=== PATIENT | male | born 1945 | race Caucasian/White ===

== ENCOUNTER 2025-05-05 10:24 | Emergency (ER) | payer MEDICARE, SELFPAY ==
[2025-05-05 10:27] VITALS: BP 133/83; PULSE 72; RESP 14; TEMP 36.8; O2SAT 98; BMI 25.7
--- NOTE | 2025-05-05 10:53 | VDLE_ITS ---
Reason For Study Reason For Study: RLE PAin RIGHT GSV is normal. CFV is compressible, spontaneous, phasic, competent and demonstrates normal augmentation. FV is compressible, spontaneous, phasic, competent and demonstrates normal augmentation. POP V is compressible, spontaneous, phasic, competent and demonstrates normal augmentation. T/P Trunk is compressible. PTV is compressible. RT PerV is compressible. Procedure This is a venous duplex using B-mode, color flow and spectral Doppler. Exam performed portable in ED. The exam was diagnostic. A preliminary report was called and/or faxed to Dr. Rodriguez. VL/Venous Duplex US, Unilateral Interpretation Summary Deep veins of the right lower extremity are patent and compressible segmentally . There is no evidence of right lower extremity deep vein thrombosis. Valvular competence appears intact within the p roximal deep venous system on the right . The right great saphenous vein appears patent and compressible segmentally. Ordering Physician: George Rodriguez Referring Physician: N/A Performed By: Yonis Moss RVT
--- NOTE | 2025-05-05 11:48 | RAD_ITS ---
PROCEDURE: ANKLE MIN 3 VIEWS 05/05/2025 REASON FOR EXAM: PAIN TECHNIQUE: Procedure Code: RADANK Modality: DX Procedure: ANKLE MIN 3 VIEWS Laterality: Right COMPARISON: Tibiofibula x-ray of the same day FINDINGS: Bones: No fracture. 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 Soft tissues: Atherosclerosis Other: No foreign body RAD/Ankle min 3 Views IMPRESSION: 1. No fracture. Degenerative changes. Reading Location: [id number]
--- NOTE | 2025-05-05 11:48 | RAD_ITS ---
PROCEDURE: TIBIA FIBULA 2 VIEWS 05/05/2025 REASON FOR EXAM: TRAUMA TECHNIQUE: 2 views of the right tibia and fibula COMPARISON: Ankle series of the same day FINDINGS: Image was reviewed in combination with the ankle series that included the distal tibia and fibula. Bones: No fracture Soft tissues: Atherosclerosis. Other: No foreign body RAD/Tibia & Fibula 2 Views IMPRESSION: No acute abnormality. Advanced atherosclerosis. Reading Location: [id number]
[2025-05-05 12:27] VITALS: BP 147/55; PULSE 55; RESP 17; TEMP 36.9; O2SAT 97
--- NOTE | 2025-05-05 12:29 | ED.VIS.FALL ---
HPI HPI - Fall History of Present Illness Chief Complaint: Fall Narrative Narrative: 79-year-old male presents with his friend because of injury to his right lower extremity on the anterior tibial area that he sustained a few days ago. He states that last week he was walking up concrete stairs in his garage and took a chunk of skin out of his right anterior tibial area. He states he went to clean it, and removed some red thin skin. He was unsure if his avulsion laceration went all the way down to the bone. He has noticed foot swelling over the last week surrounded by redness to his wound. He states he also had a fall a few days ago where he hit his head. While he states he takes a blood thinner he cannot recall when he takes it for, or which 1. He is concerned about his foot and ankle swelling. As well as his avulsion laceration which has redness around it. He denies any fevers or chills, no nausea or vomiting, no other injuries. He states that he went to urgent care today and they refused to take an x-ray of it because of his head injury. [facility] Medical History (Updated 05/05/25 @ 13:22 by George Rodriguez MD) Depression HTN (hypertension) Hyperlipidemia Home Medications ?Medication ?Instructions ?Recorded ?Last Taken ?Type amoxicillin 875 mg-potassium 1 tab PO BID #14 tabs 05/05/25 Unknown Rx clavulanate 125 mg tablet atorvastatin 40 mg tablet 40 mg PO QHS 05/05/25 Unknown History metoprolol succinate 25 mg 25 mg PO DAILY 05/05/25 Unknown History tablet,extended release 24 hr sertraline 50 mg tablet 50 mg PO DAILY 05/05/25 Unknown History Allergy/AdvReac Type Severity Reaction Status Date / Time No Known Allergies Allergy Verified 05/05/25 10:27 Social History Smoking Status: Never smoker ROS ROS ED ROS Narrative Review of systems positive for wound to right anterior tibial area sustained approximately a week ago. Positive swelling of right ankle since then. Pain in ankle worse with walking and weightbearing. No fevers or chills, no drainage or pus from wound. No headache. No neck pain. No chest pain or shortness of breath. EXAM Physical Exam Narrative Exam Narrative: GCS 15. ABCs intact. Head normocephalic atraumatic. PERRL, EOMI. Neck soft and supple without meningismus. Full range of motion without pain. Cardiovascular examination reveals a regular rate and rhythm. Lungs clear to auscultation bilaterally. Abdomen soft and nontender with normoactive bowel sounds. Inspection of the right anterior tibial area does show a 1 cm avulsion laceration without active bleeding with mild surrounding erythema, no fluctuance. Full range of motion of right ankle with noted swelling diffusely. No calf tenderness, no palpable cord. Palpable dorsalis pedis pulse. Neurological examination nonfocal, nonlateralizing. Const Vital Signs: 05/05/25 10:27 05/05/25 12:27 05/05/25 12:38 Temperature 98.2 F 98.4 F Temperature Source Temporal Oral Pulse Rate 72 55 L Respiratory Rate 14 17 Respiratory Effort Normal Non-Labored Respiratory Depth Normal Respiratory Pattern Normal Blood Pressure 133/83 H 147/55 H Blood Pressure Mean 99 85 Pulse Ox 98 97 Oxygen Delivery Method Room Air Room Air Room Air 05/05/25 13:00 Temperature 97.8 F Temperature Source Oral Pulse Rate 57 L Respiratory Rate 15 Respiratory Effort Respiratory Depth Respiratory Pattern Blood Pressure 131/77 H Blood Pressure Mean 95 Pulse Ox 94 Oxygen Delivery Method Room Air MDM MDM MDM Narrative Medical decision making narrative: Differential diagnosis includes but not limited to ankle sprain versus fracture versus wound infection. I have lower suspicion for DVT, but the patient cannot recall which blood thinner he may take or why. In order to rule out DVT, I obtained an ultrasound of the right lower extremity which shows no evidence of DVT according to the mixing technician. I ordered x-rays of the right tibia and fibula to look for any fracture of the bone or the anterior tibial area mainly. On my individual interpretation, there is no evidence of an acute fracture. Patient was mildly insistent that he needed dedicated ankle films, even though he was told that the tibia and fibula include the ankle bones. On my individual interpretation of the ankle x-rays there is no evidence of fracture but degenerative changes. He may have pain and swelling secondary to arthritis. I reviewed the radiology report which confirms my independent interpretation. At this point in time, I do not feel he requires laboratory work and I feel he can be discharged to follow-up with his primary care provider. I offered to wrap his right ankle with an Don wrap, but he declined. He was concerned about infection around the room and given the hyperemia/erythema he was started on Augmentin for the next 7 days. He can have a wound check by his primary care provider. Return instructions to the emergency department were reviewed. Disposition is discharged home in stable condition. History & Record Review Discussion w/independent historian: Patient and Friend Additional record(s) reviewed:: No prior records (No prior ED visits) Radiography Diagnostic Testing: Clinical Impression(s) from Imaging Studies Ankle X-Ray 05/05/25 11:48 IMPRESSION: 1. No fracture. Degenerative changes. Reading Location: [facility] Tibia/Fibula X-Ray 05/05/25 11:48 IMPRESSION: No acute abnormality. Advanced atherosclerosis. Reading Location: [facility] Discharge Plan Triage Chief Complaint: Fall ED Provider: George Rodriguez Dx/Rx/DC Orders Clinical Impression: Avulsion of skin of right lower leg, Right ankle swelling Instructions: ED Peripheral Edema, Unilateral, ED Fall Prevention Prescriptions: New amoxicillin-pot clavulanate 875-125 mg tablet 1 tab PO BID Qty: 14 0RF No Action atorvastatin 40 mg tablet 40 mg PO QHS metoprolol succinate 25 mg tablet extended release 24 hr 25 mg PO DAILY sertraline 50 mg tablet 50 mg PO DAILY Activity Restrictions/Additional Instructions: Follow-up with your primary care provider in the next 7 to 10 days. Return to the emergency department with fever, drainage of pus from wound, new or worsening symptoms. Your ultrasound was negative today for DVT. Print Language: Chinese Disposition Disposition: Home, Self Care
[2025-05-05 13:00] VITALS: BP 131/77; PULSE 57; RESP 15; TEMP 36.6; O2SAT 94
[2025-05-05 13:39] VITALS: BP 166/78; PULSE 54; RESP 18; TEMP 36.1; O2SAT 100
== END 2025-05-05 13:40 | disposition home or self-care (01) ==
PROVIDERS: Emergency Provider Emergency Medicine; Visit Provider Emergency Medicine
DX: S81.801A Unspecified open wound, right lower leg, initial encounter (principal); M79.89 Other specified soft tissue disorders; I10 Essential (primary) hypertension; E78.5 Hyperlipidemia, unspecified; F32.A Depression, unspecified; Z79.899 Other long term (current) drug therapy; X58.XXXA Exposure to other specified factors, initial encounter
CPT/HCPCS: 73590; 73610; 93971; 99282; A4216

== ENCOUNTER → 2025-05-07 | Outpatient (CLI) | payer MEDICARE, SELFPAY ==
--- NOTE | 2025-05-07 16:12 | CT_ITS ---
PROCEDURE: BRAIN/HEAD WITHOUT CONTRAST 05/07/2025 REASON FOR EXAM: TRAUMA/SUBSEQUENT ENCOUNTER TECHNIQUE: Procedure Code: CTBR Modality: CT Procedure: BRAIN/HEAD WITHOUT CONTRAST Coronal and Sagittal reconstruction series were provided. One or more dose reduction techniques were used (e.g., Automated exposure control, adjustment of the mA and/or kV according to patient size, use of iterative reconstruction technique. COMPARISON: None available. FINDINGS: There is no extra-axial or intra-axial intracranial hemorrhage. No mass effect or midline shift is seen. Generalized intracranial volume loss and findings compatible with chronic microvascular white matter ischemia. There is normal lei-white matter differentiation. The posterior fossa is grossly unremarkable. The skull is unremarkable. Visualized paranasal sinuses are clear. The mastoid air cells show normal translucency. CT/Brain/Head without Contrast IMPRESSION: 1. No intracranial hemorrhage. No mass effect or midline shift. 2. 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 Reading Location: [facility]
== END | disposition home or self-care (01) ==
LOC: CT 15:39
PROVIDERS: PCP Family Medicine; Referring Provider Family Medicine; Visit Provider Family Medicine
DX: S09.90XD Unspecified injury of head, subsequent encounter (principal); X58.XXXD Exposure to other specified factors, subsequent encounter
CPT/HCPCS: 70450

== ENCOUNTER 2025-08-25 22:09 | Emergency (ER) | payer MEDICARE, SELFPAY ==
[2025-08-25 22:11] VITALS: BP 168/91; PULSE 69; RESP 22; TEMP 36.1; O2SAT 100
--- NOTE | 2025-08-25 22:45 | CT_ITS ---
PROCEDURE: CT SPINE CERVICAL WITHOUT CONTRAST 08/25/2025 REASON FOR EXAM: FALL, HIT HEAD TECHNIQUE: Procedure Code: CTS Modality: CT Procedure: SPINE CERVICAL WITHOUT CONTRAS Coronal and Sagittal reconstruction series were provided. One or more dose reduction techniques were used (e.g., Automated exposure control, adjustment of the mA and/or kV according to patient size, use of iterative reconstruction technique. RADIATION DOSE SUMMARY: CTDlvol: 21.85 mGy DLP: 481.6 mGycm COMPARISON: None. FINDINGS: No acute fracture or subluxation. Positional and/or degenerative straightening of the cervical lordosis. Mild multilevel spondylotic changes with varying degrees of disc space narrowing, small Schmorl's nodes and/or subchondral cysts, anterior osteophytosis, uncovertebral spurring and hypertrophic facet arthropathy. No prevertebral soft tissue swelling. Atherosclerotic vascular calcifications. CT/Spine Cervical without Contras IMPRESSION: No acute fracture or subluxation. Degenerative changes as described. Reading Location: [id number]
--- NOTE | 2025-08-25 22:45 | CT_ITS ---
PROCEDURE: BRAIN/HEAD WITHOUT CONTRAST 08/26/2025 REASON FOR EXAM: FELL HIT HEAD TECHNIQUE: Procedure Code: CTBR Modality: CT Procedure: BRAIN/HEAD WITHOUT CONTRAST Coronal and Sagittal reconstruction series were provided. One or more dose reduction techniques were used (e.g., Automated exposure control, adjustment of the mA and/or kV according to patient size, use of iterative reconstruction technique. RADIATION DOSE SUMMARY: CTDI Vol 44.99 mGy DLP :846.73 mGycm COMPARISON: 07-May-2025 FINDINGS: Bilateral cerebral subcortical and periventricular white matter hypodensities, suggestive of chronic small vessel ischemia. Lane-white matter differentiation is maintained. Normal CT appearance of the posterior fossa structures. No intracerebral or extra axial hemorrhage. Dilated ventricular system, cortical sulci and extra-axial CSF spaces. No definite calvarial fractures. No midline shifts or deformity. The osseous structures in the skull base are unremarkable. Paranasal sinuses are unremarkable. Vascular atheromatous calcifications. CT/Brain/Head without Contrast IMPRESSION: No acute territorial cerebrovascular abnormalities. If clinical symptoms persis t, further evaluation with MRI may be considered as clinically warranted. No intra or extra-axial acute hemorrhage. Bilateral cerebral microvascular ischemic changes with brain involutional gn es. No interval changes. Reading [facility]
--- NOTE | 2025-08-25 22:50 | ED.VIS.FALL ---
HPI HPI - Fall History of Present Illness Chief Complaint: Fall Narrative Narrative: Patient is a 80-year-old male presenting to emergency department after a fall. 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 Patient states this is his baseline, no changes. Patient states he hit his head, no LOC. He is on aspirin. He denies neck or back pain. Denies hip, extremity pain. He is unsure when his last tetanus vaccine was. Endorses a laceration to his left eyebrow. [facility] Medical History Depression HTN (hypertension) Hyperlipidemia Home Medications ?Medication ?Instructions ?Recorded ?Last Taken ?Type atorvastatin 40 mg tablet 40 mg PO QHS 05/05/25 Unknown History metoprolol succinate 25 mg 25 mg PO DAILY 05/05/25 Unknown History tablet,extended release 24 hr sertraline 50 mg tablet 50 mg PO DAILY 05/05/25 Unknown History aspirin 81 mg tablet 81 mg PO DAILY 08/25/25 Unknown History Allergy/AdvReac Type Severity Reaction Status Date / Time No Known Allergies Allergy Verified 08/25/25 22:12 Social History Smoking Status: Never smoker ROS ROS ED ROS Narrative see HPI EXAM Physical Exam Narrative Exam Narrative: Vital signs: Reviewed General: Alert and orientedx3. No acute distress. Well appearing, nontoxic. HEENT: Head is normocephalic. There is a 3 cm irregular laceration to below the left eyebrow. There is left sided periorbital ecchymosis mainly on the lateral side. Extraocular movements are intact. No proptosis. No conjunctival injection or hemorrhage. Sinuses nontender, pupils equal round and reactive. There is an abrasion to the left lower chin, no laceration or tenderness. Nares are patent. No septal hematoma. Oropharynx and throat exams normal. No oropharyngeal trauma. Normal external ears and TMs bilaterally. Neck: Supple without lymphadenopathy nontender. No midline cervical spinal tenderness to palpation. No step-offs or deformities. Cardiovascular: Regular rate and rhythm, no murmurs. No rubs or gallops. Normal S1 and S2 Respiratory: Clear to auscultation bilaterally. No wheezes, rales, rhonchi Chest: Chest wall is atraumatic and nontender to palpation. No crepitus, erythema or ecchymosis. Abdominal: Soft and nontender. Normal bowel sounds. No guarding or rebound. Nonsurgical abdomen Extremities: Hips are stable and nontender to palpation. Extremities are atraumatic and nontender to palpation with normal active range of motion. No midline thoracic or lumbar spinal tenderness to palpation. No step-offs or deformities. No bruising. Normal sensation. Neurological: Cranial nerves II through XII are grossly intact. Normal strength and sensation. Normal cerebellar function. Normal ambulation and gait upon walking to bathroom. The rest of the physical exam is unremarkable Const Vital Signs: 08/25/25 22:11 08/25/25 23:06 08/25/25 23:58 Temperature 97 F L 97.3 F L Temperature Source Temporal Pulse Rate 69 68 Respiratory Rate 22 H 18 Respiratory Effort Normal Non-Labored Respiratory Depth Normal Respiratory Pattern Normal Blood Pressure 168/91 H 152/74 H Blood Pressure Mean 116 100 Pulse Ox 100 100 Oxygen Delivery Method Room Air Room Air MDM MDM MDM Narrative Medical decision making narrative: Patient is a 80-year-old male presenting to the emergency department after a fall. Patient was seen and examined. Vitals are stable. Patient resting in bed comfortably no acute distress. Patient is only on aspirin and did not lose consciousness. He has no traumatic findings other than the facial findings seen on physical exam and noted in my note. Given his age and evidence of head trauma we will obtain a CT brain and cervical spine. He has no tenderness to palpation of the midface or around the laceration or abrasion, I do not think he needs CT imaging of his facial bones. He has normal vision in his left eye, no changes from baseline. No evidence of orbital trauma on exam. Normal extraocular movements. No physical exam findings that warrant x-ray imaging of any of the extremities or hips. Patient ambulated here and states he feels at his baseline. 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 CT of the brain and cervical spine are negative for any acute abnormalities. Tetanus was updated. Wound was copiously irrigated by myself. 2% lidocaine with epinephrine was injected around the wound for anesthetic. 4 5.0 Etilon sutures were placed in simple interrupted fashion with no immediate complications. Patient tolerated well. He was given wound care instructions which included keeping the wound clean and dry and having the sutures removed in 5 to 7 days either here or by his primary care doctor. Patient discharged from the Emergency Department. I do not feel that the patient's evaluation reveals any acute reason for admission at this time. I instructed them to either follow-up with their primary care physician or promptly return to the Emergency Department for reevaluation should symptoms worsen or new symptoms develop. I explained what symptoms would indicate the need to return to the emergency department. Shared decision making was used. The patient voiced understanding of the treatment plan and is agreeable with it. Clinical impression: Fall Facial laceration Abrasion of face Periorbital ecchymosis of left eye History & Record Review Discussion w/independent historian: Patient and Family Radiography Diagnostic Testing: Clinical Impression(s) from Imaging Studies Brain CT 08/25/25 22:45 IMPRESSION: No acute territorial cerebrovascular abnormalities. If clinical symptoms persist, further evaluation with MRI may be considered as clinically warranted. No intra or extra-axial acute hemorrhage. Bilateral cerebral microvascular ischemic changes with brain involutional changes. No interval changes. Reading Location: [place] [id number] 08/25/25 22:45 IMPRESSION: No acute fracture or subluxation. Degenerative changes as described. Reading Location: [id number] Discharge Plan Triage Chief Complaint: Fall ED Provider: Kathie Soliman Dx/Rx/DC Orders Clinical Impression: Fall, Facial laceration, Periorbital ecchymosis of left eye, Abrasion of face Instructions: ED Abrasion, ED Facial Contusion, ED Laceration, All Closures, ED Fall Prevention Prescriptions: No Action aspirin 81 mg tablet 81 mg PO DAILY atorvastatin 40 mg tablet 40 mg PO QHS metoprolol succinate 25 mg tablet extended release 24 hr 25 mg PO DAILY sertraline 50 mg tablet 50 mg PO DAILY Primary Care Provider: Juan Carlos Petersen Referrals: Juan Carlos Petersen MD [Primary Care Provider, Family Practice] - 5-7 Days Activity Restrictions/Additional Instructions: You need to have the sutures removed in 5-7 days. Watch for signs of infection which include redness, warmth, swelling or drainage. Take Tylenol over the next few days for pain and swelling. You can apply ice to your cut and eye to help with swelling. Your evaluation in the Emergency Department did not reveal any acute reason for admission. However, I want to emphasize that you may be early in the course of a disease process or illness even if it is not present. For this reason you should follow-up within 24 hours for reevaluation with either your primary care physician or if necessary back here in the Emergency Department. You should return to the Emergency Department immediately if your symptoms worsen or new symptoms develop. Print Language: Croatian Disposition Disposition: Home, Self Care Discharge Date/Time: 08/26/25 00:13
[2025-08-25 23:04] VITALS: BMI 27.6
[2025-08-25] MEDS: Lidocaine 2% /Epi 1:100 (20ml) 20 ML VIAL 10 ML INFILT (23:04)
--- OUTSIDE RECORDS SUMMARY | 2025-08-25 23:07 | XMS RPT_ITS | CCD ---
Author Organization [facility] Care Team Providers Care Business Banking Relationship Manager Name Role Phone TU SANTAMARIA Admitting Unavailable TU SANTAMARIA Attending Unavailable TU SANTAMARIA Primary Care Unavailable Quincy Moreira MD Primary Care Provider Quincy Moreira MD Primary Care Provider Elijah Garzon DO Unavailable [phone] Vinod Sky DO Unavailable [phone] Columba Lees DO Unavailable Quincy Moreira MD Unavailable Raul Moreira MD Unavailable [phone] Raji Tsai MD Unavailable [phone] Smith Vargas DO Unavailable [phone] [facility] [place], [place] Unavailable Shlomo May DO Unavailable Antonia Ray RN Unavailable Unavailable Quincy Moreira MD Primary Care Provider Elijah Garzon DO Unavailable [phone] Vinod Sky DO Unavailable [phone] Columba Lees DO Unavailable Quincy Moreira MD Unavailable [phone] Raul Moreira MD Unavailable [phone] Raji Tsai MD Unavailable [phone] Smith Vargas DO Unavailable [phone] [place], [place] Unavailable Lalo DO, Shlomo K Unavailable Flor BANEGAS, Antonia Unavailable Unavailable Flor BANEGAS, Antonia Unavailable Unavailable Elijah Garzon DO Unavailable Vinod Sky DO Unavailable Columba Lees DO Unavailable Harish YOUSIF, Quincy Menon Unavailable Raul Moreira MD Unavailable uElalio YOUSIF, Raji Lancaster Unavailable Smith Vargas DO Unavailable [phone] Lalo DO, Shlomo K Unavailable Flor BANEGAS, Antonia Unavailable Unavailable Quincy Moreira MD Primary Care Provider EMILEE, CAROLINE Referring Unavailable HARISH, QUINCY B Primary Care Unavailable HARISH, QUINCY B Referring Unavailable HARISH, QUINCY B Primary Care Unavailable HARISH, QUINCY B Referring Unavailable LILIANE KRISHNAN Attending Unavailable HARISH, QUINCY B Primary Care Unavailable HARISH, QUINCY B Referring Unavailable EMILEE, CAROLINE Attending Unavailable HARISH, QUINCY B Primary Care Unavailable EMILEE, CAROLINE Referring Unavailable HARISH, QUINCY B Primary Care Unavailable Sonu Petersen MD Primary Care Provider Podlogar LINEN WORKER.Yamilex AVILA Unavailable Knoble LINEN WORKER.SURGICAL CORSETIER, Elle Unavailable Knoble LINEN WORKER.SURGICAL CORSETIER, Elle Unavailable George Rodriguez MD Emergency Provider [phone] George Rodriguez MD Attending Physician George Rodriguez MD Emergency Department Physician Meet YOUSIF, Dr. Gigi Vasquez Attending Physician George Rodriguez MD Referring Provider [phone] Juan Carlos Petersen MD Primary Care Physicia n Trinity YOUSIF, Dr. Rangel Attending Physician Trinity YOUSIF, Dr. Rangel Referring Provider George Rodriguez Attending Unavailable Bursley, Juan Carlos Primary Care Unavailable Bursley, Juan Carlos Attending Unavailable Bursley, Juan Carlos Referring Unavailable BURSLEY, CHRISTOPHER Primary Care Unavailable BURSLEY, CHRISTOPHER Referring Unavailable GOLIAS, ADAN Attending Unavailable BURSLEY, CHRISTOPHER Primary Care Unavailable BURSLEY, CHRISTOPHER Referring Unavailable BURSLEY, CHRISTOPHER Primary Care Unavailable BURSLEY, CHRISTOPHER Primary Care Unavailable BURSLEY, CHRISTOPHER Attending Unavailable BURSLEY, CHRISTOPHER Primary Care Unavailable BURSLEY, CHRISTOPHER Referring Unavailable BURSLEY, CHRISTOPHER Primary Care Unavailable MILENA BAE Attending Unavailable BURSLEY, CHRISTOPHER Primary Care Unavailable BURSLEY, CHRISTOPHER Attending Unavailable BURSLEY, CHRISTOPHER Primary Care Unavailable SLEIK, SUZANALEMariana MELOUD Referring Unavailable SLEIK, SHUBHAM TOLENTINOD Attending Unavailable BURSLEY, CHRISTOPHER Primary Care Unavailable BURSLEY, CHRISTOPHER Attending Unavailable BURSLEY, CHRISTOPHER Primary Care Unavailable SELF Referring Unavailable SLEIK, KHALEMariana MELSEAND Attending Unavailable BURSLEY, CHRISTOPHER Primary Care Unavailable BURSLEY, CHRISTTULIO Attending Unavailable JONELLE NOEL Attending Unavailable BURSLEY, CHRISTOPHER Primary Care Unavailable BURSLEY, CHRISTOPHER Primary Care Unavailable YAMILEX MELENDEZ Attending Unavailable BURSLEY, CHRISTOPHER Primary Care Unavailable BURSLEY, CHRISTOPHER Referring Unavailable GOLIAS, ADAN Attending Unavailable ELIANA SHEARER Attending Unavailable BURSLEY, CHRISTOPHER Primary Care Unavailable BURSLEY, CHRISTOPHER Primary Care Unavailable BURSLEY, CHRISTOPHER Attending Unavailable BURSLEY, CHRISTOPHER Primary Care Unavailable BURSLEY, CHRISTOPHER Referring Unavailable GOLIAS, ADAN Attending Unavailable BURSLEY, CHRISTOPHER Primary Care Unavailable BURSLEY, CHRISTOPHER Referring Unavailable BURSLEY, CHRISTOPHER Primary Care Unavailable BURSLEY, CHRISTOPHER Referring Unavailable GOLIAS, ADAN Attending Unavailable BURSLEY, CHRISTOPHER Primary Care Unavailable BURSLEY, CHRISTOPHER Referring Unavailable GOLIAS, ADAN Attending Unavailable BURSLEY, CHRISTOPHER Primary Care Unavailable BURSLEY, CHRISTOPHER Referring Unavailable GOLIAS, ADAN Attending Unavailable Allergies Allergy Classification Reported Allergen(s) Allergy Type Date of Onset Reaction(s) Facility (20 sources) Seasonal allergy; Translations: [SEASONAL ALLERGIES] Propensity to adverse reactions Other: See Comments [facility] Work Phone: Medications Current Medications Medication Drug Class(es) Dates Sig (Normalized) Sig (Original) aspirin 81 mg delayed release oral tablet (20 sources) Platelet Aggregation Inhibitor, Nonsteroidal Anti-inflammatory Drug Start: 09-19-2024 take 1 tablet by mouth once daily aspirin, enteric coated (ECOTRIN LOW STRENGTH) 81 mg EC tablet Take 1 tablet by mouth once daily. 09/19/2024 Active End: 08-01-2022 take 1 tablet by mouth once daily aspirin, enteric coated (ASPIRIN, ENTERIC COATED) 81 mg EC tablet Take 81 mg by mouth once daily. 0 08/01/2022 Discontinued Comment on above: Take 81 mg by mouth once daily. atorvastatin 40 mg oral tablet (20 sources) HMG-CoA Reductase Inhibitor Start: 05-05-2025 take 1 tablet by mouth at bedtime Start: 11-06-2021 End: 10-13-2024 take 1 tablet by mouth once daily at bedtime atorvastatin (LIPITOR) 40 mg tablet Indications: Coronary artery disease due to lipid rich plaque Take 1 tablet by mouth daily at bedtime. 90 tablet 3 10/13/2024 Active Comment on above: TAKE 1 TABLET BY DEVANTE TH AT BEDTIME Take 1 tablet by devante th daily at bedtime. diphenhydrAMINE hydrochloride 25 mg oral capsule (10 sources) Histamine-1 Receptor Antagonist Start: 10-13-19 take 1 capsule by mouth every six hours as needed diphenhydrAMINE (SLEEP AID, DIPHENHYDRAMINE,) 25 mg capsule Take 1 capsule by mouth every 6 hours as needed. 10/13/2024 Active docosahexaenoic acid/epa (FISH OIL ORAL) (20 sources) take 2000 mg by mouth once daily docosahexaenoic acid/epa (FISH OIL ORAL) Take 2,000 mg by mouth once daily. Active End: 08-01-2022 docosahexaenoic acid/epa (FI SH OIL ORAL) Take by mouth. 0 08/01/2022 Discontinued docosahexaenoic acid/epa (FISH OIL ORAL) Take by mouth. 0 Active Comment on above: Take by mouth. doxycycline monohydrate 100 mg oral tablet (3 sources) Tetracycline-class Drug Start: 07-28-20 End: 08-04-20 take 1 tablet by mouth every twelve hours doxycycline monohydrate 100 mg tablet Take 1 tablet by mouth every 12 hours for 7 days. 14 tablet 0 07/28/2022 08/04/2022 Active Comment on above: Take 1 tablet by devante th every 12 hours for 7 days. fluticasone propionate 0.05 mg/actuat metered dose nasal spray (1 source) Corticosteroid Start: 04-24-20 End: 05-15-20 take 1 spray(s) nasal route twice daily fluticasone (FLONASE) 50 mcg/actuation nasal spray Indications: Acute pharyngitis, unspecified etiology , Post-nasal drainage Use 1 Edwards in each nostril twice daily for 21 days. 1 Each 0 04/24/2023 05/15/2023 Active Comment on above: Use 1 Edwards in each nostril twice daily for 21 days. ginkgo biloba extract 60 mg oral capsule (2 sources) End: 10-13-19 take 60 mg by mouth once daily ginkgo biloba (GINKGO ORAL) Take 60 mg by mouth once daily. 10/13/2024 Discontinued (Course of therapy completed) take 60 mg by mouth once daily g inkgo biloba (GINKGO ORAL) Take 60 mg by mouth once daily. Active methylPREDNISolone (2 sources) Corticosteroid Start: 07-28-2022 End: 08-03-2022 methylPREDNISolone (MEDROL, GINNY,) 4 mg Dose-Pack Follow dosing instructions, take with food. 21 tablet 0 07/28/2022 08/03/2022 Active Comment on above: Follow dosing instru ctions, take with food. 24 hr metoprolol succinate 25 mg extended release oral tablet (20 sources) beta-Adrenergic Baron Start: 05-05-2025 take 1 tablet by mouth once daily Start: 05-17-2021 End: 12-08-2024 take 1 tablet by mouth once daily metoprolol succinate ER (TOPROL XL) 25 mg 24 hr tablet Indications: Coronary artery disease due to lipid rich plaque Take 1 tablet by mouth once daily. 90 tablet 3 12/08/2024 Active Comment on above: Take 1 tablet by devante th once daily. nirmatrelvir tablet 300 mg (150 mg x 2) and ritonavir tablet 100 mg in a dose pack (PAXLOVID) (1 source) Start: 10-03-2022 End: 10-08-2022 nirmatrelvir tablet 300 mg (150 mg x 2) and ritonavir tablet 100 mg in a dose pack (PAXLOVID) Indications: COVID-19 Administer TWO pink nirmatrelvir 150 mg tablets and ONE white ritonavir 100 mg tablet for a total of three tablets twice daily. 30 tablet 0 10/03/2022 10/08/2022 Active Comment on above: Administer TWO pink nirmatrelvir 150 mg tablets and ONE white ritonavir 100 mg tablet for a total of three tablets twice daily. perflutren lipid microspheres 1.3 mL in NaCl (PF) 0.9% 10 mL injection (DEFINSERVICEINFINITY) (16 sources) Start: 09-28-2023 End: 10-05-2023 perflutren lipid microspheres 1.3 mL in NaCl (PF) 0.9% 10 mL injection (DEFINITY) Start: 05-17-2021 End: 08-16-2022 perflutren lipid microsphere s 1.3 mL in NaCl (PF) 0.9% 10 mL injection (DEFINITY) sertraline 50 mg oral tablet (15 sources) Serotonin Reuptake Inhibitor Start: 12-18-2024 End: 06-16-2025 take 1 tablet by mouth once daily Start: 09-19-2024 End: 12-08-2024 take 1 tablet by mouth once daily sertraline (ZOLOFT) 50 mg tablet Indications: Grief Take 1 tablet by mouth once daily. 30 tablet 2 12/08/2024 Active 125 ml sodium chloride 9 mg/ ml prefilled syringe (16 sources) Start: 09-28-2023 End: 10-05-2023 sodium chloride 0.9 % (flush ) 10 mL (BD POSIFLUSH) Start: 05-17-2021 End: 08-16-2022 sodium chloride 0.9 % (flush ) 10 mL (BD POSIFLUSH) sulfamethoxazole 800 mg / trimethoprim 160 mg oral tablet (1 source) Dihydrofolate Reductase Inhibitor Antibacterial, Sulfonamide Antimicrobial Start: 05-07-2025 End: 05-14-2025 take 1 tablet by mouth twice daily sulfamethoxazole-trimethoprim (BACTRIM DS) 800-160 mg per tablet Take 1 tablet by mouth two times a day for 7 days. 14 tablet 05/07/2025 05/14/2025 Active Zinc Mth/Copper/Saw Palm/Gnsg (PROSTATE HEALTH FORMULA ORAL) (20 sources) Start: 08-05-2022 take 1 tablet by mouth once daily Zinc Mth/Copper/Saw Palm/Gnsg (PROSTATE HEALTH FORMULA ORAL) Take 1 tablet by mouth once daily. 08/05/2022 Active Start: 08-05-2022 take 1 tablet by devante th once daily Zinc Mth/Copper/Saw Palm/Gnsg (PROSTATE HEALTH FORMULA ORAL) Take 1 tablet by mouth once daily. 0 08/05/2022 Active Start: 08-05-2022 Zinc Mth/Coppe r/Saw Palm/Gnsg (PROSTATE HEALTH FORMULA ORAL) Comment on above: Take 1 tablet by devante th once daily. Completed/Discontinued Medications Medication Drug Class(es) Dates Sig (Normalized) Sig (Original) amoxicillin 875 mg / clavulanate 125 mg oral tablet (4 sources) Penicillin-class Antibacterial Start: 05-05-2025 End: 05-07-2025 take 1 tablet by mouth every twelve hours amoxicillin-clavul anate potassium (AUGMENTIN) 875-125 mg per tablet Take 1 tablet by mouth every 12 hours. 05/05/2025 05/07/2025 Discontinued (Course of therapy completed) Start: 05-05-2025 Start: 07-17-2022 End: 07-24-2022 take 1 tablet by mouth twice daily amoxicillin-clavulanic acid (AUGMENTIN) 875-125 mg per tablet Indications: Acute non-recurrent pansinusitis Take 1 tablet by mouth twice daily for 7 days. 14 tablet 0 07/17/2022 07/24/2022 Active Comment on above: Take 1 tablet by devante th twice daily for 7 days. benzonatate 100 mg oral capsule (3 sources) Non-narcotic Antitussive Start: 2 End: 2 take 1 capsule by mouth every eight hours as needed for cough and cough benzonatate (TESSALON PERLE) 100 mg capsule Indications: Acute cough Take 1 capsule by mouth three times daily as needed for cough. 20 capsule 0 07/17/2022 08/01/2022 Discontinued Comment on above: Take 1 capsule by [facility] three times daily as needed for cough. bisacodyl 5 mg delayed release oral tablet (2 sources) Stimulant Laxative Start: 1 End: 2 Bisacodyl (DULCOLAX) 5 mg tab Indications: Screening for colon cancer Use as directed for Miralax / Gatorade Bowel Prep Kit 4 tablet 0 04/20/2021 01/19/2022 Discontinued Comment on above: Use as directed for Miralax / Gatorade Bowel Prep Kit clotrimazole 10 mg/ml topical cream (9 sources) Azole Antifungal Start: 3 End: 4 clotrimazole (LOTRIMIN) 1 % cream Apply 1 application to affected area two times a day. 45 g 08/08/2023 05/23/2024 Discontinued (Course of therapy completed) Comment on above: Apply 1 application to affected area two times a day. Gatorade Sports Drink (2 sources) Start: 1 End: 2 Gatorade Sports Drink Indications: Screening for colon cancer Use as directed for Miralax / Gatorade Bowel Prep Kit 64 oz 0 04/20/2021 01/19/2022 Discontinued Start: 04-20-2021 Gatorade Sport s Drink Indications: Screening for colon cancer Use as directed for Miralax / Gatorade Bowel Prep Kit 64 oz 0 04/20/2021 Active Comment on above: Use as directed for Miralax / Gatorade Bowel Prep Kit homeopathic drugs (PROSTATE ORAL) (13 sources) End: 08-01-2022 homeopathic drugs (PROSTATE ORAL) Take by mouth. 0 08/01/2022 Discontinued homeopathic drug s (PROSTATE ORAL) Take by mouth. 0 Active Comment on above: Take by mouth. ibuprofen 200 mg oral tablet (2 sources) Nonsteroidal Anti-inflammatory Drug End: 022 take 1 tablet by mouth every six hours as needed ibuprofen (MOTRIN) 200 mg tablet Take 200 mg by mouth every 6 hours as needed. 0 01/19/2022 Discontinued Comment on above: Take 200 mg by mouth every 6 hours as needed. iv contrast (will be provided with radiology test) (2 sources) Start: End: inject 1 dose intravenously once iv contrast (will be provided with radiology test) MRI Brain Inject, intravenously, once for 1 dose.No IV access, insert saline lock prior to beginning of sedation, infusion, injection of imaging exam.Discontinue saline lock post exam. If Pt. has a central line or IVAD, may access for administration according to line specific nursing protocol.Once exam is complete flush line and de-access according to line specific nursing protocol in the MR contrast administration guidelines link 1 Each 0 01/17/2022 01/18/2022 Start: 01-17-2022 End: 01-18-2022 inject 1 dose intravenously once iv contrast (will be provided with radiology test) MRI Brain Inject, intravenously, once for 1 dose.No IV access, insert saline lock prior to beginning of sedation, infusion, injection of imaging exam.Discontinue saline lock post exam. If Pt. has a central line or IVAD, may access for administration according to line specific nursing protocol.Once exam is complete flush line and de-access according to line specific nursing protocol in the MR contrast administration guidelines link 1 Each 0 01/17/2022 01/18/2022 Active Comment on above: MRI Brain Inject, in travenously, once for 1 dose.No IV access, insert saline lock prior to beginning of sedation, infusion, injection of imaging exam.Discontinue saline lock post exam. If Pt. has a central line or IVAD, may access for administration according to line specific nursing protocol.Once exam is complete flush line and de-access according to line specific nursing protocol in the MR contrast administration guidelines link meclizine hydrochloride 12.5 mg oral tablet (13 sources) Antiemetic Start: 07-30-20 End: 08-01-20 meclizine (ANTIVERT) 12.5 mg tab melatonin 1 mg oral tablet (20 sources) End: 09-19-19 take 0.5-1 mg by mouth every twenty-four hours as needed melatonin 1 mg tablet Take 0.5-1 mg by mouth at bedtime as needed for insomnia. 09/19/2024 Discontinued (Course of therapy completed) End: 08-01-2022 Melatonin 5 mg cap Take by m outh. 0 08/01/2022 Discontinued Comment on above: Take by mouth. Take 0.5-1 mg by devante th at bedtime as needed for insomnia. polyethylene glycol 3350 16638 mg powder for oral solution (2 sources) Osmotic Laxative Start: 04-20-2021 End: 01-19-2022 polyethylene glycol 3350 (MIRALAX, GLYCOLAX) 17 gram/dose powder Indications: Screening for colon cancer Use as directed for Miralax / Gatorade Bowel Prep Kit 238 g 0 04/20/2021 01/19/2022 Discontinued Comment on above: Use as directed for Miralax / Gatorade Bowel Prep Kit triamcinolone acetonide 1 mg/ml topical cream (8 sources) Corticosteroid Start: 09-14-2023 End: 05-23-2024 triamcinolone acetonide (KENALOG) 0.1 % cream Apply to affected area twice a day for 1-2 weeks off an on only as needed 60 g 2 09/14/2023 05/23/2024 Discontinued (Course of therapy completed) Comment on above: Apply to affected ar ea twice a day for 1-2 weeks off an on only as needed Problems Active Problems Problem Classification Problem Date Documented Da te Episodic/Chronic Acute bronchitis (1 source) Acute bronchitis; Translations: [Acute bronchitis, unspecified] Episodic Acute cerebrovascular disease (20 sources) Cerebellar infarction; Translations: [Cerebral infarction, unspecified] Onset: 08-08-2023 08-08-2023 Chronic Adjustment disorders (16 sources) Grief finding; Translations: [Adjustment disorder with depressed mood] Onset: 05-23-2024 05-23-2024 Chronic Chronic obstructive pulmonary disease and bronchiectasis (1 source) Bronchitis; Translations: [Bronchitis, not specified as acute or chronic] Episodic Coronary atherosclerosis and other heart disease (20 sources) Angina pectoris; Translations: [Other forms of angina pectoris] Onset: 08-08-2023 Chronic Deficiency and other anemia (20 sources) Heterozygous thalassemia; 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] Onset: 09-27-2020 10-05-2020 Chronic Deficiency and other anemia (1 source) Iron deficiency anemia; Translations: [Iron deficiency anemia, unspecified] Episodic Deficiency and other anemia (1 source) Microcytic anemia; Translations: [Iron deficiency anemia, unspecified] 05-26-2024 Episodic Diabetes mellitus without complication (3 sources) Hyperglycemia; Translations: [Hyperglycemia, unspecified] Onset: 03-13-2024 11-20-2023 Episodic Disorders of lipid metabolism (15 sources) Hyperlipidemia; Translations: [Hyperlipidemia, unspecified] Onset: 09-28-2023 09-28-2023 Chronic E Codes: Fall (3 sources) Fall in home; Translations: [Unspecified fall, initial encounter] Onset: 05-18-2025 05-26-2024 Episodic Essential hypertension (17 sources) Essential hypertension; Translations: [Essential (primary) hypertension] Onset: 09-28-2023 09-28-2023 Chronic Immunizations and screening for infectious disease (2 sources) Suspected disease caused by 2019-nCoV; Translations: [Suspected COVID-19 virus infection] Onset: 05-18-2025 04-24-2023 Episodic Neoplasms of unspecified nature or uncertain behavior (2 sources) Neoplasm of skin; Translations: [Neoplasm of unspecified behavior of bone, soft tissue, and skin] Episodic Open wounds of extremities (5 sources) Avulsion of skin; Translations: [Unspecified open wound, right lower leg, initial encounter] Onset: 05-11-2025 05-05-2025 Episodic Other acquired deformities (20 sources) Contracture of joint of finger; Translations: [Contracture, left hand] Onset: 08-08-2023 08-08-2023 Chronic Other acquired deformities (1 source) Contracture, left hand; 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] Onset: 08-08-2023 Chronic Other and unspecified benign neoplasm (1 source) Senile angioma; Translations: [Hemangioma of skin and subcutaneous tissue] Episodic Other connective tissue disease (8 sources) Recurrent falls ; Translations: [Repeated falls] Episodic Other connective tissue disease (7 sources) Falls; Translations: [Repeated falls] Onset: 04-24-2025 04-24-2025 Episodic Other connective tissue disease (2 sources) Repeated falls; Translations: [Frequent falls] Onset: 04-24-2025 Episodic Other ear and sense organ disorders (2 sources) Impacted cerumen in left ear; Translations: [Impacted cerumen, left ear] 04-24-2023 Episodic Other eye disorders (1 source) Nystagmus; Translations: [Unspecified nystagmus] 06-16-2024 Chronic Other eye disorders (1 source) Nystagmus present; Translations: [Unspecified nystagmus] 03-17-2025 Chronic Other eye disorders (1 source) Unspecified nystagmus; Translations: [Nystagmus] Onset: 03-17-2025 Chronic Other injuries and conditions due to external causes (3 sources) Injury of head; Translations: [Unspecified injury of head, initial encounter] 05-05-2025 Episodic Other injuries and conditions due to external causes (2 sources) Unspecified injury of head, subsequent encounter; Translations: [Unspecified injury of head, subsequent encounter] Onset: 05-18-2025 Episodic Other injuries and conditions due to external causes (1 source) Unspecified injury of head, initial encounter; Translations: [Injury of head, initial encounter] Onset: 05-05-2025 Episodic Other lower respiratory disease (1 source) Cough; Translations: [Acute cough] 07-30-2024 Episodic Other nervous system disorders (16 sources) Cerebral ventriculomegaly; Translations: [Other specified disorders of brain] 02-19-2024 Chronic Other nervous system disorders (1 source) Other specified disorders of brain; Translations: [Cerebral ventriculomegaly] Onset: 09-19-2024 Chronic Other nervous system disorders (20 sources) Ataxia; Translations: [Ataxia, unspecified] Episodic Other nervous system disorders (11 sources) Impairment of balance; Translations: [Other abnormalities of gait and mobility] Episodic Other nervous system disorders (3 sources) Abnormal gait; Translations: [Unspecified abnormalities of gait and mobility] Episodic Other non-traumatic joint disorders (2 sources) Swollen ankle region; Translations: [Effusion, right ankle] 05-05-2025 Episodic Other skin disorders (1 source) Seborrheic keratosis; Translations: [Other seborrheic keratosis] Episodic Other skin disorders (1 source) Lentiginosis; Translations: [Other melanin hyperpigmentation] Episodic Other skin disorders (1 source) Actinic keratosis; Translations: [Actinic keratosis] Episodic Other skin disorders (1 source) Finding of head region; Translations: [Localized swelling, mass and lump, head] 01-12-2025 Episodic Other upper respiratory disease (1 source) Allergic rhinitis; Translations: [Allergic rhinitis, unspecified] 01-12-2025 Chronic Other upper respiratory disease (1 source) Allergic rhinitis, unspecified; Translations: [Allergic rhinitis, unspecified seasonality, unspecified trigger] Onset: 01-12-2025 Chronic Residual codes; unclassified (4 sources) Amnesia; Translations: [Other amnesia] Episodic Skin and subcutaneous tissue infections (2 sources) Cellulitis of skin; Translations: [Cellulitis, unspecified] Onset: 05-18-2025 05-07-2025 Episodic Spondylosis; intervertebral disc disorders; other back problems (1 source) Spinal stenosis in cervical region; Translations: [Spinal stenosis, cervical region] Episodic Unclassified (1 source) OPENED IN ERROR 06-18-2024 Viral infection (1 source) Disease caused by 2019-nCoV; Translations: [COVID-19] Episodic Past or Other Problems Problem Classification Problem Date Documented Date Episodic/Chronic Abdominal hernia (20 sources) Bilateral inguinal hernia; Translations: [Bilateral inguinal hernia, without obstruction or gangrene, not specified as recurrent] Onset: 09-21-2020 10-05-2020 Episodic Conditions associated with dizziness or vertigo (20 sources) Vertigo; Translations: [Dizziness and giddiness] Onset: 09-21-2020 Resolved: 11-08-2023 09-21-2020 Episodic Lymphadenitis (2 sources) Lymphadenopathy; Translations: [Enlarged lymph nodes, unspecified] Onset: 01-10-2025 01-10-2025 Episodic Malaise and fatigue (2 sources) Fatigue; Translations: [Other fatigue] Onset: 01-10-2025 01-10-2025 Episodic Nonspecific chest pain (20 sources) Chest pain; Translations: [Chest pain, unspecified] Onset: 04-11-2021 04-11-2021 Episodic Other nervous system disorders (20 sources) Spinal cord disease; Translations: [Disease of spinal cord, unspecified] Onset: 08-08-2023 Resolved: 11-08-2023 Chronic Other nervous system disorders (1 source) Ataxia, unspecified; Translations: [Ataxia] Onset: 05-23-2024 Episodic Other screening for suspected conditions (not mental disorders or infectious disease) (12 sources) Encounter for screening for cardiovascular disorders; Translations: [Patient encounter status] Onset: 06-01-2020 Episodic Other skin disorders (1 source) Localized swelling, mass and lump, head; Translations: [Localized swelling, mass and lump, head] Onset: 01-12-2025 Episodic Other upper respiratory infections (4 sources) Acute pharyngitis; Translations: [Acute pharyngitis, unspecified] Onset: 01-10-2025 04-24-2023 Episodic Results Test Name Value Interpretation Reference Range [facility]/PT/Speech Visit (PTWS) ESTELLA MCKEON ([id number]) 1945 M Date Time Provider Department 07/07/25 10:45 AM ADAN VALDES PTRC Date Time Provider Department Center 07/07/2025 10:45 AM [id number], BRENT PTRC [facility] Reason for Visit: Physical Therapy [503] PT Discharge [752] Primary Visit Diagnosis:Falling [R29.6] Allergies As of Date: 07/07/2025 Noted Allergy Reaction SEASONAL ALLERGIES 09/27/2020 14 - Other: See Comments Comments: uses OTC prn Date Reviewed: 06/22/2025 Reviewed by: Jolly Parsons LPN - Fully Assessed Prescriptions as of 07/07/2025 - sertraline (ZOLOFT) 50 mg tablet Take 1 tablet by mouth once daily. - metoprolol succinate ER (TOPROL XL) 25 mg 24 hr tablet Take 1 tablet by mouth once daily. - atorvastatin (LIPITOR) 40 mg tablet Take 1 tablet by mouth daily at bedtime. - aspirin, enteric coated (ECOTRIN LOW STRENGTH) 81 mg EC tablet Take 1 tablet by mouth once daily. - Zinc Mth/Copper/Saw Palm/Gnsg (PROSTATE HEALTH FORMULA ORAL) Take 1 tablet by mouth once daily. [facility]PT/Speech Visit (PTWS) ESTELLA MCKEON ([id number]) 1945 M Date Time Provider Department 06/30/25 2:45 PM ADAN VADLES PTWS Date Time Provider Department Center 06/30/2025 2:45 PM [id number] VALDES Reason for Visit: Physical Therapy [503] Primary Visit Diagnosis:Falling [R29.6] Allergies As of Date: 06/30/2025 Noted Allergy Reaction SEASONAL ALLERGIES 09/27/2020 14 - Other: See Comments Comments: uses OTC prn Date Reviewed: 06/22/2025 Reviewed by: Jolly Parsons LPN - Fully Assessed Prescriptions as of 06/30/2025 - sertraline (ZOLOFT) 50 mg tablet Take 1 tablet by mouth once daily. - metoprolol succinate ER (TOPROL XL) 25 mg 24 hr tablet Take 1 tablet by mouth once daily. - atorvastatin (LIPITOR) 40 mg tablet Take 1 tablet by mouth daily at bedtime. - aspirin, enteric coated (ECOTRIN LOW STRENGTH) 81 mg EC tablet Take 1 tablet by mouth once daily. - Zinc Mth/Copper/Saw Palm/Gnsg (PROSTATE HEALTH FORMULA ORAL) Take 1 tablet by mouth once daily. Normal [facility] CNTHERAPYon 06-25-2025 CNTHERAPY OT/PT/Speech Visit (PTWS) ESTELLA MCKEON ([id number]) 1945 M Date Time Provider Department 06/25/25 10:45 AM ADAN VALDES PTWS Date Time Provider Department Center 06/25/2025 10:45 AM [id number], ADAN PTWS [facility] Reason for Visit: Physical Therapy [503] Primary Visit Diagnosis:Falling [R29.6] Allergies As of Date: 06/25/2025 Noted Allergy Reaction SEASONAL ALLERGIES 09/27/2020 14 - Other: See Comments Comments: uses OTC prn Date Reviewed: 06/22/2025 Reviewed by: Jolly Parsons LPN - Fully Assessed Prescriptions as of 06/25/2025 - sertraline (ZOLOFT) 50 mg tablet Take 1 tablet by mouth once daily. - metoprolol succinate ER (TOPROL XL) 25 mg 24 hr tablet Take 1 tablet by mouth once daily. - atorvastatin (LIPITOR) 40 mg tablet Take 1 tablet by mouth daily at bedtime. - aspirin, enteric coated (ECOTRIN LOW STRENGTH) 81 mg EC tablet Take 1 tablet by mouth once daily. - Zinc Mth/Copper/Saw Palm/Gnsg (PROSTATE HEALTH FORMULA ORAL) Take 1 tablet by mouth once daily. Normal [facility] CNOVon 06-22-2025 CNOV Office Visit (SUZETTE ) ESTELLA MCKEON ([id number]) 1945 M Date Time Provider Department 06/22/25 10:40 AM SHUBHAM RILEY During your visit today, we recorded the following information about you: Pulse Respiration Blood pressure Weight 78/minute 12/minute 110/68 92.1 kg Height 1.803 m Shubham Riley MD 06/22/2025 10:44 AM Signed Shubham Riley MD General Cardiology [address] [place], [place] [address] [id number] Chief Complaint Patient presents with: Follow Up: 6 month follow up HISTORY OF PRESENT ILLNESS: Mr. 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 The patient reports no current cardiac issues and denies experiencing chest pain or dyspnea. He notes a decrease in physical activity, specifically running, due to balance issues. He denies any dizziness with positional changes. 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 He is unsure if his current medication regimen contributes to his symptoms. 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 Current medications include aspirin 81 mg once daily, atorvastatin 40 mg once daily, and metoprolol 25 mg once daily. He also takes brain pills but is uncertain of their efficacy. A TTE and nuclear stress test in 09/2023 showed normal LV function (LVEF 67%), right atrial dilation, estimated RV systolic pressure of 34 mmHg, and no evidence of ischemia. Cardiac Risk Factors age (male over 45, female over 55), hyperlipidemia, hypertension, family history of CAD PAST MEDICAL HISTORY Diagnosis Date Ataxia Dr. 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) Grief 05/23/2024 Hernia HLD (hyperlipidemia) HTN (hypertension) Postsurgical percutaneous transluminal coronary angioplasty status 2000 Seasonal allergies Thalassemia minor Vertigo PAST SURGICAL HISTORY Procedure Laterality Date COLONOSCOPY 1993 HEART CATHETERIZATION early 1999' HERNIA REPAIR HX TONSILLECTOMY HX VASECTOMY UNI/BI SPX W/POSTOP SEMEN EXAMS FAMILY HISTORY Problem Relation Age of Onset other (TIA) Mother Dementia Mother Cancer Father Heart disease Sister Heart Attack Sister No Known Problems Brother Anxiety disorder Son Depression Son Hypertension Son SOCIAL HISTORY[1] ALLERGIES Allergen Reactions Seasonal Allergies Other: See Comments uses OTC prn Medications: Current Outpatient Medications Medication Sig Dispense Refill sertraline (ZOLOFT) 50 mg tablet Take 1 tablet by mouth once daily. 90 tablet 1 metoprolol succinate ER (TOPROL XL) 25 mg 24 hr tablet Take 1 tablet by mouth once daily. 90 tablet 3 atorvastatin (LIPITOR) 40 mg tablet Take 1 tablet by mouth daily at bedtime. 90 tablet 3 aspirin, enteric coated (ECOTRIN LOW STRENGTH) 81 mg EC tablet Take 1 tablet by mouth once daily. Zinc Mth/Copper/Saw Palm/Gnsg (PROSTATE HEALTH FORMULA ORAL) Take 1 tablet by mouth once daily. No current facility-administered medications for this visit. Review of Systems Constitutional: Negative for chills, diaphoresis, fever, malaise/fatigue and weight loss. HENT: Negative for congestion, ear discharge, ear pain, hearing loss, nosebleeds, sinus pain, sore throat and tinnitus. Eyes: Negative for blurred vision, double vision, photophobia, pain, discharge and redness. Respiratory: Negative for cough, hemoptysis, sputum production, shortness of breath, wheezing and stridor. Cardiovascular: Negative for chest pain, palpitations, orthopnea, claudication, leg swelling and PND. Gastrointestinal: Negative for abdominal pain, blood in stool, constipation, diarrhea, heartburn, melena, nausea and vomiting. Genitourinary: Negative for dysuria, flank pain, frequency, hematuria and urgency. Musculoskeletal: Negative for back pain, falls, joint pain, myalgias and neck pain. Skin: Negative for itching and rash. Neurological: Negative for dizziness, tingling, tremors, sensory change, speech change, focal weakness, seizures, loss of consciousness, weakness and headaches. Endo/Heme/Allergies: Negative for environmental allergies and polydipsia. Does not bruise/bleed easily. Psychiatric/Behavioral: Negative for depression, hallucinations, memory loss, substance abuse and suicidal ideas. The patient is not nervous/anxious and does not have insomnia. Physical Examination: Vitals:BP 110/68 Pulse 78 Resp 12 Ht 5' 11 (1.80m) Wt 203 lb (92.1kg) SpO2 97% BMI 28.33 kg/(m2). BP w/Orthostatic Vitals Date and Time Orthostatic BP Orthostatic Pulse BP Pulse BP Position BP Site BP Cuff Size 06/22/25 1021 -- -- 110/68 78 Sitting Right (more content not included)... Normal [facility] CNTHERAPYon 06-22-2025 CNTHERAPY OT/PT/Speech Visit (PTWS) ESTELLA MCKEON ([id number]) 1945 M Date Time Provider Department 06/22/25 9:30 AM YUE MAX PTRC Date Time Provider Department Center 06/22/2025 9:30 AM [id number], MARIAH PTRC Jonelle Adams Reason for Visit: Physical Therapy [503] Primary Visit Diagnosis:Falling [R29.6] Allergies As of Date: 06/22/2025 Noted Allergy Reaction SEASONAL ALLERGIES 09/27/2020 14 - Other: See Comments Comments: uses OTC prn Date Reviewed: 06/22/2025 Reviewed by: Jolly Parsons LPN - Fully Assessed Prescriptions as of 06/22/2025 - sertraline (ZOLOFT) 50 mg tablet Take 1 tablet by mouth once daily. - metoprolol succinate ER (TOPROL XL) 25 mg 24 hr tablet Take 1 tablet by mouth once daily. - atorvastatin (LIPITOR) 40 mg tablet Take 1 tablet by mouth daily at bedtime. - aspirin, enteric coated (ECOTRIN LOW STRENGTH) 81 mg EC tablet Take 1 tablet by mouth once daily. - Zinc Mth/Copper/Saw Palm/Gnsg (PROSTATE HEALTH FORMULA ORAL) Take 1 tablet by mouth once daily. Normal [facility] [id number] 06-09-2025 [id number] HNO ID: [id number] Author: ADAN VALDES PT Service: ? Author Type: Physical Therapist Type: [id number] Filed: 06/09/2025 14:49 Note Text: [facility] Physical Therapy Plan of Care Certification Patient Name: Estella Mckeon : 1945 [facility] #: [id number] Date: 06/09/2025 To: Sonu Petersen,* From Therapist: Adan Valdes PT RE: Patient Certification/ Recertification Your review, approval and electronic signature are required in order to comply with Payor: [facility] / Plan: [facility] MEDICARE ADVANTAGE PPO / Product Type: PPO / regulations. The identified Physical Therapy PLAN OF CARE for the patient is as follows: R29.6 Falling (primary encounter diagnosis) PLAN OF CARE UPDATE: Assessment: Estella Mckeon demonstrates moderate improvement in rising from a chair, standing, and walking. The patient has progressed toward goals. Patient continues to present with impairments in ADL's, balance, gait, independence in exercise, overall function, and strength that interfere with walking, walking in the community (exercise) . Current prognosis is Good due to: current objective clinical presentation, positive past response to therapy, within-session changes limited support system, chronic nature of impairments . The patient will benefit from continued skilled therapy services to meet the updated goals for this plan of care as noted below. Updated: 06/09/25 Goals for Episode of Care: established 04/24/25 Patient will report no falls. - Not MET, patient reports 2 falls Improve score on Timed Up and Go Test to 7-12 seconds to reflect decreased fall risk. - Not MET, will continue Improve score on 30 Second Chair Stand to 11 repetitions to reflect decreased fall risk. - MET, will monitor Improve performance on 4 Stage Balance Test to 10 second tandem and 14 second SLS to reflect decreased fall risk. - Partially MET, will continue Tate in home exercise program including cardiovascular exercise. - Partially MET, will continue Patient will demonstrate independent and proper use of assisstive device to allow for improved walking quality and safety therefore reducing the risk of falls. - Partially MET, will continue Patient Goals: improve safety with walking and decrease fall risk. - Partially MET, will continue He would like to resume running for exercise but he has not run for several years. - Pt understands that running is not a realistic goal currently. Time Frame for Goals and Treatment : 07/07/25 Patient Goals: improve safety with walking and decrease fall risk. He would like to resume running for exercise but he has not run for several years. Pt. reports that his legs often feel that they are moving more quickly than he intends to move them. Planned Interventions, Frequency, and Duration: 2x/week, 4 weeks Total Number of Visits Planned: 8 Patient to be seen for Therapeutic exercise (29571), Neuromuscular re-education (31476), Therapeutic activities (27910), Self-halfway management (12046), Gait Training (56900), Patient/Family/Caregive r Education, Body Mechanics Training, General Conditioning PLAN FOR NEXT VISIT: Continue gait and balance training, continue functional strengthening of trunk and LEs and address overall safety with functional mobility. For further details regarding this patient refer to the Physical Therapy electronically documented visit dated 06/09/2025. Provider Attestation I have reviewed the treatment plan for Estella Mckeon, [facility]# [id number] for the period of 06/09/25 -- 07/07/25, established on 06/09/2025. Signature certifies the need for therapy services. [facility]/PT/Speech Visit (PTWS) GRIFFINESTELLA HENDERSON ([id number]) 1945 M Date Time Provider Department 06/09/25 10:45 AM ADAN VALDES PTWS Date Time Provider Department Center 06/09/2025 10:45 AM [id number], BRENT PTRC [facility] Reason for Visit: Physical Therapy [503] PT Progress Note [1596] Primary Visit Diagnosis:Falling [R29.6] Allergies As of Date: 06/09/2025 Noted Allergy Reaction SEASONAL ALLERGIES 09/27/2020 14 - Other: See Comments Comments: uses OTC prn Date Reviewed: 05/18/2025 Reviewed by: Binta Kelly MA - Fully Assessed Prescriptions as of 06/09/2025 - sertraline (ZOLOFT) 50 mg tablet Take 1 tablet by mouth once daily. - metoprolol succinate ER (TOPROL XL) 25 mg 24 hr tablet Take 1 tablet by mouth once daily. - atorvastatin (LIPITOR) 40 mg tablet Take 1 tablet by mouth daily at bedtime. - aspirin, enteric coated (ECOTRIN LOW STRENGTH) 81 mg EC tablet Take 1 tablet by mouth once daily. - Zinc Mth/Copper/Saw Palm/Gnsg (PROSTATE HEALTH FORMULA ORAL) Take 1 tablet by mouth once daily. Normal [facility] CNTHERAPYon 06-01-2025 CNTHERAPY OT/PT/Speech Visit (PTWS) ESTELLA MCKEON ([id number]) 1945 M Date Time Provider Department 06/01/25 2:45 PM YUE MAX Date Time Provider Department Center 06/01/2025 2:45 PM [id number] MUÑOZ Reason for Visit: Physical Therapy [503] Primary Visit Diagnosis:Falling [R29.6] Other Visit Diagnoses:Frequent falls [R29.6] 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] Allergies As of Date: 06/01/2025 Noted Allergy Reaction SEASONAL ALLERGIES 09/27/2020 14 - Other: See Comments Comments: uses OTC prn Date Reviewed: 05/18/2025 Reviewed by: Binta Kelly MA - Fully Assessed Prescriptions as of 06/01/2025 - sertraline (ZOLOFT) 50 mg tablet Take 1 tablet by mouth once daily. - metoprolol succinate ER (TOPROL XL) 25 mg 24 hr tablet Take 1 tablet by mouth once daily. - atorvastatin (LIPITOR) 40 mg tablet Take 1 tablet by mouth daily at bedtime. - aspirin, enteric coated (ECOTRIN LOW STRENGTH) 81 mg EC tablet Take 1 tablet by mouth once daily. - Zinc Mth/Copper/Saw Palm/Gnsg (PROSTATE HEALTH FORMULA ORAL) Take 1 tablet by mouth once daily. Normal [facility] CNTHERAPYon 05-29-2025 CNTHERAPY OT/PT/Speech Visit (PTWS) ESTELLA MCKEON ([id number]) 1945 M Date Time Provider Department 05/29/25 3:30 PM YUE MAX Date Time Provider Department Center 05/29/2025 3:30 PM [id number] MUÑOZH PTWS Jonelle Adams Reason for Visit: Physical Therapy [503] Primary Visit Diagnosis:Falling [R29.6] Allergies As of Date: 05/29/2025 Noted Allergy Reaction SEASONAL ALLERGIES 09/27/2020 14 - Other: See Comments Comments: uses OTC prn Date Reviewed: 05/18/2025 Reviewed by: Binta Kelly MA - Fully Assessed Prescriptions as of 06/01/2025 - sertraline (ZOLOFT) 50 mg tablet Take 1 tablet by mouth once daily. - metoprolol succinate ER (TOPROL XL) 25 mg 24 hr tablet Take 1 tablet by mouth once daily. - atorvastatin (LIPITOR) 40 mg tablet Take 1 tablet by mouth daily at bedtime. - aspirin, enteric coated (ECOTRIN LOW STRENGTH) 81 mg EC tablet Take 1 tablet by mouth once daily. - Zinc Mth/Copper/Saw Palm/Gnsg (PROSTATE HEALTH FORMULA ORAL) Take 1 tablet by mouth once daily. Normal [facility] CNTHERAPYon 05-19-2025 CNTHERAPY OT/PT/Speech Visit (PTWS) ESTELLA MCKEON ([id number]) 1945 M Date Time Provider Department 05/19/25 10:45 AM ADAN VALDES PTRC Date Time Provider Department Center 05/19/2025 10:45 AM [id number], BRENT PTWS Jonelle Adams Reason for Visit: Physical Therapy [503] Primary Visit Diagnosis:Falling [R29.6] Allergies As of Date: 05/19/2025 Noted Allergy Reaction SEASONAL ALLERGIES 09/27/2020 14 - Other: See Comments Comments: uses OTC prn Date Reviewed: 05/18/2025 Reviewed by: Binta Kelly MA - Fully Assessed Prescriptions as of 05/19/2025 - sertraline (ZOLOFT) 50 mg tablet Take 1 tablet by mouth once daily. - metoprolol succinate ER (TOPROL XL) 25 mg 24 hr tablet Take 1 tablet by mouth once daily. - atorvastatin (LIPITOR) 40 mg tablet Take 1 tablet by mouth daily at bedtime. - aspirin, enteric coated (ECOTRIN LOW STRENGTH) 81 mg EC tablet Take 1 tablet by mouth once daily. - Zinc Mth/Copper/Saw Palm/Gnsg (PROSTATE HEALTH FORMULA ORAL) Take 1 tablet by mouth once daily. Normal [facility] CNOVon 05-18-2025 CNOV Office Visit (FAMPWS ) ESTELLA MCKEON ([id number]) 1945 M Date Time Provider Department 05/18/25 9:40 AM SONU PETERSEN During your visit today, we recorded the following information about you: Pulse Blood pressure Weight Height 70/minute 122/66 91.4 kg 1.803 m Sonu Petersen MD 05/18/2025 10:30 AM Signed Chief Complaint Patient presents with: Wound Check: 1 wk f/u right leg wound Recording using [employer] software for draft documentation of the visit was discussed with the patient/authorized business center representative; all questions welcomed and answered. Patient/authorized business center representative agreed to proceed HPI Estella Mckeon is a 79 year old male who presents here today for Above Complaints. Leg Wound: - Recent fall resulted in a right leg wound and subsequent infection. - Initially treated with Augmentin, then switched to Bactrim at our OV 1 week ago. - Redness has resolved; wound healing well with a scab. - Following instructions to let water run over the wound without additional treatment. 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 - Recent fall occurred while using a cane; no falls since last week. - Using a cane for ambulation; Connor denies use of a walker. - Physical therapy recommended but Connor attended only twice in 2 months due to canceled appointments. - Insurance authorization for additional physical therapy visits received; appointments rescheduled. - CT scan of the head post-fall showed no hemorrhage or brain bleed, only chronic changes related to aging. - Previous MRI of the brain performed last year. - Seen by Dr. Lan, neurologist, for ataxia; multiple tests over the years reportedly negative. - Discussed seeing a neuro-canvas cutter hand but Connor opted for an canvas cutter hand instead, which was not beneficial. Past medical history, appointments, medications, allergies reviewed. 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) Grief 05/23/2024 Hernia HLD (hyperlipidemia) HTN (hypertension) Postsurgical percutaneous transluminal coronary angioplasty status 2000 Seasonal allergies Thalassemia minor Vertigo Previous Surgical History PAST SURGICAL HISTORY Procedure Laterality Date COLONOSCOPY 1993 HEART CATHETERIZATION early HERNIA REPAIR HX TONSILLECTOMY HX VASECTOMY UNI/BI SPX W/POSTOP SEMEN EXAMS Family History FAMILY HISTORY Problem Relation Age of Onset other (TIA) Mother Dementia Mother Cancer Father Heart disease Sister Heart Attack Sister No Known Problems Brother Anxiety disorder Son Depression Son Hypertension Son Patient Allergies ALLERGIES Allergen Reactions Seasonal Allergies Other: See Comments uses OTC prn Current Medications Current Outpatient Medications on File Prior to Visit Medication Sig sertraline (ZOLOFT) 50 mg tablet Take 1 tablet by mouth once daily. metoprolol succinate ER (TOPROL XL) 25 mg 24 hr tablet Take 1 tablet by mouth once daily. atorvastatin (LIPITOR) 40 mg tablet Take 1 tablet by mouth daily at bedtime. aspirin, enteric coated (ECOTRIN LOW STRENGTH) 81 mg EC tablet Take 1 tablet by mouth once daily. Zinc Mth/Copper/Saw Palm/Gnsg (PROSTATE HEALTH FORMULA ORAL) Take 1 tablet by mouth once daily. No current facility-administered medications on file prior to visit. Social History SOCIAL HISTORY[1] Review of Symptoms REVIEW OF SYSTEMS GENERAL: No weight loss, malaise or fevers SKIN: Negative for lesions, rash, and itching EXAM: BP 122/66 Pulse 70 Ht 180.3 cm (5' 11) Wt 91.4 kg (201 lb 9.6 oz) BMI 28.12 kg/m? General Appearance: Well appearing, alert, in no acute distress, well-hydrated, well nourished.. Skin: cellulitis of right distal ramirez has resolved. Small scab remaining from his laceration. Healing well. No erythema, swelling, or abscess. Health Maintenance List Depression Screening Never done Anxiety Screening Never done Hepatitis C Screening Never done Advance Directive Discussion Never done Medicare Advantage Annual Wellness Visit due on 08/27/2024 LDL Cholesterol due on 11/18/2024 Influenza Vaccine(1) due on 04/27/2025 DTaP,Tdap,Td Vaccine(1 - Tdap) due on 05/18/2026 RSV Vaccine(1 - 1-dose 75+ series) due on 05/18/2026 Shingrix Vaccine(1 of 2) due on 05/18/2026 Annual PCP Team Chronic Disease Visit due on 05/18/2026 Diabetes Screening due on 05/23/2027 Pneumococcal Vaccine: 50+ Completed 1. Cellulitis of skin (L03.90) 2. Laceration of right lower extremity, subsequent encounter (M55.687H) - Cellulitis and laceration healing well; erythema resolved, wound scabbed over. Cellulitis resolved. - Continue current wound (more content not included)... Normal [facility] CNTHERAPYon 05-15-2025 CNTHERAPY OT/PT/Speech Visit (PTWS) ESTELLA MCKEON ([id number]) 1945 M Date Time Provider Department 05/15/25 11:15 AM MILENA BAE PTRC Date Time Provider Department Center 05/15/2025 11:15 AM [id number] BAE PTRC Adams Reason for Visit: Physical Therapy [503] Primary Visit Diagnosis:Falling [R29.6] Allergies As of Date: 05/15/2025 Noted Allergy Reaction SEASONAL ALLERGIES 09/27/2020 14 - Other: See Comments Comments: uses OTC prn Date Reviewed: 05/07/2025 Reviewed by: Cesilia Fuller MA - Fully Assessed Prescriptions as of 05/15/2025 - sertraline (ZOLOFT) 50 mg tablet Take 1 tablet by mouth once daily. - metoprolol succinate ER (TOPROL XL) 25 mg 24 hr tablet Take 1 tablet by mouth once daily. - diphenhydrAMINE (SLEEP AID, DIPHENHYDRAMINE,) 25 mg capsule Take 1 capsule by mouth every 6 hours as needed. - atorvastatin (LIPITOR) 40 mg tablet Take 1 tablet by mouth daily at bedtime. - docosahexaenoic acid/epa (FISH OIL ORAL) Take 2,000 mg by mouth once daily. - aspirin, enteric coated (ECOTRIN LOW STRENGTH) 81 mg EC tablet Take 1 tablet by mouth once daily. - Zinc Mth/Copper/Saw Palm/Gnsg (PROSTATE HEALTH FORMULA ORAL) Take 1 tablet by mouth once daily. Normal [facility] Brain/Head without Contrasto n 05-07-2025 Brain/Head without Contrast [facility] Imaging Services [address] [place] [address] [id number] Brain/Head without Contrast MR#: [id number] Acct: [id number] Name: ESTELLA MCKEON Rep #: [id number] : 1945 M 79 From: Darrick Jarrett MD PCP: Dr. Juan Carlos Petersen MD Status: REG CLI Study: Brain/Head without Contrast Date of Exam: 04/27 09/20 Exam# [id number] Ordering Dr: Juan Carlos Petersen PROCEDURE: BRAIN/HEAD WITHOUT CONTRAST 05/07/2025 REASON FOR EXAM: TRAUMA/SUBSEQUENT ENCOUNTER TECHNIQUE: Procedure Code: CTBR Modality: CT Procedure: BRAIN/HEAD WITHOUT CONTRAST Coronal and Sagittal reconstruction series were provided. One or more dose reduction techniques were used (e.g., Automated exposure control, adjustment of the mA and/or kV according to patient size, use of iterative reconstruction technique. COMPARISON: None available. FINDINGS: There is no extra-axial or intra-axial intracranial hemorrhage. No mass effect or midline shift is seen. Generalized intracranial volume loss and findings compatible with chronic microvascular white matter ischemia. There is normal lei-white matter differentiation. The posterior fossa is grossly unremarkable. The skull is unremarkable. Visualized paranasal sinuses are clear. The mastoid air cells show normal translucency. CT/Brain/Head without Contrast IMPRESSION: 1. No intracranial hemorrhage. No mass effect or midline shift. 2. 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 Reading Location: [facility] CC: Dr. Juan Carlos Petersen MD Pot Fisher: Signed [facility] CNOVon 05-07-2025 CNOV Office Visit (FAMPWS ) ESTELLA MCKEON ([id number]) 1945 M Date Time Provider Department 05/07/25 2:00 PM [facility] During your visit today, we recorded the following information about you: Temperature Pulse Respiration Blood pressure 97.8 degrees 68/minute 16/minute 126/74 Weight 93 kg Sonu Petersen MD 05/07/2025 1:38 PM Signed Chief Complaint Patient presents with: ED Follow-up Recording using [employer] software for draft documentation of the visit was discussed with the patient/authorized business center representative; all questions welcomed and answered. Patient/authorized business center representative agreed to proceed HPI Estella Mckeon is a 79 year old male who presents here today for ER Follow Up. Fall and Head Injury: - Connor Mckeon had a recent fall a few days ago, resulting in a head injury. Fell and hit back of his head on the ground without LOC, headache, vision changes, nausea or vomiting. Also had a right ramirez injury hitting himself on concrete steps at home. Developed redness and had a chunk of skin missing, so was evaluated at [facility] ED on 05/05. - Noticed foot and ankle swelling with surrounding erythema over the past week. - ER visit included a negative DVT ultrasound and X-rays of tib/fib and ankle showing no fractures, only degenerative changes. No imaging of his head despite his fall. - Started on Augmentin BID for 7 days for erythema around the wound and advised to follow up with our office in 7-10 days. - Describes difficulty controlling foot speed on inclines, leading to falls. Seeing physical therapy for history of falls. - Reports transient headache post-injury, but not severe or prolonged. Denies vision changes, slurred speech, facial droop, numbness/tingling. Right Lower Extremity Wound: - Denies new injuries, fevers, chills, purulent discharge, or bleeding from the wound. - Taking augmentin as prescribed without side effects. Past medical history, appointments, medications, allergies reviewed. 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) Grief 05/23/2024 Hernia HLD (hyperlipidemia) HTN (hypertension) Postsurgical percutaneous transluminal coronary angioplasty status 2000 Seasonal allergies Thalassemia minor Vertigo Previous Surgical History PAST SURGICAL HISTORY Procedure Laterality Date COLONOSCOPY 1993 HEART CATHETERIZATION early 1999' HERNIA REPAIR HX TONSILLECTOMY HX VASECTOMY UNI/BI SPX W/POSTOP SEMEN EXAMS Family History FAMILY HISTORY Problem Relation Age of Onset other (TIA) Mother Dementia Mother Cancer Father Heart disease Sister Heart Attack Sister No Known Problems Brother Anxiety disorder Son Depression Son Hypertension Son Patient Allergies ALLERGIES Allergen Reactions Seasonal Allergies Other: See Comments uses OTC prn Current Medications Current Outpatient Medications on File Prior to Visit Medication Sig amoxicillin-clavulanate potassium (AUGMENTIN) 875-125 mg per tablet Take 1 tablet by mouth every 12 hours. sertraline (ZOLOFT) 50 mg tablet Take 1 tablet by mouth once daily. metoprolol succinate ER (TOPROL XL) 25 mg 24 hr tablet Take 1 tablet by mouth once daily. atorvastatin (LIPITOR) 40 mg tablet Take 1 tablet by mouth daily at bedtime. aspirin, enteric coated (ECOTRIN LOW STRENGTH) 81 mg EC tablet Take 1 tablet by mouth once daily. Zinc Mth/Copper/Saw Palm/Gnsg (PROSTATE HEALTH FORMULA ORAL) Take 1 tablet by mouth once daily. diphenhydrAMINE (SLEEP AID, DIPHENHYDRAMINE,) 25 mg capsule Take 1 capsule by mouth every 6 hours as needed. (Patient not taking: Reported on 05/07/2025) docosahexaenoic acid/epa (FISH OIL ORAL) Take 2,000 mg by mouth once daily. (Patient not taking: Reported on 05/07/2025) No current facility-administered medications on file prior to visit. Social History SOCIAL HISTORY[1] Review of Symptoms REVIEW OF SYSTEMS See HPI EXAM: BP 126/74 Pulse 68 Temp 36.6 ?C (97.8 ?F) (Tympanic) Resp 16 Wt 93 kg (205 lb) BMI 28.59 kg/m? General Appearance: Well appearing, alert, in no acute distress, well-hydrated, well nourished. Head: normocephalic, atraumatic. Skin: 1 cm shallow laceration to right distal 1/3rd ramirez with 1-2 cm of surrounding erythema without warmth to touch, fluctuance, induration, purulent drainage. Lungs: Lungs clear to auscultation. No wheezing, rhonchi, rales.. Heart: RRR without murmur, gallop, or rubs. No ectopy. Abdomen: Normal abdominal exam, Abdomen soft, non-tender. Bowel sounds normal. No masses, organomegaly. Extremities: No deformities, edema, skin discoloration, clubbing or cyanosis. Good capillary refill. . Neurologic: Negative findings: spee (more content not included)... Normal [facility] 05[facility]07[facility]2025 [facility] ESTELLA MCKEON ([id number]) 1945 M Date Time Provider Department 05/07/25 [facility] During your visit today, we recorded the following information about you: Cesilia Fuller MA 05/07/2025 12:[address] Petersen, pt needs triaged about his leg pain. Also is this an ER follow up? Did pt go to the ER as recommended by Urgent Care provider 05/05/25 and if so what ER. MAIN Porter Stephanie, BASSAM 05/07/2025 12:32 PM Signed See Triage Appointment note Allergies As of Date: 05/07/2025 Noted Allergy Reaction SEASONAL ALLERGIES 09/27/2020 14 - Other: See Comments Comments: uses OTC prn Date Reviewed: 03/17/2025 Reviewed by: Gisel Barahona MA - Fully Assessed Reason for Visit: Nurse Triage Call [185] Prescriptions as of 05/07/2025 - sertraline (ZOLOFT) 50 mg tablet Take 1 tablet by mouth once daily. - metoprolol succinate ER (TOPROL XL) 25 mg 24 hr tablet Take 1 tablet by mouth once daily. - diphenhydrAMINE (SLEEP AID, DIPHENHYDRAMINE,) 25 mg capsule Take 1 capsule by mouth every 6 hours as needed. - atorvastatin (LIPITOR) 40 mg tablet Take 1 tablet by mouth daily at bedtime. - docosahexaenoic acid/epa (FISH OIL ORAL) Take 2,000 mg by mouth once daily. - aspirin, enteric coated (ECOTRIN LOW STRENGTH) 81 mg EC tablet Take 1 tablet by mouth once daily. - Zinc Mth/Copper/Saw Palm/Gnsg (PROSTATE HEALTH FORMULA ORAL) Take 1 tablet by mouth once daily. 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] 08/08/2023 Coronary artery disease due to lipid rich plaqu*08/08/2023 Contracture of joint of finger of left hand [M2*08/08/2023 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] HTN (hypertension) [I10] HLD (hyperlipidemia) [E78.5] Grief [F43.21] 05/23/2024 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] Falling [R29.6] 04/24/2025 Encounter Status:Closed by FABIOLA ELLIOTT on 05/07/25 Normal [facility] Ankle min 3 Viewson 05-05-20 Ankle min 3 Views [facility] Imaging Services [address] [place] [address] Ankle min 3 Views MR#: [id number] Acct: [id number] Name: ESTELLA MCKEON Rep #: [id number] : 1945 M 79 From: Alejandro Singh MD PCP: Status: REG ER Study: Ankle min 3 Views Date of Exam: 05/05/25 Exam# [id number] Ordering Dr: George Rodriguez MD PROCEDURE: ANKLE MIN 3 VIEWS 05/05/2025 REASON FOR EXAM: PAIN TECHNIQUE: Procedure Code: RADANK Modality: DX Procedure: ANKLE MIN 3 VIEWS Laterality: Right COMPARISON: Tibiofibula x-ray of the same day FINDINGS: Bones: No fracture. 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 Soft tissues: Atherosclerosis Other: No foreign body RAD/Ankle min 3 Views IMPRESSION: 1. No fracture. Degenerative changes. Reading Location: [id number] CC: Dr. George Rodriguez MD Pot Fisher: Signed Normal [facility] CNOVon 05-05-2025 CN Office Visit (WOUCA) ESTELLA MCKEON ([id number]) 1945 M Date Time Provider Department 05/05/25 10:00 AM ELIANA SHEARER During your visit today, we recorded the following information about you: Eliana Shearer APRN.SURGICAL CORSETIER 05/05/2025 9:42 AM Signed Patient came in complaints of hitting his head a day and a half ago. Patient says he is on blood thinners. Patient is unable to walk due to pain in right leg. Patient says the leg is swelling. Patient does have a very small laceration on the front of it. Does not appear that this laceration would cause the complication do not walk. Due to patient falling and hitting his head on the ground and this is considered trauma due to age and blood thinner patient is being referred to the ER for an evaluation patient agreeable does want to take himself. Patient is being helped out to his car because he is currently in a wheelchair. Allergies As of Date: 05/05/2025 Noted Allergy Reaction SEASONAL ALLERGIES 09/27/2020 14 - Other: See Comments Comments: uses OTC prn Date Reviewed: 03/17/2025 Reviewed by: Gisel Barahona MA - Fully Assessed Primary Visit Diagnosis:Injury of head, initial encounter [S09.90XA] Prescriptions as of 05/05/2025 - sertraline (ZOLOFT) 50 mg tablet Take 1 tablet by mouth once daily. - metoprolol succinate ER (TOPROL XL) 25 mg 24 hr tablet Take 1 tablet by mouth once daily. - diphenhydrAMINE (SLEEP AID, DIPHENHYDRAMINE,) 25 mg capsule Take 1 capsule by mouth every 6 hours as needed. - atorvastatin (LIPITOR) 40 mg tablet Take 1 tablet by mouth daily at bedtime. - docosahexaenoic acid/epa (FISH OIL ORAL) Take 2,000 mg by mouth once daily. - aspirin, enteric coated (ECOTRIN LOW STRENGTH) 81 mg EC tablet Take 1 tablet by mouth once daily. - Zinc Mth/Copper/Saw Palm/Gnsg (PROSTATE HEALTH FORMULA ORAL) Take 1 tablet by mouth once daily. 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] 08/08/2023 Coronary artery disease due to lipid rich plaqu*08/08/2023 Contracture of joint of finger of left hand [M2*08/08/2023 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] HTN (hypertension) [I10] HLD (hyperlipidemia) [E78.5] Grief [F43.21] 05/23/2024 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] Falling [R29.6] 04/24/2025 Encounter Status:Closed by ELIANA SHEARER on 05/05/25 Normal [facility] Emergency Department Summary on 05-05-2025 Emergency Department Summary [facility] Medical Records Department [address] [place] [address] Emergency Department Summary 05/05/25 MR#: [id number] Acct: [id number] Name: ESTELLA MCKEON Rep #: [id number] : 1945 79 From: George Rodriguez MD PCP: Status:REG ER Location: ED HPI HPI - Fall History of Present Illness Chief Complaint: Fall Narrative Narrative: 79-year-old male presents with his friend because of injury to his right lower extremity on the anterior tibial area that he sustained a few days ago. He states that last week he was walking up concrete stairs in his garage and took a chunk of skin out of his right anterior tibial area. He states he went to clean it, and removed some red thin skin. He was unsure if his avulsion laceration went all the way down to the bone. He has noticed foot swelling over the last week surrounded by redness to his wound. He states he also had a fall a few days ago where he hit his head. While he states he takes a blood thinner he cannot recall when he takes it for, or which 1. He is concerned about his foot and ankle swelling. As well as his avulsion laceration which has redness around it. He denies any fevers or chills, no nausea or vomiting, no other injuries. He states that he went to urgent care today and they refused to take an x-ray of it because of his head injury. [facility] Medical History (Updated 05/05/25 @ 13:22 by George Rodriguez MD) Depression HTN (hypertension) Hyperlipidemia Home Medications ???Medication ???Instructions ???Recorded ???Last Taken ???Type amoxicillin 875 mg-potassium 1 tab PO BID #14 tabs 05/05/25 Unk nown Rx clavulanate 125 mg tablet atorvastatin 40 mg tablet 40 mg PO QHS 05/05/25 Unknown Hist ory metoprolol succinate 25 mg 25 mg PO DAILY 05/05/25 Unknown Hi story tablet,extended release 24 hr sertraline 50 mg tablet 50 mg PO DAILY 05/05/25 Unknown Hi story Allergy/AdvReac Type Severity Reaction Status Date / Time No Known Allergies Allergy Verified 05/05/25 10:27 Social History Smoking Status: Never smoker ROS ROS ED ROS Narrative Review of systems positive for wound to right anterior tibial area sustained approximately a week ago. Positive swelling of right ankle since then. Pain in ankle worse with walking and weightbearing. No fevers or chills, no drainage or pus from wound. No headache. No neck pain. No chest pain or shortness of breath. EXAM Physical Exam Narrative Exam Narrative: GCS 15. ABCs intact. Head normocephalic atraumatic. PERRL, EOMI. Neck soft and supple without meningismus. Full range of motion without pain. Cardiovascular examination reveals a regular rate and rhythm. Lungs clear to auscultation bilaterally. Abdomen soft and nontender with normoactive bowel sounds. Inspection of the right anterior tibial area does show a 1 cm avulsion laceration without active bleeding with mild surrounding erythema, no fluctuance. Full range of motion of right ankle with noted swelling diffusely. No calf tenderness, no palpable cord. Palpable dorsalis pedis pulse. Neurological examination nonfocal, nonlateralizing. Const Vital Signs: 05/05/25 10:27 05/05/25 12:27 05/05/25 12:38 Temperature 98.2 F 98.4 F Temperature Source Temporal Oral Pulse Rate 72 55 L Respiratory Rate 14 17 Respiratory Effort Normal Non-Labored Respiratory Depth Normal Respiratory Pattern Normal Blood Pressure 133/83 H 147/55 H Blood Pressure Mean 99 85 Pulse Ox 98 97 Oxygen Delivery Method Room Air Room Air Room Air 05/05/25 13:00 Temperature 97.8 F Temperature Source Oral Pulse Rate 57 L Respiratory Rate 15 Respiratory Effort Respiratory Depth Respiratory Pattern Blood Pressure 131/77 H Blood Pressure Mean 95 Pulse Ox 94 Oxygen Delivery Method Room Air MDM MDM MDM Narrative Medical decision making narrative: Differential diagnosis includes but not limited to ankle sprain versus fracture versus wound infection. I have lower suspicion for DVT, but the patient cannot recall which blood thinner he may take or why. In order to rule out DVT, I obtained an ultrasound of the right lower extremity which shows no evidence of DVT according to the biomass technician. I ordered x-rays of the right tibia and fibula to look for any fracture of the bone or the anterior tibial area mainly. On my individual interpretation, there is no evidence of an acute fracture. Patient was mildly insistent that he needed dedicated ankle films, even though he was told that the tibia and fibula include the ankle bones. On my individual interpretation of the ankle x-rays there is no evidence of fracture but degenerative changes. He may have pain and swelling secondary to arthritis. I reviewed the radiology report which confirms my inde (more content not included)... Normal [facility] Tibia Fibula 2 Viewson 05-05 Tibia Fibula 2 Views [facility] Imaging Services [address] [place] [address] Tibia Fibula 2 Views MR#: [id number] Acct: [id number] Name: ESTELLA MCKEON Rep #: [id number] : 1945 M 79 From: Alejandro Singh MD PCP: Status: REG ER Study: Tibia Fibula 2 Views Date of Exam: 05/05/25 Exam# [id number] Ordering Dr: George Rodriguez MD PROCEDURE: TIBIA FIBULA 2 VIEWS 05/05/2025 REASON FOR EXAM: TRAUMA TECHNIQUE: 2 views of the right tibia and fibula COMPARISON: Ankle series of the same day FINDINGS: Image was reviewed in combination with the ankle series that included the distal tibia and fibula. Bones: No fracture Soft tissues: Atherosclerosis. Other: No foreign body RAD/Tibia Fibula 2 Views IMPRESSION: No acute abnormality. Advanced atherosclerosis. Reading Location: [id number] CC: Dr. George Rodriguez MD Pot Fisher: Signed Normal [facility] Venous Duplex US, Unilateral on 05-05-2025 Venous Duplex US, Unilateral [facility] Cardiovascular Services [address] [place] [address] Venous Duplex US, Unilateral 05/05/25 1058 MR#: [id number] Acct: [id number] Name: ESTELLA MCKEON Rep #: [id number] : 1945 79 From: Gigi Dsouza MD Attending Dr: Status: DEP ER Ordering Dr: George Rodriguez MD Date: 05/05/25 Location: ED Sex: M C Admitted: Reason For Study Reason For Study: RLE PAin RIGHT GSV is normal. CFV is compressible, spontaneous, phasic, competent and demonstrates normal augmentation. FV is compressible, spontaneous, phasic, competent and demonstrates normal augmentation. POP V is compressible, spontaneous, phasic, competent and demonstrates normal augmentation. T/P Trunk is compressible. PTV is compressible. RT PerV is compressible. Procedure This is a venous duplex using B-mode, color flow and spectral Doppler. Exam performed portable in ED. The exam was diagnostic. A preliminary report was called and/or faxed to Dr. Rodriguez. VL/Venous Duplex US, Unilateral Interpretation Summary Deep veins of the right lower extremity are patent and compressible segmentally. There is no evidence of right lower extremity deep vein thrombosis. Valvular competence appears intact within the proximal deep venous system on the right . The right great saphenous vein appears patent and compressible segmentally. Ordering Physician: George Rodriguez Referring Physician: N/A Performed By: Yonis Moss, RVT 05/05/252102 Date Gigi Dsouza MD CC: Dr. George Rodriguez MD Date Dictated: 05/05/25 1058 Date Transcribed: 05/05/252102 Pot Fisher: Signed [facility] [id number] 04-24-2025 [id number] O ID: [id number] Author: ADAN VALDES PT Service: ? Author Type: Physical Therapist Type: [id number] Filed: 04/24/2025 14:57 Note Text: [facility] Physical Therapy Plan of Care Certification Patient Name: Estella Mckeon : 1945 [facility] #: [id number] Date: 04/24/2025 To: Sonu Petersen,* From Therapist: Adan Valdes PT RE: Patient Certification/ Recertification Your review, approval and electronic signature are required in order to comply with Payor: [facility] / Plan: [facility] MEDICARE ADVANTAGE PPO / Product Type: PPO / regulations. The identified Physical Therapy PLAN OF CARE for the patient is as follows: R29.6 Falling (primary encounter diagnosis) R29.6 Frequent falls R27.0 Ataxia PLAN OF CARE: Assessment: Estella Mckeon presents with diagnosis of balance and gait deficits that interferes with walking, walking in the community (exercise) . The patient presents with impairments in ADL's, balance, coordination, gait, independence in exercise, overall function, and strength. PROMIS? (Patient-Reported Outcomes Measurement Information System) scores were reviewed and identified as a rehabilitation concern. Prognosis for therapy is Good due to: good overall health status, current objective clinical presentation, within-session changes, Prognosis may be limited due to limited support system, chronic nature of impairments. The patient will benefit from skilled therapy services to meet the goals established for this plan of care as noted below. Assessment Fall Risk : Complex at risk Goals for Episode of Care: established 04/24/25 Patient will report no falls. Improve score on Timed Up and Go Test to 7-12 seconds to reflect decreased fall risk. Improve score on 30 Second Chair Stand to 11 repetitions to reflect decreased fall risk. Improve performance on 4 Stage Balance Test to 10 second tandem and 14 second SLS to reflect decreased fall risk. Tate in home exercise program including cardiovascular exercise. Patient will demonstrate independent and proper use of assisstive device to allow for improved walking quality and safety therefore reducing the risk of falls. Patient Goals: improve safety with walking and decrease fall risk. He would like to resume running for exercise but he has not run for several years. Time Frame for Goals and Treatment : 06/19/25 Planned Interventions, Frequency, and Duration: Current Frequency: 2x/week Duration: 8 weeks Total Number of Visits Planned: 16 Planned Treatment Interventions: Therapeutic exercise (23309), Neuromuscular re-education (82569), Therapeutic activities (63967), Self-halfway management (98653), Gait Training (65981), Patient/Family/Caregive r Education, Body Mechanics Training, Functional training, General Conditioning PLAN FOR NEXT VISIT: Review, correct and progress HEP to tolerance. Begin comprehensive gait and balance training program to enhance safety with functional mobility. Adjust cane height prn and do gait training with cane if he brings cane next visit. Begin core and LE strengthening to tolerance. Patient demonstrates good understanding of plan of care and treatment. The above goals and plan of care were discussed and agreed upon by patient/family. For further details regarding this patient refer to the Physical Therapy electronically documented visit dated 04/24/2025. Provider Attestation I have reviewed the treatment plan for Estella Mckeon [facility]# [id number] for the period of 04/24/25 -- 06/19/25, established on 04/24/2025. Signature certifies the need for therapy services. Normal [facility] CNTHERAPYon 04-24-2025 CNTHERAPY OT/PT/Speech Visit (PTWS) ESTELLA MCKEON ([id number]) 1945 M Date Time Provider Department 04/24/25 9:30 AM ADAN VALDES PTWS Date Time Provider Department Center 04/24/2025 9:30 AM [id number], BRENT PTWS Jonelle Adams Reason for Visit: PT Eval [747] Physical Therapy [503] Primary Visit Diagnosis:Falling [R29.6] Other Visit Diagnoses:Frequent falls [R29.6] 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] Allergies As of Date: 04/24/2025 Noted Allergy Reaction SEASONAL ALLERGIES 09/27/2020 14 - Other: See Comments Comments: uses OTC prn Date Reviewed: 03/17/2025 Reviewed by: Gisel Barahona MA - Fully Assessed Prescriptions as of 04/24/2025 - sertraline (ZOLOFT) 50 mg tablet Take 1 tablet by mouth once daily. - metoprolol succinate ER (TOPROL XL) 25 mg 24 hr tablet Take 1 tablet by mouth once daily. - diphenhydrAMINE (SLEEP AID, DIPHENHYDRAMINE,) 25 mg capsule Take 1 capsule by mouth every 6 hours as needed. - atorvastatin (LIPITOR) 40 mg tablet Take 1 tablet by mouth daily at bedtime. - docosahexaenoic acid/epa (FISH OIL ORAL) Take 2,000 mg by mouth once daily. - aspirin, enteric coated (ECOTRIN LOW STRENGTH) 81 mg EC tablet Take 1 tablet by mouth once daily. - Zinc Mth/Copper/Saw Palm/Gnsg (PROSTATE HEALTH FORMULA ORAL) Take 1 tablet by mouth once daily. Stemhole Borer: Addendum Therapy (PT/OT/Speech/Resp) ID: [id number] 04/24/2025 10:17 AM Author: ADAN VALDES Signed by ADAN VALDES PT on 04/24/2025 at 10:17 AM * * * This document replaces document [id number] * * * Document text: Program_ID:[id number] Access Code: [email or web address] URL: [email or web address] Date: 04-24-2025 Prepared By: Adan Valdes Program Notes Exercises - Seated Heel Toe Raises - 2-3 x daily - 7 x weekly - 2 sets - 20 reps - Seated October - 2-3 x daily - 7 x weekly - 2 sets - 10 reps - Seated Long Arc Quad - 2-3 x daily - 7 x weekly - 2 sets - 10 reps Normal [facility] THERAPY NTon 04-24-2025 THERAPY NT HNO ID: [id number] Author: ADAN VALDES PT Service: ? Author Type: Physical Therapist Type: Therapy (PT/OT/Speech/Resp) Filed: 04/24/2025 10:17 Note Text: Program_ID:[id number] Access Code: [email or web address] URL: [email or web address] Date: 04-24-2025 Prepared By: Adan Valdes Program Notes Exercises - Seated Heel Toe Raises - 2-3 x daily - 7 x weekly - 2 sets - 20 reps - Seated March - 2-3 x daily - 7 x weekly - 2 sets - 10 reps - Seated Long Arc Quad - 2-3 x daily - 7 x weekly - 2 sets - 10 reps Normal [facility] CNOVon 03-17-2025 CNOV Office Visit (FAMPWS ) ESTELLA MCKEON ([id number]) 1945 M Date Time Provider Department 03/17/25 12:20 PM SONU PETERSENPWS During your visit today, we recorded the following information about you: Pulse Blood pressure Weight 66/minute 122/70 91.6 kg Sonu Petersen MD 03/17/2025 12:54 PM Signed Chief Complaint Patient presents with: 3 month follow up Recording using [employer] software for draft documentation of the visit was discussed with the patient/authorized business center representative; all questions welcomed and answered. Patient/authorized business center representative agreed to proceed HPI Estella Mckeon is a 79 year old male who presents here today for Above Complaints. Depression: - Currently taking Zoloft; Connor missed two doses on Sunday mornings due to a busy schedule. - Reports feeling sick and like everything is wrong after missing the first dose; no side effects after missing the second dose. - Overall mood described as closer to being the same compared to three months ago. - Reports improvement in feelings of being down, depressed, or hopeless, and in interest or pleasure in activities. - Continues to experience lack of energy. - Engages in social activities, including attending [employer] on Sundays. - No serious thoughts of self-harm; occasionally thinks about being closer to loved one but refrains due to zoroastrian beliefs. Coordination Issues: - Reports coordination and balance issues for five years, with no recent decline. - Experiences nystagmus when looking to the side. - Has not seen a neuro-canvas cutter hand as recommended by Dr. Lan with neurology. - Multiple falls reported, approximately two per month. - Falls often occur during activities that previously would not have caused a loss of balance. - Recent falls include falling off a bike in the garage and another fall while riding the same bike. - No falls resulting in head injury or loss of consciousness. - No current joint pain from falls. - Uses a regular cane when feeling unstable; dislikes using a four-footed cane. - Has not followed up with Dr. Lan, neurologist, since May. Past medical history, appointments, medications, allergies reviewed. 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) Grief 05/23/2024 Hernia HLD (hyperlipidemia) HTN (hypertension) Postsurgical percutaneous transluminal coronary angioplasty status 2000 Seasonal allergies Thalassemia minor Vertigo Previous Surgical History PAST SURGICAL HISTORY Procedure Laterality Date COLONOSCOPY 1993 HEART CATHETERIZATION early HERNIA REPAIR HX TONSILLECTOMY HX VASECTOMY UNI/BI SPX W/POSTOP SEMEN EXAMS Family History FAMILY HISTORY Problem Relation Age of Onset other (TIA) Mother Dementia Mother Cancer Father Heart disease Sister Heart Attack Sister No Known Problems Brother Anxiety disorder Son Depression Son Hypertension Son Patient Allergies ALLERGIES Allergen Reactions Seasonal Allergies Other: See Comments uses OTC prn Current Medications Current Outpatient Medications on File Prior to Visit Medication Sig sertraline (ZOLOFT) 50 mg tablet Take 1 tablet by mouth once daily. metoprolol succinate ER (TOPROL XL) 25 mg 24 hr tablet Take 1 tablet by mouth once daily. diphenhydrAMINE (SLEEP AID, DIPHENHYDRAMINE,) 25 mg capsule Take 1 capsule by mouth every 6 hours as needed. atorvastatin (LIPITOR) 40 mg tablet Take 1 tablet by mouth daily at bedtime. docosahexaenoic acid/epa (FISH OIL ORAL) Take 2,000 mg by mouth once daily. aspirin, enteric coated (ECOTRIN LOW STRENGTH) 81 mg EC tablet Take 1 tablet by mouth once daily. Zinc Mth/Copper/Saw Palm/Gnsg (PROSTATE HEALTH FORMULA ORAL) Take 1 tablet by mouth once daily. No current facility-administered medications on file prior to visit. Social History Social History Tobacco Use Smoking status: Never Smokeless tobacco: Never Tobacco comments: Smoked a pipe in [employer] Vaping Use Vaping status: Never Used Substance Use Topics Alcohol use: Not Currently Drug use: Never Review of Symptoms REVIEW OF SYSTEMS GENERAL: No weight loss, malaise or fevers RESPIRATORY: Negative for cough, hemoptysis, wheezing, COPD, dyspnea or shortness of breath CARDIOVASCULAR: Negative for chest pain, leg swelling, hypertension, CHF or palpitations GI: No nausea, vomiting, or diarrhea SKIN: Negative for lesions, rash, and itching EXAM: BP 122/70 Pulse 66 Wt 91.6 kg (202 lb) BMI 28.17 kg/m? General Appearance: Well appearing, alert, in no acute distress, well-hydrated, well nourished.. Skin: Skin color, texture, turgor normal, no suspicious rashes or (more content not included)... Normal [facility] CNOVon 01-12-2025 [facility] Office Visit (FAMZackeryWS ) ESTELLA MCKEON ([id number]) 1945 M Date Time Provider Department 01/12/25 2:00 PM YAMILEX MELENDEZ During your visit today, we recorded the following information about you: Temperature Pulse Respiration Blood pressure 98 degrees 64/minute 16/minute 114/64 Weight 90.7 kg Yamilex Melendez APRN.SURGICAL CORSETIER 01/12/2025 2:07 PM Signed 01/12/2025 Patient presents with: Follow Up: Swollen glands Recording using ambient [employer] software for draft documentation of the visit was discussed with the patient/authorized business center representative; all questions welcomed and answered. Patient/authorized business center representative agreed to proceed SUBJECTIVE: This is a 79 year old that is here today for Above Complaints.. Swollen Glands: - Onset of sore throat, mild cough, and swollen glands prompted urgent care visit on 06/12. - Swollen glands have improved but are still present. - Denies fevers, chills, unintentional weight loss, dyspnea, nausea, emesis, or diarrhea. - Reports mild dysphagia, but not severe. - Initially experienced ear discomfort, now resolved. - Using generic Claritin for rhinorrhea; previously used Flonase but discontinued due to concerns about throat irritation. - Denies sinus pain or pressure. PAST MEDICAL HISTORY Diagnosis Date Ataxia Dr. 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 metoprolol succinate ER (TOPROL XL) 25 mg 24 hr tablet Take 1 tablet by mouth once daily. diphenhydrAMINE (SLEEP AID, DIPHENHYDRAMINE,) 25 mg capsule Take 1 capsule by mouth every 6 hours as needed. atorvastatin (LIPITOR) 40 mg tablet Take 1 tablet by mouth daily at bedtime. docosahexaenoic acid/epa (FISH OIL ORAL) Take 2,000 mg by mouth once daily. aspirin, enteric coated (ECOTRIN LOW STRENGTH) 81 mg EC tablet Take 1 tablet by mouth once daily. Zinc Mth/Copper/Saw Palm/Gnsg (PROSTATE HEALTH FORMULA ORAL) Take 1 tablet by mouth once daily. No current facility-administered medications for this visit. Medications and allergies reviewed by this provider. SOCIAL HISTORY Social History Tobacco Use Smoking status: Never Smokeless tobacco: Never Tobacco comments: Smoked a pipe in college Vaping Use Vaping status: Never Used Substance Use Topics Alcohol use: Not Currently Drug use: Never REVIEW OF SYSTEMS All other reviewed and negative other than HPI. OBJECTIVE: BP 114/64 Pulse 64 Temp 36.7 ?C (98 ?F) Resp 16 Wt 90.7 kg (200 lb) SpO2 94% BMI 27.89 kg/m? . Vital signs reviewed by this provider. APPEARANCE Well appearing, alert, in no acute distress, well-hydrated, well nourished. EYES conjunctiva and sclera normal. EARS External ears normal, canals clear THROAT normal, no erythema NECK Supple, Positive findings: tonsillar adenopathy HEART RRR with normal S1 and S2, no murmurs, no gallops, no JVD appreciated LUNG clear to auscultation. No wheezes, rhonchi or rales SKIN Skin color, texture, turgor normal, no suspicious rashes or lesions to exposed skin Depression Screening Never done Anxiety Screening Never done Hepatitis C Screening Never done DTaP,Tdap,Td Vaccine(1 - Tdap) Never done Shingrix Vaccine(1 of 2) Never done RSV Vaccine(1 - 1-dose 75+ series) Never done Advance Directive Discussion Never done Covid-19 Vaccine( season) due on 11/16/2024 LDL Cholesterol due on 11/18/2024 Influenza Vaccine(Season Ended) due on 04/27/2025 Annual PCP Team Chronic Disease Visit due on 12/18/2025 BP Controlled (<130/80) due on 01/10/2026 Diabetes Screening due on 05/23/2027 Pneumococcal Vaccine: 50+ Completed 1. Localized swelling, mass and lump, head (R22.0) - Cervical lymphadenopathy noted on examination, likely secondary to a viral infection or allergic reaction. - No fever, chills, or unintentional weight loss reported. - Throat examination unremarkable; no evidence of pharyngeal erythema. - Advised continuation of current management with Claritin. - If lymphadenopathy persists beyond one month, will order an ultrasound to further evaluate. 2. Allergic rhinitis, unspecified seasonality, unspecified trigger (J30.9) - Symptoms include runny nose and mild otalgia, currently managed with Claritin. - Discussed proper use of Flonase nasal spray, including technique to minimize mucosal irritation and potential epistaxis. - Recommended rinsing mouth after use of Flonase to prevent oropharyngeal irritation. - (more content not included)... Normal [facility] CNOVon 01-10-2025 CNOV Office Visit (WSTR ) ESTELLA MCKEON ([id number]) 1945 M Date Time Provider Department 01/10/25 1:15 PM [facility] During your visit today, we recorded the following information about you: Temperature Pulse Respiration Blood pressure 98.2 degrees 63/minute 16/minute 126/69 Weight 90.4 kg Jonelle Noel, CHRISTY.SURGICAL CORSETIER 01/10/2025 2:05 PM Signed [facility] Subjective Estella Mckeon is a 79 year old male. Patient presents with: Sore Throat: With right ear pain, swollen glands AND fatigue x1 day Sore Throat Sore Throat and Ear Pain: - Onset yesterday. - Took NyQuil last night, which alleviated ear pain and sore throat. - Took an allergy medication this morning. - Denies fever, nausea, emesis, or diarrhea. - Reports mild chills. - Denies current pain. Cervical Lymphadenopathy: - Noticed swollen cervical lymph nodes yesterday. - Believes this indicates an underlying issue. Fatigue: - Reports chronic fatigue, stating I'm tired all the time. - Duration described as a long time. - States he slept for 3 hours today which is not normal for him. Review of Systems HENT: Positive for sore throat. Constitutional: (+) chills, (+) fatigue Ears/Nose/Mouth/Throat: (+) sore throat, (-) ear pain Gastrointestinal: (-) nausea, (-) vomiting, (-) diarrhea Hematologic/Lymphatic: (+) swollen glands Objective BP 126/69 Pulse 63 Temp 36.8 ?C (98.2 ?F) (Left Tympanic) Resp 16 Wt 90.4 kg (199 lb 4.7 oz) SpO2 97% BMI 27.80 kg/m? 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 - Cerebral ventriculomegaly - Coronary artery disease - Coronary-myocardial bridge (HCC) LAD - Enlarged RV (right ventricle) - Grief 05/23/2024 - Hernia - HLD (hyperlipidemia) - HTN (hypertension) - Postsurgical percutaneous transluminal coronary angioplasty status 2000 - Seasonal allergies - Thalassemia minor - Vertigo PAST SURGICAL HISTORY Procedure Laterality Date - COLONOSCOPY 1993 - HEART CATHETERIZATION early - HERNIA REPAIR HX - TONSILLECTOMY HX - VASECTOMY UNI/BI SPX W/POSTOP SEMEN EXAMS ALLERGIES Seasonal Allergies MEDICATIONS - sertraline (ZOLOFT) 50 mg tablet Take 1 tablet by mouth once daily. - metoprolol succinate ER (TOPROL XL) 25 mg 24 hr tablet Take 1 tablet by mouth once daily. - diphenhydrAMINE (SLEEP AID, DIPHENHYDRAMINE,) 25 mg capsule Take 1 capsule by mouth every 6 hours as needed. - atorvastatin (LIPITOR) 40 mg tablet Take 1 tablet by mouth daily at bedtime. - aspirin, enteric coated (ECOTRIN LOW STRENGTH) 81 mg EC tablet Take 1 tablet by mouth once daily. - Zinc Mth/Copper/Saw Palm/Gnsg (PROSTATE HEALTH FORMULA ORAL) Take 1 tablet by mouth once daily. - docosahexaenoic acid/epa (FISH OIL ORAL) Take 2,000 mg by mouth once daily. FAMILY HISTORY Problem Relation Age of Onset - other (TIA) Mother - Dementia Mother - Cancer Father - Heart disease Sister - Heart Attack Sister - No Known Problems Brother - Anxiety disorder Son - Depression Son - Hypertension Son Social History Tobacco Use - Smoking status: Never - Smokeless tobacco: Never - Tobacco comments: Smoked a pipe in college Vaping Use - Vaping status: Never Used Substance Use Topics - Alcohol use: Not Currently - Drug use: Never Physical Exam Vitals and nursing note reviewed. Constitutional: General: He is not in acute distress. Appearance: Normal appearance. He is not ill-appearing. HENT: Right Ear: Tympanic membrane and external ear normal. Left Ear: Tympanic membrane and external ear normal. Nose: No congestion. Mouth/Throat: Mouth: Mucous membranes are moist. Pharynx: Posterior oropharyngeal erythema present. Cardiovascular: Rate and Rhythm: Normal rate and regular rhythm. Heart sounds: Normal heart sounds. Pulmonary: Effort: Pulmonary effort is normal. No respiratory distress. Breath sounds: Normal breath sounds. No wheezing or rales. Lymphadenopathy: Head: Right side of head: Tonsillar adenopathy present. Left side of head: Tonsillar adenopathy present. Cervical: Cervical adenopathy present. Neurological: Mental Status: He is alert. General: No acute distress. HEENT: Pharynx erythematous; cervical lymphadenopathy. CV: Heart sounds regular. Resp: Lungs clear to auscultation. {1. Glands swollen (R59.9) 2. Acute pharyngitis, unspecified etiology (J02.9) - Lymphadenopathy noted on exam; pharynx erythematous. - Rapid strep test performed in office, results negative. - Differential diagnosis includes viral infection. - Advised supportive care with Tylenol for analgesia and increased fluid intake. - Recommended follow-up with Dr. Petersen on Sunday for further evaluation if symptoms persist or worsen. 3. Fatigue, unspecified type (R53.83) - Chronic fatigue reported. - Further (more content not included)... Normal [facility] STREP A MOLECULAR (POC)on Procedural Control Valid [facility] Strep A (POCT) Negative Negative [facility] CNOVon 12-18-2024 CNOV Office Visit (FAMPWS ) ESTELLA MCKEON ([id number]) 1945 M Date Time Provider Department 12/18/24 12:20 PM SONU PETERSEN FAMPWS During your visit today, we recorded the following information about you: Pulse Respiration Blood pressure Weight 76/minute 16/minute 108/64 90.3 kg Sonu Petersen MD 12/18/2024 12:58 PM Signed Chief Complaint Patient presents with: Follow Up: 3 month follow up for grief HPI Estella Misa Mckeon is a 79 year old male who presents here today for Above Complaints. Patient started on zoloft at last OV in August for continued symptoms of grief/depression after [address] last year. Since starting the Zoloft, his symptoms of depression are improving. Not sure if it is the medication or just getting used to his not being there. Going to meetings through [facility]. Denies side effects or SI/HI. Would like to continue current regimen. PHQ-9 More data exists 03/03/2022 08/06/2023 08/25/2023 02/18/2024 12/17/2024 PHQ-9 Scores Little interest or pleasure in doing things: Several days Several days Several days More than half the days Several days Feeling down, depressed, or hopeless: Several days Several days Several days Several days Several days Trouble falling or staying asleep, or sleeping too much Several days Not at all - Several days Not at all Feeling tired or having little energy More than half the days Nearly every day - Several days Several days Poor appetite or overeating More than half the days Several days - More than half the days Several days Feeling bad about yourself - or that you are a failure or have let yourself or your family down Several days Several days - Several days Not at all Trouble concentrating on things, such as reading the newspaper or watching television Several days Several days - Several days Not at all Moving or speaking so slowly that other people could have noticed. Or the opposite - being so fidgety or restless that you have been moving around a lot more than usual Not at all Not at all - Several days Not at all Thoughts that you would be better off , or of hurting yourself in some way Several days Not at all - Not at all Not at all PHQ-9 Score 10 8 - 10 4 Past medical history, appointments, medications, allergies reviewed. 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) Grief 05/23/2024 Hernia HLD (hyperlipidemia) HTN (hypertension) Postsurgical percutaneous transluminal coronary angioplasty status 2000 Thalassemia minor Vertigo Previous Surgical History PAST SURGICAL HISTORY Procedure Laterality Date COLONOSCOPY 1993 HEART CATHETERIZATION early 1999' HERNIA REPAIR HX TONSILLECTOMY HX VASECTOMY UNI/BI SPX W/POSTOP SEMEN EXAMS Family History FAMILY HISTORY Problem Relation Age of Onset other (TIA) Mother Dementia Mother Cancer Father Heart disease Sister Heart Attack Sister No Known Problems Brother Anxiety disorder Son Depression Son Hypertension Son Patient Allergies ALLERGIES Allergen Reactions Seasonal Allergies Other: See Comments uses OTC prn Current Medications Current Outpatient Medications on File Prior to Visit Medication Sig metoprolol succinate ER (TOPROL XL) 25 mg 24 hr tablet Take 1 tablet by mouth once daily. sertraline (ZOLOFT) 50 mg tablet Take 1 tablet by mouth once daily. diphenhydrAMINE (SLEEP AID, DIPHENHYDRAMINE,) 25 mg capsule Take 1 capsule by mouth every 6 hours as needed. atorvastatin (LIPITOR) 40 mg tablet Take 1 tablet by mouth daily at bedtime. docosahexaenoic acid/epa (FISH OIL ORAL) Take 2,000 mg by mouth once daily. aspirin, enteric coated (ECOTRIN LOW STRENGTH) 81 mg EC tablet Take 1 tablet by mouth once daily. Zinc Mth/Copper/Saw Palm/Gnsg (PROSTATE HEALTH FORMULA ORAL) Take 1 tablet by mouth once daily. No current facility-administered medications on file prior to visit. Social History Social History Tobacco Use Smoking status: Never Smokeless tobacco: Never Tobacco comments: Smoked a pipe in [employer] Vaping Use Vaping status: Never Used Substance Use Topics Alcohol use: Not Currently Drug use: Never Review of Symptoms REVIEW OF SYSTEMS GENERAL: No weight loss, malaise or fevers RESPIRATORY: Negative for cough, hemoptysis, wheezing, COPD, dyspnea or shortness of breath CARDIOVASCULAR: Negative for chest pain, leg swelling, hypertension, CHF or palpitations GI: No nausea, vomiting, or diarrhea EXAM: BP 108/64 (BP Site: Left Arm, BP Position: Sitting) Pulse 76 Resp 16 Wt 90.3 kg (199 lb) SpO2 95% BMI 27.75 kg/m? General Appearance: Well appearing, alert, in no acute distress, well-hydrated, well nourished.. (more content not included)... Normal [facility] CNOVon 10-13-2024 CNOV Office Visit (CARDWS ) ESTELLA MCKEON ([id number]) 1945 M Date Time Provider Department 10/13/24 8:20 AM SHUBHAM RILEY During your visit today, we recorded the following information about you: Pulse Respiration Blood pressure Weight 76/minute 12/minute 120/56 87.1 kg Height 1.803 m Shubham Riley MD 10/13/2024 8:37 AM Signed Shubham Riley MD Interventional Cardiology [address] [place] [address] [id number] Chief Complaint Patient presents with: Follow Up: seen in [place]- 6 months ago HISTORY OF PRESENT ILLNESS: Mr. Mckeon is a 79 year old male seen in my office today for follow-up prior history of mild nonobstructive coronary artery disease with history of myocardial bridge in the LAD history of hyperlipidemia and hypertension doing well from the cardiac point to be asymptomatic denies chest pain or shortness of breath Echocardiography shows normal left ventricular function with normal ejection fraction mildly dilated right ventricle with mild pulm hypertension recent nuclear stress test in beginning of 2023 shows no evidence of ischemia with normal left ventricular function with normal right ventricular function Cardiac Risk Factors age (male over 45, female over 55), hyperlipidemia, hypertension, family history of CAD PAST MEDICAL HISTORY Diagnosis Date 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) Grief 05/23/2024 Hernia HLD (hyperlipidemia) HTN (hypertension) Postsurgical percutaneous transluminal coronary angioplasty status 2000 Thalassemia minor Vertigo PAST SURGICAL HISTORY Procedure Laterality Date COLONOSCOPY 1993 HEART CATHETERIZATION early 1999' HERNIA REPAIR HX TONSILLECTOMY HX VASECTOMY UNI/BI SPX W/POSTOP SEMEN EXAMS FAMILY HISTORY Problem Relation Age of Onset other (TIA) Mother Dementia Mother Cancer Father Heart disease Sister Heart Attack Sister No Known Problems Brother Anxiety disorder Son Depression Son Hypertension Son Social History Tobacco Use Smoking status: Never Smokeless tobacco: Never Tobacco comments: Smoked a pipe in [employer] Vaping Use Vaping status: Never Used Substance Use Topics Alcohol use: Not Currently Drug use: Never ALLERGIES Allergen Reactions Seasonal Allergies Other: See Comments uses OTC prn Medications: Current Outpatient Medications Medication Sig Dispense Refill docosahexaenoic acid/epa (FISH OIL ORAL) Take 2,000 mg by mouth once daily. sertraline (ZOLOFT) 50 mg tablet Take 1 tablet by mouth once daily. 30 tablet 2 aspirin, enteric coated (ECOTRIN LOW STRENGTH) 81 mg EC tablet Take 1 tablet by mouth once daily. Zinc Mth/Copper/Saw Palm/Gnsg (PROSTATE HEALTH FORMULA ORAL) Take 1 tablet by mouth once daily. diphenhydrAMINE (SLEEP AID, DIPHENHYDRAMINE,) 25 mg capsule Take 1 capsule by mouth every 6 hours as needed. metoprolol succinate ER (TOPROL XL) 25 mg 24 hr tablet Take 1 tablet by mouth once daily. 90 tablet 3 atorvastatin (LIPITOR) 40 mg tablet Take 1 tablet by mouth daily at bedtime. 90 tablet 3 No current facility-administered medications for this visit. Review of Systems Constitutional: Negative for chills, diaphoresis, fever, malaise/fatigue and weight loss. HENT: Negative for congestion, ear discharge, ear pain, hearing loss, nosebleeds, sinus pain, sore throat and tinnitus. Eyes: Negative for blurred vision, double vision, photophobia, pain, discharge and redness. Respiratory: Negative for cough, hemoptysis, sputum production, shortness of breath, wheezing and stridor. Cardiovascular: Negative for chest pain, palpitations, orthopnea, claudication, leg swelling and PND. Gastrointestinal: Negative for abdominal pain, blood in stool, constipation, diarrhea, heartburn, melena, nausea and vomiting. Genitourinary: Negative for dysuria, flank pain, frequency, hematuria and urgency. Musculoskeletal: Negative for back pain, falls, joint pain, myalgias and neck pain. Skin: Negative for itching and rash. Neurological: Negative for dizziness, tingling, tremors, sensory change, speech change, focal weakness, seizures, loss of consciousness, weakness and headaches. Endo/Heme/Allergies: Negative for environmental allergies and polydipsia. Does not bruise/bleed easily. Psychiatric/Behavioral: Negative for depression, hallucinations, memory loss, substance abuse and suicidal ideas. The patient is not nervous/anxious and does not have insomnia. Physical Examination: Vitals:BP 120/56 Pulse 76 Resp 12 Ht 5' 11 (1.80m) Wt 192 lb (87.1kg) SpO2 95% BMI 26.79 kg/(m2). BP w/Orthostatic Vitals Date and Time Orthostatic BP Orthostatic Pulse BP Pulse BP Position BP Site BP Cuff Size 10/13/24 0808 -- (more content not included)... Normal [facility] [id number] 02-17-2025 ECG01 Ventricular Rate : 7 0 BPM Atrial Rate : 70 BPM P-R Interval : 240 ms QRS Duration : 94 ms Q-T Interval : 388 ms QTC Calculation(Bazett) : 419 ms Calculated P Stout : 53 degrees Calculated R Stout : 11 degrees Calculated T Stout : 34 degrees SINUS RHYTHM WITH 1ST DEGREE AV BLOCK OTHERWISE NORMAL ECG Confirmed by MD CABRERA QARAB ([id number]) on 10/14/2024 1:11:08 PM NAME : ESTELLA MCKEON PID : [id number] : 1945 Gender : Male Race : ORD : Procedure Date : Oct 13 2024 08:16:21 Edit Date : Oct 14 2024 13:11:09 Diagnosis: SINUS RHYTHM WITH 1ST DEGREE AV BLOCK OTHERWISE NORMAL ECG Confirmed by MD CABRERA QARAB ([id number]) on 10/14/2024 1:11:08 PM Test Reason : Location : 136 : [facility] Overread By : MD CABRERA QARAB Edited By : MD CABRERA QARAB Referred By : SELF, Acquired by : Eliecer platt [facility] CNOVon 09-19-2024 CNOV Office Visit (FAMPWS ) ESTELLA MCKEON ([id number]) 1945 M Date Time Provider Department 09/19/24 10:40 AM SONU PETERSENPWS During your visit today, we recorded the following information about you: Pulse Respiration Blood pressure Weight 78/minute 16/minute 128/74 87.4 kg Sonu Petersen MD 09/25/2024 8:01 PM Signed Chief Complaint Patient presents with: Follow Up: 3 month HPI Estella Misa Mckeon is a 79 year old male who presents here today for Above Complaints. Patient has been in good health without recent hospitalizations, ER visits, or falls. Patient given information for grief counseling at last OV after recent loss of his . Refused medications at that time. Symptoms have not improved. States that since her passing he has been feeling down/depressed, decreased appetite but is eating 3 meals per day (weight down 11 lbs in 3 months), difficulty sleeping (taking melatonin 1 mg which helps), decreased energy/interest/concent ration, feeling of guilt. Denies SI/HI or plan to harm himself. Would like to try rx. Patient evaluated by Dr. 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 MRI showed: IMPRESSION: Stable ventriculomegaly out of proportion to cortical sulci when compared to 02/13/2022, which can be seen with normal pressure/communicating hydrocephalus in the appropriate clinical context, versus central volume loss. There is also some aliasing through the cerebral aqueduct on the CSF flow study which can be seen with hyperdynamic flow. Moderate microvascular ischemic white matter changes, also stable. Small remote infarcts bilateral centrum semiovale. Patient states that he did go to optho at [facility] in the fall with reportedly normal exam. Records not available today. Has not followed up with neuropsych testing yet. Patient denies worsening ataxia or new symptoms of CVA including: vision changes, headache, slurred speech, facial droop, weakness, tingling, unilateral numbness. Has canes he is using for ambulation and feels steady with use. Needs to schedule 3 month follow up with neurology after testing. Patient did schedule establish care visit with Dr. Riley for his known history of CAD. Patient is compliant with ASA, statin and beta baron. Denies chest pain, SOB, palpitaitons, LE edema. Past medical history, appointments, medications, allergies reviewed. 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) Grief 05/23/2024 Hernia HLD (hyperlipidemia) HTN (hypertension) Postsurgical percutaneous transluminal coronary angioplasty status 2000 Thalassemia minor Vertigo Previous Surgical History PAST SURGICAL HISTORY Procedure Laterality Date COLONOSCOPY 1993 HEART CATHETERIZATION early 1999' HERNIA REPAIR HX TONSILLECTOMY HX VASECTOMY UNI/BI SPX W/POSTOP SEMEN EXAMS Family History FAMILY HISTORY Problem Relation Age of Onset other (TIA) Mother Dementia Mother Cancer Father Heart disease Sister Heart Attack Sister No Known Problems Brother Anxiety disorder Son Depression Son Hypertension Son Patient Allergies ALLERGIES Allergen Reactions Seasonal Allergies Other: See Comments uses OTC prn Current Medications Current Outpatient Medications on File Prior to Visit Medication Sig melatonin 1 mg tablet Take 0.5-1 mg by mouth at bedtime as needed for insomnia. atorvastatin (LIPITOR) 40 mg tablet Take 1 tablet by mouth daily at bedtime. metoprolol succinate ER (TOPROL XL) 25 mg 24 hr tablet Take 1 tablet by mouth once daily. Zinc Mth/Copper/Saw Palm/Gnsg (PROSTATE HEALTH FORMULA ORAL) Take 1 tablet by mouth once daily. No current facility-administered medications on file prior to visit. Social History Social History Tobacco Use Smoking status: Never Smokeless tobacco: Never Tobacco comments: Smoked a pipe in [employer] Vaping Use Vaping status: Never Used Substance Use Topics Alcohol use: Not Currently Drug use: Never Review of Symptoms REVIEW OF SYSTEMS GENERAL: No weight loss, malaise or fevers RESPIRATORY: Negative for cough, hemoptysis, wheezing, COPD, dyspnea or shortness of breath CARDIOVASCULAR: Negative for chest pain, leg swelling, hypertension, CHF or palpitations GI: No nausea, vomiting, or diarrhea SKIN: Negative for lesions, rash, and itching EXAM: BP 136/86 Pulse 78 Resp 16 Wt 87.4 kg (192 lb 9.6 oz) SpO2 97% BMI 26.86 kg/m? General Appearance: Well appearing, alert, in no acute distress, well-hydrated, well nourished.. Skin: Skin col (more content not included)... Normal [facility] Kwesi 08-04-2024 [facility] Telephone ([facility]) ESTELLA MCKEON ([id number]) 1945 M Date Time Provider Department 08/04/24 BERTRAND NEFF [facility] During your visit today, we recorded the following information about you: Michael Jj LPN 08/04/2024 11:55 AM Signed Left a detailed message with results from provider below. Bertrand Neff MD P [facility] Care Pool Negative COVID, Influenza, and RSV test. Michael Jj LPN Allergies As of Date: 08/04/2024 Noted Allergy Reaction SEASONAL ALLERGIES 09/27/2020 14 - Other: See Comments Comments: uses OTC prn Date Reviewed: 07/30/2024 Reviewed by: Lizzie Garner LPN - Fully Assessed Reason for Visit: Results [95] Prescriptions as of 08/04/2024 - melatonin 1 mg tablet Take 0.5-1 mg by mouth at bedtime as needed for insomnia. - atorvastatin (LIPITOR) 40 mg tablet Take 1 tablet by mouth daily at bedtime. - metoprolol succinate ER (TOPROL XL) 25 mg 24 hr tablet Take 1 tablet by mouth once daily. - Zinc Mth/Copper/Saw Palm/Gnsg (PROSTATE HEALTH FORMULA ORAL) Take 1 tablet by mouth once daily. Problem List As Of Date 08/04/2024 Noted Resolved Vertigo [R42] 09/21/2020 11/08/2023 Non-recurrent bilateral inguinal hernia without*09/21/2020 Umbilical hernia without obstruction or gangren*09/21/2020 Thalassemia minor [D56.3] 09/27/2020 Chest pain of unknown etiology [R07.9] 04/11/2021 Myelopathy (HCC) [G95.9] 08/08/2023 11/08/2023 Cerebellar infarct (HCC) [I63.9] 08/08/2023 Coronary artery disease due to lipid rich plaqu*08/08/2023 Contracture of joint of finger of left hand [M2*08/08/2023 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] Encounter Status:Closed by MICHAEL JJ on 08/04/24 [facility] CNOVon 07-30-2024 CNOV Office Visit (UCWSTR ) ESTELLA MCKEON ([id number]) 1945 M Date Time Provider Department 07/30/24 12:00 PM BERTRAND NEFF [facility] During your visit today, we recorded the following information about you: Temperature Pulse Respiration Blood pressure 98.5 degrees 86/minute 16/minute 144/84 Weight 88.6 kg Bertrand Neff MD 07/30/2024 1:03 PM Signed Patient presents with: Cough: Cough, congestion and ST x 1.5 weeks HPI: Coughing since the weather changed to cold - 1 1/2 weeks. 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 He is here to be evaluated for possible COVID causing his symptoms. Positive symptoms: dry cough, hoarse voice, post nasal drainageShortness of breath, left Chest pain, back ache, Headaches (temples), Negative symptoms: Sinus pressure, Nasal Congestion, Rhinorrhea, Fever, Chills, Nausea, Vomiting, Diarrhea, OTC: alkaseltzer, aspirin. Wearing a mask helps his cough and throat. He reports his left chest pain and shortness of breath are unchanged from chronic symptoms. He has heard women have atypical anginal symptoms presenting as back pain and his back pain is a new symptom. His back hurts after sleeping and improves with activity. He has slept poorly since his . 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 atorvastatin (LIPITOR) 40 mg tablet Take 1 tablet by mouth daily at bedtime. metoprolol succinate ER (TOPROL XL) 25 mg 24 hr tablet Take 1 tablet by mouth once daily. Zinc Mth/Copper/Saw Palm/Gnsg (PROSTATE HEALTH FORMULA ORAL) Take 1 tablet by mouth once daily. No current facility-administered medications for this visit. ALLERGIES: ALLERGIES Allergen Reactions Seasonal Allergies Other: See Comments uses OTC prn VITALS: BP 144/84 Pulse 86 Temp 36.9 ?C (98.5 ?F) (Tympanic) Resp 16 Wt 88.6 kg (195 lb 5.2 oz) SpO2 96% BMI 27.24 kg/m? PHYSICAL EXAM: GEN: Pleasant, in no acute distress. HEENT: PERRL, EOMI, conjunctiva clear Ears: Left canal occluded by cerumen. TMs without erythema, bulge, or effusion Sinuses: non-tender frontal sinus, non-tender maxillary sinuses Throat: moist mucous membranes, no erythema, no exudate Neck: supple, no thyromegaly, no lymphadenopathy HEART: regular rate and rhythm, no murmurs LUNGS: clear to auscultation, no wheezes or crackles, no increased WOB ASSESSMENT/PLAN: 1. Acute cough - ICD9: 786.2, ICD10: R05.1 (primary diagnosis) - COVID AND INFLUENZA A/B AND RSV PCR, ROUTINE. He is not sure how to use his MyChart for results - instructed to call for results in the morning. - Differential includes viral URI and low temperature/humidity recently. - Discussed supportive care treatment with rest, cold medicine, and analgesia. Musculoskeletal bilateral mid to low back pain. He is aware and verbalizes in his own words that heart related back pain would need ruled out in the ER and he will go for evaluation if he has a worsening or change from baseline chest pain or shortness of breath. Follow up with PCP and cardiology for ongoing care. 2. Impacted cerumen of left ear - ICD9: 380.4, ICD10: H61.22 Successful removal of large left canal cerumen with lighted curette. He had a raw area in the inferior mid canal without active bleeding after the procedure. Bertrand Neff MD Allergies As of Date: 07/30/2024 Noted Allergy Reaction SEASONAL ALLERGIES 09/27/2020 14 - Other: See Comments Comments: uses OTC prn Date Reviewed: 07/30/2024 Reviewed by: Lizzie Garner LPN - Fully Assessed Reason for Visit: Cough [28] Cmt: Cough, congestion and ST x 1.5 weeks Primary Visit Diagnosis:Acute cough [R05.1] Other Visit Diagnosis:Impacted cerumen of left ear [H61.22] Order(s):COVID AND INFLUENZA A/B AND RSV PCR, ROUTINE [SQCVFLRS] Order #: [id number]. #:[id number] Prescriptions as of 07/30/2024 - melatonin 1 mg tablet Take 0.5-1 mg by mouth at bedtime as needed for insomnia. - atorvastatin (LIPITOR) 40 mg tablet Take 1 tablet by mouth daily at bedtime. - metoprolol succinate ER (TOPROL XL) 25 mg 24 hr tablet Take 1 tablet by mouth once daily. - Zinc Mth/Copper/Saw Palm/Gnsg (PROSTATE HEALTH FORMULA ORAL) Take 1 tablet by mouth once daily. Problem List As Of Date 07/30/2024 Noted Resolved Vertigo [R42] 09/21/2020 11/08/2023 Non-recurrent bilateral inguinal hernia without*09/21/2020 Umbilical hernia without obstruction o (more content not included)... Normal [facility] COVID AND INFLUENZA A/B AND RSV PCR, ROUTINEon 07-30-2024 SARS-CoV-2 (COVID-19) RNA ANGEL+probe Ql (Unsp spec) SARS-COV-2 (AGENT OF COVID-19) RNA: Not detected INFLUENZA A RNA: Not detected INFLUENZA B RNA: Not detected RESPIRATORY SYNCYTIAL VIRUS (RSV) RNA: Not detected Normal [facility] Comment on above: Performed By: #### C VFLRS ####[facility] LABCLIA [id number] [address] [place] MR Brain WO contraston 06-25 IMPRESSION: Stable ventriculomegaly out of proportion to cortical sulci when compared to 02/13/2022, which can be seen with normal pressure/communicating hydrocephalus in the appropriate clinical context, versus central volume loss. There is also some aliasing through the cerebral aqueduct on the CSF flow study which can be seen with hyperdynamic flow. Moderate microvascular ischemic white matter changes, also stable. Small remote infarcts bilateral centrum semiovale. Pot Fisher: BETITO Transcribe Date/Time: Jun 25 2024 12:04P Dictated by : REYNA DOBBS MD This examination was interpreted and the report reviewed and electronically signed by: REYNA DOBBS MD on Jun 25 2024 12:14PM [facility] DIVISION OF RADIOLOGY * * *Final Report* * * DATE OF EXAM: Jun 25 2024 11:45AM [facility] 0294 - MRI BRAIN WO IVCON / PROCEDURE REASON: multiple diagnoses * * * * Physician Interpretation * * * * EXAMINATION: MRI BRAIN WO IVCON CLINICAL HISTORY: Ataxia Cerebral ventriculomegaly Memory loss Recurrent falls TECHNIQUE: Routine noncontrast MRI protocol including diffusion images. MQ: [id number]_2 COMPARISON: 02/16/2022 RESULT: Acute Change: There is no evidence of restricted diffusion to suggest an acute infarct. Hemorrhage: Punctate susceptibility artifact right cerebellum likely an isolated focus of remote microhemorrhage. Mass Lesion/ Mass Effect: No evidence of an intracranial mass or extra-axial fluid collection. No significant mass effect. Chronic Change: Scattered patchy and confluent areas of increased T2 and FLAIR signal are present in the supratentorial white matter which is nonspecific but likely represents chronic microvascular ischemia. Remote lacunar infarcts bilateral centrum semiovale. Parenchyma: There is mild generalized parenchymal volume loss. The brain parenchyma is otherwise within normal limits of signal intensity and morphology. Ventricles: Stable moderate ventriculomegaly out of proportion to cortical sulci.. Biphasic CSF flow is noted in the basilar cisterns, through the cerebral aqueduct, fourth ventricle, and foramen Magendie, as well as ventral and dorsal to the upper cervical spine. There is some aliasing in the cerebral aqueduct which can be seen with hyperdynamic flow. Skull Base: Hypothalamic and pituitary region are grossly normal. Craniocervical junction is normal. No significant marrow replacement process. Vasculature: Major intracranial arterial structures, and dural venous sinuses show typical flow void, suggesting patency by spin echo criteria. Other: The visualized paranasal sinuses and mastoid air cells are clear. Bilateral lens replacement. The orbits and extracranial soft tissues are unremarkable. DIVISION OF RADIOLOGY Provider, [facility] - 06/25/2024 * * *Final Report* * * DATE OF EXAM: Jun 25 2024 11:45AM [facility] 0294 - MRI BRAIN WO IVCON / PROCEDURE REASON: multiple diagnoses * * * * Physician Interpretation * * * * EXAMINATION: MRI BRAIN WO IVCON CLINICAL HISTORY: Ataxia Cerebral ventriculomegaly Memory loss Recurrent falls TECHNIQUE: Routine noncontrast MRI protocol including diffusion images. MQ: MRBWO_2 COMPARISON: 02/16/2022 RESULT: Acute Change: There is no evidence of restricted diffusion to suggest an acute infarct. Hemorrhage: Punctate susceptibility artifact right cerebellum likely an isolated focus of remote microhemorrhage. Mass Lesion/ Mass Effect: No evidence of an intracranial mass or extra-axial fluid collection. No significant mass effect. Chronic Change: Scattered patchy and confluent areas of increased T2 and FLAIR signal are present in the supratentorial white matter which is nonspecific but likely represents chronic microvascular ischemia. Remote lacunar infarcts bilateral centrum semiovale. Parenchyma: There is mild generalized parenchymal volume loss. The brain parenchyma is otherwise within normal limits of signal intensity and morphology. Ventricles: Stable moderate ventriculomegaly out of proportion to cortical sulci.. Biphasic CSF flow is noted in the basilar cisterns, through the cerebral aqueduct, fourth ventricle, and foramen Magendie, as well as ventral and dorsal to the upper cervical spine. There is some aliasing in the cerebral aqueduct which can be seen with hyperdynamic flow. Skull Base: Hypothalamic and pituitary region are grossly normal. Craniocervical junction is normal. No significant marrow replacement process. Vasculature: Major intracranial arterial structures, and dural venous sinuses show typical flow void, suggesting patency by spin echo criteria. Other: The visualized paranasal sinuses and mastoid air cells are clear. Bilateral lens replacement. The orbits and extracranial soft tissues are unremarkable. IMPRESSION IMPRESSION: Stable ventriculomegaly out of proportion to cortical sulci when compared to 02/13/2022, which can be seen with normal pressure/communicating hydrocephalus in the appropriate clinical context, versus central volume loss. There is also some aliasing through the cerebral aqueduct on the CSF flow study which can be seen with hyperdynamic flow. Moderate microvascular ischemic white matter changes, also stable. Small remote infarcts bilateral centrum semiovale. Pot Fisher: PSCB Transcribe Date/Time: Jun 25 2024 12:04P Dictated by : REYNA DOBBS MD This examination was interpreted and the report reviewed and electronically signed by: REYNA DOBBS MD on Jun 25 2024 12:14PM EST [facility] Radiology Study observation (narrative) [facility] MR Brain WO contrastOrdered By: [facility] Provider on 06-25-2024 [facility] 25-hydroxyvitamin D3 [Mass/V ol]on 05-24-2024 Interpretation and review of laboratory results Normal [facility] The reference range interval was based on an analysis of samples from healthy adults and may not pertain to children from 0-18 years old. [facility] VITAMIN D 25 HYDROXYon 05-24 25-hydroxyvitamin D3 [Mass/Vol] 36.3 ng/mL 31.0 - 80.0 ng/mL [facility] Comment on above: Classification of 25 [place] Vitamin D status: Deficiency/Insufficiency: < or = 30 ng/ml. Sufficiency/Optimal Levels: 31-80 ng/mL Toxicity: > 100 ng/mL. Test performed by chemiluminescent immunoassay. CBC W Auto Differential pane l (Bld)on 05-23-2024 Basophils (Bld) [#/Vol] 0.06 10*3/uL [facility] Basophils/100 WBC (Bld) 0.8 % [facility] Differential cell count method Nom (Bld) Auto [facility] Eosinophils (Bld) [#/Vol] 0.11 10*3/uL [facility] Eosinophils/100 WBC (Bld) 1.5 % [facility] Erythrocyte distribution width (RBC) [Ratio] 17.0 % High 11.5 - 15.0 % [facility] Hematocrit (Bld) [Volume fraction] 38.2 % Low 39.0 - 51.0 % [facility] Hemoglobin (Bld) [Mass/Vol] 11.6 g/dL Low 13.0 - 17.0 g/dL [facility] Immature granulocytes (Bld) [#/Vol] [facility] Immature granulocytes/100 WBC (Bld) 0.3 % [facility] Interpretation and review of laboratory results Abnormal [facility] Lymphocytes (Bld) [#/Vol] 1.35 10*3/uL [facility] Lymphocytes/100 WBC (Bld) 19.0 % [facility] MCH (RBC) [Entitic mass] 20.8 pg Low 26.0 - 34.0 pg [facility] MCHC (RBC) [Mass/Vol] 30.4 g/dL Low 30.5 - 36.0 g/dL [facility] MCV (RBC) [Entitic vol] 68.3 fL Low 80.0 - 100.0 fL [facility] Monocytes (Bld) [#/Vol] 0.79 10*3/uL [facility] Monocytes/100 WBC (Bld) 11.1 % [facility] Neutrophils (Bld) [#/Vol] 4.78 10*3/uL [facility] Neutrophils/100 WBC (Bld) 67.3 % [facility] Nucleated RBC (Bld) [#/Vol] NINF [facility] Nucleated RBC/100 WBC (Bld) [Ratio] 0.0 % /100 WBC [facility] Platelet mean volume (Bld) [Entitic vol] 12.1 fL 9.0 - 12.7 fL [facility] Platelets (Bld) [#/Vol] 188 10*3/uL [facility] RBC (Bld) [#/Vol] 5.59 10*6/uL 4.20 - 6.0 0 m/uL [facility] WBC (Bld) [#/Vol] 7.11 10*3/uL [facility] Comprehensive metabolic 2000 panelon 05-23-2024 Albumin [Mass/Vol] 4.4 g/dL 3.9 - 4.9 g/dL [facility] ALP [Catalytic activity/Vol] 50 U/L 38 - 113 U/L [facility] ALT [Catalytic activity/Vol] 19 U/L 10 - 54 U/L [facility] Anion gap [Moles/Vol] 11 mmol/L 8 - 15 mmol/L [facility] AST [Catalytic activity/Vol] 27 U/L 14 - 40 U/L [facility] Bilirubin [Mass/Vol] 1.2 mg/dL 0.2 - 1 .3 mg/dL [facility] Calcium [Mass/Vol] 9.6 mg/dL 8.5 - 10. 2 mg/dL [facility] Chloride [Moles/Vol] 102 mmol/L 98 - 10 7 mmol/L [facility] CO2 [Moles/Vol] 26 mmol/L 22 - 30 mmol/L [facility] Creatinine [Mass/Vol] 0.75 mg/dL 0.73 - 1.22 mg/dL [facility] GFR/1.73 sq M.predicted among non-blacks MDRD (S/P/Bld) [Vol rate/Area] 94 mL/min/{1.73_m2} - PINF [facility] Comment on above: Estimated Glomerular Filtration Rate (eGFR) is calculated using the 2020 CKD-EPI creatinine equation. This equation utilizes serum creatinine, sex, and age as parameters. The creatinine assay has traceable calibration to isotope dilution-mass spectrometry. Refer to KDIGO guidelines for clinical interpretation. In patients with unstable renal function, e.g. those with acute kidney injury, the eGFR may not accurately reflect actual GFR. Glucose [Mass/Vol] 87 mg/dL 74 - 99 mg/dL [facility] Comment on above: The [place] Diabete s Association (ADA) provides guidance for cutoff values for fasting glucose and random glucose. The ADA defines fasting as no caloric intake for at least 8 hours. Fasting plasma glucose results between 100 to 125 mg/dL indicate increased risk for diabetes (prediabetes). Fasting plasma glucose results greater than or equal to 126 mg/dL meet the criteria for diagnosis of diabetes. In the absence of unequivocal hyperglycemia, results should be confirmed by repeat testing. In a patient with classic symptoms of hyperglycemia or hyperglycemic crisis, random plasma glucose results greater than or equal to 200 mg/dL meet the criteria for diagnosis of diabetes. Reference: Standards of Medical Care in Diabetes 2016, [place] Diabetes Association. Diabetes Care. 2016.39(Suppl 1). Interpretation and review of laboratory results Normal [facility] Potassium [Moles/Vol] 4.3 mmol/L 3.7 - 5.1 mmol/L [facility] Protein [Mass/Vol] 7.3 g/dL 6.3 - 8.0 g/dL [facility] Sodium [Moles/Vol] 139 mmol/L 136 - 144 mmol/L [facility] Urea nitrogen [Mass/Vol] 15 mg/dL 9 - 24 mg/dL [facility] THYROID STIMULATING HORMONEo n 05-23-2024 TSH Qn 2.720 m[IU]/L [facility] TSH Qnon 05-23-2024 Interpretation and review of laboratory results Normal [facility] Urinalysis complete panel (U )on 05-23-2024 Bacteria LM.HPF (Urine sed) [#/Area] Negative Negative /HPF [facility] Bilirubin Ql (U) Negative [facility] Clarity (Unsp spec) Clear Clear [facility] Color (U) Dark Yellow Abnormal Yellow [facility] Epithelial cells LM.HPF (Urine sed) [#/Area] None Seen /HPF [facility] Glucose Test strip (U) [Mass/Vol] Negative Negative [facility] Hemoglobin Ql (U) Negative Negative [facility] Hyaline casts (Urine sed) [#/Area] 0 /[LPF] 0 /LPF [facility] Interpretation and review of laboratory results Abnormal [facility] Ketones Ql (U) Trace Abnormal Negative [facility] Leukocyte esterase Test strip Ql (U) Negative Negative [facility] Nitrite Ql (U) Negative Negative [facility] pH (U) 5.5 [pH] NINF - 8.5 [facility] Protein (U) [Mass/Vol] Trace Abnormal Negative [facility] RBC LM.HPF (Urine sed) [#/Area] 0-2 /HPF 0-2 /HPF [facility] Specific gravity (U) [Rel density] 1.030 1.005 - 1.030 [facility] Urobilinogen Ql (U) 0.2 EU/dL 0.2-1.0 EU/dL [facility] WBC LM.HPF (Urine sed) [#/Area] 0-5 /HPF 0-5 /HPF [facility] This test was jovanny conway and its performance characteristics determined by [facility]'s [facility] Medicine [place] ([facility]). It has not been cleared or approved by the FDA. [facility] is regulated under CLIA as qualified to perform high-complexity testing. This test is used for clinical purposes. It should not be regarded as investigational or for research. [facility] Glucose p fast [facility] Glucose post fast [Mass/Vol] 106 mg/dL High 74-99 [facility] Comment on above: Order Comment: Speci men Type: BLOOD SPECIMEN Ordering Facility: [facility] Address: [address] [place] [address] Result Comment: Amer [place] Diabetes Association guidelines state that a diabetes mellitus diagnosis is preliminarily made when the fasting plasma glucose meets or exceeds 126 mg/dL. In the absence of unequivocal hyperglycemia, results should be confirmed with repeat testing. Patients are at increased risk for diabetes mellitus (prediabetes) when the fasting glucose is 100 to 125 mg/dL. Performed By: #### 1 [id number] #### [facility] CLIA [id number] [address] OF [facility] ECHOon 10-25-2023 Echocardiography Echocardiography Report: Transthoracic Echo [facility] Date of service: 10/25/2023 3:04:12 PM [facility] Ordering physician: CAROLINE TORRES Indication: Evaluation of ventricular function following ACS Technologist: Chaya Croft [facility] Interpreting physician: Timothy Harp MD PATIENT: Name: MR. ESTELLA MCKEON : 1945 Age: 78 years Gender: M Primary rhythm: sinus. Height: 181.60 cm BSA: 2.12 m Weight: 89.36 kg BMI: 27.1 kg/m Heart rate 90 bpm Blood pressure 122/64 mmHg Color Doppler was utilized to interrogate the cardiac valves assessed and spectral Doppler was utilized to determine the flow velocities and pressure gradients reported in this exam. MEASUREMENTS: Value Indexed Normal Max aortic dimension 3.2 cm Ao < 3.8 Left atrium diameter 3.8 cm (2D) Left atrial volume 48 ml (biplane A-L) 22 ml/m Dallin <= 34 LV ID (diastole) 4.4 cm (2D) 2.08 cm/m LV ID (systole) 2.2 cm (2D) 1.04 cm/m IVS, leaflet tips 1.1 cm (2D) Posterior wall thickness 1.0 cm (2D) Left ventricular mass 157 g (2D) 74 g/m LV stroke volume 62 ml (2D biplane) LV end diastolic volume 92 ml (2D biplane) 43.5 ml/m 34<=EDVi<75 LV end systolic volume 31 ml (2D biplane) 14.4 ml/m Ejection Fraction 67 % (2D biplane) EF > 52 FINDINGS: LEFT VENTRICLE The left ventricle is normal in size. There is no left ventricular hypertrophy. Left ventricular systolic function is normal globally. Normal left ventricular diastolic function. Mitral annular lateral E/e': 7.6. Mitral annular septal E/e': 6.4. Wall Motion: All scored segments are normal. RIGHT VENTRICLE The right ventricle is mildly dilated. Right ventricular systolic function is normal. RV systolic tissue Doppler velocity is 13.0 cm/s. Tricuspid annular displacement is 2.4 cm. Estimated right ventricular systolic pressure is 34 mmHg consistent with normal pulmonary artery pressures. Estimated right atrial pressure is 3 mmHg based on IVC assessment. LEFT ATRIUM The left atrial cavity is normal in size. RIGHT ATRIUM The right atrial cavity is dilated. Inferior Vena Cava: The inferior vena cava appears normal measuring 1.8 cm. The vessel decreases greater than 50 percent with inspiration. MITRAL VALVE The mitral valve leaflets are structurally normal. There is trace mitral valve regurgitation. The pressure half time is 56 msec. The peak mitral E/A ratio is 1.08. The average mitral E/e' ratio is 7.0. The mitral flow deceleration time is 194 msec. TRICUSPID VALVE The tricuspid valve leaflets are structurally normal. There is trace tricuspid valve regurgitation. AORTIC VALVE There is no aortic valve regurgitation. Tricuspid aortic valve. There is mild thickening. PULMONIC VALVE The pulmonic valve was not seen or not interrogated. There is trace pulmonic valve regurgitation. There is no thickening. AORTA The visualized aorta is normal in size. Measurements - Mid ascending aorta 3.2 cm. PULMONARY ARTERIES The pulmonary arteries are unseen or not interrogated. INTERATRIAL SEPTUM There is no evidence of intracardiac shunting as detected by Doppler. PERICARDIUM There is no pericardial effusion. CONCLUSIONS: - Exam indication: Evaluation of ventricular function following ACS - The left ventricle is normal in size. There is no left ventricular hypertrophy. Left ventricular systolic function is normal. EF = 67 5% (2D biplane) Normal left ventricular diastolic function. - The right ventricle is mildly dilated. Right ventricular systolic function is normal. - The right atrial cavity is dilated. - Estimated right ventricular systolic pressure is 34 mmHg consistent with normal pulmonary artery pressures. Estimated right atrial pressure is 3 mmHg based on IVC assessment. - Exam was compared with the prior echocardiographic exam performed on 06/07/21. There is no significant change. * * * Final * * * [employer] : [id number] [id number] Normal [facility] CARDIAC PERF STRESS/EXERC ISEon 10-25-2023 GA CARDIAC PERF STRESS/EXERCISE * * *Final Report* * * DATE OF EXAM: Oct 25 2023 3:05PM RAMON 0004 - NM CARDIAC PERF STRESS/EXERCISE / PROCEDURE REASON: Encounter for screening for cardiovascular disorders * * * * Physician Interpretation * * * * Stress Test Tube Maker Report: [facility] Date of service: 10/25/2023 11:30:00 AM Supervising physician: Kalyan Leroy MD PATIENT: Name: MR. ESTELLA MCKEON Age: 78 years Gender: M The supervising physician was in the department and immediately available. * * * Final * * * ---- PATIENT: Name: MR. ESTELLA MCKEON Age: 78 years Gender: M CONCLUSIONS: 1. SPECT Perfusion Study: Normal. 2. There is no scintigraphic evidence for inducible ischemia. 3. No evidence of scarred myocardium. 4. Left ventricle is normal in size. The left ventricle systolic function is normal. 5. Right ventricle is normal in size. The right ventricle systolic function is normal. 6. This is a low risk scan. Gated Stress FBP LVEF % 77 Prior Study Comparison No prior nuclear cardiology exam available for comparison. Nuclear Med Report:1-Day Gated SPECT Myocardial Perfusion with Regadenoson Stress: Myocardial perfusion imaging was performed at rest 30 minutes following the IV injection of the radiotracer. The patient received 0.4 mg of regadenoson, via rapid IV push, immediately followed by radiotracer IV. Gated post stress tomographic imaging was performed 30 to 60 minutes later. See administered radiotracer and doses below. [facility] Date of service: 10/25/2023 11:30:00 AM Ordering Physician: CAROLINE TORRES. Requesting Physician: Indication: CP - ECG uniterpretable OR unable to exercise Interpreting physician: Kalyan Leroy MD Height: 180.34 cm BSA: 2.12 m? Weight: 89.36 kg BMI: 27.5 kg/m? Imaging Protocol Limitation Reason G.I. uptake and Diaphragmatic attenuation. Exam Type: Rest Stress Radiopharm: Tc-99m Tetrofosmin Tc-99m Tetrofosmin Dosage(mCi): 31.8 31.8 Stress Agent: Regadenoson 0.4mg Supply provided from [facility] Resting Blood Press: 132/76 mmHg Image Quality The overall study imaging quality was deemed to be fair. The following technical issues were noted: G.I. uptake and Diaphragmatic attenuation. FINDINGS: Left Ventricle Wall Motion: Stress IR:3D - All segments are normal. Rest IR:3D - Gated Stress FBP - Reversibility - Stress IR:3D Stress IR:3D Gated Stress FBP LVEF: 77 % ED Volume: 70 ml ES Volume: 16 ml TID: 0.95 Perfusion Findings Stress IR:3D - Summed Score=0 All segments demonstrate normal perfusion. Rest IR:3D - Summed Score=0 All segments demonstrate normal perfusion. Stress IR:3D Rest IR:3D Summed Score=0 Summed Score=0 LEFT VENTRICLE The left ventricle is normal in size. Left ventricular systolic function is normal. Right Ventricle The right ventricle is normal in size. Right ventricle systolic function is normal. Stress Test Findings: There is no scintigraphic evidence for inducible ischemia. There is no evidence of scarring. * * * Final * * * ---- Stress ECG Report: [facility] Date of service: 10/25/2023 11:30:00 AM Ordering physician: CAROLINE TORRES family law specialist: Jonathan Abraham CEP Neon Sign Servicer: Ruby Sanches RN Interpreting physician: Kalyan Leroy MD Patient name: MR. ESTELLA MCKEON Age: 78 years Gender: M Height: 180.34 cm BSA: 2.12 m? Weight: 89.36 kg BMI: 27.5 kg/m? Indication: Encounter for screening for cardiovascular disorders Stress ECG Conclusion: Conclusion: Normal Comments: No EKG evidence of ischemia. Stress ECG Summary: The patient's resting heart rate was 61 bpm and blood pressure was 132/76 mmHg. The test was terminated due to end of protocol. Other symptoms during the test included lightheadedness and SOB. The maximum heart rate was 82 bpm, which is 57% of the predicted heart rate for age. Peak blood pressure was 135/68 mmHg. The double product achieved was [id number]. Resting ECG: Normal Sinus Rhythm and 1st Degree AV block Symptoms at rest: No symptoms Pharamcologic Protocol: Regadenoson Stress Exercise Table: +-----+--+---+---+ Stage HR SYS CHUCHO +-----+--+---+---+ 1 80 116 56 +-----+--+---+---+ 2 82 135 68 +-----+--+---+---+ 3 80 125 65 +-----+--+---+---+ 4 78 +-----+--+---+---+ 5 78 128 73 +-----+--+---+---+ 6 74 +-----+--+---+---+ 7 71 +-----+--+---+---+ 8 73 122 67 +-----+--+---+---+ +-----+--+---+---+ HR SYS CHUCHO +-----+--+---+---+ Final 82 135 68 (more content not included)... Normal [facility] NM Heart Perfusion W multipl e states of exerciseon 10-25-2023 [facility] CNOVon 09-28-2023 CNOV Office Visit (AGCARDPOB) ESTELLA MCKEON W ([id number]) 1945 M Date Time Provider Department 09/28/23 2:20 PM CAROLINE TORRES During your visit today, we recorded the following information about you: Pulse Blood pressure Weight 72/minute 122/64 89.4 kg Rufina Brady MA 09/28/2023 2:30 PM Signed No cardiac complaints today, would like you to take over refilling meds in Dr. Ortega's absence. MAIN Rand Negar, MD 09/28/2023 2:55 PM Signed Heart[facility] Vascular [facility] Thor[facility] [place] [facility] Department of Cardiovascular Medicine SECTION OF INTERVENTIONAL CARDIOLOGY OUTPATIENT VISIT DATE September 28, 2023 OUTPATIENT VISIT TYPE ESTABLISHED PRIMARY CARE PHYSICIAN: Quincy Moreira (Nicho) [place] [address] REFERRING PHYSICIAN: Quincy Moreira (Nicho) [place] [facility] [id number] CHIEF COMPLAINT: Patient presents with: New Patient: CAD due to lipid rich plaque by pcp HISTORY OF PRESENT ILLNESS: Mr. Mckeon is a 78 year old male who presents today for follow-up visit for follow up. He has PMH of the cerebellum infarct, HTN, HLP, non-obstructive CAD at 2019 and right side dilation and dysfunction. He mentioned that I fhe lift heavy things will get chest and left arm pain but no pain when walking on flat surface. He denies any SOB or swelling. He denies shortness of breath, dyspnea on exertion, lightheadedness, and leg swelling. 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) Hernia HLD (hyperlipidemia) HTN (hypertension) Postsurgical percutaneous transluminal coronary angioplasty status 2000 Vertigo PAST SURGICAL HISTORY Procedure Laterality Date HERNIA REPAIR HX TONSILLECTOMY HX VASECTOMY UNI/BI SPX W/POSTOP SEMEN EXAMS SOCIAL HISTORY Social History Tobacco Use Smoking status: Never Smokeless tobacco: Never Vaping Use Vaping Use: Never used Substance Use Topics Alcohol use: Not Currently Drug use: Never FAMILY HISTORY Problem Relation Age of Onset other (dementia) Mother other (TIA) Mother Cancer Father ALLERGIES: ALLERGIES Allergen Reactions Seasonal Allergies Other: See Comments uses OTC prn MEDICATIONS: Current Outpatient Medications Medication Sig melatonin 1 mg tablet Take 0.5-1 mg by mouth at bedtime as needed for insomnia. Zinc Mth/Copper/Saw Palm/Gnsg (PROSTATE HEALTH FORMULA ORAL) Take 1 tablet by mouth once daily. atorvastatin (LIPITOR) 40 mg tablet Take 1 tablet by mouth daily at bedtime. metoprolol succinate ER (TOPROL XL) 25 mg 24 hr tablet Take 1 tablet by mouth once daily. triamcinolone acetonide (KENALOG) 0.1 % cream Apply to affected area twice a day for 1-2 weeks off an on only as needed (Patient not taking: Reported on 09/28/2023) clotrimazole (LOTRIMIN) 1 % cream Apply 1 application to affected area two times a day. (Patient not taking: Reported on 09/28/2023) Current Facility-Administered Medications Medication Dose Route Frequency perflutren lipid microspheres 1.3 mL in NaCl (PF) 0.9% 10 mL injection (DEFINSERVICEINFINITY) INTRAVENOUS DIRECTED PRN sodium chloride 0.9 % (flush) 10 mL (BD POSIFLUSH) 10 mL INTRAVENOUS DIRECTED PRN REVIEW OF SYSTEMS: All 12 systems reviewed, all negative except what mentioned in HPI. PHYSICAL EXAMINATION: BP 122/64 Pulse 72 Wt 197 lb (89.4kg) SpO2 97% General:well developed Skin:warm and dry Neck:no JVD, no carotid bruits Lungs:clear to auscultation Heart:regular rhythm and S1, S2 normal PV Pulses:pulses intact Abdomen:soft, non-tender Extremities:normal exam CARDIOVASCULAR MEDICINE TESTING: Electrocardiogram: NSR, 1degree AV block, I have personally reviewed the Electrocardiogram. IMPRESSION: Mr. Mckeon is a 78 year old male with PMH of the cerebellum infarct, HTN, HLP, non-obstructive CAD at 2019 and right side dilation and dysfunction. He mentioned that I fhe lift heavy things will get chest and left arm pain but no pain when walking on flat surface. He denies any SOB or swelling. PLAN AND RECOMMENDATIONS: ASSESSMENT/PLAN: 1. Coronary artery disease due to lipid rich plaque - ICD9: 414.00, 414.3, ICD10: I25.10, I25.83 (primary diagnosis) - ECG B/O W INTERP (MED OFFICE) - ATORVASTATIN 40 MG TABLET - METOPROLOL SUCCINATE ER 25 MG TABLET,EXTENDED RELEASE 24 HR - ECHO - PERFLUTREN LIPID MICROSPHERES 1.1 MG/ML INJECTION IN NS 10 ML - SODIUM CHLORIDE 0.9 % (FLUSH) INJECTION SYRINGE 2. Encounter for screening for cardiovascular disorders - ICD9: V81.2, ICD10: Z13.6 - ATORVASTATIN 40 MG TABLET - METOPROLOL SUCCINATE ER 25 MG TABLET,EXTENDED RELEASE 24 HR - NM CARDIAC PERF STRESS/EXERCISE - ECHO - PERFLUTREN LIPID (more content not included)... Normal [facility] CNOVon 08-28-2023 CNOV Office Visit (AGHWN) ESTELLA MCKEON ([id number]) 1945 M Date Time Provider Department 08/28/23 11:00 AM [facility] During your visit today, we recorded the following information about you: Respiration Weight Height 18/minute 90.3 kg 1.816 m Liliane Krishnan MD 08/28/2023 12:29 PM Signed Liliane Krishnan MD Hand AND Upper Extremity Surgery [address], [facility] [address] [address] [facility] [address], [facility] [address] [address], [place] [address] OUTPATIENT VISIT SERVICE DATE: 08/28/2023 CHIEF COMPLAINT: Left palm nodules HISTORY OF PRESENT ILLNESS: Estella Mckeon is a Right Handed 78 year old male who presents for above chief complaint. Patient is referred by: Quincy Moreira* My final recommendation will be communicated back to the requesting physician by way of shared medical record or letter to requesting physician via fax/US mail. Patient does not recall a specific injury. Did state he was hit in the hand with many baseballs growing up. 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 No Yes, Provider notified Pain Scales - Verbal (Numeric Rating or Visual Analog Scale) Pain Level - 1 Pain Location - (No Data) Description - (No Data) Duration Amount of Time - (No Data) Duration Units - Years Frequency - Continuous Intervention/Comfort measure - - Pain Assessment - - PMDP report reviewed and All prescriptions have been APPROPRIATELY filled. No suspicious activity was identified. 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 PAST MEDICAL HISTORY Diagnosis Date Hernia Vertigo PAST SURGICAL HISTORY Procedure Laterality Date HERNIA REPAIR HX TONSILLECTOMY HX VASECTOMY UNI/BI SPX W/POSTOP SEMEN EXAMS FAMILY HISTORY Problem Relation Age of Onset other (dementia) Mother other (TIA) Mother Cancer Father Social History Tobacco Use Smoking status: Never Smokeless tobacco: Never Vaping Use Vaping Use: Never used Substance Use Topics Alcohol use: Not Currently Drug use: Never MEDICATIONS: Current Outpatient Medications Medication Sig clotrimazole (LOTRIMIN) 1 % cream Apply 1 application to affected area two times a day. atorvastatin (LIPITOR) 40 mg tablet TAKE 1 TABLET BY MOUTH AT BEDTIME Zinc Mth/Copper/Saw Palm/Gnsg (PROSTATE HEALTH FORMULA ORAL) metoprolol succinate ER (TOPROL XL) 25 mg 24 hr tablet Take 1 tablet by mouth once daily. No current facility-administered medications for this visit. ALLERGIES: ALLERGIES Allergen Reactions Seasonal Allergies Other: See Comments uses OTC prn PHYSICAL EXAM: VITAL SIGNS: Resp 18 Ht 5' 11.5 (1.82m) Wt 199 lb (90.3kg) BMI 27.37 kg/(m2). GENERAL: The patient is awake, alert, and oriented with appropriate mood and affect. SKIN: The skin over the hand shows no rash lesion or erythema, and that is comparable to the contralateral hand. Well defined fascial cords are noted along the 4th ray and spreading radially over the MCPs INSPECTION/PALPATION: There is no focal swelling, and no palpable joint effusion. TENDERNESS: No tenderness to palpation. ROM: There is no flexion contracture of the 4th ray. He has chronic contractures of the small finger and the index finger PIP joints he states from prior basketball injuries LIGAMENTS: There is no gross ligamentous laxity. MUSCLE: Rn [facility] strength is well maintained. No atrophy present. NEURO: The patient reports no decreased sensation to the digit. VASCULAR: Strong radial pulse. 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 This rope eventually tightens to where the involved fingers are bent and can no longer straighten actively. Early signs of this disease are nodules at the distal palmar crease or pitting or dimpling in the palm. Treatment for these is usually observation but we can discuss injection if the area is painful. While there is no cure, there are different options for intervention which are surgical or nonsurgical but no intervention is needed unless the contracture of the digit develops and effects the ability to complete daily tasks. I demonstrated the tabletop test for the patient. We discus (more content not included)... Normal [facility] No Panel Informationon 07-27 [facility] MRI BRAIN WO/W IVCONon 02-16 [facility] CBC with Diffon 05-31-2020 Basophils (Bld) [#/Vol] 0.0 x(10)3/cumm Normal 0.0-0.1 [facility] Comment on above: Performed By: #### C BCDIFF #### [facility] [address] [place] [phone] Basophils/100 WBC (Bld) 0.9 % Normal 0.0-1.0 [facility] Comment on above: Performed By: #### C BCDIFF #### [facility] [address] [place] [phone] Eosinophils (Bld) [#/Vol] 0.1 x(10)3/cumm Normal 0.0-0.4 [facility] Comment on above: Performed By: #### C BCDIFF #### [facility] [address] [place] [address] Eosinophils/100 WBC (Bld) 1.8 % Normal 0.0-6.1 [facility] Comment on above: Performed By: #### C BCDIFF #### [facility] [address] [place] [address] Erythrocyte distribution width (RBC) [Ratio] 15.7 % High 11.1-15.3 [facility] Comment on above: Performed By: #### C BCDIFF #### [facility] [address] [place] [address] Hematocrit (Bld) [Volume fraction] 36.3 % Low 37.6-50.6 [facility] [facility] Comment on above: Performed By: #### C BCDIFF #### [facility] [address] [place] [address] 39332 Hemoglobin (Bld) [Mass/Vol] 11.7 g/dL Low 12.9-17.5 [facility] Comment on above: Performed By: #### C BCDIFF #### [facility] [address] [place] [address] 32079 Lymphocytes (Bld) [#/Vol] 1.3 x(10)3/cumm Normal 0.8-2.9 [facility] Comment on above: Performed By: #### C BCDIFF #### [facility] [address] [place] [address] 04925 Lymphocytes/100 WBC (Bld) 26.6 % Normal 12.2-42.6 [facility] Comment on above: Performed By: #### C BCDIFF #### [facility] [address] [place] [address] 08322 MCH (RBC) [Entitic mass] 21.5 pg Low 27.2-33.6 [facility] Comment on above: Performed By: #### C BCDIFF #### [facility] [address] [place] [address] [phone] MCHC (RBC) [Mass/Vol] 32.3 g/dL Low 32.9-35.3 [facility] Comment on above: Performed By: #### C BCDIFF #### [facility] [address] [place] [address] 33188 MCV (RBC) [Entitic vol] 66.8 fL Low 81.3-96.7 [facility] Comment on above: Performed By: #### C BCDIFF #### [facility] [address] [place] [address] 83202 Monocytes (Bld) [#/Vol] 0.4 x(10)3/cumm Normal 0.2-0.8 [facility] Comment on above: Performed By: #### C BCDIFF #### [facility] [address] [place] [address] 77154 Monocytes/100 WBC (Bld) 8.2 % Normal 3.3-11.6 [facility] Comment on above: Performed By: #### C BCDIFF #### [facility] [address] [place] [address] 02714 Neutrophils (Bld) [#/Vol] 3.0 x(10)3/cumm Normal 1.3-7.4 [facility] Comment on above: Performed By: #### C BCDIFF #### [facility] [address] [place] [address] 79759 Neutrophils/100 WBC (Bld) 62.5 % Normal 44.9-78.8 [facility] Comment on above: Performed By: #### C BCDIFF #### [facility] [address] [place] [address] 85127 Platelet mean volume (Bld) [Entitic vol] 10.1 fL High 6.4-10.0 [facility] Comment on above: Performed By: #### C BCDIFF #### [facility] [address] [place] [address] 24503 Platelets (Bld) [#/Vol] 158 x(10)3/cumm Normal 138-367 [facility] Comment on above: Performed By: #### C BCDIFF #### [facility] [address] [place] [address] 35482 Plt Morph Few enlarged Normal [facility] Comment on above: Performed By: #### C BCDIFF #### [facility] [address] [place] [address] 72754 RBC (Bld) [#/Vol] 5.44 X(10)6/cumm Normal 4.20-5.80 [facility] Comment on above: Performed By: #### C BCDIFF #### [facility] [address] [place], [place] [phone] RBC Morph cont few ellipto, dacro, baso stippling, targets Normal [facility] Comment on above: Performed By: #### C BCDIFF #### [facility] [address] [place] [address] 81271 RBC morphology finding Nom (Bld) Mod micro, mild hypo, poik, slt aniso, poly, Normal [facility] Comment on above: Performed By: #### C BCDIFF #### [facility] [address] [place], [place] [phone] WBC (Bld) [#/Vol] 4.7 x(10)3/cumm Normal 3.6-10.3 [facility] Comment on above: Performed By: #### C BCDIFF #### [facility] [address] [place], [place] [phone] WBC Morph Normal [facility] Comment on above: Performed By: #### C BCDIFF #### [facility] [address] [place] [address] 36970 Comprehensive Metabolic Pane laurita 05-31-2020 Albumin [Mass/Vol] 4.7 g/dL Normal 3.5-5.2 [facility] Comment on above: Performed By: #### C MP, LIPID #### [facility] [address] [place], [place] [phone] ALP [Catalytic activity/Vol] 40 U/L Normal 35-129 [facility] Comment on above: Performed By: #### C MP, LIPID #### [facility] [address] [place], [place] [phone] ALT [Catalytic activity/Vol] 14 U/L Normal <=41 [facility] Comment on above: Performed By: #### C MP, LIPID #### [facility] [address] [place], [place] [phone] Anion gap [Moles/Vol] 9 mmol/L Normal 8-15 [facility] Comment on above: Performed By: #### C MP, LIPID #### [facility] [address] [place] [address] 96715 AST [Catalytic activity/Vol] 21 U/L Normal <=40 [facility] Comment on above: Performed By: #### C MP, LIPID #### [facility] [address] [place] [address] 36818 Bili, Total 1.4 mg/dL High <=1.2 [facility] Comment on above: Performed By: #### C MP, LIPID #### [facility] [address] [place] [address] 15927 Calcium [Mass/Vol] 9.3 mg/dL Normal 8.6-10.6 [facility] Comment on above: Performed By: #### C MP, LIPID #### [facility] [address] [place] [address] 16617 Chloride [Moles/Vol] 103 mmol/L Normal 98-107 [facility] Comment on above: Performed By: #### C MP, LIPID #### [facility] [address] [place] [address] 83064 CO2 [Moles/Vol] 29 mmol/L Normal 22-29 [facility] Comment on above: Performed By: #### C MP, LIPID #### [facility] [address] [place] [address] 89516 Creatinine [Mass/Vol] 0.9 mg/dL Normal 0.5-1.2 [facility] Comment on above: Performed By: #### C MP, LIPID #### [facility] [address] [place] [address] 20867 eGFR -Amer >=60 Normal >=60 [facility] Comment on above: Performed By: #### C MP, LIPID #### [facility] [address] [place] [address] 01300 GFR/1.73 sq M predicted among non-blacks MDRD (S/P/Bld) [Vol rate/Area] mL/min/{1.73_m2} Normal >=60 [facility] Comment on above: Performed By: #### C MP, LIPID #### [facility] [address] [place] [address] 16685 Glucose [Mass/Vol] 105 mg/dL Normal 74-109 [facility] Comment on above: Performed By: #### C MP, LIPID #### [facility] [address] [place] [address] 80508 Potassium [Moles/Vol] 4.1 mmol/L Normal 3.4-5.1 [facility] Comment on above: Performed By: #### C MP, LIPID #### [facility] [address] [place] [address] 28855 Prot Total 7.0 g/dL Normal 6.4-8.3 [facility] Comment on above: Performed By: #### C MP, LIPID #### [facility] [address] [place], [place] [phone] Sodium [Moles/Vol] 141 mmol/L Normal 136-145 [facility] Comment on above: Performed By: #### C MP, LIPID #### [facility] [address] [place] [address] 79055 Urea nitrogen [Mass/Vol] 12 mg/dL Normal 6-23 [facility] Comment on above: Performed By: #### C MP, LIPID #### [facility] [address] [place] [address] 79931 Lipid Profileon 05-31-2020 Cholesterol [Mass/Vol] 194 mg/dL Normal <=200 [facility] Comment on above: Performed By: #### C MP, LIPID #### [facility] [address] [place] [address] 33244 Cholesterol in HDL [Mass/Vol] 67 mg/dL Normal >=40 [facility] Comment on above: Performed By: #### C MP, LIPID #### [facility] [address] [place] [address] 19986 Cholesterol in LDL [Mass/Vol] 111 mg/dL High <=99 [facility] Comment on above: Performed By: #### C MP, LIPID #### [facility] [address] [place] [address] 93809 Triglyceride [Mass/Vol] 81 mg/dL Normal <=149 [facility] Comment on above: Performed By: #### C MP, LIPID #### [facility] [address] [place], [place] [address] VLDL Calc 16 mg/dL Normal 14-48 [facility] Comment on above: Performed By: #### C MP, LIPID #### [facility] [address] [place], [place] [address] CBC DIFFERENTIAL PATH REVIEW on 07-25-2019 PATH REV-DIFFERENTIAL RICA Normal Ronnell [facility] Comment on above: Result Comment: By h er/his signature above, the Pathologist listed as making the final interpretation certifies that she/he has personally reviewed this case. Microcytic erythrocytosis with mild anisopoikilocytosis. Agree with technologist's morphologic assessment. Normal white blood cell and platelet numbers and morphology. The differential includes hemoglobinopathy, iron deficiency and anemia of chronic disease. Clinical correlation is recommended. Aaliyah Gonzalez, DO 07/25/2019 Performed By: #### T ROP2 #### [facility] [address] [place] [address] BASIC METABOLIC PANELon 06-28 Anion gap [Moles/Vol] 12 mmol/L Normal 10 - 20 [facility] Comment on above: Performed By: #### B MP #### [facility] [address] [place] [address] Calcium [Mass/Vol] 9.5 mg/dL Normal 8.6 - 10.3 [facility] Comment on above: Performed By: #### B MP #### [facility] [address] [place] [address] Chloride [Moles/Vol] 104 mmol/L Normal 98 - 107 [facility] Comment on above: Performed By: #### B MP #### [facility] [address] [place] [address] Creatinine [Mass/Vol] 0.90 mg/dL Normal 0.50 - 1.30 [facility] Comment on above: Performed By: #### B MP #### [facility] [address] [place] [address] GFR- AM. >60 Normal >60 [facility] Comment on above: Result Comment: CALC ULATIONS OF ESTIMATED GFR ARE PERFORMED USING THE MDRD STUDY EQUATION FOR THE IDMS-TRACEABLE CREATININE METHODS. CLIN CHEM 2007;53:766-72 Performed By: #### B MP #### [facility] [address] [place] [address] GFR-NON AM. >60 Normal >60 [facility] Comment on above: Performed By: #### B MP #### [facility] [address] [place] [address] 32401 Glucose [Mass/Vol] 123 mg/dL High 74 - 99 [facility] Comment on above: Performed By: #### B MP #### [facility] [address] [place] [address] 88700 HCO3 (Bld) [Moles/Vol] 26 mmol/L Normal 21 - 32 [facility] Comment on above: Performed By: #### B MP #### [facility] [address] [place] [address] 90619 Potassium [Moles/Vol] 3.5 mmol/L Normal 3.5 - 5.3 [facility] Comment on above: Performed By: #### B MP #### [facility] [address] [place] [address] 13214 Sodium [Moles/Vol] 138 mmol/L Normal 136 - 145 [facility] Comment on above: Performed By: #### B MP #### [facility] [address] [place] [address] 31650 Urea nitrogen [Mass/Vol] 15 mg/dL Normal 6 - 23 [facility] Comment on above: Performed By: #### B MP #### [facility] [address] [place] [address] 41766 CBC AND DIFFERENTIALon 07-23 Basophils (Bld) [#/Vol] 0.06 10*3/uL Normal 0.00 - 0.10 [facility] Comment on above: Result Comment: Auto mated WBC differential has been confirmed by manual smear. Performed By: #### C BCDF #### [facility] [address] [place] [address] Basophils/100 WBC (Bld) 0.8 % Normal 0.0 - 2.0 [facility] Comment on above: Performed By: #### C BCDF #### [facility] [address] [place] [address] Eosinophils (Bld) [#/Vol] 0.15 10*3/uL Normal 0.00 - 0.40 [facility] Comment on above: Performed By: #### C BCDF #### [facility] [address] [place] [address] Eosinophils/100 WBC (Bld) 2.1 % Normal 0.0 - 6.0 [facility] Comment on above: Performed By: #### C BCDF #### [facility] [address] [place] [address] Erythrocyte distribution width (RBC) [Ratio] 16.0 % High 11.5 - 14.5 [facility] Comment on above: Performed By: #### C BCDF #### [facility] [address] [place] [address] Hematocrit (Bld) [Volume fraction] 35.2 % Low 41.0 - 52.0 [facility] Comment on above: Performed By: #### C BCDF #### [facility] [address] [place] [address] Hemoglobin (Bld) [Mass/Vol] 11.6 g/dL Low 13.5 - 17.5 [facility] Comment on above: Performed By: #### C BCDF #### [facility] [address] [place] [address] Lymphocytes (Bld) [#/Vol] 2.10 10*3/uL Normal 0.80 - 3.00 [facility] Comment on above: Performed By: #### C BCDF #### [facility] [address] [place] [address] Lymphocytes/100 WBC (Bld) 29.7 % Normal 13.0 - 44.0 [facility] Comment on above: Performed By: #### C BCDF #### [facility] [address] [place] [address] MCHC (RBC) [Mass/Vol] 33.0 g/dL Normal 32.0 - 36.0 [facility] Comment on above: Performed By: #### C BCDF #### [facility] [address] [place] [address] MCV (RBC) [Entitic vol] 63 fL Low 80 - 100 [facility] Comment on above: Performed By: #### C BCDF #### [facility] [address] [place] [address] Monocytes (Bld) [#/Vol] 0.71 10*3/uL Normal 0.05 - 0.80 [facility] Comment on above: Performed By: #### C BCDF #### [facility] [address] [place] [address] Monocytes/100 WBC (Bld) 10.0 % Normal 2.0 - 10.0 [facility] Comment on above: Performed By: #### C BCDF #### [facility] [address] [place] [address] Neutrophils (Bld) [#/Vol] 4.06 10*3/uL Normal 1.60 - 5.50 [facility] Comment on above: Performed By: #### C BCDF #### [facility] [address] [place] [address] Neutrophils/100 WBC (Bld) 57.4 % Normal 40.0 - 80.0 [facility] Comment on above: Performed By: #### C BCDF #### [facility] [address] [place] [address] Platelets (Bld) [#/Vol] 184 10*3/uL Normal 150 - 450 [facility] Comment on above: Performed By: #### C BCDF #### [facility] [address] [place] [address] RBC (Bld) [#/Vol] 5.60 x10E12/L Normal 4.50 - 5.90 [facility] Comment on above: Performed By: #### C BCDF #### [facility] [address] [place] [address] WBC (Bld) [#/Vol] 7.1 10*3/uL Normal 4.4 - 11.3 [facility] Comment on above: Performed By: #### C BCDF #### [facility] [address] [place] [address] CT ANGIO CHESTon 07-23-2019 CT ANGIO CHEST Patient Name: ESTELLA MCKEON STUDY: CTA ABD AORTA WITH BILAT ILIOFEM EXTR RUNOFF W/WO CONT POST PROC; CT ANGIO CHEST; 07/23/2019 11:56 am; 07/23/2019 11:53 am INDICATION: abdominal pain, Lie Flat: Yes; dizziness/near syncope, Lie Flat: Yes. COMPARISON: None ACCESSION NUMBER(S): [id number]; [id number] ORDERING CLINICIAN: CESILIA SARKAR TECHNIQUE: Contiguous [address] images were acquired through the chest, abdomen and pelvis before and after administration of 100 mL of Omnipaque 350 intravenous contrast. Postcontrast images were obtained in early arterial phase images. Sagittal and coronal images were reconstructed. Maximum intensity projection and three dimensional images were constructed at separate workstation. FINDINGS: VASCULAR FINDINGS: Thoracic aorta is within normal limits of size. No evidence of dissection. Abdominal aorta is normal in caliber without evidence of aneurysmal dilatation. No evidence of aortic dissection. Mild atherosclerotic calcifications are identified. Principal branch vessels are grossly patent; however, opacification of the arteries is suboptimal. Mild cardiomegaly. No evidence of pericardial effusion. Main pulmonary artery is within normal limits of size. No evidence of any gross central filling defects; however, contrast bolus timing is not optimal for detection of pulmonary embolism. - NON-VASCULAR FINDINGS: CHEST: MEDIASTINUM AND PHONG, LOWER NECK, AND AXILLA: Visualized thyroid gland is within normal limits. No evidence of any significantly enlarged mediastinal, hilar, or axillary lymph nodes. LUNGS AND AIRWAYS: Trachea and major bronchi are patent. There is minimal biapical pleuroparenchymal scarring. Bibasilar dependent atelectasis. No evidence of focal pulmonary consolidation, pleural effusion, or pneumothorax. There is a nonspecific 6 mm subpleural nodular density in the right upper lobe on axial slice 75 of 789. There is a nonspecific 5 mm perifissural nodular density in the right lung along the minor fissure on axial slice 159 of 789. CHEST WALL: Mild bilateral gynecomastia. BONES: No evidence of any suspicious lytic or blastic osseous lesions. Mild multilevel discogenic degenerative changes are seen in the lower thoracic spine. - ABDOMEN & PELVIS: LIVER: Within normal limits. BILE DUCTS: Nondilated. GALLBLADDER: No evidence of calcified gallstones or wall thickening. PANCREAS: Within normal limits. SPLEEN: Within normal limits. ADRENALS: Within normal limits. KIDNEYS, URETERS, URINARY BLADDER: Symmetric bilateral renal enhancement. No evidence of focal renal lesions. No evidence of hydronephrosis. Bladder is unremarkable. BOWEL: No evidence of abnormal dilatation or obstruction of the small or large bowel. No evidence of pneumoperitoneum. No evidence of pericecal inflammatory changes. REPRODUCTIVE ORGANS: Prostate is within normal limits of size. PERITONEUM / RETROPERITONEUM / LYMPH NODES: No evidence of any free fluid. No evidence of any significantly enlarged intra-abdominal or pelvic lymph nodes. ABDOMINAL WALL: Small fat containing umbilical hernia. Tiny fat containing bilateral inguinal hernias. BONES: No evidence of suspicious lytic or blastic osseous lesions. IMPRESSION: 1. No evidence of thoracic or abdominal aortic aneurysm or dissection. Evaluation of the arterial system in the abdomen/pelvis is suboptimal given inadequate contrast opacification; however, within those limitations, no evidence of any gross abnormality. 2. No CT evidence of acute intrathoracic or abdominopelvic pathology. 3. Few scattered nonspecific pulmonary nodular densities measuring up to 6 mm as above. If patient has risk factors for lung cancer, follow-up chest CT may be obtained in 12 months. Electronically signed by: NERI DUMONT MD [facility] CTA ABD AORTA WITH BILAT HANSA OFEM EXTR RUNOFF W/WO CONT POST PROCon 07-23-2019 CTA ABD AORTA WITH BILAT ILIOFEM EXTR RUNOFF W/WO CONT POST PROC Patient Name: ESTELLA MCKEON STUDY: CTA ABD AORTA WITH BILAT ILIOFEM EXTR RUNOFF W/WO CONT POST PROC; CT ANGIO CHEST; 07/23/2019 11:56 am; 07/23/2019 11:53 am INDICATION: abdominal pain, Lie Flat: Yes; dizziness/near syncope, Lie Flat: Yes. COMPARISON: None ACCESSION NUMBER(S): [id number]; [id number] ORDERING CLINICIAN: CESILIA SARKAR TECHNIQUE: Contiguous [address] images were acquired through the chest, abdomen and pelvis before and after administration of 100 mL of Omnipaque 350 intravenous contrast. Postcontrast images were obtained in early arterial phase images. Sagittal and coronal images were reconstructed. Maximum intensity projection and three dimensional images were constructed at separate workstation. FINDINGS: VASCULAR FINDINGS: Thoracic aorta is within normal limits of size. No evidence of dissection. Abdominal aorta is normal in caliber without evidence of aneurysmal dilatation. No evidence of aortic dissection. Mild atherosclerotic calcifications are identified. Principal branch vessels are grossly patent; however, opacification of the arteries is suboptimal. Mild cardiomegaly. No evidence of pericardial effusion. Main pulmonary artery is within normal limits of size. No evidence of any gross central filling defects; however, contrast bolus timing is not optimal for detection of pulmonary embolism. - NON-VASCULAR FINDINGS: CHEST: MEDIASTINUM AND PHONG, LOWER NECK, AND AXILLA: Visualized thyroid gland is within normal limits. No evidence of any significantly enlarged mediastinal, hilar, or axillary lymph nodes. LUNGS AND AIRWAYS: Trachea and major bronchi are patent. There is minimal biapical pleuroparenchymal scarring. Bibasilar dependent atelectasis. No evidence of focal pulmonary consolidation, pleural effusion, or pneumothorax. There is a nonspecific 6 mm subpleural nodular density in the right upper lobe on axial slice 75 of 789. There is a nonspecific 5 mm perifissural nodular density in the right lung along the minor fissure on axial slice 159 of 789. CHEST WALL: Mild bilateral gynecomastia. BONES: No evidence of any suspicious lytic or blastic osseous lesions. Mild multilevel discogenic degenerative changes are seen in the lower thoracic spine. - ABDOMEN & PELVIS: LIVER: Within normal limits. BILE DUCTS: Nondilated. GALLBLADDER: No evidence of calcified gallstones or wall thickening. PANCREAS: Within normal limits. SPLEEN: Within normal limits. ADRENALS: Within normal limits. KIDNEYS, URETERS, URINARY BLADDER: Symmetric bilateral renal enhancement. No evidence of focal renal lesions. No evidence of hydronephrosis. Bladder is unremarkable. BOWEL: No evidence of abnormal dilatation or obstruction of the small or large bowel. No evidence of pneumoperitoneum. No evidence of pericecal inflammatory changes. REPRODUCTIVE ORGANS: Prostate is within normal limits of size. PERITONEUM / RETROPERITONEUM / LYMPH NODES: No evidence of any free fluid. No evidence of any significantly enlarged intra-abdominal or pelvic lymph nodes. ABDOMINAL WALL: Small fat containing umbilical hernia. Tiny fat containing bilateral inguinal hernias. BONES: No evidence of suspicious lytic or blastic osseous lesions. IMPRESSION: 1. No evidence of thoracic or abdominal aortic aneurysm or dissection. Evaluation of the arterial system in the abdomen/pelvis is suboptimal given inadequate contrast opacification; however, within those limitations, no evidence of any gross abnormality. 2. No CT evidence of acute intrathoracic or abdominopelvic pathology. 3. Few scattered nonspecific pulmonary nodular densities measuring up to 6 mm as above. If patient has risk factors for lung cancer, follow-up chest CT may be obtained in 12 months. Electronically signed by: NERI DUMONT MD [facility] CTA ABDOMEN PELVIS WITH CONT INCL NON CONT IMAGE W POST PROC Patient Name: ESTELLA MCKEON STUDY: CTA ABD AORTA WITH BILAT ILIOFEM EXTR RUNOFF W/WO CONT POST PROC; CT ANGIO CHEST; 07/23/2019 11:56 am; 07/23/2019 11:53 am INDICATION: abdominal pain, Lie Flat: Yes; dizziness/near syncope, Lie Flat: Yes. COMPARISON: None ACCESSION NUMBER(S): [id number]; [id number] ORDERING CLINICIAN: CESILIA SARKAR TECHNIQUE: Contiguous [address] images were acquired through the chest, abdomen and pelvis before and after administration of 100 mL of Omnipaque 350 intravenous contrast. Postcontrast images were obtained in early arterial phase images. Sagittal and coronal images were reconstructed. Maximum intensity projection and three dimensional images were constructed at separate workstation. FINDINGS: VASCULAR FINDINGS: Thoracic aorta is within normal limits of size. No evidence of dissection. Abdominal aorta is normal in caliber without evidence of aneurysmal dilatation. No evidence of aortic dissection. Mild atherosclerotic calcifications are identified. Principal branch vessels are grossly patent; however, opacification of the arteries is suboptimal. Mild cardiomegaly. No evidence of pericardial effusion. Main pulmonary artery is within normal limits of size. No evidence of any gross central filling defects; however, contrast bolus timing is not optimal for detection of pulmonary embolism. - NON-VASCULAR FINDINGS: CHEST: MEDIASTINUM AND PHONG, LOWER NECK, AND AXILLA: Visualized thyroid gland is within normal limits. No evidence of any significantly enlarged mediastinal, hilar, or axillary lymph nodes. LUNGS AND AIRWAYS: Trachea and major bronchi are patent. There is minimal biapical pleuroparenchymal scarring. Bibasilar dependent atelectasis. No evidence of focal pulmonary consolidation, pleural effusion, or pneumothorax. There is a nonspecific 6 mm subpleural nodular density in the right upper lobe on axial slice 75 of 789. There is a nonspecific 5 mm perifissural nodular density in the right lung along the minor fissure on axial slice 159 of 789. CHEST WALL: Mild bilateral gynecomastia. BONES: No evidence of any suspicious lytic or blastic osseous lesions. Mild multilevel discogenic degenerative changes are seen in the lower thoracic spine. - ABDOMEN & PELVIS: LIVER: Within normal limits. BILE DUCTS: Nondilated. GALLBLADDER: No evidence of calcified gallstones or wall thickening. PANCREAS: Within normal limits. SPLEEN: Within normal limits. ADRENALS: Within normal limits. KIDNEYS, URETERS, URINARY BLADDER: Symmetric bilateral renal enhancement. No evidence of focal renal lesions. No evidence of hydronephrosis. Bladder is unremarkable. BOWEL: No evidence of abnormal dilatation or obstruction of the small or large bowel. No evidence of pneumoperitoneum. No evidence of pericecal inflammatory changes. REPRODUCTIVE ORGANS: Prostate is within normal limits of size. PERITONEUM / RETROPERITONEUM / LYMPH NODES: No evidence of any free fluid. No evidence of any significantly enlarged intra-abdominal or pelvic lymph nodes. ABDOMINAL WALL: Small fat containing umbilical hernia. Tiny fat containing bilateral inguinal hernias. BONES: No evidence of suspicious lytic or blastic osseous lesions. IMPRESSION: 1. No evidence of thoracic or abdominal aortic aneurysm or dissection. Evaluation of the arterial system in the abdomen/pelvis is suboptimal given inadequate contrast opacification; however, within those limitations, no evidence of any gross abnormality. 2. No CT evidence of acute intrathoracic or abdominopelvic pathology. 3. Few scattered nonspecific pulmonary nodular densities measuring up to 6 mm as above. If patient has risk factors for lung cancer, follow-up chest CT may be obtained in 12 months. Electronically signed by: NERI DUMONT MD Normal [facility] HEPATIC FUNCTION PANELon Albumin [Mass/Vol] 4.2 g/dL Normal 3.4 - 5.0 [facility] Comment on above: Performed By: #### H EPFP #### [facility] [address] [place] [address] ALP [Catalytic activity/Vol] 38 U/L Normal 33 - 136 [facility] Comment on above: Performed By: #### H EPFP #### [facility] [address] [place] [address] ALT [Catalytic activity/Vol] 19 U/L Normal 10 - 52 [facility] Comment on above: Result Comment: Sheba ents treated with Sulfasalazine may generate falsely decreased results for ALT. Performed By: #### H EPFP #### [facility] [address] [place] [address] AST [Catalytic activity/Vol] 23 U/L Normal 9 - 39 [facility] Comment on above: Performed By: #### H EPFP #### [facility] [address] [place] [address] Bilirubin [Mass/Vol] 1.2 mg/dL Normal 0.0 - 1.2 [facility] Comment on above: Performed By: #### H EPFP #### [facility] [address] [place] [address] Bilirubin.direct [Mass/Vol] 0.2 mg/dL Normal 0.0 - 0.3 [facility] Comment on above: Performed By: #### H EPFP #### [facility] [address] [place] [address] Protein [Mass/Vol] 6.6 g/dL Normal 6.4 - 8.2 [facility] Comment on above: Performed By: #### H EPFP #### [facility] [address] [place] [address] LIPASEon 07-23-2019 Lipase [Catalytic activity/Vol] 23 U/L Normal 9 - 82 [facility] Comment on above: Result Comment: Ruchi puncture immediately after or during the administration of Metamizole may lead to falsely low results. Testing should be performed immediately prior to Metamizole dosing. K-vabbzc-d-benzoquinone imine (metabolite of Acetaminophen) will generate erroneously low results in samples for patients that have taken toxic doses of acetaminophen. Performed By: #### L [facility] #### [facility] [address] [place] [address] Provider Note - ED v2on 11- Provider Note - ED v2 Provider Note - ED v2: Chart Review: ED NOTES ED NOTES: Chief complaint: Dizziness lightheaded decreased responsiveness per History of chief complaint: this 74-year-old gentleman presents to the emergency department brought in by his with decreased responsiveness while in the car today and states he was fine this morning they were driving he started complaining of some abdominal cramping pain and feeling dizzy patient went unresponsive wouldn't answer her couple times felt like he was going to pass out. Patient reports diffuse lower abdominal crampy pains no pain into the back but feels it into the buttocks. Feels like he has to move his bowels. Patient denies any headache no double or blurry vision no chest pain palpitation shortness of breath.. Patient states his bowels have been a little constipated recently. no dysuria hematuria frequency or urgency no leg pain or swelling. No numbness tingling or weakness to the extremities. No recent illness fevers chills cough cold vomiting or diarrhea. ROS: 10 systems were reviewed, findings documented in the history of present illness, otherwise negative. GENERAL: Patient is awake alert, appears fatigued pale, answering simple questions following simple commands HEAD: Head is atraumatic normocephalic, SKIN: cool pale no diaphoresis no rashes EYES: pupils are equal and reactive extraocular muscles are intact sclera white conjunctivae are pink MOUTH: Oral pharyngeal cavities pink with good moisture, no exudates or ulcerations, the airway is widely patent NECK: Nontender, no adenopathy, no JVD, no meningeal signs HEART: Regular rate and rhythm no gross murmurs rubs or clicks LUNGS: Clear to auscultation with equal breath sounds bilaterally. No active wheezes rales or rhonchi. No respiratory distress ABDOMEN: Soft, with some mild tenderness to palpation across the low abdomen right slightly greater than left. There is a small soft reducible umbilical hernia. There is no rebound rigidity or guarding no distention. No focal McBurney's point tenderness or Zaidi's sign. No gross palpable pulsatile masses femoral pulses are symmetric RECTAL there are no external hemorrhoids no fissures or ulcerations. Digital examination reveals some soft stool within the rectal vault no palpable masses or fullness no pain elicited with digital exam. BACK: Nontender to palpation, no costovertebral angle tenderness LEGS: No gross edema, no calf tenderness, no asymmetry NEUROLOGIC: Patient is awake alert oriented to person place and time. Pupils are equal and reactive extraocular muscles are intact. Facial symmetry is intact. Strength testing is symmetric bilaterally in the upper and lower extremities. Sensation is intact to light touch. HISTORY OF PRESENTING ILLNESS ESTELLA is a 74 year old Male and was seen by me at 23-Jul-2019 11:17 for a chief complaint of dizziness . 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 Triage Information: Most recent Vital Sign Value Date Heart Rate (beats/min): 57 07-23-2019 11:20 Respirations (breaths/min): 22 07-23-2019 11:20 SpO2 (%): 100 07-23-2019 11:20 BP Systolic (mm Hg): 104 07-23-2019 11:20 BP Diastolic (mm Hg): 65 07-23-2019 11:20 PAST MEDICAL HISTORY ATTESTATION: I have reviewed and confirmed nurse's/medic's notes for patient's medications, allergies, medical history, and surgical history ALLERGIES/INTOLERANCES: No Known Allergies HEALTH HISTORY: No documented data. OUTPATIENT MEDICATIONS: Home Medications Review Status for Reconciliation: Incomplete Med Status: Incomplete Medication History Drug Name: Valium Instructions: null SIGNIFICANT EVENTS: Past Medical History Description:thalasemia minor Description:vertigo RESULTS/VITAL SIGNS RESULTS: Recent Lab Results: I have reviewed these laboratory results: Hepatic Function Panel 23-Jul-2019 11:25:00 ResultValue Aspartate Transaminase, Serum 23 ALB 4.2 T Bili 1.2 Bilirubin, Serum Direct - Conjugated 0.2 ALKP 38 Alanine Aminotransferase, Serum 19 T Pro 6.6 Complete Blood Count + Differential 23-Jul-2019 11:25:00 ResultValue White Blood Cell Count 7.1 Red Blood Cell Count 5.60 HGB 11.6 L HCT 35.2 L MCV 63 L MCHC 33.0 PLT 184 RDW-CV 16.0 H Neutrophil % 57.4 Lymphocyte % 29.7 Monocyte % 10.0 Eosinophil % 2.1 Basophil % 0.8 Neutrophil Count 4.06 Lymphocyte Count 2.10 Monocyte Count 0.71 Eosinophil Count 0.15 Basophil Count 0.06 Basic Metabolic Panel 23-Jul-2019 11:25:00 ResultValue Glucose, Serum 123 H NA 138 K 3.5 CL 104 Bicarbonate, Serum 26 Anion Gap, Serum 12 BUN 15 CREAT 0.90 GFR-Non >60 GFR- >60 Calcium, Serum 9.5 RBC Morphology 23-Jul-2019 11:25:00 ResultValue Red Blood Cell Morphology see below Polychromasia MILD Hypochromasia MILD Teardrop Cells FEW Lipase, Serum 23-Jul-2019 11:25:00 ResultValue Lipase, Serum 23 Troponin I, Serum 23-Jul-2019 11:25:00 ResultValue Troponin I, Serum <0.02 Radiology Results: CTA Abd Aorta with Bilat Iliofem extr runoff w/wo cont post proc [Jul 23 2019 12:43PM] CT Angio Chest [Jul 23 2019 12:43PM] VITAL SIGNS: T PRBP SpO2O2(LPM) %FiO2 Method 23-Jul-2019 11:20:[id number]/65 100 room air, no respiratory support MEDICAL DECISION MAKING/ED COURSE MDM/ED COURSE: EKG interpreted by ED physician indication near syncope: Sinus rhythm at [address]-T change no acute infarction pattern treatment and course: Patient was placed on a cardiac cath technologist with continuous pulse ox monitoring and IV was established. EKG was obtained and appears stable. Normal saline 1 L was initiated open. Patient was taken for a stat CT scan of the aorta. Patient was ordered morphine 2 mg IV which he declined he did take Zofran 4 mg IV was given for abdominal pain. On repeat assessment patient states he is feeling improved has good color in his cheeks. Vital signs are stable repeat abdominal examination reveals some mild diffuse tenderness across the low abdomen no localizing pain no rebound rigidity or guarding. Patient with onset of nausea and vomited here in emergency, patient with some transient bradycardia heart rate ranging from the mid 40s to 70 at bedside, blood pressure stable On further questioning patient reports he did take a laxative this morning because his bowels wouldn't move. Basic blood work is coming back essentially normal I did review CT scan imaging of the aorta chest and abdomen shows findings of increased stool in the sigmoid rectal region , I don't appreciate any other significant acute pathology. official radiology report is pending. Official CT report coming back showing no acute pathology Diagnosis: 1. Near syncope suspect vasovagal 2. Abdominal pain lower abdomen 3. Constipation 4. Nausea vomiting Coordination of care: I did place a call over to the [facility] group, with prolonged episode of weak/dizzy/pallor recommend hospital observation for further evaluation- Twin the nurse practitioner did call back I advised him patient no longer wanting to stay. Patient up at the bedside commode had a large bowel movement. Patient called me to the room states he is feeling better states he does not want to go to the hospital states he likely just waited bed to get up and walk around And if he's feeling good just go home. Patient states he could tell it was all coming from his bowels and they feel much improved. I did recommend to patient at least observation in the hospital do suspect a vasovagal event but cannot completely exclude a more serious underlying cause. additionally I have concern that patient may have recurrent bowel spasms with laxative use and may be at risk for recurrent syncopal episode with potential for significant injury injury. Patient expressing understanding and reiterating he does not want to stay in the hospital. Patient's is present with him at bedside. Patient, up ambulatory in the emergency department and wanting to go home. he was invited to return at any time immediately if any change or worsening. Patient was given discharge instructions advised no further laxative use increase fluids fiber and nothing stronger than a stool softener. Patient advised to call his family doctor for follow-up as soon as possible. CLINICAL IMPRESSION Dispostion: discharged ATTESTATION CRITICAL CARE TIME Is this a critically ill patient: no Electronic Signatures: Cesilia Sarkar) (Signed 24-Jul-2019 13:53) Authored: Provider Note - ED v2 Last Updated: 24-Jul-2019 13:53 by Cesilia Sarkar () References: 1. Data Referenced From Triage - ED 23-Jul-2019 11:20 Normal [facility] RED CELL MORPHOLOGYon 2018 RBC morphology finding Nom (Bld) see below Normal [facility] Comment on above: Performed By: #### M ORP2 #### [facility] [address] [place] [address] HYPOCHROMASIA MILD Normal [facility] Comment on above: Performed By: #### M ORP2 #### [facility] [address] [place] [address] POLYCHROMASIA MILD Normal [facility] Comment on above: Performed By: #### M ORP2 #### [facility] [address] [place] [address] TEARDROP CELLS FEW Normal [facility] Comment on above: Performed By: #### M ORP2 #### [facility] [address] [place] [address] Risk Screen - Adult Emergenc yon 07-23-2019 Risk Screen - Adult Emergency Preferred Language: Preferred Language: Preferred Language for Discussing Health Care (patient/designee)Nikolas fernando Advanced Directives: Advance Directive/DNRno Family Violence Adult: Abuse Screen: Are you or have you been threatened or abused physically, emotionally, or sexually by anyoneno Learning Assessment (Patient): Learning Assessment (Patient): Patient is Able to be Assessed for Learningyes Factors Influencing Readiness to Learnacuteness of illness Factors that Impact Ability to Learnacuteness of illness Devices/Methods Used to Communicatenone Learning Preferencesverbal instruction; written material Cultural Considerationsnone Developmental Considerationsnone Yazidi Considerationsnone Learning Assessment (Other Learner): Learning Assessment (Other Learner): Other learner availableno Pressure Injury/TB/Substance: Pressure Injury: Pressure Injury Present on Admissionno Do you have a coughno Substance Use Current or Former Historynever: Cigarette/Tobacco, e-Cigarette/Vaping, Alcohol, Street Drugs Admission Risk Screen: Significant IndicatorsComplete CAGE: CAGE: Is this an injured patient at a Trauma Center ([facility]): no Electronic Signatures: Arin Chao (RN) (Signed 23-Jul-2019 13:41) Authored: Preferred Language, Advanced Directives, Family Violence Adult, Learning Assessment (Patient), Learning Assessment (Other Learner), Pressure Injury/TB/Substance, CAGE Last Updated: 23-Jul-2019 13:41 by Arin Chao (RN) Normal [facility] TROPONIN Ion 07-23-2019 Troponin I.cardiac [Mass/Vol] ng/mL Normal 0.00 - 0.03 [facility] Comment on above: Result Comment: LESS THAN 0.04 NG/ML: NEGATIVE REPEAT TESTING IN THREE TO SIX HOURS IF CLINICALLY INDICATED. 0.04 - 0.5 NG/ML: CONSISTENT WITH POSSIBLE CARDIAC DAMAGE AND POSSIBLE INCREASED CLINICAL RISK. SERIAL MEASUREMENTS MAY HELP ASSESS EXTENT OF MYOCARDIAL DAMAGE. >0.5 NG/ML: CONSISTENT WITH CARDIAC DAMAGE, INCREASED CLINICAL RISK AND MYOCARDIAL INFARCTION. SERIAL MEASUREMENTS MAY HELP ASSESS EXTENT OF MYOCARDIAL DAMAGE. . Note: Troponin I testing is performed using different testing methodology at [facility] than at other [facility]. Direct result comparisons should only be made within the same method. Performed By: #### T [facility] #### [facility] [address] [place] [id number] Triage - EDon 07-23-2019 Triage - ED Quick Triage: The patient and/or guardian verbally acknowledges placement for services into the following (when Urgent Care Service hours are operating):emergency department Chart Review: CHIEF COMPLAINT ESTELLA MCKEON is a Male patient with a chief complaint of dizziness. 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 Height: 6 feet inches. CM Weight: 180.0 pounds. Calculated 81.6 kg. Camden Coma Scale: Best Eye Response: (E4) spontaneous Best Motor Response: (M6) obeys commands Best Verbal Response: (V5) oriented Camden Score: 15 Cough lasting greater than 3 weeks: no Travel outside of [place]: no Allergies: no Patient has homicidal thoughts: no HTIEN: 2 Last Known Well: known Time Last Known Well Date/Time: 23-Jul-2019 11:10 Risk Screens Suicide Risk Screen In the Past Month: Have you wished you were or wished you could go to sleep and not wake up no In the Past Month: Have you had any actual thoughts of killing yourself no In Your Lifetime: Have you ever done anything, started to do anything, or prepared to do anything to end your life no Gordillo Fall Scale Screening Has the patient fallen before (or is the patient in the ED as a result of a fall) has not had a fall Does the patient have an impaired gait has impaired gait Is the patient cognitively impaired not cognitively impaired Gordillo Fall Scale History of falling (immediate or previous) no (0) Secondary Diagnosis yes (15) Intravenous Therapy/ Heparin/Saline Lock yes (20) Gait/Transferring weak (10) Ambulatory Aids none/bedrest/nurse assist (0) Mental Status oriented to own ability (0) Gordillo Fall Risk Score: 45 Interventions: High Risk > 45 interventions: bed in low position with brakes locked and side rails up PAIN Pain Scale Used: KERI Pain Rating (0-10): 2 = Mild Past Medical History: Past Medical History Reviewedyes vertigo: Past Medical History, Active thalasemia minor: Past Medical History, Active Electronic Signatures: Irais Perez) (Signed 23-Jul-2019 11:24) Authored: Triage, Past Medical History Chivo Nielsen) (Signed 23-Jul-2019 12:01) Authored: Triage, Past Medical History Last Updated: 23-Jul-2019 12:01 by Chivo Nielsen) Normal [facility] URINALYSISon 07-23-2019 Appearance (U) Canceled Normal [facility] Comment on above: Order Comment: TEST URINALYSIS WAS CANCELLED, 07/23/2019 14:59 patient discharged nospecimen received in lab notified Melvina Chao RN. Performed By: #### T ROP2 #### [facility] [address] [place] [address] ASCORBIC ACID Canceled Normal [facility] Comment on above: Order Comment: TEST URINALYSIS WAS CANCELLED, 07/23/2019 14:59 patient discharged nospecimen received in lab notified Melvina Chao RN. Result Comment: Conc entrations > = 20 mg/dL of ascorbic acid can be expected to cause strong interference in the reactions testing for glucose, nitrite and blood. It is recommended to discontinue Vitamin C administration and retest in 10 hours. Performed By: #### T ROP2 #### [facility] [address] [place] [address] Bilirubin (U) [Mass/Vol] Canceled Normal [facility] Comment on above: Order Comment: TEST URINALYSIS WAS CANCELLED, 07/23/2019 14:59 patient discharged nospecimen received in lab notified Melvina Chao RN. Performed By: #### T ROP2 #### [facility] [address] [place] [address] BLOOD Canceled Normal [facility] Comment on above: Order Comment: TEST URINALYSIS WAS CANCELLED, 07/23/2019 14:59 patient discharged nospecimen received in lab notified Melvina Chao RN. Performed By: #### T ROP2 #### [facility] [address] [place] [address] Color (U) Canceled Normal [facility] Comment on above: Order Comment: TEST URINALYSIS WAS CANCELLED, 07/23/2019 14:59 patient discharged nospecimen received in lab notified Melvina Chao RN. Performed By: #### T ROP2 #### [facility] [address] [place] [address] Glucose [Mass/Vol] Canceled Normal [place] [facility] Comment on above: Order Comment: TEST URINALYSIS WAS CANCELLED, 07/23/2019 14:59 patient discharged nospecimen received in lab notified Melvina Chao RN. Performed By: #### T ROP2 #### [facility] [address] [place] [address] Ketones Ql (U) Canceled Normal [facility] Comment on above: Order Comment: TEST URINALYSIS WAS CANCELLED, 07/23/2019 14:59 patient discharged nospecimen received in lab notified Melvina Chao RN. Performed By: #### T ROP2 #### [facility] [address] [place] [address] Leukocyte esterase Test strip Ql (U) Canceled Normal [facility] Comment on above: Order Comment: TEST URINALYSIS WAS CANCELLED, 07/23/2019 14:59 patient discharged nospecimen received in lab notified Melvina Chao RN. Performed By: #### T ROP2 #### [facility] [address] [place] [address] Nitrite Ql (U) Canceled Normal [facility][1] Comment on above: Order Comment: TEST URINALYSIS WAS CANCELLED, 07/23/2019 14:59 patient discharged nospecimen received in lab notified Melvina Chao RN. Performed By: #### T ROP2 #### [facility] [address] [place] [address] pH (Bld) Canceled Normal [facility] Comment on above: Order Comment: TEST URINALYSIS WAS CANCELLED, 07/23/2019 14:59 patient discharged nospecimen received in lab notified Melvina Chao RN. Performed By: #### T ROP2 #### [facility] [address] [place] [address] Protein (U) [Mass/Vol] Canceled Normal [facility] Comment on above: Order Comment: TEST URINALYSIS WAS CANCELLED, 07/23/2019 14:59 patient discharged nospecimen received in lab notified Melvina Chao RN. Performed By: #### T ROP2 #### [facility] [address] [place] [address] Specific gravity (U) [Rel density] Canceled Normal [facility] Comment on above: Order Comment: TEST URINALYSIS WAS CANCELLED, 07/23/2019 14:59 patient discharged nospecimen received in lab notified Melvina Chao RN. Performed By: #### T ROP2 #### [facility] [address] [place] [address] Urobilinogen Qn (U) Canceled Normal [facility] Comment on above: Order Comment: TEST URINALYSIS WAS CANCELLED, 07/23/2019 14:59 patient discharged nospecimen received in lab notified Melvina Chao RN. Performed By: #### T ROP2 #### [facility] [address] [place] [address] Vital Signs Date Time Vital Sign Value Performing Clinician Isra rocha 05-07-2025 13:02-0400 Body mass index (BMI) [Ratio] 28.59 kg/m2 Sonu Petersen MD Work Phone: [facility] 05-07-2025 13:02-0400 Body temperature 97.81 [degF] Sonu Petersen MD Work Phone: [facility] 05-07-2025 13:02-0400 Body weight 92.99 kg Sonu Petersen MD Work Phone: [facility] 05-07-2025 13:02-0400 Diastolic blood pressure 74 mm[Hg] Sonu Petersen MD Work Phone: [facility] 05-07-2025 13:02-0400 Heart rate 68 /min Sonu Petersen MD Work Phone: [facility] 05-07-2025 13:02-0400 Respiratory rate 16 /min Sonu Petersen MD Work Phone: [facility] 05-07-2025 13:02-0400 Systolic blood pressure 126 mm[Hg] Sonu Petersen MD Work Phone: [facility] 05-05-2025 13:39-0400 Body temperature 96.9 [degF] George Rodriguez MD Work Phone: [facility] 05-05-2025 13:39-0400 Diastolic blood pressure 78 mm[Hg] George Rodriguez MD Work Phone: [facility] 05-05-2025 13:39-0400 Heart rate 54 /min George Rodriguez MD Work Phone: [facility] 05-05-2025 13:39-0400 Respiratory rate 18 /min George Rodriguez MD Work Phone: [facility] 05-05-2025 13:39-0400 SaO2% (BldA) [Mass fraction] 100 % George Rodriguez MD Work Phone: [facility] 05-05-2025 13:39-0400 Systolic blood pressure 166 mm[Hg] George Rodriguez MD Work Phone: [facility] 05-05-2025 10:27-0400 Body height 182.88 cm George Rodriguez MD Work Phone: [facility] 05-05-2025 10:27-0400 Body mass index (BMI) [Ratio] 25.7 kg/m2 George Rodriguez MD Work Phone: [facility] 05-05-2025 10:27-0400 Body weight 86.18 kg George Rodriguez MD Work Phone: [facility] 04-24-2025 09:00-0400 Diastolic blood pressure 76 mm[Hg] Adan Golias PT Work Phone: [facility] 04-24-2025 09:00-0400 Heart rate 64 /min Adan Golias PT Work Phone: [facility] 04-24-2025 09:00-0400 Systolic blood pressure 132 mm[Hg] Adan Golias PT Work Phone: [facility] 03-17-2025 11:57-0400 Body mass index (BMI) [Ratio] 28.17 kg/m2 Sonu Petersen MD Work Phone: [facility] 03-17-2025 11:57-0400 Body weight 91.63 kg Sonu Petersen MD Work Phone: [facility] 03-17-2025 11:57-0400 Diastolic blood pressure 70 mm[Hg] Sonu Petersen MD Work Phone: [facility] 03-17-2025 11:57-0400 Heart rate 66 /min Sonu Petersen MD Work Phone: [facility] 03-17-2025 11:57-0400 Systolic blood pressure 122 mm[Hg] Sonu Petersen MD Work Phone: [facility] 01-12-2025 13:49-0400 Body mass index (BMI) [Ratio] 27.89 kg/m2 Yamilex Podlogar [employer] WORKER.[employer] Work Phone: [facility] 01-12-2025 13:49-0400 Body temperature 98.01 [degF] Yamilex Podlogar LINEN WORKER.[employer] Work Phone: [facility] 01-12-2025 13:49-0400 Body weight 90.72 kg Yamilex Podlogar LINEN WORKER.[employer] Work Phone: [facility] 01-12-2025 13:49-0400 Diastolic blood pressure 64 mm[Hg] Yamilex Podlogar LINEN WORKER.[employer] Work Phone: [facility] 01-12-2025 13:49-0400 Heart rate 64 /min Yamilex Podlogar [employer]EN WORKER.[employer] Work Phone: [facility] 01-12-2025 13:49-0400 Respiratory rate 16 /min Yamilex Podlogar LINEN WORKER.[employer] Work Phone: [facility] 01-12-2025 13:49-0400 SaO2% (BldA) [Mass fraction] 94 % Yamilex Podlogar LINEN WORKER.[employer]ICAL [employer]SET[employer] Work Phone: [facility] 01-12-2025 13:49-0400 Systolic blood pressure 114 mm[Hg] Yamilex Podlogar LINEN WORKER.S[employer]GICAL [employer]SETIER Work Phone: [facility] 01-10-2025 13:18-0400 Body mass index (BMI) [Ratio] 27.8 kg/m2 Jonelle Noel LINEN WORKER.[employer]ICAL [employer] Work Phone: [facility] 01-10-2025 13:18-0400 Body temperature 98.2 [degF] Jonelle Noel LINEN WORKER.[employer] Work Phone: [facility] 01-10-2025 13:18-0400 Body weight 90.4 kg Jonelle Praisler-Wood LINEN WORKER.S[employer]GICAL [employer]SETIER Work Phone: [facility] 01-10-2025 13:18-0400 Diastolic blood pressure 69 mm[Hg] Jonelle Praisler-Wood LINEN WORKER.[employer]ICAL [employer] Work Phone: [facility] 01-10-2025 13:18-0400 Heart rate 63 /min Jonelle Praisler-Wood LINEN WORKER.[employer]ICAL [employer] Work Phone: [facility] 01-10-2025 13:18-0400 Respiratory rate 16 /min Jonelle Praisler-Wood LINEN WORKER.[employer] Work Phone: [facility] 01-10-2025 13:18-0400 SaO2% (BldA) [Mass fraction] 97 % Jonelle Praisler-Wood [employer]EN WORKER.[employer] Work Phone: [facility] 01-10-2025 13:18-0400 Systolic blood pressure 126 mm[Hg] Jonelle Praisler-Wood LINEN WORKER.[employer]GICAL [employer]SETIER Work Phone: [facility] 10-13-2024 08:08-0500 Body height 180.3 cm Shubham Riley MD Work Phone: [facility] 10-13-2024 08:08-0500 Body mass index (BMI) [Ratio] 26.78 kg/m2 Shubham Riley MD Work Phone: [facility] 10-13-2024 08:08-0500 Body weight 87.09 kg Shubham Riley MD Work Phone: [facility] 10-13-2024 08:08-0500 Diastolic blood pressure 56 mm[Hg] Shubham Riley MD Work Phone: [facility] 10-13-2024 08:08-0500 Heart rate 76 /min Shubham Riley MD Work Phone: [facility] 10-13-2024 08:08-0500 Respiratory rate 12 /min Shubham Riley MD Work Phone: [facility] 10-13-2024 08:08-0500 SaO2% (BldA) [Mass fraction] 95 % Shubham Riley MD Work Phone: [facility] 10-13-2024 08:08-0500 Systolic blood pressure 120 mm[Hg] Shubham Riley MD Work Phone: [facility] 09-19-2024 11:20-0500 Diastolic blood pressure 74 mm[Hg] Sonu Petersen MD Work Phone: [facility] 09-19-2024 11:20-0500 Systolic blood pressure 128 mm[Hg] Sonu Petersen MD Work Phone: [facility] 09-19-2024 10:55-0500 Body mass index (BMI) [Ratio] 26.86 kg/m2 Sonu Petersen MD Work Phone: [facility] 09-19-2024 10:55-0500 Body weight 87.36 kg Sonu Petersen MD Work Phone: [facility] 09-19-2024 10:55-0500 Heart rate 78 /min Sonu Petersen MD Work Phone: [facility] 09-19-2024 10:55-0500 Respiratory rate 16 /min Sonu Petersen MD Work Phone: [facility] 09-19-2024 10:55-0500 SaO2% (BldA) [Mass fraction] 97 % Sonu Petersen MD Work Phone: [facility] 07-30-2024 12:11-0500 Body mass index (BMI) [Ratio] 27.24 kg/m2 Bertrand Neff MD Work Phone: [facility] 07-30-2024 12:11-0500 Body temperature 98.49 [degF] Bertrand Neff MD Work Phone: [facility] 07-30-2024 12:11-0500 Body weight 88.6 kg Bertrand Neff MD Work Phone: [facility] 07-30-2024 12:11-0500 Diastolic blood pressure 84 mm[Hg] Bertrand Neff MD Work Phone: [facility] 07-30-2024 12:11-0500 Heart rate 86 /min Bertrand Neff MD Work Phone: [facility] 07-30-2024 12:11-0500 Respiratory rate 16 /min Bertrand Neff MD Work Phone: [facility] 07-30-2024 12:11-0500 SaO2% (BldA) [Mass fraction] 96 % Bertrand Neff MD Work Phone: [facility] 07-30-2024 12:11-0500 Systolic blood pressure 144 mm[Hg] Bertrand Neff MD Work Phone: [facility] 06-18-2024 08:52-0400 Body mass index (BMI) [Ratio] 26.22 kg/m2 Sonu Petersen MD Work Phone: [facility] 06-18-2024 08:52-0400 Body weight 85.28 kg Sonu Petersen MD Work Phone: [facility] 06-18-2024 08:52-0400 Diastolic blood pressure 66 mm[Hg] Sonu Petersen MD Work Phone: [facility] 06-18-2024 08:52-0400 Heart rate 77 /min Sonu Petersen MD Work Phone: [facility] 06-18-2024 08:52-0400 Respiratory rate 16 /min Sonu Petersen MD Work Phone: [facility] 06-18-2024 08:52-0400 SaO2% (BldA) [Mass fraction] 98 % Sonu Petersen MD Work Phone: [facility] 06-18-2024 08:52-0400 Systolic blood pressure 118 mm[Hg] Sonu Petersen MD Work Phone: [facility] 06-16-2024 14:26-0400 Body mass index (BMI) [Ratio] 26.3 kg/m2 Igor Lan Jr., MD Work Phone: [facility] 06-16-2024 14:26-0400 Body weight 85.55 kg Igor Lan Jr., MD Work Phone: [facility] 06-16-2024 14:26-0400 Diastolic blood pressure 73 mm[Hg] Igor Lan Jr., MD Work Phone: [facility] 06-16-2024 14:26-0400 Heart rate 76 /min Igor Lan Jr., MD Work Phone: [facility] 06-16-2024 14:26-0400 SaO2% (BldA) [Mass fraction] 97 % Igor Lan Jr., MD Work Phone: [facility] 06-16-2024 14:26-0400 Systolic blood pressure 120 mm[Hg] Igor Lan Jr., MD Work Phone: [facility] 05-23-2024 08:52-0400 Body height 180.3 cm Sonu Petersen MD Work Phone: [facility] 05-23-2024 08:52-0400 Body mass index (BMI) [Ratio] 25.83 kg/m2 Sonu Petersen MD Work Phone: [facility] 05-23-2024 08:52-0400 Body weight 84.01 kg Sonu Petersen MD Work Phone: [facility] 05-23-2024 08:52-0400 Diastolic blood pressure 64 mm[Hg] Sonu Petersen MD Work Phone: [facility] 05-23-2024 08:52-0400 Heart rate 89 /min Sonu Petersen MD Work Phone: [facility] 05-23-2024 08:52-0400 Respiratory rate 16 /min Sonu Petersen MD Work Phone: [facility] 05-23-2024 08:52-0400 SaO2% (BldA) [Mass fraction] 98 % Sonu Petersen MD Work Phone: [facility] 05-23-2024 08:52-0400 Systolic blood pressure 122 mm[Hg] Sonu Petersen MD Work Phone: [facility] 02-19-2024 13:09-0400 Body height 180.3 cm Roland Pathak MD Work Phone: [facility] 02-19-2024 13:09-0400 Body mass index (BMI) [Ratio] 27.43 kg/m2 Roland Pathak MD Work Phone: [facility] 02-19-2024 13:09-0400 Body weight 89.2 kg Roland Pathak MD Work Phone: [facility] 02-19-2024 13:09-0400 Diastolic blood pressure 72 mm[Hg] Roland Pathak MD Work Phone: [facility] 02-19-2024 13:09-0400 Heart rate 66 /min Roland Pathak MD Work Phone: [facility] 02-19-2024 13:09-0400 SaO2% (BldA) [Mass fraction] 97 % Roland Pathak MD Work Phone: [facility] 02-19-2024 13:09-0400 Systolic blood pressure 148 mm[Hg] Roland Pathak MD Work Phone: [facility] 11-08-2023 10:44-0400 Diastolic blood pressure 80 mm[Hg] Quincy Moreira MD Work Phone: [facility] 11-08-2023 10:44-0400 Systolic blood pressure 132 mm[Hg] Quincy Moreira MD Work Phone: [facility] 11-08-2023 10:15-0400 Body height 181.6 cm Quincy Moreira MD Work Phone: [facility] 11-08-2023 10:15-0400 Body temperature 98.2 [degF] Quincy Moreira MD Work Phone: [facility] 11-08-2023 10:15-0400 Body weight 91.9 kg Quincy Moreira MD Work Phone: [facility] 11-08-2023 10:15-0400 Heart rate 75 /min Quincy Moreira MD Work Phone: [facility] 11-08-2023 10:15-0400 SaO2% (BldA) [Mass fraction] 99 % Quincy Moreira MD Work Phone: [facility] 09-28-2023 14:19-0500 Body weight 89.36 kg Caroline Torres MD Work Phone: [facility] 09-28-2023 14:19-0500 Diastolic blood pressure 64 mm[Hg] Caroline Torres MD Work Phone: [facility] 09-28-2023 14:19-0500 Heart rate 72 /min Caroline Torres MD Work Phone: [facility] 09-28-2023 14:19-0500 SaO2% (BldA) [Mass fraction] 97 % Caroline Torres MD Work Phone: [facility] 09-28-2023 14:19-0500 Systolic blood pressure 122 mm[Hg] Caroline Torres MD Work Phone: [facility] 04-24-2023 13:21-0400 Body temperature 97.7 [degF] Ana Dusz LINEN WORKER.[employer]IER Work Phone: [facility] 04-24-2023 13:21-0400 Body weight 89.36 kg Ana Dusz LINEN WORKER.S[employer]ICAL [employer] Work Phone: [facility] 04-24-2023 13:21-0400 Diastolic blood pressure 80 mm[Hg] Ana Dusz LINEN WORKER.S[employer]ICAL [employer]IER Work Phone: [facility] 04-24-2023 13:21-0400 Heart rate 68 /min Ana Dusz LINEN WORKER.S[employer]ICAL [employer]IER Work Phone: [facility] 04-24-2023 13:21-0400 SaO2% (BldA) [Mass fraction] 97 % Ana Dusz LINEN WORKER.S[employer]ICAL [employer]IER Work Phone: [facility] 04-24-2023 13:21-0400 Systolic blood pressure 127 mm[Hg] Ana Minerdouglas HARRISON.SURGICAL CORSETIER Work Phone: [facility] 11-23-2022 13:49-0400 Body height 181.6 cm Quincy Moreira MD Work Phone: [facility] 11-23-2022 13:49-0400 Body temperature 98.6 [degF] Quincy Moreira MD Work Phone: [facility] 11-23-2022 13:49-0400 Body weight 87.54 kg Quincy Moreira MD Work Phone: [facility] 11-23-2022 13:49-0400 Diastolic blood pressure 73 mm[Hg] Quincy Moreira MD Work Phone: [facility] 11-23-2022 13:49-0400 Heart rate 72 /min Quincy Moreira MD Work Phone: [facility] 11-23-2022 13:49-0400 Systolic blood pressure 119 mm[Hg] Quincy Moreira MD Work Phone: [facility] 10-12-2022 12:00-0500 Diastolic blood pressure 58 mm[Hg] Chloe Cleveland PT Work Phone: [facility] 10-12-2022 12:00-0500 Heart rate 61 /min Chloe Cleveland PT Work Phone: [facility] 10-12-2022 12:00-0500 SaO2% (BldA) [Mass fraction] 96 % Chloe Cleveland PT Work Phone: [facility] 10-12-2022 12:00-0500 Systolic blood pressure 104 mm[Hg] Chloe Cleveland PT Work Phone: [facility] 08-04-2022 10:00-0500 Diastolic blood pressure 63 mm[Hg] Chloe Cleveland PT Work Phone: [facility] 12-09-2022 10:00-0500 Heart rate 66 /min Chloe Cleveland PT Work Phone: [facility] 08-04-2022 10:00-0500 Systolic blood pressure 103 mm[Hg] Chloe Cleveland PT Work Phone: [facility] 08-01-2022 10:48-0500 Body height 181.6 cm Quincy Moreira MD Work Phone: [facility] 08-01-2022 10:48-0500 Body temperature 97.7 [degF] Quincy Moreira MD Work Phone: [facility] 08-01-2022 10:48-0500 Body weight 87.14 kg Quincy Moreira MD Work Phone: [facility] 08-01-2022 10:48-0500 Diastolic blood pressure 76 mm[Hg] Quincy Moreira MD Work Phone: [facility] 08-01-2022 10:48-0500 Heart rate 78 /min Quincy Moreira MD Work Phone: [facility] 08-01-2022 10:48-0500 SaO2% (BldA) [Mass fraction] 95 % Quincy Moreira MD Work Phone: [facility] 08-01-2022 10:48-0500 Systolic blood pressure 127 mm[Hg] Quincy Moreira MD Work Phone: [facility] 07-28-2022 15:57-0500 Body height 181.6 cm Lola SANCHEZ-C Work Phone: [facility] 07-28-2022 15:57-0500 Body temperature 99 [degF] Lola SANCHEZ-C Work Phone: [facility] 07-28-2022 15:57-0500 Body weight 88.45 kg Lola Katz PA-C Work Phone: [facility] 07-28-2022 15:57-0500 Diastolic blood pressure 78 mm[Hg] Lola Kiehnau PA-C Work Phone: [facility] 07-28-2022 15:57-0500 Heart rate 72 /min Lola Nugentnau PA-C Work Phone: [facility] 07-28-2022 15:57-0500 Respiratory rate 16 /min Lola Nugentnau PA-C Work Phone: [facility] 07-28-2022 15:57-0500 SaO2% (BldA) [Mass fraction] 95 % Lola Nugentnau PA-C Work Phone: [facility] 07-28-2022 15:57-0500 Systolic blood pressure 132 mm[Hg] Lola Nugentnau PA-C Work Phone: [facility] 07-04-2022 16:06-0500 Body weight 86.18 kg Pradip Meraz MD Work Phone: [facility] 07-04-2022 16:06-0500 Diastolic blood pressure 75 mm[Hg] Pradip Meraz MD Work Phone: [facility] 07-04-2022 16:06-0500 Heart rate 71 /min Pradip Meraz MD Work Phone: [facility] 07-04-2022 16:06-0500 Systolic blood pressure 118 mm[Hg] Pradip Meraz MD Work Phone: [facility] 03-03-2022 09:33-0400 Body weight 89.36 kg Pradip Meraz MD Work Phone: [facility] 03-03-2022 09:33-0400 Diastolic blood pressure 73 mm[Hg] Pradip Meraz MD Work Phone: [facility] 03-03-2022 09:33-0400 Heart rate 69 /min Pradip Meraz MD Work Phone: [facility] 03-03-2022 09:33-0400 Systolic blood pressure 118 mm[Hg] Pradip Meraz MD Work Phone: [facility] 01-17-2022 15:13-0400 Body height 181.6 cm Quincy Moreira MD Work Phone: [facility] 01-17-2022 15:13-0400 Body temperature 97.81 [degF] Quincy Moreira MD Work Phone: [facility] 01-17-2022 15:13-0400 Body weight 89.36 kg Quincy Moreira MD Work Phone: [facility] 01-17-2022 15:13-0400 Diastolic blood pressure 67 mm[Hg] Quincy Moreira MD Work Phone: [facility] 01-17-2022 15:13-0400 Heart rate 72 /min Quincy Moreira MD Work Phone: [facility] 01-17-2022 15:13-0400 Respiratory rate 12 /min Quincy Moreira MD Work Phone: [facility] 01-17-2022 15:13-0400 Systolic blood pressure 123 mm[Hg] Quincy Moreira MD Work Phone: [facility] Encounters Encounter Date Encounter Type Care Provider Facility Start: 07-07-2025 End: 07-07-20[facility] Start: 06-30-2025 End: 06-30-2025 [facility] Start: 06-25-2025 End: 06-25-2025 ambulatory CHRISTOPH TRINITY Facility:[facility] Start: 06-22-2025 End: 06-22-2025 ambulatory CHRISTOPHER ZACHARYLEY Facility:[facility] Start: 06-09-2025 End: 06-09-2025 [facility] Start: 06-01-2025 End: 06-01-2025 [facility] Facility:[facility] Start: 05-29-2025 End: 05-29-2025 [facility] Start: 05-19-2025 End: 05-19-2025 ambulatory [facility] Facility:[facility] Start: 05-18-2025 End: 05-18-2025 ambulatory [facility] Facility:[facility] Start: 05-15-2025 End: 05-15-2025 ambulatory [facility] Facility:[facility] Start: 05-07-2025 End: 05-07-2025 ambulatory George Rodriguez MD Work Phone: -Cat Scan [facility] Start: 05-07-2025 End: 05-07-2025 Patient encounter procedure Sonu Petersen MD Work Phone: [facility] [place] Comment on above: Fall, subsequent enc ounter (Primary Dx); Laceration of right lower extremity, subsequent encounter; Cellulitis of skin; Injury of head, subsequent encounter Start: 05-07-2025 End: 05-07-2025 Telephone encounter Sonu Petersen MD Work Phone: [facility] Comment on above: Nurse Triage Call Start: 05-07-2025 End: 05-07-2025 ambulatory Nurse Intm/Famp Triage [facility] Work Phone: Nurse Phone Triage Comment on above: Leg Pain Start: 05-07-2025 End: 05-07-2025 [facility] Start: 05-05-2025 End: 05-05-2025 Emergency department patient visit George Rodriguez MD Work Phone: -Emergency Department Work Phone: Start: 05-05-2025 End: 05-05-2025 Patient encounter procedure Eliana Shearer APRN.SURGICAL CORSETIER Work Phone: [facility] [place] Comment on above: Injury of head, init ial encounter (Primary Dx) Start: 05-05-2025 End: 05-05-2025 ambulatory ELIANA SHEARER Facility:[facility] Start: 04-24-2025 End: 04-24-2025 ambulatory Adan Valdes PT Work Phone: [facility] Comment on above: Falling (Primary Dx) ; Frequent falls; Ataxia Start: 03-17-2025 End: 03-17-2025 Patient encounter procedure Sonu Petersen MD Work Phone: [facility] [place] Comment on above: Grief (Primary Dx); Primary hypertension; Frequent falls; Ataxia; Cerebral ventriculomegaly; Nystagmus Start: 03-17-2025 End: 03-17-2025 [facility] Facility:[facility] Start: 01-12-2025 End: 01-12-2025 Patient encounter procedure Yamilex Melendez LINEN WORKER.S[employer]ICAL [employer]SETIER Work Phone: [facility] Comment on above: Localized swelling, mass and lump, head; Allergic rhinitis, unspecified seasonality, unspecified trigger Start: 01-12-2025 End: 01-12-2025 ambulatory [facility] Facility:[facility] Start: 01-10-2025 End: 01-10-2025 Patient encounter procedure Jonelle Noel APRN.SURGICAL CORSETIER Work Phone: [facility] Comment on above: Glands swollen (Prim maggi Dx); Acute pharyngitis, unspecified etiology; Fatigue, unspecified type Start: 01-10-2025 End: 01-10-2025 ambulatory JONELLE NOEL Facility:[facility] Start: 12-18-2024 End: 12-18-2024 [facility] Facility:[facility] Start: 12-08-2024 End: 12-08-2024 Refill Sonu Petersen MD Work Phone: [facility] Comment on above: Refill Request Start: 10-13-2024 End: 10-13-2024 [facility] Start: 10-13-2024 End: 10-13-2024 Patient encounter procedure Shubham Riley MD Work Phone: Cardiology Comment on above: Primary hypertension (Primary Dx); Coronary artery disease due to lipid rich plaque; Pure hypercholesterolemia Start: 09-19-2024 End: 09-19-2024 ambulatory LOACHAPOKA TRINITY Facility:[facility] Start: 09-19-2024 End: 09-19-2024 Patient encounter procedure Sonu Petersen MD Work Phone: 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; Thalassemia minor; Primary hypertension; Hyperlipidemia, unspecified hyperlipidemia type; Cerebral ventriculomegaly Start: 08-04-2024 End: 08-04-2024 Telephone encounter Bertrand Neff MD Work Phone: [facility] Comment on above: Results Start: 07-30-2024 End: 07-30-2024 ambulatory SONU PETERSEN Facility:[facility] Start: 07-30-2024 End: 07-30-2024 Patient encounter procedure Bertrand Neff MD Work Phone: [facility] Comment on above: Acute cough (Primary Dx); Impacted cerumen of left ear Start: 06-25-2024 End: 06-25-2024 Subsequent hospital visit by physician [employer] [facility] (I-Stat/1.5t) Work Phone: Radiology Comment on above: 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] Start: 06-18-2024 End: 06-18-2024 Patient encounter procedure Sonu Petersen MD Work Phone: [facility] Comment on above: OPENED IN ERROR (Tere charlie Dx) Start: 06-16-2024 End: 06-16-2024 Patient encounter procedure Igor Lan MD Work Phone: Neurology Comment on above: Ataxia (Primary Dx); Cerebral ventriculomegaly; Memory loss; Recurrent falls; Nystagmus Start: 05-26-2024 End: 07-16-2024 Telephone encounter Sonu Petersen MD Work Phone: [facility] [place] Comment on above: Results Start: 05-23-2024 End: 05-23-2024 Patient encounter procedure [facility] Comment on above: Encounter for medica l examination to establish care (Primary Dx); Grief; Ataxia; Coronary artery disease due to lipid rich plaque; Fall in home, initial encounter Start: 05-23-2024 End: 05-23-2024 Patient encounter status Sonu Petersen MD Work Phone: [facility] Start: 03-13-2024 End: 03-13-2024 ambulatory QUINCY MOREIRA Facility:[facility] Start: 02-26-2024 Telephone encounter Quincy Dexter MD Work Phone: [facility] Comment on above: Patient Question (Bl ood work done on 02/18) Start: 02-19-2024 End: 02-19-2024 Patient encounter procedure Roland Pathak MD Work Phone: Neurology Comment on above: Ataxia (Primary Dx); Cerebral ventriculomegaly Start: 11-20-2023 Telephone encounter Quincy Dexter MD Work Phone: [facility] [email or web address] Comment on above: Results Start: 11-08-2023 End: 11-08-2023 Patient encounter procedure Quincy Moreira MD Work Phone: [facility] Comment on above: Ataxia (Primary Dx); Abnormal MRI of head; Coronary artery disease due to lipid rich plaque; Screening for prostate cancer; Cerebellar infarct (HCC) Start: 10-25-2023 ambulatory CAROLINE TORRES Facility[facility] Start: 10-25-2023 End: 10-25-2023 Subsequent hospital visit by physician [facility] Comment on above: Coronary artery dise ase due to lipid rich plaque [I25.10, I25.83] Encounter for screen ing for cardiovascular disorders [Z13.6] Start: 09-28-2023 End: 09-28-2023 Office outpatient visit 25 minutes Caroline Torres MD Work Phone: [facility] Comment on above: Coronary artery dise ase due to lipid rich plaque (Primary Dx); Encounter for screening for cardiovascular disorders; Primary hypertension; Hyperlipidemia, unspecified hyperlipidemia type Start: 09-28-2023 End: 09-28-2023 ambulatory QUINCY MOREIRA Facility:[facility] Start: 08-28-2023 End: 08-28-2023 ambulatory QUINCY MOREIRA Facility:[facility] Start: 08-09-2023 Telephone encounter Quincy Dexter MD Work Phone: [facility] Comment on above: Consult (Ortho, Neur ology, and Cardiology) Start: 07-12-2023 Telephone encounter Ashlyn ROMERO [facility] Start: 04-24-2023 End: 04-24-2023 Office outpatient visit 15 minutes Ana Cali APRN.SURGICAL CORSETIER Work Phone: [facility] Comment on above: Impacted cerumen of left ear (Primary Dx); Acute pharyngitis, unspecified etiology; Suspected COVID-19 virus infection; Post-nasal drainage Start: 02-03-2023 Refill Elvis Ortega MD Work Phone: [facility] Comment on above: Refill Request Start: 12-18-2022 End: 12-18-2022 Patient encounter procedure Reyna Gruber DO Work Phone: Dermatology [facility] Comment on above: Seborrheic keratosis (Primary Dx); Lagunas angioma; Lentigines; Actinic keratosis Start: 11-23-2022 End: 11-23-2022 Patient encounter procedure Quincy Moreira MD Work Phone: [facility] Comment on above: Skin neoplasm (Prima ry Dx); Screening for lipid disorders; Screening for diabetes mellitus; Neoplasm of skin; Screening for prostate cancer; Other forms of angina pectoris (HCC); Vertigo Start: 11-15-2022 End: 11-15-2022 ambulatory Chloe Cleveland PT Work Phone: PT [facility] Comment on above: Imbalance (Primary D x); Dizziness and giddiness Start: 10-31-2022 End: 10-31-2022 ambulatory Chloe Cleveland PT Work Phone: PT [facility] Comment on above: Imbalance (Primary D x) Start: 10-24-2022 End: 10-24-2022 ambulatory Chloe Cleveland PT Work Phone: PT [facility] Comment on above: Imbalance (Primary D x) Start: 10-12-2022 End: 10-12-2022 ambulatory Chloe Cleveland PT Work Phone: PT [facility] Comment on above: Imbalance (Primary D x) Start: 10-03-2022 ambulatory Radames George MD Work Phone: [facility] Comment on above: Virtualist Covid19 Concern Start: 09-28-2022 End: 09-28-2022 ambulatory Chloe Cleveland PT Work Phone: PT [facility] Comment on above: Imbalance (Primary D x) Start: 09-13-2022 End: 09-13-2022 ambulatory Belén Arriaga PT Work Phone: [facility] Comment on above: Imbalance (Primary D x); Dizziness and giddiness; Falls frequently Start: 09-05-2022 End: 09-05-2022 ambulatory Chloe Cleveland PT Work Phone: [facility] Comment on above: Imbalance (Primary D x); Dizziness and giddiness Start: 08-04-2022 End: 08-04-2022 ambulatory Chloe Cleveland PT Work Phone: [facility] Comment on above: Imbalance (Primary D x); Dizziness and giddiness Start: 08-03-2022 End: 08-03-2022 ambulatory Chloe Cleveland PT Work Phone: [facility] Comment on above: Imbalance (Primary D x); Falls frequently Start: 08-01-2022 End: 08-01-2022 Patient encounter procedure Quincy Moreira MD Work Phone: [facility] [place] Comment on above: Bronchitis (Primary Dx); Screening for lipid disorders; Dizziness Start: 07-28-2022 End: 07-28-2022 Patient encounter procedure Lola Katz PA-C Work Phone: [facility] Comment on above: Acute bronchitis, un specified organism (Primary Dx) Start: 07-27-2022 End: 07-27-2022 Subsequent hospital visit by physician [employer] [facility] (I-Stat/1.5t) Radiology Comment on above: Myelopathy (HCC) [G9 5.9] Start: 07-24-2022 Refill Elvis Ortega MD Work Phone: [facility] Comment on above: Refill Request Start: 07-06-2022 ambulatory Jayna Agarwal RN [facility] Comment on above: NOAH STRICKLAND RN ( Medication Adherence review at request of payer) Start: 07-05-2022 ambulatory Pradip Meraz MD Work Phone: Neurology Comment on above: vitamin B-6 Start: 07-04-2022 End: 07-04-2022 Patient encounter procedure Pradip Meraz MD Work Phone: Neurology Comment on above: Myelopathy (HCC) (Pr imary Dx); Spinal stenosis of cervical region; Gait disorder; Balance disorder Start: 06-15-2022 ambulatory Carmen (Pss) Indra [facility]val [facility] Comment on above: Population Health Na vigation Outreach ([facility] Care Gap ) Start: 03-06-2022 End: 03-06-2022 Patient encounter procedure Milla Story, CCC-A Work Phone: Audiology Comment on above: Vertigo of central o rigin (Primary Dx); Imbalance Start: 03-03-2022 End: 03-03-2022 Patient encounter procedure Pradip Meraz MD Work Phone: Neurology Comment on above: Vertigo (Primary Dx) ; Ataxia; Memory loss; Vertigo of central origin; Iron deficiency anemia, unspecified iron deficiency anemia type Start: 02-28-2022 Telephone encounter Quincy Dexter MD Work Phone: [facility] Comment on above: Results Start: 02-16-2022 End: 02-16-2022 Subsequent hospital visit by physician [employer] [facility] (I-Stat/1.5t) Radiology Comment on above: 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] Start: 01-17-2022 End: 01-17-2022 Patient encounter procedure Quincy Moreira MD Work Phone: [facility] Comment on above: Ataxia (Primary Dx); Memory loss Start: 01-17-2022 Telephone encounter Quincy Dexter MD Work Phone: [facility] Comment on above: Referral Information (Neurology) Start: 05-31-2020 End: 06-01-2020 [facility] Procedures Date Procedure Procedure Detail Performing Clinician Start: 06-22-2025 Follow-up visit Follow Up SHUBHAM SAMS ALEXSANDERDAINA Start: 05-07-2025 CT of head without contrast George Rodriguez MD Work Phone: Start: 05-05-2025 Plain X-ray of tibia and fibula George Rodriguez MD Work Phone: Start: 05-05-2025 X-ray of ankle, thre e or more views George Rodriguez MD Work Phone: Start: 01-10-2025 STREP A MOLECULAR (POC) [facility] Provider Start: 10-13-2024 Ecg routine ecg w/le ast 12 lds i&r only [facility] Provider Start: 06-25-2024 Mri brain brain stem w/o contrast material Igor Lan MD Work Phone: Start: 10-25-2023 Myocardial spect mul tiple studies Caroline Torres MD Work Phone: Start: 10-25-2023 Echo tthrc r-t 2d w/wom-mode compl spec&colr d Caroline Torres MD Work Phone: Start: 07-27-2022 Mri spinal canal tho racic w/o contrast matrl Pradip Meraz MD Work Phone: Start: 03-03-2022 Adult depression screening assessment Pradip Meraz MD Work Phone: Start: 02-16-2022 Mri brain brain stem w/o w/contrast material Quincy Moreira MD Work Phone: Start: 04-18-2021 Adult depression screening assessment Quincy Moreira MD Work Phone: Plan of Treatment Date Care Activity Detail Author Start: 11-28-2027 LIPID SCREEN LIPID SCREEN [facility] Start: 05-23-2027 Diabetes Screening Diabetes Screening [facility] Start: 02-19-2027 Diabetes Screening Diabetes Screening [facility] Start: 11-18-2026 Diabetes Screening Diabetes Screening [facility] Start: 05-07-2026 Annual PCP Team Chronic Disease Visit Annual PCP Team Chronic Disease Visit [facility] Start: 04-12-2026 LIPID SCREEN LIPID SCREEN [facility] Start: 03-17-2026 Annual PCP Team Chronic Disease Visit Annual PCP Team Chronic Disease Visit [facility] Start: 01-12-2026 Annual PCP Team Chronic Disease Visit Annual PCP Team Chronic Disease Visit [facility] Start: 01-12-2026 BP Controlled (<130/80) BP Controlled (<130/80) [facility] Start: 01-10-2026 BP Controlled (<130/80) BP Controlled (<130/80) [facility] Start: 12-18-2025 Annual PCP Team Chronic Disease Visit Annual PCP Team Chronic Disease Visit [facility] Start: 11-27-2025 DIABETES SCREEN DIABETES SCREEN [facility] Start: 11-27-2025 Diabetes Screening Diabetes Screening [facility] Start: 10-13-2025 BP Controlled (<130/80) BP Controlled (<130/80) [facility] Start: 09-19-2025 Annual PCP Team Chronic Disease Visit Annual PCP Team Chronic Disease Visit [facility] Start: 09-19-2025 BP Controlled (<130/80) BP Controlled (<130/80) [facility] Start: 09-18-2025 End: 09-18-2025 Patient encounter procedure 09/18/2025 11:40 AM EST Office Visit Family [facility] [address] [place] [address] PodYamilex humphrey APRN.SURGICAL CORSETIER [address] [place] [address] 6 month follow up Family [facility] Comment on above: 6 month follow up Start: 06-22-2025 End: 06-22-2025 Patient encounter procedure 06/22/2025 10:40 AM EDT Office Visit Cardiology [address] [place] [address] Shubham Riley MD [address] [facility], [address] [place] [address] 6 month follow up Cardiology Comment on above: 6 month follow up Start: 06-18-2025 Annual PCP Team Chronic Disease Visit Annual PCP Team Chronic Disease Visit [facility] Start: 05-29-2025 End: 05-29-2025 ambulatory 05/29/2025 9:30 AM EDT OT/PT/Speech Visit [facility] [address] [place] [address] Yue Max, CHEMICAL ENGINEER [address] [place] [address] Frequent falls [R29.6] [facility] Comment on above: Frequent falls [R29.6] Start: 05-26-2025 End: 05-26-2025 ambulatory 05/26/2025 10:15 AM EDT OT/PT/Speech Visit [facility] [address] [place] [address] Yue Max, CHEMICAL ENGINEER [address] [place] [address] Frequent falls [R29.6] [facility] Comment on above: Frequent falls [R29.6] Start: 05-23-2025 Annual PCP Team Chronic Disease Visit Annual PCP Team Chronic Disease Visit [facility] Start: 05-22-2025 End: 05-22-2025 ambulatory 05/22/2025 8:45 AM EDT OT/PT/Speech Visit [facility] [address] [place] [address] Yue Max, CHEMICAL ENGINEER [address] [place] [address] Frequent falls [R29.6] [facility] Comment on above: Frequent falls [R29.6] Start: 05-19-2025 End: 05-19-2025 ambulatory 05/19/2025 9:30 AM EDT OT/PT/Speech Visit [facility] [address] [place] [address] Yue Max, CHEMICAL ENGINEER [address] [place] [address] Frequent falls [R29.6] [facility] Comment on above: Frequent falls [R29.6] Start: 05-18-2025 End: 05-18-2025 Patient encounter procedure 05/18/2025 9:40 AM EDT Office Visit Family [facility] [address] [place] [address] Sonu Petersen MD [address] [facility] [place] [address] 1 week f/u leg wound [facility] Comment on above: 1 week f/u leg wound Start: 05-15-2025 End: 05-15-2025 ambulatory 05/15/2025 9:00 AM EDT OT/PT/Speech Visit [facility] [address] [place] [address] [place] [address] [place] [address] Frequent falls [R29.6] [facility] Comment on above: Frequent falls [R29.6] Start: 05-12-2025 End: 05-12-2025 ambulatory 05/12/2025 10:30 AM EDT OT/PT/Speech Visit [facility] [address] [place] [address] [place] [address] [place] [address] Frequent falls [R29.6] [facility] Comment on above: Frequent falls [R29.6] Start: 05-08-2025 End: 05-08-2025 ambulatory 05/08/2025 9:00 AM EDT OT/PT/Speech Visit [facility] [address] [place] [address] [place] [address] [place] [address] Frequent falls [R29.6] [facility] Comment on above: Frequent falls [R29.6] Start: 05-05-2025 [facility] Start: 05-05-2025 End: 05-05-2025 ambulatory 05/05/2025 9:30 AM EDT OT/PT/Speech Visit [facility] [address] [place] [address] Yue Max, CHEMICAL ENGINEER [address] [place] [address] Frequent falls [R29.6] [facility] Comment on above: Frequent falls [R29.6] Start: 04-27-2025 Influenza vaccination [facility] Start: 04-08-2025 End: 04-08-2025 ambulatory 04/08/2025 11:15 AM EDT OT/PT/Speech Visit [facility] [address] [place] [address] Shlomo oBwman, PT Frequent falls [R29.6]; 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] [facility] Comment on above: Frequent falls [R29.6]; 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] Start: 03-17-2025 End: 03-17-2025 Patient encounter procedure 03/17/2025 12:20 PM EDT Office Visit [facility] [place] [address] [facility] [place] [address] Sonu Petersen MD [address] [place] [place] [address] 3 month follow up, grief [facility] [place] Comment on above: 3 month follow up, grief Start: 02-23-2025 Influenza vaccination Influenza Vaccine (#1) [place] [facility] easley Comment on above: Postponed from 04/27/2024 (Declined at t his time) Start: 01-12-2025 End: 01-12-2025 Patient encounter procedure 01/12/2025 2:00 PM EDT Office Visit [facility] [address] [place], [place] [address] PodlogarYamilex APRN.SURGICAL CORSETIER [address] [place] [address] follow up from urgent care swollen glands [facility] [place] Comment on above: follow up from urgent care swollen gland s Start: 12-18-2024 End: 12-18-2024 Patient encounter procedure 12/18/2024 12:20 PM EDT Office Visit [facility] [address] [place], [place] [phone] Sonu Petersen MD [address] [place] [address] 3 month follow up, grief [facility] [place] Comment on above: 3 month follow up, grief Start: 11-18-2024 Hepatitis B surface antibody level LDL Cholesterol [facility] Start: 11-16-2024 Covid-19 Vaccine ( season) Covid-19 Vaccine () [facility] Start: 11-07-2024 Annual PCP Team Chronic Disease Visit Annual PCP Team Chronic Disease Visit [facility] Start: 10-13-2024 End: 10-13-2024 Patient encounter procedure Cardiology Comment on above: Previously seen by Dr. Torres, 6 mo f/u /sab Start: 09-19-2024 End: 12-19-2024 CBC W Auto Differential panel - Blood COMPLETE BLOOD COUNT AND DIFFERENTIAL Lab Routine Thalassemia minor Expected: 09/19/2024, Expires: 12/19/2024 [facility] Work Phone: Comment on above: Expected: 09/19/2024, Expires: Start: 09-19-2024 End: 09-19-2024 Patient encounter procedure 09/19/2024 10:40 AM EST Office Visit [facility] [place] [address] [place] [address] Sonu Petersen MD [address] [address] 3 month follow up Family [facility] Comment on above: 3 month follow up Start: 08-27-2024 Advance Directive Discussion Advance Directive Discussion [facility] Start: 08-27-2024 Medicare Advantage Annual Wellness Visit Medicare Advantage Annual Wellness Visit [facility] Start: 08-12-2024 End: 08-12-2024 Patient encounter procedure 08/12/2024 2:00 PM EST Office Visit Family Medicine [facility] [address] [place] [phone] Quincy Moreira MD [address] [place] [phone] medicare wellcheck [facility] [place] Comment on above: medicare wellcheck Start: 08-08-2024 Annual PCP Team Chronic Disease Visit Annual PCP Team Chronic Disease Visit [facility] Start: 07-17-2024 End: 07-17-2024 Patient encounter procedure 07/17/2024 11:30 AM EST Office Visit Neurology [address] [facility] [address] [place] [phone] Roland Pathak MD [address] [place] [place] [address] 4 mo Neurology Comment on above: 4 mo Start: 07-15-2024 End: 07-15-2024 Patient encounter procedure 07/15/2024 8:45 AM EST Office Visit [facility] [address] [place], [place] [phone] Marcelo Shields, DO [address] [place] [address] 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]; 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]; Nystagmus [H55.00] Ophthalmology Comment on above: 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]; Cerebral ventriculomegal y [G93.89]; Nystagmus [H55.00] Start: 07-02-2024 End: 07-02-2024 Patient encounter procedure 07/02/2024 9:20 AM EST Appointment Radiology [address] [place], [place] [address] 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]; 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]; Memory loss [R41.3]; Recurrent falls [R29.6] Radiology Comment on above: 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]; Cerebral ventriculomegal y [G93.89]; Memory loss [R41.3]; Recurrent falls [R29.6] Start: 06-25-2024 End: 06-25-2024 Patient encounter procedure 06/25/2024 11:20 AM EDT Appointment Radiology [address] [place] [address] 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]; 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]; Memory loss [R41.3]; Recurrent falls [R29.6] Radiology Comment on above: 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]; Cerebral ventriculomegal y [G93.89]; Memory loss [R41.3]; Recurrent falls [R29.6] Start: 06-18-2024 End: 06-18-2024 Patient encounter procedure 06/18/2024 9:00 AM EDT Office Visit [facility] [place] [address] [place] [address] Sonu Petersen MD [address] [place], [place] [address] folllow up for memory-40 min visit [facility] [place] Comment on above: folllow up for memory-40 min visit Start: 06-16-2024 End: 06-16-2024 Patient encounter procedure 06/16/2024 2:20 PM EDT Office Visit Neurology [address] [place], [place] [phone] Igor Lan Jr., MD [address] [place] [phone] Cerebrovascular accident (CVA), unspecified mechanism (HCC) [I63.9] Neurology Comment on above: Cerebrovascular accident (CVA), unspecif ied mechanism (HCC) [I63.9] Start: 04-27-2024 Influenza vaccination Influenza Vaccine (#1) [facility] Start: 04-11-2024 DIABETES SCREEN DIABETES SCREEN [facility] Start: 04-04-2024 End: 04-04-2024 Patient encounter procedure 04/04/2024 9:00 AM EDT Office Visit [facility] [address] [place], [place] [phone] Caroline Torres MD [address] [place], [place] [phone] 6mo CAD srs [facility] Comment on above: 6mo CAD srs Start: 02-27-2024 End: 05-28-2024 Fasting glucose [Mass/volume] in Serum or Plasma GLUCOSE, FASTING Lab Routine Hyperglycemia Expected: 02/27/2024, Expires: 05/28/2024 [facility] Work Phone: Comment on above: Expected: 02/27/2024, Expires: Start: 02-20-2024 End: 05-21-2024 Fasting glucose [Mass/volume] in Serum or Plasma GLUCOSE FASTING BLD Lab Routine Hyperglycemia Expected: 02/20/2024, Expires: 05/21/2024 [facility] Work Phone: Comment on above: Expected: 02/20/2024, Expires: Start: 02-20-2024 End: 05-21-2024 Hemoglobin A1c in Blood HGB A1C Lab Routine Hyperglycemia Expected: 02/20/2024, Expires: 05/21/2024 [facility] Work Phone: Comment on above: Expected: 02/20/2024, Expires: 4 Start: 02-20-2024 End: 02-20-2024 ambulatory 02/20/2024 10:00 AM EDT Results Only [facility] [address] [place] [phone] [facility] Start: 02-19-2024 End: 05-20-2024 Alpha tocopherol [Mass/volume] in Serum or Plasma VITAMIN E/TOCOPHEROL Lab Routine Ataxia Cerebral ventriculomegaly Expected: 02/19/2024, Expires: 05/20/2024 [facility] Comment on above: Expected: 02/19/2024, Expires: Start: 02-19-2024 End: 05-20-2024 NNAMDI BY IFA WITH REFLEX NNAMDI BY IFA WITH REFLEX Lab Routine Ataxia Cerebral ventriculomegaly Expected: 02/19/2024, Expires: 05/20/2024 [facility] Comment on above: Expected: 02/19/2024, Expires: Start: 02-19-2024 End: 05-20-2024 AUTOIMMUNE ENCEPHALOPATHY EVALUATION, SERUM AUTOIMMUNE ENCEPHALOPATHY EVALUATION, SERUM Lab Routine Ataxia Cerebral ventriculomegaly Expected: 02/19/2024, Expires: 05/20/2024 [facility] Comment on above: Expected: 02/19/2024, Expires: Start: 02-19-2024 End: 05-20-2024 Borrelia burgdorferi DNA [Presence] in Unspecified specimen by ANGEL with probe detection LYME DISEASE BY PCR Lab Routine Ataxia Cerebral ventriculomegaly Expected: 02/19/2024, Expires: 05/20/2024 [facility] Comment on above: Expected: 02/19/2024, Expires: Start: 02-19-2024 End: 05-20-2024 Calcium [Mass/volume] in Serum or Plasma CALCIUM, TOTAL Lab Routine Ataxia Cerebral ventriculomegaly Expected: 02/19/2024, Expires: 05/20/2024 [facility] Comment on above: Expected: 02/19/2024, Expires: Start: 02-19-2024 End: 05-20-2024 CBC W Ordered Manual Differential panel - Blood PATHOLOGIST INTERPRETATION WITH CBC AND DIFF Lab Routine Ataxia Cerebral ventriculomegaly Expected: 02/19/2024, Expires: 05/20/2024 [facility] Comment on above: Expected: 02/19/2024, Expires: Start: 02-19-2024 End: 05-20-2024 CELIAC SCREEN WITH REFLEX CELIAC SCREEN WITH REFLEX Lab Routine Ataxia Cerebral ventriculomegaly Expected: 02/19/2024, Expires: 05/20/2024 [facility] Comment on above: Expected: 02/19/2024, Expires: Start: 02-19-2024 End: 05-20-2024 Ceruloplasmin [Mass/volume] in Serum or Plasma CERULOPLASMIN Lab Routine Ataxia Cerebral ventriculomegaly Expected: 02/19/2024, Expires: 05/20/2024 [facility] Comment on above: Expected: 02/19/2024, Expires: Start: 02-19-2024 End: 05-20-2024 COPPER BLOOD COPPER BLOOD Lab Routine Ataxia Cerebral ventriculomegaly Expected: 02/19/2024, Expires: 05/20/2024 [facility] Comment on above: Expected: 02/19/2024, Expires: Start: 02-19-2024 End: 05-20-2024 Erythrocyte sedimentation rate SEDIMENTATION RATE, WESTERGREN Lab Routine Ataxia Cerebral ventriculomegaly Expected: 02/19/2024, Expires: 05/20/2024 [facility] Comment on above: Expected: 02/19/2024, Expires: Start: 02-19-2024 End: 05-20-2024 Folate [Mass/volume] in Serum or Plasma FOLATE, SERUM Lab Routine Ataxia Cerebral ventriculomegaly Expected: 02/19/2024, Expires: 05/20/2024 [facility] Comment on above: Expected: 02/19/2024, Expires: Start: 02-19-2024 End: 05-20-2024 HEAVY METALS SCRN BL HEAVY METALS SCRN BL Lab Routine Ataxia Cerebral ventriculomegaly Expected: 02/19/2024, Expires: 05/20/2024 [facility] Comment on above: Expected: 02/19/2024, Expires: Start: 02-19-2024 End: 05-20-2024 Parathyrin.intact [Mass/volume] in Serum or Plasma PTH INTACT Lab Routine Ataxia Cerebral ventriculomegaly Expected: 02/19/2024, Expires: 05/20/2024 [facility] Work Phone: Comment on above: Expected: 02/19/2024, Expires: Start: 02-19-2024 End: 05-20-2024 VITAMIN B1 (THIAMINE), WHOLE BLOOD VITAMIN B1 (THIAMINE), WHOLE BLOOD Lab Routine Ataxia Cerebral ventriculomegaly Expected: 02/19/2024, Expires: 05/20/2024 [facility] Comment on above: Expected: 02/19/2024, Expires: Start: 02-19-2024 End: 05-20-2024 VITAMIN B12 W/REFLEX VITAMIN B12 W/REFLEX Lab Routine Ataxia Cerebral ventriculomegaly Expected: 02/19/2024, Expires: 05/20/2024 [facility] Comment on above: Expected: 02/19/2024, Expires: Start: 11-28-2023 Hepatitis B surface antibody level LDL CHOLESTEROL [facility] Start: 11-24-2023 ANNUAL PCP TEAM CHRONIC DISEASE VISIT ANNUAL PCP TEAM CHRONIC DISEASE VISIT [facility] Start: 11-24-2023 BP CONTROLLED (<130/80) BP CONTROLLED (<130/80) [facility] Start: 11-08-2023 End: 02-07-2024 Comprehensive metabolic 2000 panel - Serum or Plasma COMP METABOLIC PANEL Lab Routine Coronary artery disease due to lipid rich plaque Expected: 11/08/2023, Expires: 02/07/2024 [facility] Work Phone: Comment on above: Expected: 11/08/2023, Expires: Start: 11-08-2023 End: 02-07-2024 Lipid 1996 panel - Serum or Plasma LIPID PANEL BASIC Lab Routine Coronary artery disease due to lipid rich plaque Expected: 11/08/2023, Expires: 02/07/2024 [facility] Work Phone: Comment on above: Expected: 11/08/2023, Expires: Start: 11-08-2023 End: 02-07-2024 PSA/PROSTSPECAG SCRN PSA/PROSTSPECAG SCRN Lab Routine Screening for prostate cancer Expected: 11/08/2023, Expires: 02/07/2024 [facility] Work Phone: Comment on above: Expected: 11/08/2023, Expires: 4 Start: 10-12-2023 BP CONTROLLED (<130/80) BP CONTROLLED (<130/80) [facility] Start: 09-28-2023 End: 09-28-2024 Echocardiography ECHO Cardiology Routine Coronary artery disease due to lipid rich plaque Encounter for screening for cardiovascular disorders Expected: 09/28/2023, Expires: 09/28/2024 [facility] Work Phone: Comment on above: Expected: 09/28/2023, Expires: 5 Start: 09-28-2023 End: 10-27-2024 NM CARDIAC PERF STRESS/EXERCISE NM CARDIAC PERF STRESS/EXERCISE Radiology Routine Encounter for screening for cardiovascular disorders Expected: 09/28/2023, Expires: 10/27/2024 [facility] Work Phone: Comment on above: Expected: 09/28/2023, Expires: 5 Start: 09-24-2023 Covid-19 Vaccine () Covid-19 Vaccine () [facility] Start: 08-27-2023 Advance Directive Discussion Advance Directive Discussion [facility] Start: 08-27-2023 Depression Assessment Depression Assessment [facility] Start: 08-04-2023 BP CONTROLLED (<130/80) BP CONTROLLED (<130/80) [facility] Start: 08-01-2023 ANNUAL PCP TEAM CHRONIC DISEASE VISIT ANNUAL PCP TEAM CHRONIC DISEASE VISIT [facility] Start: 08-01-2023 BP CONTROLLED (<130/80) BP CONTROLLED (<130/80) [facility] Start: 07-04-2023 BP CONTROLLED (<130/80) BP CONTROLLED (<130/80) [facility] Start: 04-27-2023 Covid-19 Vaccine () Covid-19 Vaccine () [facility] Start: 04-27-2023 Influenza vaccination [facility] Start: 03-03-2023 Adult depression screening assessment DEPRESSION SCREENING [facility] Start: 03-03-2023 BP CONTROLLED (<130/80) BP CONTROLLED (<130/80) [facility] Start: 01-17-2023 ANNUAL PCP TEAM CHRONIC DISEASE VISIT ANNUAL PCP TEAM CHRONIC DISEASE VISIT [facility] Start: 01-17-2023 BP CONTROLLED (<130/80) BP CONTROLLED (<130/80) [facility] Start: 11-23-2022 End: 01-23-2023 Comprehensive metabolic 2000 panel - Serum or Plasma COMP METABOLIC PANEL Lab Routine Screening for diabetes mellitus Expected: 11/23/2022, Expires: 01/23/2023 [facility] Work Phone: Comment on above: Expected: 11/23/2022, Expires: 3 Start: 11-23-2022 End: 01-23-2023 Lipid 1996 panel - Serum or Plasma LIPID PANEL BASIC Lab Routine Screening for lipid disorders Expected: 11/23/2022, Expires: 01/23/2023 [facility] Work Phone: Comment on above: Expected: 11/23/2022, Expires: 3 Start: 11-23-2022 End: 01-23-2023 PSA/PROSTSPECAG SCRN PSA/PROSTSPECAG SCRN Lab Routine Screening for prostate cancer Expected: 11/23/2022, Expires: 01/23/2023 [facility] Work Phone: Comment on above: Expected: 11/23/2022, Expires: 3 Start: 09-11-2022 COVID-19 VACCINE (6 - Pfizer series) COVID-19 VACCINE (6 - Pfizer series) [facility] Start: 08-27-2022 ADVANCE DIRECTIVE DISCUSSION ADVANCE DIRECTIVE DISCUSSION [facility] Start: 08-27-2022 DEPRESSION ASSESSMENT DEPRESSION ASSESSMENT [facility] Start: 08-01-2022 End: 10-01-2022 Lipid 1996 panel - Serum or Plasma LIPID PANEL BASIC Lab Routine Screening for lipid disorders Expected: 08/01/2022, Expires: 10/01/2022 [facility] Work Phone: Comment on above: Expected: 08/01/2022, Expires: 3 Start: 07-04-2022 End: 09-03-2022 Pyridoxine [Mass/volume] in Serum or Plasma VITAMIN B6/PYRIDOXIN Lab Routine Myelopathy (HCC) Expected: 07/04/2022, Expires: 09/03/2022 [facility] Work Phone: Comment on above: Expected: 07/04/2022, Expires: 3 Start: 2022 RSV Vaccine (1 - 1-dose 75+ series) RSV Vaccine (1 - 1-dose 75+ series) [facility] Start: 04-27-2022 Influenza vaccination INFLUENZA (#1) [facility] Start: 04-18-2022 Adult depression screening assessment DEPRESSION SCREENING [facility] Start: 04-12-2022 Hepatitis B surface antibody level LDL CHOLESTEROL [facility] Start: 03-03-2022 End: 05-03-2022 Alpha tocopherol [Mass/volume] in Serum or Plasma VITAMIN E/TOCOPHEROL Lab Routine Vertigo of central origin Expected: 03/03/2022, Expires: 05/03/2022 [facility] Work Phone: Comment on above: Expected: 03/03/2022, Expires: 2 Start: 03-03-2022 End: 05-03-2022 CBC W Auto Differential panel - Blood CBC + DIFF Lab Routine Ataxia Expected: 03/03/2022, Expires: 05/03/2022 [facility] Work Phone: Comment on above: Expected: 03/03/2022, Expires: 2 Start: 03-03-2022 End: 05-03-2022 Iron and Iron binding capacity panel - Serum or Plasma IRON + TIBC Lab Routine Iron deficiency anemia, unspecified iron deficiency anemia type Expected: 03/03/2022, Expires: 05/03/2022 [facility] Work Phone: Comment on above: Expected: 03/03/2022, Expires: 2 Start: 03-03-2022 End: 05-03-2022 Foley [Moles/volume] in Serum or Plasma LITHIUM BLD Lab Routine Vertigo of central origin Expected: 03/03/2022, Expires: 05/03/2022 [facility] Work Phone: Comment on above: Expected: 03/03/2022, Expires: 2 Start: 03-03-2022 End: 05-03-2022 Pyridoxine [Mass/volume] in Serum or Plasma VITAMIN B6/PYRIDOXIN Lab Routine Vertigo of central origin Expected: 03/03/2022, Expires: 05/03/2022 [facility] Work Phone: Comment on above: Expected: 03/03/2022, Expires: 2 Start: 03-03-2022 End: 05-03-2022 VITAMIN B12 W/REFLEX VITAMIN B12 W/REFLEX Lab Routine Vertigo of central origin Expected: 03/03/2022, Expires: 05/03/2022 [facility] Work Phone: Comment on above: Expected: 03/03/2022, Expires: 2 Start: 02-18-2022 COVID-19 VACCINE (5 - Booster for Pfizer series) COVID-19 VACCINE (5 - Booster for Pfizer series) [facility] Start: 08-27-2021 ADVANCE DIRECTIVE DISCUSSION ADVANCE DIRECTIVE DISCUSSION [facility] Start: 08-27-2021 DEPRESSION ASSESSMENT DEPRESSION ASSESSMENT [facility] Start: 2012 PNEUMOCOCCAL: 65+ (1 - PCV) PNEUMOCOCCAL: 65+ (1 - PCV) [facility] Start: 2007 RSV Vaccine (1 - 1-dose 60+ series) RSV Vaccine (1 - 1-dose 60+ series) [facility] Start: 1997 SHINGRIX VACCINE (1 of 2) SHINGRIX VACCINE (1 of 2) [facility] Start: 1992 COLOGUARD (FIT-DNA) COLOGUARD (FIT-DNA) [facility] Start: 1992 Colonoscopy COLONOSCOPY [facility] Start: 1992 COLORECTAL CANCER SCREENING COLORECTAL CANCER SCREENING [facility] Start: [address] COLONOGRAPHY [facility] Start: 1992 FECAL OCCULT BLOOD FECAL OCCULT BLOOD [facility] Start: 1992 SIGMOIDOSCOPY SIGMOIDOSCOPY [facility] Start: 1966 SHINGRIX VACCINE (1 of 2) SHINGRIX VACCINE (1 of 2) [facility] Start: 1966 Urine microalbumin profile [facility] Start: 1965 Anxiety Screening Anxiety Screening [facility] Start: 1965 BP CONTROLLED (<130/80) BP CONTROLLED (<130/80) [facility] Start: 1965 Depression Screening Depression Screening [facility] Start: 1965 HEPATITIS C SCREENING HEPATITIS C SCREENING [facility] Start: 1965 Hepatitis C screening Hepatitis C Screening [facility] Start: 1953 PNEUMOCOCCAL: 65+ (1 - PCV) PNEUMOCOCCAL: 65+ (1 - PCV) [facility] COVID & INFLUENZA A/ B & RSV PCR, ROUTINE COVID & INFLUENZA A/B & RSV PCR, ROUTINE Microbiology Routine Acute cough Ordered: 07/30/2024 [facility] Work Phone: Comment on above: Ordered: 07/30/2024 End: 06-06-2026 CT Head WO contrast CT BRAIN WO IVCON Radiology STAT Injury of head, subsequent encounter 1 Occurrences starting 05/07/2025 until 06/06/2026 [facility] Work Phone: Comment on above: 1 Occurrences starting 05/07/2025 until 06/06/2026 ECG B/O W INTERP (ME D OFFICE) ECG B/O W INTERP (MED OFFICE) ECG Routine Coronary artery disease due to lipid rich plaque Ordered: 09/28/2023 [facility] Work Phone: Comment on above: Ordered: 09/28/2023 ECG COMPLETE ECG COMPLETE ECG 10/13/2024 8:16 AM EST [facility] Hemoglobin.gastroint celena nal.lower [Presence] in Stool by Immunoassay IMMUNOCHEMICAL FECAL OCCULT BLOOD TEST Lab Routine Microcytic anemia Ordered: 05/26/2024 [facility] Work Phone: Comment on above: Ordered: 05/26/2024 End: 07-16-2025 MR Brain WO contrast MRI BRAIN WO IVCON Radiology Routine Ataxia Cerebral ventriculomegaly Memory loss Recurrent falls 1 Occurrences starting 06/16/2024 until 07/16/2025 [facility] Work Phone: Comment on above: 1 Occurrences starting 06/16/2024 until 07/16/2025 End: 02-16-2023 Mri brain brain stem w/o w/contrast material MRI BRAIN WO/W IVCON Radiology Routine Ataxia 1 Occurrences starting 01/17/2022 until 02/16/2023 [facility] Work Phone: Comment on above: 1 Occurrences starting 01/17/2022 until 02/16/2023 End: 08-03-2023 Mri spinal canal cervical w/o contrast matrl MRI CERVICAL SPINE WO IVCON Radiology Routine Myelopathy (HCC) Gait disorder 1 Occurrences starting 07/04/2022 until 08/03/2023 [facility] Work Phone: Comment on above: 1 Occurrences starting 07/04/2022 until 08/03/2023 End: 08-03-2023 Mri spinal canal thoracic w/o contrast matrl MRI THORACIC SPINE WO IVCON Radiology Routine Myelopathy (HCC) Gait disorder 1 Occurrences starting 07/04/2022 until 08/03/2023 [facility] Work Phone: Comment on above: 1 Occurrences starting 07/04/2022 until 08/03/2023 Patient Education ED Peripheral Edema, Unilateral ED Fall Prevention [facility] Work Phone: PT PLAN OF CARE CERTIFICATION PT PLAN OF CARE CERTIFICATION Procedures Routine Imbalance Falls frequently Ordered: 08/06/2022 [facility] Work Phone: Comment on above: Ordered: 08/06/2022 Removal impacted cer umen instrumentation unilat REMOVAL OF IMPACTED CERUMEN - INSTRUMENTATION Procedures Routine Impacted cerumen of left ear Ordered: 04/24/2023 [facility] Work Phone: Comment on above: Ordered: 04/24/2023 SARS-CoV-2 (COVID-19 ) RNA [Presence] in Respiratory specimen by ANGEL with probe detection COVID NAAT, ROUTINE Microbiology Routine Suspected COVID-19 virus infection 04/24/2023 2:01 PM EDT [facility] Work Phone: [facility] Immunizations Immunization Date Immunization Notes Care Provider Fa [facility] 05-25-2023 influenza (aIIV4) vaccine, age 65+ yr, quadrivalent, PF (FLUAD QUAD) Quincy Moreira MD Work Phone: [facility] Work Phone: 05-25-2023 influenza virus vacc ine, unspecified formulation Quincy Moreira MD Work Phone: [facility] 05-12-2022 influenza (aIIV4) vaccine, age 65+ yr, quadrivalent, PF (FLUAD QUADRIVALENT) Quincy Moreira MD Work Phone: [facility] 05-12-2022 influenza virus vacc ine, unspecified formulation Mri (I-Stat/1.5t) [facility] 05-31-2021 influenza (aIIV4) vaccine, age 65+ yr, quadrivalent, PF (FLUAD QUADRIVALENT) Quincy Moreira MD Work Phone: [facility] 11-18-2020 COVID-19 vaccine, ag e 12+ yr (PFIZER-BIONTECH - PURPLE TOP) Quincy Moreira MD Work Phone: [facility] 10-28-2020 COVID-19 vaccine, ag e 12+ yr (PFIZER-BIONTECH - PURPLE TOP) Quincy Moreira MD Work Phone: [facility] Work Phone: 06-03-2020 influenza (aIIV4) vaccine, age 65+ yr, quadrivalent, PF (FLUAD QUADRIVALENT) Quincy Moreira MD Work Phone: [facility] 05-31-2020 pneumococcal polysaccharide vaccine, 25 yelena Moreira MD Work Phone: [facility] 08-06-2018 pneumococcal conjuga te vaccine, 13 yelena Moreira MD Work Phone: [facility] Payers Date Payer Category Payer Self-pay 2018 Medicare UHC MEDICARE UHC MEDICARE ADVANTAGE PPO [id number] 2018-Present [phone] [address] [address] [place] [address] PPO [id number] 2018 Medicare UHC MEDICARE UHC MEDICARE ADVANTAGE PPO [id number] 2018-Present [phone] [address] [address] [place] [address] PPO [id number] 2018 Medicare (Managed Care) [facility] CARE ADVANTAGE PPO [id number] 2018 Medicare [id number] 1959 Unknown [id number] 1945 Unknown [id number] Unknown [id number] Unknown [id number] Social History Date Type Detail Facility Start: 01-17-2022 End: 05-05-2025 Tobacco smoking status NHIS Never smoked tobacco [facility] End: 08-27-1970 History of tobacco use Pipe Smoker [facility] Start: 01-17-2022 End: 05-23-2024 Tobacco use and exposure Smokeless tobacco non-user [facility] Start: 01-17-2022 End: 05-07-2025 Alcohol intake Ex-drinker (finding) [facility] Start: 04-18-2021 End: 07-25-2022 History SDOH Alcohol Frequency 2 [facility] Start: 04-18-2021 History SDOH Alcohol Std Drinks 98 [facility] Start: 04-18-2021 End: 07-25-2022 History SDOH Alcohol Binge 1 [facility] Start: 04-18-2021 End: 07-25-2022 History SDOH Social Connections Phone 4 [facility] Start: 04-18-2021 End: 07-25-2022 History SDOH Social Connections Scientology 3 [facility] Start: 04-18-2021 Education 20 [facility] Start: 1945 Sex Assigned At Male C [facility] Start: 01-07-2022 End: 07-27-2022 Exposure to SARS-CoV-2 (event) Not sure [facility] Start: 07-25-2022 History SDOH Alcohol Std Drinks 0 [facility] Start: 07-25-2022 History SDOH Social Connections Phone 5 [facility] Start: 07-25-2022 End: 01-16-2023 History of Social function [facility] Start: 07-25-2022 End: 01-16-2023 Social connection and isolation panel [facility] Do you belong to any clubs or organizations such as lutheran groups, unions, fraternal or athletic groups, or school groups? Yes [facility] Are you now , , , , never or living with a partner? [facility] How often to you hav e a drink containing alcohol? Never [facility] Start: 03-24-[address] inks containing alcohol do you have on a typical day? Patient does not drink [facility] How hard is it for y ou to pay for the very basics like food, housing, medical care, and heating Not very hard [facility] Do you feel stress - tense, restless, nervous, or anxious, or unable to sleep at night because your mind is troubled all the time - these days [OSQ] Only a little [facility] (I/We) worried wheth er (my/our) food would run out before (I/we) got money to buy more. Never true [facility] In the past 12 month s, was there a time when you were not able to pay the mortgage or rent on time? No [facility] Start: 07-15-2020 Gender identity Identifies as male gender (finding) [facility] Start: 07-15-2020 Sexual orientation Heterosexual (fin ding) [facility] How often to you hav e a drink containing alcohol? Monthly or less [facility] How hard is it for y ou to pay for the very basics like food, housing, medical care, and heating Somewhat hard [facility] Start: 05-23-2024 Tobacco Comment Smoked a pipe in col lege [facility] Are you now , , , , never or living with a partner? [facility] Medical Equipment Procedure Code Equipment Code Equipment Origin al Text Equipment Identifier Dates Lg Dextile Rt 15 cm X 10cm (5.9'' X 3.9'') - [id number] Start: 10-05-2020 Mesh 3dmax Large Polypropylene 6x4in Surgical Nonabsorbable Patch Preform - [id number] Start: 10-05-2020 Clinical Notes 01-17-2022 to 07-07-2025 Patient InstructionsSonu Petersen MD - 05/07/2025 1:05 PM EDTTelephone Encounter - Fabiola Elliott RN - 05/07/2025 12:52 PM Eliana Templeton APRN.SURGICAL CORSETIER - 05/05/2025 9:41 AM EDT Note Date & Type Note Facility 07-07-2025 Note HNO ID: [id number] Author: ADAN VALDES PT Service: ? Author Type: Physical Therapist Type: Progress Notes Filed: 07/07/2025 12:48 Note Text: Episode Visit Count: 10 Therapist That Will Accept/Oversee The Plan Of Care: Adan Valdes PT Start of Care Date: 04/24/25 Onset Date: 04/24/20 Plan of Care Certification Date: 06/09/25 Next Certification Due Date: 07/07/25 Patient Identified by Name and Date of : Yes REHABILITATION AND SPORTS THERAPY PHYSICAL THERAPY DISCONTINUANCE OF CARE PLAN OF CARE UPDATE: Assessment: Estella Mckeon is discontinued from Physical Therapy services due to maximal benefit. and Patient/Clinician mutual decision to discontinue current plan of care.. Patient was seen for 10 visits from Start of Care Date: 04/24/25 to 07/07/2025 and treatment included: Therapeutic exercise, Neuromuscular re-education, Self-halfway management, Gait training, Patient/Family/Caregiver Education, and Body mechanics training. Updated: 06/09/25 and 07/07/25 Goals for Episode of Care: established 04/24/25 Patient will report no falls. - Not MET, patient reports falls but less frequent Improve score on Timed Up and Go Test to 7-12 seconds to reflect decreased fall risk. - Not MET Improve score on 30 Second Chair Stand to 11 repetitions to reflect decreased fall risk. - Not MET Improve performance on 4 Stage Balance Test to 10 second tandem and 14 second SLS to reflect decreased fall risk. - Not MET Tate in home exercise program including cardiovascular exercise. - Partially MET Patient will demonstrate independent and proper use of assisstive device to allow for improved walking quality and safety therefore reducing the risk of falls. - Partially MET, he sometimes forgets to use his cane Patient Goals: improve safety with walking and decrease fall risk. - Partially MET He would like to resume running for exercise but he has not run for several years. - Pt understands that running is not a realistic goal currently. SUBJECTIVE: Pt reports that overall he feels that he is better. He reports that he is falling less and has only had one fall since 06/09/25 re-assessment. He reports regular use of cane but that some times he forgets to use it. He is not sure if he was using cane when he had his last fall. He reports that his splunk developer has changed his medication and his PCP also changed his medication. Pt is not sure if continued PT will benefit him or not. He reports compliance with HEP 75% of the time. Pt feels that some of his mobility deficits are related to cognitive deficits. Pain: Post Treatment Pain Post Treatment Pain Level: No Change PROMIS Scales 06/30/2025 05/29/2025 05/19/2025 Higher is Better Phys Func - T Score 39 (moderate dysfunction) 42 (mild dysfunction) Phys Func - Percentile 14 21 Self-Eff Symptom - T Score 47 (Average) 54 (Average) Self-Eff Symptom - Percentile 38 66 Proxy-reported 02/18/2024 Lower is Better Pain Interference - T Score 56 (mild) Pain Interference - Percentile 27 T-Score and Percentile Interpretation T-scores: mean of general population = 50. 5 points is clinically meaningfully difference Percentiles provide an indication of how the patient's score ranks in relation to the general population. Higher percentile rankings indicate better function/quality of life. 50th percentile is the average of the general population and indicates half of respondents had a worse score. OBJECTIVE MEASURES WITH LEVEL OF FUNCTION: Gait Gait Observation: Pt arrived with cane today and is steady most of the time but intermittently unsteady. Unfortunately he forgets to use cane at all times. Functional Performance Test Results 30 Second Chair Stand Test: 10 reps Timed Up and Go (sec): 18.88 sec (with cane) 4 Stage Balance Test Narrow base of support (sec): 10 sec Semi-tandem base of support (sec): 10 sec Tandem base of support (sec): 6 sec Single leg stance - right (sec): 3 sec Single leg stance - left (sec): 4 sec TREATMENT: Therapeutic Exercise: 1: [employer] StepOne seat #14 x6 minutes for strength and endurance, level 2 2: repeated sit to stand as a test and treatment. 3: HEP reviewed and he was encouraged to continue with seated therex but not to attempt any balance tests or exercises. 4: Pt was encouraged to follow up with his PCP/referring provider. Skilled Intervention: Patient was educated in proper exercise technique and purpose for exercises. Skilled judgment was used in selection of appropriate interventions. Correct performance of therapeutic exercises was facilitated with verbal and visual cuing. Patient education as noted. Neuromuscular Re-Education: 1: Pt was advised that he should be using cane at all times. 2: Pt was urged NOT to attempt balance tests or exercises at home. 3: TUG completed 4: NBOS, semi-tandem, tandem and SLS balance tests completed 5: Re-assessment comple (more content not included)... [facility] 06-30-2025 Note HNO ID: [id number] Author: ADAN VALDES PT Service: ? Author Type: Physical Therapist Type: Progress Notes Filed: 06/30/2025 15:59 Note Text: Episode Visit Count: 9 Therapist That Will Accept/Oversee The Plan Of Care: Adan Valdes PT Start of Care Date: 04/24/25 Onset Date: 04/24/20 Plan of Care Certification Date: 06/09/25 Next Certification Due Date: 07/07/25 Patient Identified by Name and Date of : Yes REHABILITATION AND SPORTS THERAPY PHYSICAL THERAPY TREATMENT NOTE ASSESSMENT: Estella Mckeon tolerated the session with decreased endurance and fatigue. He demonstrated difficulty with balance and fatigue. The patient will continue to benefit from ongoing skilled physical therapy to progress toward set goals. PLAN FOR NEXT VISIT: Continue gait and balance training, continue functional strengthening of trunk and LEs and address overall safety with functional mobility. SUBJECTIVE: Pt reports that overall he is getting better. Specifically, he reports that he is not falling and that pleases him. He denies any pain or problems from last session. He reports using the cane most of the time but that he does forget it at times. Pain: Post Treatment Pain Post Treatment Pain Level: No Change Post Treatment Symptoms: After session today, pt reported and demonstrated fatigue. OBJECTIVE MEASURES WITH LEVEL OF FUNCTION: Gait Gait Observation: Pt arrived with cane today and is steady most of the time but intermittently unsteady. TREATMENT: Therapeutic Exercise: 1: CrossbordersFit StepOne seat #14 x6 minutes for strength and endurance, level 2 2: repeated sit to stand from chair 2x10 with CGA and 1 LOB that required Max A to recover. 3: marching in place standing 2x12 Skilled Intervention: Patient was educated in proper exercise technique and purpose for exercises. Skilled judgment was used in selection of appropriate interventions. Correct performance of therapeutic exercises was facilitated with verbal, visual, and tactile cuing. Patient education as noted. Neuromuscular Re-Education: 1: NBOS on square blue foam x30 seconds eyes open 2: NBOS on square blue foam x30 seconds eyes closed 3: B alt toe taps to doome side of BOSU 2x10 4: B Tandem stance x 30 seconds each Skilled Intervention: Skilled judgment used to assess appropriate program for balance and coordination activity. Ensured patient safety with use of gait belt and intermittent assist. Billing Therapeutic Exercise Treatment Minutes: 26 Neuromuscular Re-Education Treatment Minutes: 20 Skilled Treatment Time Minutes (timed and untimed codes): 46 Total Session Time (minutes): 46 Session Start Time : 1455 Session Stop Time : 1541 Adan Valdes PT [facility] 06-25-2025 Note HNO ID: [id number] Author: ADAN VALDES PT Service: ? Author Type: Physical Therapist Type: Progress Notes Filed: 06/25/2025 14:38 Note Text: Episode Visit Count: 8 Therapist That Will Accept/Oversee The Plan Of Care: Adan Valdes PT Start of Care Date: 04/24/25 Onset Date: 04/24/20 Plan of Care Certification Date: 06/09/25 Next Certification Due Date: 07/07/25 Patient Identified by Name and Date of : Yes REHABILITATION AND SPORTS THERAPY PHYSICAL THERAPY TREATMENT NOTE ASSESSMENT: Estella Mckeon tolerated the session with no issues. He demonstrated difficulty with challenged balance exercises, especially with eyes closed. The patient will continue to benefit from ongoing skilled physical therapy to progress toward set goals. PLAN FOR NEXT VISIT: Continue gait and balance training, continue functional strengthening of trunk and LEs and address overall safety with functional mobility. Monitor vitals and overall condition. SUBJECTIVE: Pt reports considerable fatigue following last session without explanation. 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 Therefore he kept dosing off this morning at home. Therapist had to wake pt up today to start PT. Today when he stood up in the lobby he reported dizziness, lightheadedness and requested to sit down. Vitals taken, found to be normal and symptoms resolved. Pt requested to try to complete a conservative session since he felt better after his initial episode. Pain: Post Treatment Pain Post Treatment Pain Level: No Change Post Treatment Symptoms: Pt tolerated conservative balance training session well with no episodes of dizziness or lightheadedness. He appreciated the rest breaks and OBJECTIVE MEASURES WITH LEVEL OF FUNCTION: Gait Gait Observation: Pt arrived with cane today and is steady most of the time but intermittently unsteady. Vitals BP: 128/65 Pulse: 64 SpO2: 97 % TREATMENT: Neuromuscular Re-Education: 1: B Tandem stance x 30 seconds each 2: NBOS on square blue foam x30 seconds eyes open 3: NBOS on square blue foam x30 seconds eyes closed 4: balance board side to side with eyes open x15 reps 5: balance board front to back x15 eyes open 6: marching in place x15 Skilled Intervention: Skilled judgment used to assess appropriate program for balance and coordination activity. Ensured patient safety with use of gait belt and intermittent assist Billing Neuromuscular Re-Education Treatment Minutes: 42 Skilled Treatment Time Minutes (timed and untimed codes): 42 Total Session Time (minutes): 42 Session Start Time : 1048 Session Stop Time : 1130 Adan Valdes PT [facility] 06-22-2025 Note HNO ID: [id number] Author: SHUBHAM RILEY MD Service: ? Author Type: Physician Type: Progress Notes Filed: 06/22/2025 10:44 Note Text: Shubham Riley MD General Cardiology [address] [place] [address] [phone] Chief Complaint Patient presents with: Follow Up: 6 month follow up HISTORY OF PRESENT ILLNESS: Mr. 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 The patient reports no current cardiac issues and denies experiencing chest pain or dyspnea. He notes a decrease in physical activity, specifically running, due to balance issues. He denies any dizziness with positional changes. 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 He is unsure if his current medication regimen contributes to his symptoms. 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 Current medications include aspirin 81 mg once daily, atorvastatin 40 mg once daily, and metoprolol 25 mg once daily. He also takes brain pills but is uncertain of their efficacy. A TTE and nuclear stress test in 09/2023 showed normal LV function (LVEF 67%), right atrial dilation, estimated RV systolic pressure of 34 mmHg, and no evidence of ischemia. Cardiac Risk Factors age (male over 45, female over 55), hyperlipidemia, hypertension, family history of CAD PAST MEDICAL HISTORY Diagnosis Date Ataxia Dr. 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) Grief 05/23/2024 Hernia HLD (hyperlipidemia) HTN (hypertension) Postsurgical percutaneous transluminal coronary angioplasty status 2001 Seasonal allergies Thalassemia minor Vertigo PAST SURGICAL HISTORY Procedure Laterality Date COLONOSCOPY 1993 HEART CATHETERIZATION early 1999' HERNIA REPAIR HX TONSILLECTOMY HX VASECTOMY UNI/BI SPX W/POSTOP SEMEN EXAMS FAMILY HISTORY Problem Relation Age of Onset other (TIA) Mother Dementia Mother Cancer Father Heart disease Sister Heart Attack Sister No Known Problems Brother Anxiety disorder Son Depression Son Hypertension Son SOCIAL HISTORY[1] ALLERGIES Allergen Reactions Seasonal Allergies Other: See Comments uses OTC prn Medications: Current Outpatient Medications Medication Sig Dispense Refill sertraline (ZOLOFT) 50 mg tablet Take 1 tablet by mouth once daily. 90 tablet 1 metoprolol succinate ER (TOPROL XL) 25 mg 24 hr tablet Take 1 tablet by mouth once daily. 90 tablet 3 atorvastatin (LIPITOR) 40 mg tablet Take 1 tablet by mouth daily at bedtime. 90 tablet 3 aspirin, enteric coated (ECOTRIN LOW STRENGTH) 81 mg EC tablet Take 1 tablet by mouth once daily. Zinc Mth/Copper/Saw Palm/Gnsg (PROSTATE HEALTH FORMULA ORAL) Take 1 tablet by mouth once daily. No current facility-administered medications for this visit. Review of Systems Constitutional: Negative for chills, diaphoresis, fever, malaise/fatigue and weight loss. HENT: Negative for congestion, ear discharge, ear pain, hearing loss, nosebleeds, sinus pain, sore throat and tinnitus. Eyes: Negative for blurred vision, double vision, photophobia, pain, discharge and redness. Respiratory: Negative for cough, hemoptysis, sputum production, shortness of breath, wheezing and stridor. Cardiovascular: Negative for chest pain, palpitations, orthopnea, claudication, leg swelling and PND. Gastrointestinal: Negative for abdominal pain, blood in stool, constipation, diarrhea, heartburn, melena, nausea and vomiting. Genitourinary: Negative for dysuria, flank pain, frequency, hematuria and urgency. Musculoskeletal: Negative for back pain, falls, joint pain, myalgias and neck pain. Skin: Negative for itching and rash. Neurological: Negative for dizziness, tingling, tremors, sensory change, speech change, focal weakness, seizures, loss of consciousness, weakness and headaches. Endo/Heme/Allergies: Negative for environmental allergies and polydipsia. Does not bruise/bleed easily. Psychiatric/Behavioral: Negative for depression, hallucinations, memory loss, substance abuse and suicidal ideas. The patient is not nervous/anxious and does not have insomnia. Physical Examination: Vitals:BP 110/68 Pulse 78 Resp 12 Ht 5' 11 (1.80m) Wt 203 lb (92.1kg) SpO2 97% BMI 28.33 kg/(m2). BP w/Orthostatic Vitals Date and Time Orthostatic BP Orthostatic Pulse BP Pulse BP Position BP Site BP Cuff Size 06/22/25 1021 -- -- 110/68 78 Sitting Right Arm Large Adult Peak Flow Date and Time PF Resp 06/22/25 1021 -- 12 Last 2 Encounter Wt Readings: Date: Wt: 06/22/2025 92.1 kg (203 lb) 05/18/2025 91.4 kg (201 lb 9.6 oz) Physical Exam Constitutional: General: He is not in acute distress. Appearance: He is not diaphoretic. HENT: Head: (more content not included)... [facility] 06-22-2025 Note HNO ID: [id number] Author: ADAN VALDES PT Service: ? Author Type: Physical Therapist Type: Progress Notes Filed: 06/22/2025 11:12 Note Text: Episode Visit Count: 7 Therapist That Will Accept/Oversee The Plan Of Care: Adan Valdes PT Start of Care Date: 04/24/25 Onset Date: 04/24/20 Plan of Care Certification Date: 06/09/25 Next Certification Due Date: 07/07/25 Patient Identified by Name and Date of : Yes REHABILITATION AND SPORTS THERAPY PHYSICAL THERAPY TREATMENT NOTE ASSESSMENT: Estella Mckeon tolerated the session with fatigue and expected muscle soreness. He demonstrated difficulty with forward stepping over hurdles. The patient will continue to benefit from ongoing skilled physical therapy to progress toward set goals. PLAN FOR NEXT VISIT: Continue with gait and balance. LE stability and strenghtening SUBJECTIVE: Pt reports that he is doing pretty good today. Pt brought cane with him today. Pt denies any falls. Pain: OBJECTIVE MEASURES WITH LEVEL OF FUNCTION: Lateral shift to the R with STS. TREATMENT: Therapeutic Exercise: 1: CrossbordersFit StepOne seat #14 x6 minutes for strength and endurance, level 2 (Pt provided an update on his condition) 2: Standing alt LE marching 2x10 B 3: STS 1x10, then 1x6 (lateral shift to the R) Skilled Intervention: Patient was educated in proper exercise technique and purpose for exercises. Skilled judgment was used in selection of appropriate interventions. Correct performance of therapeutic exercises was facilitated with verbal and visual cuing. Neuromuscular Re-Education: 1: Tandem stance x 30 seconds with R foot in fron, x 20 seconds with left foot in front 2: Stepping over 6 inch hurdles with arms crossed x 2 pasess (increased difficulty with stepping over with RLE , circumduction noted and then next step would not clear the wale with LLE with reciprocal stepping. Pt felt this happened due to LLE weakness and instability.) 3: Alt toe taps on BOSU x10 (difficulty with tapping for forward, turning feet outward and tapping with side of foot for compensations.) 4: Alt toe taps on BOSU with core activatio nand 1 UE on // bars 2x10 B Skilled Intervention: Skilled judgment used to assess appropriate program for balance and coordination activity. Ensured patient safety with use of gait belt. Billing Therapeutic Exercise Treatment Minutes: 20 Neuromuscular Re-Education Treatment Minutes: 23 Skilled Treatment Time Minutes (timed and untimed codes): 43 Total Session Time (minutes): 43 Session Start Time : 0930 Session Stop Time : 1013 Yue Max, CHUCK Valdes PT [facility] 06-09-2025 Note HNO ID: [id number] Author: ADAN VALDES PT Service: ? Author Type: Physical Therapist Type: Progress Notes Filed: 06/09/2025 14:49 Note Text: Episode Visit Count: 6 Therapist That Will Accept/Oversee The Plan Of Care: Adan Valdes PT Start of Care Date: 04/24/25 Onset Date: 04/24/20 Plan of Care Certification Date: 06/09/25 Next Certification Due Date: 07/07/25 Patient Identified by Name and Date of : Yes REHABILITATION AND SPORTS THERAPY PHYSICAL THERAPY PROGRESS REPORT PLAN OF CARE UPDATE: Assessment: Estella Mckeon demonstrates moderate improvement in rising from a chair, standing, and walking. The patient has progressed toward goals. Patient continues to present with impairments in ADL's, balance, gait, independence in exercise, overall function, and strength that interfere with walking, walking in the community (exercise) . Current prognosis is Good due to: current objective clinical presentation, positive past response to therapy, within-session changes limited support system, chronic nature of impairments . The patient will benefit from continued skilled therapy services to meet the updated goals for this plan of care as noted below. Updated: 06/09/25 Goals for Episode of Care: established 04/24/25 Patient will report no falls. - Not MET, patient reports 2 falls Improve score on Timed Up and Go Test to 7-12 seconds to reflect decreased fall risk. - Not MET, will continue Improve score on 30 Second Chair Stand to 11 repetitions to reflect decreased fall risk. - MET, will monitor Improve performance on 4 Stage Balance Test to 10 second tandem and 14 second SLS to reflect decreased fall risk. - Partially MET, will continue Tate in home exercise program including cardiovascular exercise. - Partially MET, will continue Patient will demonstrate independent and proper use of assisstive device to allow for improved walking quality and safety therefore reducing the risk of falls. - Partially MET, will continue Patient Goals: improve safety with walking and decrease fall risk. - Partially MET, will continue He would like to resume running for exercise but he has not run for several years. - Pt understands that running is not a realistic goal currently. Time Frame for Goals and Treatment : 07/07/25 Patient Goals: improve safety with walking and decrease fall risk. He would like to resume running for exercise but he has not run for several years. Pt. reports that his legs often feel that they are moving more quickly than he intends to move them. Planned Interventions, Frequency, and Duration: 2x/week, 4 weeks Total Number of Visits Planned: 8 Patient to be seen for Therapeutic exercise (03600), Neuromuscular re-education (01189), Therapeutic activities (91155), Self-halfway management (57581), Gait Training (91102), Patient/Family/Caregiver Education, Body Mechanics Training, General Conditioning PLAN FOR NEXT VISIT: Continue gait and balance training, continue functional strengthening of trunk and LEs and address overall safety with functional mobility. SUBJECTIVE: Pt reports that overall he is better. Specifically he reports that he is now able to stand up from a soft couch. He reports that prior to therapy he was unable to stand up from a soft couch. Overall he reports improved ability to rise from a seated position. Pt reports that he has had 2 falls since starting PT. He attributes these falls to his own carelessness. He reports getting over confident and does not stay aware of his environment. He reports that he was in a hurry today and therefore forgot his cane. He reports improved ability to navigate his outdoor sidewalks and entry to his house. He reports compliance with HEP most days but not often enough. Patient Goals: improve safety with walking and decrease fall risk. He would like to resume running for exercise but he has not run for several years. Pt. reports that his legs often feel that they are moving more quickly than he intends to move them. Functional Limitations: walking, walking in the community (exercise) Prior Level of Function: Independent without limitations Intake Information: Prescription present Previous Treatment: Physical Therapy (including vestibular PT that was not successful) Pain: Post Treatment Pain Post Treatment Pain Level: No Change Post Treatment Symptoms: pt reported fatigue with therex but he did not report any increase in pain. PROMIS Scales 05/29/2025 05/19/2025 04/24/2025 Higher is Better Phys Func - T Score 42 (mild dysfunction) Phys Func - Percentile 21 Self-Eff Symptom - T Score 54 (Average) 41 (Average) Self-Eff Symptom - Percentile 66 18 Mobility - T Score 38 (moderate dysfunction) Mobility - Percentile 12 Proxy-reported 02/18/2024 Lower is Better Pain Interference - T Score 56 (mild) Pain Interference - Percentile 27 T-Score and Percentile Interpretati (more content not included)... [facility] 06-01-2025 Note HNO ID: [id number] Author: MARIA DEL ROSARIO MUELLER PT Service: ? Author Type: Physical Therapist Type: Progress Notes Filed: 06/01/2025 16:40 Note Text: Episode Visit Count: 5 Therapist That Will Accept/Oversee The Plan Of Care: Adan Valdes PT Start of Care Date: 04/24/25 Onset Date: 04/24/20 Plan of Care Certification Date: 04/24/25 Next Certification Due Date: 06/19/25 Patient Identified by Name and Date of : Yes REHABILITATION AND SPORTS THERAPY PHYSICAL THERAPY TREATMENT NOTE ASSESSMENT: Estella Mckeon tolerated the session with fatigue and expected muscle soreness. He demonstrated difficulty with alt toe taps without UE support. The patient will continue to benefit from ongoing skilled physical therapy to progress toward set goals. PLAN FOR NEXT VISIT: Continue challenging balance with hurdles Continued functional LE strenghtening. Consider ball toss into rebounder. SUBJECTIVE: Pt reports that he forgot his cane today. Pt is feeling tired from completing exercises in lobby prior to therapy as he arrived early. Pain: OBJECTIVE MEASURES WITH LEVEL OF FUNCTION: Increased retrolean with balance board. TREATMENT: Therapeutic Exercise: 1: Sci[employer] StepOne seat #14 x5 minutes for strength and endurance, level 1.5 (Pt provided an update on her condition) 2: Standing toe raises 2x10 Skilled Intervention: Patient was educated in proper exercise technique and purpose for exercises. Skilled judgment was used in selection of appropriate interventions. Correct performance of therapeutic exercises was facilitated with verbal and visual cuing. Neuromuscular Re-Education: 1: NBOS eyes open x30 seconds 2: NBOS eyes closed x30 seconds 3: Reactive balance training for forward and backwards falling with PiTB around ankle x10 each LE 4: Balance board front to back taps x 15 each (Mod A given for both anterior and posterior leans x2 each) 5: Alt toe taps on BOSU with 1 UE support x10 B, then 2x5 without UE support and multiple leans into bar as momentum increased Skilled Intervention: Skilled judgment used to assess appropriate program for balance and coordination activity. Ensured patient safety with use of gait belt and // bars. Billing Therapeutic Exercise Treatment Minutes: 10 Neuromuscular Re-Education Treatment Minutes: 30 Skilled Treatment Time Minutes (timed and untimed codes): 40 Total Session Time (minutes): 40 Session Start Time : 1445 Session Stop Time : 1525 CHUCK Borrero, PT, DPT. [facility] 05-29-2025 Note HNO ID: [id number] Author: YAHAIRA SORIA PT Service: ? Author Type: Physical Therapist Type: Progress Notes Filed: 06/01/2025 07:45 Note Text: Episode Visit Count: 4 Therapist That Will Accept/Oversee The Plan Of Care: Adan Valdes PT Start of Care Date: 04/24/25 Onset Date: 04/24/20 Plan of Care Certification Date: 04/24/25 Next Certification Due Date: 06/19/25 Patient Identified by Name and Date of : Yes REHABILITATION AND SPORTS THERAPY PHYSICAL THERAPY TREATMENT NOTE ASSESSMENT: Estella Mckeon tolerated the session with fatigue and expected muscle soreness. He demonstrated difficulty with hurdles . The patient will continue to benefit from ongoing skilled physical therapy to progress toward set goals. PLAN FOR NEXT VISIT: Continue challenging balance with hurdles and closing of the eyes. Continued functional LE strenghtening. Consider ball toss into rebounder. Reactive balance training SUBJECTIVE: Pt states that he is now able to get up from the couch. Pt denies any falls since he has been here last. Pt states that he isn't always faithful with his exercsies, but takes his dog on 4 walks a day. Pt ambulating with cane today and states he has been using it more frequently. Pain: OBJECTIVE MEASURES WITH LEVEL OF FUNCTION: Good use of cane with proper sequencing. TREATMENT: Therapeutic Exercise: 1: [employer] Dance StepOne seat #14 x5 minutes for strength and endurance (Pt provided an update on her condition) 2: repeated sit to stand from chair without UE assist 2x10 3: Standing alt LE marching 2x10 B Skilled Intervention: Patient was educated in proper exercise technique and purpose for exercises. Skilled judgment was used in selection of appropriate interventions. Correct performance of therapeutic exercises was facilitated with verbal and visual cuing. Neuromuscular Re-Education: 1: NBOS eyes open x30 seconds 2: NBOS eyes closed x30 seconds 3: B semi-tandem x30 seconds each 4: Tandem stance R foot behind 25 seconds, L foot behind 30 seconds 5: Alt toe taps on BOSU with 1 UE support 2x10 B 6: Forward stepping over 6, 6 inch hurdles x 2 passes with 1UE 7: Side stepping over 6,6 inch hurdles x 1 pass each direction with BUE assist (pt struggled with motor planning to clear wlae and leave ample space for second foot to land beside first foot) Skilled Intervention: Skilled judgment used to assess appropriate program for balance and coordination activity. Ensured patient safety with use of gait belt and // bars. Billing Therapeutic Exercise Treatment Minutes: 21 Neuromuscular Re-Education Treatment Minutes: 23 Skilled Treatment Time Minutes (timed and untimed codes): 44 Total Session Time (minutes): 44 Session Start Time : 153 Session Stop Time : 161 CHUCK Borrero, PT [facility] 05-19-2025 Note HNO ID: [id number] Author: ADAN VALDES PT Service: ? Author Type: Physical Therapist Type: Progress Notes Filed: 05/19/2025 12:38 Note Text: Episode Visit Count: 3 Therapist That Will Accept/Oversee The Plan Of Care: Adan Valdes PT Start of Care Date: 04/24/25 Onset Date: 04/24/20 Plan of Care Certification Date: 04/24/25 Next Certification Due Date: 06/19/25 Patient Identified by Name and Date of : Yes REHABILITATION AND SPORTS THERAPY PHYSICAL THERAPY TREATMENT NOTE ASSESSMENT: Estella Mckeon tolerated the session with decreased activity tolerance due to weakness, decreased endurance, and fatigue. He demonstrated difficulty with gait and balance after fatigued from therex. He forgot his cane and definitely would benefit from this. The patient will continue to benefit from ongoing skilled physical therapy to progress toward set goals. PLAN FOR NEXT VISIT: Review, correct and progress HEP to tolerance. Begin comprehensive gait and balance training program to enhance safety with functional mobility. Adjust cane height prn and do gait training with cane if he brings cane next visit. Begin core and LE strengthening to tolerance. SUBJECTIVE: Pt feels that he is better because he has not fallen since last sesssion. He denies any pain or problems following last session. He reports that he has not been compliant with HEP. Pain: Post Treatment Pain Post Treatment Symptoms: During and after session, pt reported fatigue but denied any other problems. He definitely needs to bring his cane to future visits. His balance worsens with fatigue from therex. OBJECTIVE MEASURES WITH LEVEL OF FUNCTION: TREATMENT: Therapeutic Exercise: 1: CrossbordersFit StepOne seat #14 x5 minutes for strength and endurance (Pt provided an update on her condition) 2: seated B alt heel and toe raises x20 3: seated B alt hip flexion marching x10 4: seated B alt knee ext x10 5: repeated sit to stand from chair without UE assist 2x10 Skilled Intervention: Patient was educated in proper exercise technique and purpose for exercises. Skilled judgment was used in selection of appropriate interventions. Correct performance of therapeutic exercises was facilitated with verbal, visual, and tactile cuing. Patient education as noted. Neuromuscular Re-Education: 1: Pt forgot his cane today and therefore was reminded to use his cane at all times. 2: NBOS eyes open x30 seconds 3: NBOS eyes closed x30 seconds 4: B semi-tandem x30 seconds each 5: balance board side to side with eyes open x10 (eyes closed attempted but pt requested to stop) 6: NBOS on blue square foam eyes open x30 seconds 7: NBOS on blue square foam eyes closed x30 seconds Skilled Intervention: Skilled judgment used to assess appropriate program for balance and coordination activity. Ensured patient safety with use of gait belt and intermittent ModA. Billing Therapeutic Exercise Treatment Minutes: 15 Neuromuscular Re-Education Treatment Minutes: 25 Skilled Treatment Time Minutes (timed and untimed codes): 40 Total Session Time (minutes): 42 Session Start Time : 1053 Session Stop Time : 1135 Adan Valdes PT [facility] 05-18-2025 Note HNO ID: [id number] Author: SONU PETERSEN MD Service: ? Author Type: Physician Type: Progress Notes Filed: 05/18/2025 10:30 Note Text: Chief Complaint Patient presents with: Wound Check: 1 wk f/u right leg wound Recording using Add[employer]ch software for draft documentation of the visit was discussed with the patient/authorized business center representative; all questions welcomed and answered. Patient/authorized business center representative agreed to proceed HPI Estella Mckeon is a 79 year old male who presents here today for Above Complaints. Leg Wound: - Recent fall resulted in a right leg wound and subsequent infection. - Initially treated with Augmentin, then switched to Bactrim at our OV 1 week ago. - Redness has resolved; wound healing well with a scab. - Following instructions to let water run over the wound without additional treatment. 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 - Recent fall occurred while using a cane; no falls since last week. - Using a cane for ambulation; Connor denies use of a walker. - Physical therapy recommended but Connor attended only twice in 2 months due to canceled appointments. - Insurance authorization for additional physical therapy visits received; appointments rescheduled. - CT scan of the head post-fall showed no hemorrhage or brain bleed, only chronic changes related to aging. - Previous MRI of the brain performed last year. - Seen by Dr. Lan, neurologist, for ataxia; multiple tests over the years reportedly negative. - Discussed seeing a neuro-canvas cutter hand but Connor opted for an canvas cutter hand instead, which was not beneficial. Past medical history, appointments, medications, allergies reviewed. 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) Grief 05/23/2024 Hernia HLD (hyperlipidemia) HTN (hypertension) Postsurgical percutaneous transluminal coronary angioplasty status 2000 Seasonal allergies Thalassemia minor Vertigo Previous Surgical History PAST SURGICAL HISTORY Procedure Laterality Date COLONOSCOPY 1993 HEART CATHETERIZATION early 1999' HERNIA REPAIR HX TONSILLECTOMY HX VASECTOMY UNI/BI SPX W/POSTOP SEMEN EXAMS Family History FAMILY HISTORY Problem Relation Age of Onset other (TIA) Mother Dementia Mother Cancer Father Heart disease Sister Heart Attack Sister No Known Problems Brother Anxiety disorder Son Depression Son Hypertension Son Patient Allergies ALLERGIES Allergen Reactions Seasonal Allergies Other: See Comments uses OTC prn Current Medications Current Outpatient Medications on File Prior to Visit Medication Sig sertraline (ZOLOFT) 50 mg tablet Take 1 tablet by mouth once daily. metoprolol succinate ER (TOPROL XL) 25 mg 24 hr tablet Take 1 tablet by mouth once daily. atorvastatin (LIPITOR) 40 mg tablet Take 1 tablet by mouth daily at bedtime. aspirin, enteric coated (ECOTRIN LOW STRENGTH) 81 mg EC tablet Take 1 tablet by mouth once daily. Zinc Mth/Copper/Saw Palm/Gnsg (PROSTATE HEALTH FORMULA ORAL) Take 1 tablet by mouth once daily. No current facility-administered medications on file prior to visit. Social History SOCIAL HISTORY[1] Review of Symptoms REVIEW OF SYSTEMS GENERAL: No weight loss, malaise or fevers SKIN: Negative for lesions, rash, and itching EXAM: BP 122/66 Pulse 70 Ht 180.3 cm (5' 11) Wt 91.4 kg (201 lb 9.6 oz) BMI 28.12 kg/m? General Appearance: Well appearing, alert, in no acute distress, well-hydrated, well nourished.. Skin: cellulitis of right distal ramirez has resolved. Small scab remaining from his laceration. Healing well. No erythema, swelling, or abscess. Health Maintenance List Depression Screening Never done Anxiety Screening Never done Hepatitis C Screening Never done Advance Directive Discussion Never done Medicare Advantage Annual Wellness Visit due on 08/27/2024 LDL Cholesterol due on 11/18/2024 Influenza Vaccine(1) due on 04/27/2025 DTaP,Tdap,Td Vaccine(1 - Tdap) due on 05/18/2026 RSV Vaccine(1 - 1-dose 75+ series) due on 05/18/2026 Shingrix Vaccine(1 of 2) due on 05/18/2026 Annual PCP Team Chronic Disease Visit due on 05/18/2026 Diabetes Screening due on 05/23/2027 Pneumococcal Vaccine: 50+ Completed 1. Cellulitis of skin (L03.90) 2. Laceration of right lower extremity, subsequent encounter (S81.121D) - Cellulitis and laceration healing well; erythema resolved, wound scabbed over. Cellulitis resolved. - Continue current wound care; no further topical treatments needed. - Advised to monitor for signs of recurrent infection (redness, purulent or bloody drainage) and to call if these occur. 3. Injury of head, subsequent encounter (S09.90XD) 4. Fall, subsequent encounter (W19.XXXD) - CT hea (more content not included)... [facility] 05-15-2025 Note HNO ID: [id number] Author: MILENA BAE PT Service: ? Author Type: Physical Therapist Type: Progress Notes Filed: 05/15/2025 12:06 Note Text: Episode Visit Count: 2 Therapist That Will Accept/Oversee The Plan Of Care: Adan Valdes PT Start of Care Date: 04/24/25 Onset Date: 04/24/20 Plan of Care Certification Date: 04/24/25 Next Certification Due Date: 06/19/25 REHABILITATION AND SPORTS THERAPY PHYSICAL THERAPY TREATMENT NOTE ASSESSMENT: Estella Mckeon tolerated the session with increased symptoms. He demonstrated difficulty with head movement and turns describing dizziness as lightheadedness. Symptoms do not resolve or improve with seated rest but rather seem to build in intensity with balance tasks. The patient will continue to benefit from ongoing skilled physical therapy to progress toward set goals. Duration: 8 weeks Planned Treatment Interventions: Neuromuscular re-education (54692), Therapeutic exercise (82250) PLAN FOR NEXT VISIT: SUBJECTIVE: Pt. has had 3 falls since last visit. Pt. was walking up the steps. Pt. was in the bathroom for the other fall. Denies dizziness. Pt. has difficulty walking down hill due to LOB. Patient Goals: improve safety with walking and decrease fall risk. He would like to resume running for exercise but he has not run for several years. Pt. reports that his legs often feel that they are moving more quickly than he intends to move them. Pain: OBJECTIVE MEASURES WITH LEVEL OF FUNCTION: Dynamic Gait Index Gait level surface : 2 - Mild impairment- walks 20' uses assist device, slower speed, mild gait deviation Change in gait speed: 2 - Mild impairment- is able to change speed but demonstrates mild gait deviations or no gait deviations but unable to achieve a significant change in velocity, or uses an assistive device Gait and horizontal head turns: 1 - Moderate impairment- performs R/L head turns with moderate change in gait velocity, slows down, staggers but recovers, can continue to walk Gait and vertical head turns: 1 - Moderate impairment- performs R/L head turns with moderate change in gait velocity, slows down, staggers but recovers, can continue to walk Gait and pivot: 1 - Moderate impairment- turns slowly, requires verbal cueing, requires several small steps following turn and stop Step over obstacle: 1 - Moderate impairment- is able to step over box, but must stop then step over, may require verbal cueing Step around obstacle: 1 - Moderate impairment- able to clear cones, but must significantly slow speed or requires verbal cueing Steps: 1 - Moderate impairment- 2 feet to a stair, must use rail Dynamic Gait Index Total: 10 TREATMENT: Neuromuscular Re-Education: 1: DGI 06/19 (substantial time to complete, pt. c/o of increasing dizziness) Skilled Intervention: Skilled judgment used to assess appropriate program for balance and coordination activity. Education in proprioceptive/kinesthetic awareness during dynamic activities. Ensured patient safety with use of gait belt. Gait Training: Distance (feet): 50 4x Gait Cues: adv cane with opposite foot Assistive Device: Quad cane Assist Level: CGA Skilled Intervention: Patient was provided contact guard assistance during pre-gait/gait training to prevent falls and insure safety. Facilitated proper gait cycle with the use of verbal, visual, and tactile cues for correction of gait deviations identified in the objective section above. Gait belt utilized during session for safety. Billing Neuromuscular Re-Education Treatment Minutes: 25 Gait Training Treatment Minutes: 15 Skilled Treatment Time Minutes (timed and untimed codes): 40 Total Session Time (minutes): 40 Session Start Time : 1111 Session Stop Time : 1151 Milena Bae, PT [facility] 05-07-2025 Radiology Diagnostic study note [facility] Imaging Services [address] [place] [address] Brain/Head without Contrast MR#: [id number] Acct: [id number] Name: ESTELLA MCKEON Rep #: [id number] : 1945 M 79 From: Darrick aJrrett MD PCP: Dr. Juan Carlos Petersen MD Status: REG CLI Study:Brain/Head without Contrast Date of Exa m: 05/07/25 Exam# [id number] Ordering Dr: Juan Carlos Petersen MD PROCEDURE: BRAIN/HEAD WITHOUT CONTRAST 05/07/2025 REASON FOR EXAM: TRAUMA/SUBSEQUENT ENCOUNTER TECHNIQUE: Procedure Code: CTBR Modality: CT Procedure: BRAIN/HEAD WITHOUT CONTRAST Coronal and Sagittal reconstruction series were provided. One or more dose reduction techniques were used (e.g., Automated exposure control, adjustment of the mA and/or kV according to patient size, use of iterative reconstruction technique. COMPARISON: None available. FINDINGS: There is no extra-axial or intra-axial intracranial hemorrhage. No mass effect or midline shift is seen. Generalized intracranial volume loss and findings compatible with chronic microvascular white matter ischemia. There is normal lei-white matter differentiation. The posterior fossa is grossly unremarkable. The skull is unremarkable. Visualized paranasal sinuses are clear. The mastoid air cells show normal translucency. CT/Brain/Head without Contrast IMPRESSION: 1. No intracranial hemorrhage. No mass effect or midline shift. 2. 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 Reading Location: [facility] CC: Dr. Juan Carlos Petersen MD ~ [place]: Signed [facility] 05-07-2025 Instructions Sonu Petersen MD - 05/07/2025 1:33 PM EDT - Stop taking Augmentin today; do not take any more doses. - Start Bactrim (trimethoprim-sulfamethoxazole) twice daily for 7 days; prescription sent to [email or web address]. - Do not use hydrogen peroxide on the wound. - In the shower, gently clean the wound with soap and water; let water run over it without scrubbing or covering it. - Expect the redness around the wound to improve over the next 2-3 days. If the redness worsens, spreads, or you develop increased pain, swelling, pus drainage, or fever, seek care right away. - For ankle swelling or mild sprain, apply ice for 15-20 minutes at a time throughout the day and keep the ankle elevated when resting. - Proceed to radiology for a head CT scan as soon as possible (stat order) to check for any bleeding. - Continue your scheduled physical therapy visits for balance and fall prevention. - Plan to return in one week for a wound check; if the wound is mostly healed before then, you may cancel that appointment. documented in this encounter [facility] 05-07-2025 Note HNO ID: [id number] Author: SONU PETERSEN MD Service: ? Author Type: Physician Type: Progress Notes Filed: 05/07/2025 13:38 Note Text: Chief Complaint Patient presents with: ED Follow-up Recording using Additech software for draft documentation of the visit was discussed with the patient/authorized business center representative; all questions welcomed and answered. Patient/authorized business center representative agreed to proceed HPI Estella Mcekon is a 79 year old male who presents here today for ER Follow Up. Fall and Head Injury: - Connor Mckeon had a recent fall a few days ago, resulting in a head injury. Fell and hit back of his head on the ground without LOC, headache, vision changes, nausea or vomiting. Also had a right ramirez injury hitting himself on concrete steps at home. Developed redness and had a chunk of skin missing, so was evaluated at [facility] ED on 05/05. - Noticed foot and ankle swelling with surrounding erythema over the past week. - ER visit included a negative DVT ultrasound and X-rays of tib/fib and ankle showing no fractures, only degenerative changes. No imaging of his head despite his fall. - Started on Augmentin BID for 7 days for erythema around the wound and advised to follow up with our office in 7-10 days. - Describes difficulty controlling foot speed on inclines, leading to falls. Seeing physical therapy for history of falls. - Reports transient headache post-injury, but not severe or prolonged. Denies vision changes, slurred speech, facial droop, numbness/tingling. Right Lower Extremity Wound: - Denies new injuries, fevers, chills, purulent discharge, or bleeding from the wound. - Taking augmentin as prescribed without side effects. Past medical history, appointments, medications, allergies reviewed. 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) Grief 05/23/2024 Hernia HLD (hyperlipidemia) HTN (hypertension) Postsurgical percutaneous transluminal coronary angioplasty status 2001 Seasonal allergies Thalassemia minor Vertigo Previous Surgical History PAST SURGICAL HISTORY Procedure Laterality Date COLONOSCOPY 1993 HEART CATHETERIZATION early 1999' HERNIA REPAIR HX TONSILLECTOMY HX VASECTOMY UNI/BI SPX W/POSTOP SEMEN EXAMS Family History FAMILY HISTORY Problem Relation Age of Onset other (TIA) Mother Dementia Mother Cancer Father Heart disease Sister Heart Attack Sister No Known Problems Brother Anxiety disorder Son Depression Son Hypertension Son Patient Allergies ALLERGIES Allergen Reactions Seasonal Allergies Other: See Comments uses OTC prn Current Medications Current Outpatient Medications on File Prior to Visit Medication Sig amoxicillin-clavulanate potassium (AUGMENTIN) 875-125 mg per tablet Take 1 tablet by mouth every 12 hours. sertraline (ZOLOFT) 50 mg tablet Take 1 tablet by mouth once daily. metoprolol succinate ER (TOPROL XL) 25 mg 24 hr tablet Take 1 tablet by mouth once daily. atorvastatin (LIPITOR) 40 mg tablet Take 1 tablet by mouth daily at bedtime. aspirin, enteric coated (ECOTRIN LOW STRENGTH) 81 mg EC tablet Take 1 tablet by mouth once daily. Zinc Mth/Copper/Saw Palm/Gnsg (PROSTATE HEALTH FORMULA ORAL) Take 1 tablet by mouth once daily. diphenhydrAMINE (SLEEP AID, DIPHENHYDRAMINE,) 25 mg capsule Take 1 capsule by mouth every 6 hours as needed. (Patient not taking: Reported on 05/07/2025) docosahexaenoic acid/epa (FISH OIL ORAL) Take 2,000 mg by mouth once daily. (Patient not taking: Reported on 05/07/2025) No current facility-administered medications on file prior to visit. Social History SOCIAL HISTORY[1] Review of Symptoms REVIEW OF SYSTEMS See HPI EXAM: BP 126/74 Pulse 68 Temp 36.6 ?C (97.8 ?F) (Tympanic) Resp 16 Wt 93 kg (205 lb) BMI 28.59 kg/m? General Appearance: Well appearing, alert, in no acute distress, well-hydrated, well nourished. Head: normocephalic, atraumatic. Skin: 1 cm shallow laceration to right distal 1/3rd ramirez with 1-2 cm of surrounding erythema without warmth to touch, fluctuance, induration, purulent drainage. Lungs: Lungs clear to auscultation. No wheezing, rhonchi, rales.. Heart: RRR without murmur, gallop, or rubs. No ectopy. Abdomen: Normal abdominal exam, Abdomen soft, non-tender. Bowel sounds normal. No masses, organomegaly. Extremities: No deformities, edema, skin discoloration, clubbing or cyanosis. Good capillary refill. . Neurologic: Negative findings: speech normal, mental status intact, cranial nerves 2-12 intact, muscle tone normal, muscle strength normal, sensation to light touch and pinprick normal, reflexes normal and symmetric. Health Maintenance List Depression Screening Never done Anxiety Screening Never done Hepatitis C Screening Never done (more content not included)... [facility] 05-07-2025 History of Presen t illness Narrative Chief Complaint Patient presents with: ED Follow-up Recording using Additech software for draft documentation of the visit was discussed with the patient/authorized business center representative; all questions welcomed and answered. Patient/authorized business center representative agreed to proceed HPI Estella Mckeon is a 79 year old male who presents here today for ER Follow Up. Fall and Head Injury: - Connor Mckeon had a recent fall a few days ago, resulting in a head injury. Fell and hit back of his head on the ground without LOC, headache, vision changes, nausea or vomiting. Also had a right ramirez injury hitting himself on concrete steps at home. Developed redness and had a chunk of skin missing, so was evaluated at [facility] ED on 05/05. - Noticed foot and ankle swelling with surrounding erythema over the past week. - ER visit included a negative DVT ultrasound and X-rays of tib/fib and ankle showing no fractures, only degenerative changes. No imaging of his head despite his fall. - Started on Augmentin BID for 7 days for erythema around the wound and advised to follow up with our office in 7-10 days. - Describes difficulty controlling foot speed on inclines, leading to falls. Seeing physical therapy for history of falls. - Reports transient headache post-injury, but not severe or prolonged. Denies vision changes, slurred speech, facial droop, numbness/tingling. Right Lower Extremity Wound: - Denies new injuries, fevers, chills, purulent discharge, or bleeding from the wound. - Taking augmentin as prescribed without side effects. Past medical history, appointments, medications, allergies reviewed. 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) Grief 05/23/2024 Hernia HLD (hyperlipidemia) HTN (hypertension) Postsurgical percutaneous transluminal coronary angioplasty status 2000 Seasonal allergies Thalassemia minor Vertigo Previous Surgical History PAST SURGICAL HISTORY Procedure Laterality Date COLONOSCOPY 1993 HEART CATHETERIZATION early 1999' HERNIA REPAIR HX TONSILLECTOMY HX VASECTOMY UNI/BI SPX W/POSTOP SEMEN EXAMS Family History FAMILY HISTORY Problem Relation Age of Onset other (TIA) Mother Dementia Mother Cancer Father Heart disease Sister Heart Attack Sister No Known Problems Brother Anxiety disorder Son Depression Son Hypertension Son Patient Allergies ALLERGIES Allergen Reactions Seasonal Allergies Other: See Comments uses OTC prn Current Medications Current Outpatient Medications on File Prior to Visit Medication Sig amoxicillin-clavulanate potassium (AUGMENTIN) 875-125 mg per tablet Take 1 tablet by mouth every 12 hours. sertraline (ZOLOFT) 50 mg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 documentation of the visit was discussed with the patient/authorized business center representative; all questions welcomed and answered. Patient/authorized business center representative agreed to proceed HPI Estella Mckeon is a 79 year old male who presents here today for Above Complaints. Depression: - Currently taking Zoloft; Connor missed two doses on Sunday mornings due to a busy schedule. - Reports feeling sick and like everything is wrong after missing the first dose; no side effects after missing the second dose. - Overall mood described as closer to being the same compared to three months ago. - Reports improvement in feelings of being down, depressed, or hopeless, and in interest or pleasure in activities. - Continues to experience lack of energy. - Engages in social activities, including attending [employer] on Sundays. - No serious thoughts of self-harm; occasionally thinks about being closer to loved one but refrains due to zoroastrian beliefs. Coordination Issues: - Reports coordination and balance issues for five years, with no recent decline. - Experiences nystagmus when looking to the side. - Has not seen a neuro-canvas cutter hand as recommended by Dr. Lan with neurology. - Multiple falls reported, approximately two per month. - Falls often occur during activities that previously would not have caused a loss of balance. - Recent falls include falling off a bike in the garage and another fall while riding the same bike. - No falls resulting in head injury or loss of consciousness. - No current joint pain from falls. - Uses a regular cane when feeling unstable; dislikes using a four-footed cane. - Has not followed up with Dr. Lan, neurologist, since May. Past medical history, appointments, medications, allergies reviewed. 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) Grief 05/23/2024 Hernia HLD (hyperlipidemia) HTN (hypertension) Postsurgical percutaneous transluminal coronary angioplasty status 2000 Seasonal allergies Thalassemia minor Vertigo Previous Surgical History PAST SURGICAL HISTORY Procedure Laterality Date COLONOSCOPY 1993 HEART CATHETERIZATION early HERNIA REPAIR HX TONSILLECTOMY HX VASECTOMY UNI/BI SPX W/POSTOP SEMEN EXAMS Family History FAMILY HISTORY Problem Relation Age of Onset other (TIA) Mother Dementia Mother Cancer Father Heart disease Sister Heart Attack Sister No Known Problems Brother Anxiety disorder Son Depression Son Hypertension Son Patient Allergies ALLERGIES Allergen Reactions Seasonal Allergies Other: See Comments uses OTC prn Current Medications Current Outpatient Medications on File Prior to Visit Medication Sig sertraline (ZOLOFT) 50 mg tablet Take 1 tablet by mouth once daily. metoprolol succinate ER (TOPROL XL) 25 mg 24 hr tablet Take 1 tablet by mouth once daily. diphenhydrAMINE (SLEEP AID, DIPHENHYDRAMINE,) 25 mg capsule Take 1 capsule by mouth every 6 hours as needed. atorvastatin (LIPITOR) 40 mg tablet Take 1 tablet by mouth daily at bedtime. docosahexaenoic acid/epa (FISH OIL ORAL) Take 2,000 mg by mouth once daily. aspirin, enteric coated (ECOTRIN LOW STRENGTH) 81 mg EC tablet Take 1 tablet by mouth once daily. Zinc Mth/Copper/Saw Palm/Gnsg (PROSTATE HEALTH FORMULA ORAL) Take 1 tablet by mouth once daily. No current facility-administered medications on file prior to visit. Social History Social History Tobacco Use Smoking status: Never Smokeless tobacco: Never Tobacco comments: Smoked a pipe in college Vaping Use Vaping status: Never Used Substance Use Topics Alcohol use: Not Currently Drug use: Never Review of Symptoms REVIEW OF SYSTEMS GENERAL: No weight loss, malaise or fevers RESPIRATORY: Negative for cough, hemoptysis, wheezing, COPD, dyspnea or shortness of breath CARDIOVASCULAR: Negative for chest pain, leg swelling, hypertension, CHF or palpitations GI: No nausea, vomiting, or diarrhea SKIN: Negative for lesions, rash, and itching EXAM: BP 122/70 Pulse 66 Wt 91.6 kg (202 lb) BMI 28.17 kg/m? General Appearance: Well appearing, alert, in no acute distress, well-hydrated, well nourished.. Skin: Skin color, texture, turgor normal, no suspicious rashes or lesions. Lungs: Lungs clear to auscultation. No wheezing, rhonchi, rales.. Heart: RRR without murmur, gallop, or rubs. No ectopy. Abdomen: Normal abdominal exam, Abdomen soft, non-tender. Bowel sounds normal. No masses, organomegaly. Extremities: No d (more content not included)... [facility] 03-17-2025 History of Present illness Narrative Chief Complaint Patient presents with: 3 month follow up Recording using Additech software for draft documentation of the visit was discussed with the patient/authorized business center representative; all questions welcomed and answered. Patient/authorized business center representative agreed to proceed HPI Estella Mckeon is a 79 year old male who presents here today for Above Complaints. Depression: - Currently taking Zoloft; Connor missed two doses on Sunday mornings due to a busy schedule. - Reports feeling sick and like everything is wrong after missing the first dose; no side effects after missing the second dose. - Overall mood described as closer to being the same compared to three months ago. - Reports improvement in feelings of being down, depressed, or hopeless, and in interest or pleasure in activities. - Continues to experience lack of energy. - Engages in social activities, including attending [employer] on Sundays. - No serious thoughts of self-harm; occasionally thinks about being closer to loved one but refrains due to zoroastrian beliefs. Coordination Issues: - Reports coordination and balance issues for five years, with no recent decline. - Experiences nystagmus when looking to the side. - Has not seen a neuro-canvas cutter hand as recommended by Dr. Lan with neurology. - Multiple falls reported, approximately two per month. - Falls often occur during activities that previously would not have caused a loss of balance. - Recent falls include falling off a bike in the garage and another fall while riding the same bike. - No falls resulting in head injury or loss of consciousness. - No current joint pain from falls. - Uses a regular cane when feeling unstable; dislikes using a four-footed cane. - Has not followed up with Dr. Lan, neurologist, since May. Past medical history, appointments, medications, allergies reviewed. 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) Grief 05/23/2024 Hernia HLD (hyperlipidemia) HTN (hypertension) Postsurgical percutaneous transluminal coronary angioplasty status 2000 Seasonal allergies Thalassemia minor Vertigo Previous Surgical History PAST SURGICAL HISTORY Procedure Laterality Date COLONOSCOPY 1993 HEART CATHETERIZATION early HERNIA REPAIR HX TONSILLECTOMY HX VASECTOMY UNI/BI SPX W/POSTOP SEMEN EXAMS Family History FAMILY HISTORY Problem Relation Age of Onset other (TIA) Mother Dementia Mother Cancer Father Heart disease Sister Heart Attack Sister No Known Problems Brother Anxiety disorder Son Depression Son Hypertension Son Patient Allergies ALLERGIES Allergen Reactions Seasonal Allergies Other: See Comments uses OTC prn Current Medications Current Outpatient Medications on File Prior to Visit Medication Sig sertraline (ZOLOFT) 50 mg tablet Take 1 tablet by mouth once daily. metoprolol succinate ER (TOPROL XL) 25 mg 24 hr tablet Take 1 tablet by mouth once daily. diphenhydrAMINE (SLEEP AID, DIPHENHYDRAMINE,) 25 mg capsule Take 1 capsule by mouth every 6 hours as needed. atorvastatin (LIPITOR) 40 mg tablet Take 1 tablet by mouth daily at bedtime. docosahexaenoic acid/epa (FISH OIL ORAL) Take 2,000 mg by mouth once daily. aspirin, enteric coated (ECOTRIN LOW STRENGTH) 81 mg EC tablet Take 1 tablet by mouth once daily. Zinc Mth/Copper/Saw Palm/Gnsg (PROSTATE HEALTH FORMULA ORAL) Take 1 tablet by mouth once daily. No current facility-administered medications on file prior to visit. Social History Social History Tobacco Use Smoking status: Never Smokeless tobacco: Never Tobacco comments: Smoked a pipe in college Vaping Use Vaping status: Never Used Substance Use Topics Alcohol use: Not Currently Drug use: Never Review of Symptoms REVIEW OF SYSTEMS GENERAL: No weight loss, malaise or fevers RESPIRATORY: Negative for cough, hemoptysis, wheezing, COPD, dyspnea or shortness of breath CARDIOVASCULAR: Negative for chest pain, leg swelling, hypertension, CHF or palpitations GI: No nausea, vomiting, or diarrhea SKIN: Negative for lesions, rash, and itching EXAM: BP 122/70 Pulse 66 Wt 91.6 kg (202 lb) BMI 28.17 kg/m General Appearance: Well appearing, alert, in no acute distress, well-hydrated, well nourished.. Skin: Skin color, texture, turgor normal, no suspicious rashes or lesions. Lungs: Lungs clear to auscultation. No wheezing, rhonchi, rales.. Heart: RRR without murmur, gallop, or rubs. No ectopy. Abdomen: Normal abdominal exam, Abdomen soft, non-tender. Bowel sounds normal. No masses, organomegaly. Extremities: No deformities, edema, skin discoloration, clubbing or cyanosis. Good capillary refill. . Musculoskeletal: soft lump on left proximal forearm which is mobile and non tender. No bony TTP. Normal ROM of left elbow without pain. Health Maintenance List Depression Screening Never done Anxiety Screening Never done Hepatitis C Screening Never done DTaP,Tdap,Td Vaccine(1 - Tdap) Never done Shingrix Vaccine(1 of 2) Never done RSV Vaccine(1 - 1-dose 75+ series) Never done Advance Directive Discussion Never done Medicare Advantage Annual Wellness Visit due on 08/27/2024 Covid-19 Vaccine( - 2023- season) due on 11/16/2024 LDL Cholesterol due on 11/18/2024 Influenza Vaccine(1) due on 04/27/2025 Annual PCP Team Chronic Disease Visit due on 03/17/2026 Diabetes Screening due on 05/23/2027 Pneumococcal Vaccine: 50+ Completed Data reviewed Latest Ref Rng 05/23/2024 WBC 3.70 - 11.00 k/uL 7.11 RBC 4.20 - 6.00 m/uL 5.59 Hemoglobin 13.0 - 17.0 g/dL 11.6 (L) Hematocrit 39.0 - 51.0 % 38.2 (L) MCV 80.0 - 100.0 fL 68.3 (L) MCH 26.0 - 34.0 pg 20.8 (L) MCHC 30.5 - 36.0 g/dL 30.4 (L) RDW-CV 11.5 - 15.0 % 17.0 (H) Platelet Count 150 - 400 k/uL 188 MPV 9.0 - 12.7 fL 12.1 Neut% % 67.3 Abs Neut (ANC) 1.45 - 7.50 k/uL 4.78 Lymph% % 19.0 Abs Lymph 1.00 - 4.00 k/uL 1.35 [place]% % 11.1 Abs [place] <0.87 k/uL 0.79 Eosin% % 1.5 Abs Eosin <0.46 k/uL 0.11 Baso% % 0.8 Abs Baso <0.11 k/uL 0.06 Immature Gran % % 0.3 IMMATURE GRANS (ABS) <0.10 k/uL <0.03 NRBC /100 WBC 0.0 Absolute nRBC <0.01 k/uL <0.01 DTYPE Auto Protein, Total 6.3 - 8.0 g/dL 7.3 Albumin 3.9 - 4.9 g/dL 4.4 Calcium 8.5 - 10.2 mg/dL 9.6 Bilirubin, Total 0.2 - 1.3 mg/dL 1.2 Alkaline Phosphatase 38 - 113 U/L 50 AST 14 - 40 U/L 27 ALT 10 - 54 U/L 19 Glucose 74 - 99 mg/dL 87 BUN 9 - 24 mg/dL 15 Creatinine 0.73 - 1.22 mg/dL 0.75 Sodium 136 - 144 mmol/L 139 Potassium 3.7 - 5.1 mmol/L 4.3 Chloride 98 - 107 mmol/L 102 CO2 22 - 30 mmol/L 26 Anion Gap 8 - 15 mmol/L 11 eGFR >=60 mL/min/1.73m 94 TSH 0.270 - 4.200 mIU/L 2.720 Vitamin D 25 Hydroxy 31.0 - 80.0 ng/mL 36.3 Legend: (L) Low (H) High 1. Grief (F43.21) - Grieving process ongoing; mood has shown improvement with sertraline (Zoloft) therapy, though patient reports occasional missed doses leading to transient nausea and dysphoria. - PHQ-9 score previously improved from 10 to 4. - Denies serious suicidal ideation; acknowledges transient thoughts of being closer to loved one but refrains due to zoroastrian beliefs. - Reinforced importance of adherence to daily sertraline dosing to maintain mood stability. - No new prescriptions or refills needed at this time. - Follow-up in 6 months for routine checkup unless issues arise sooner. 2. Primary hypertension (I10) - Blood pressure readings stable; no current issues reported. - Continue current antihypertensive regimen. - Maintain scheduled 6-month follow-up with splunk developer. 3. Frequent falls (R29.6) 4. 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 - No head trauma or loss of consciousness reported during falls. - Utilizes a cane occasionally; advised to use cane more consistently to enhance stability. - Referred to physical therapy for balance training and core strengthening exercises to reduce fall risk. - No new joint pain or injuries from recent falls. 5. Cerebral ventriculomegaly (G93.89) 6. Nystagmus (H55.00) - MRI of the brain previously showed stable changes; no new neurologic symptoms such as slurred speech, headaches, or unilateral weakness reported. - Persistent nystagmus noted; did not attend previous neuro-ophthalmology appointment. - Advised to schedule and attend neuro-ophthalmology consultation to evaluate nystagmus and its potential impact on balance and coordination. - Recommended follow-up with Dr. Lan, neurologist, as previously advised for further evaluation and management. Sonu Petersen MD documented in this encounter [facility] 01-12-2025 Note HNO ID: [id number] Author: YAMILEX MELENDEZ APRN.SURGICAL CORSETIER Service: ? Author Type: Nurse Practitioner Type: Progress Notes Filed: 01/12/2025 14:07 Note Text: 01/12/2025 Patient presents with: Follow Up: Swollen glands Recording using Additech software for draft documentation of the visit was discussed with the patient/authorized business center representative; all questions welcomed and answered. Patient/authorized business center representative agreed to proceed SUBJECTIVE: This is a 79 year old that is here today for Above Complaints.. Swollen Glands: - Onset of sore throat, mild cough, and swollen glands prompted urgent care visit on 06/12. - Swollen glands have improved but are still present. - Denies fevers, chills, unintentional weight loss, dyspnea, nausea, emesis, or diarrhea. - Reports mild dysphagia, but not severe. - Initially experienced ear discomfort, now resolved. - Using generic Claritin for rhinorrhea; previously used Flonase but discontinued due to concerns about throat irritation. - Denies sinus pain or pressure. PAST MEDICAL HISTORY Diagnosis Date 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 metoprolol succinate ER (TOPROL XL) 25 mg 24 hr tablet Take 1 tablet by mouth once daily. diphenhydrAMINE (SLEEP AID, DIPHENHYDRAMINE,) 25 mg capsule Take 1 capsule by mouth every 6 hours as needed. atorvastatin (LIPITOR) 40 mg tablet Take 1 tablet by mouth daily at bedtime. docosahexaenoic acid/epa (FISH OIL ORAL) Take 2,000 mg by mouth once daily. aspirin, enteric coated (ECOTRIN LOW STRENGTH) 81 mg EC tablet Take 1 tablet by mouth once daily. Zinc Mth/Copper/Saw Palm/Gnsg (PROSTATE HEALTH FORMULA ORAL) Take 1 tablet by mouth once daily. No current facility-administered medications for this visit. Medications and allergies reviewed by this provider. SOCIAL HISTORY Social History Tobacco Use Smoking status: Never Smokeless tobacco: Never Tobacco comments: Smoked a pipe in college Vaping Use Vaping status: Never Used Substance Use Topics Alcohol use: Not Currently Drug use: Never REVIEW OF SYSTEMS All other reviewed and negative other than HPI. OBJECTIVE: BP 114/64 Pulse 64 Temp 36.7 ?C (98 ?F) Resp 16 Wt 90.7 kg (200 lb) SpO2 94% BMI 27.89 kg/m? . Vital signs reviewed by this provider. APPEARANCE Well appearing, alert, in no acute distress, well-hydrated, well nourished. EYES conjunctiva and sclera normal. EARS External ears normal, canals clear THROAT normal, no erythema NECK Supple, Positive findings: tonsillar adenopathy HEART RRR with normal S1 and S2, no murmurs, no gallops, no JVD appreciated LUNG clear to auscultation. No wheezes, rhonchi or rales SKIN Skin color, texture, turgor normal, no suspicious rashes or lesions to exposed skin Depression Screening Never done Anxiety Screening Never done Hepatitis C Screening Never done DTaP,Tdap,Td Vaccine(1 - Tdap) Never done Shingrix Vaccine(1 of 2) Never done RSV Vaccine(1 - 1-dose 75+ series) Never done Advance Directive Discussion Never done Covid-19 Vaccine( season) due on 11/16/2024 LDL Cholesterol due on 11/18/2024 Influenza Vaccine(Season Ended) due on 04/27/2025 Annual PCP Team Chronic Disease Visit due on 12/18/2025 BP Controlled (<130/80) due on 01/10/2026 Diabetes Screening due on 05/23/2027 Pneumococcal Vaccine: 50+ Completed 1. Localized swelling, mass and lump, head (R22.0) - Cervical lymphadenopathy noted on examination, likely secondary to a viral infection or allergic reaction. - No fever, chills, or unintentional weight loss reported. - Throat examination unremarkable; no evidence of pharyngeal erythema. - Advised continuation of current management with Claritin. - If lymphadenopathy persists beyond one month, will order an ultrasound to further evaluate. 2. Allergic rhinitis, unspecified seasonality, unspecified trigger (J30.9) - Symptoms include runny nose and mild otalgia, currently managed with Claritin. - Discussed proper use of Flonase nasal spray, including technique to minimize mucosal irritation and potential epistaxis. - Recommended rinsing mouth after use of Flonase to prevent oropharyngeal irritation. - Advised to monitor symptoms and report any worsening or new symptoms. Yamilex Podlogar, LINEN WORKER.SURGICAL CORSETIER Prescription instructions reviewed with patient as applicable. Patient advised if symptoms do not improve or if symptoms worsen sooner, to contact their primary care physician. Potential (more content not included)... [facility] 01-12-2025 History of Present illness Narrative 01/12/2025 Patient presents with: Follow Up: Swollen glands Recording using Additech software for draft documentation of the visit was discussed with the patient/authorized business center representative; all questions welcomed and answered. Patient/authorized business center representative agreed to proceed SUBJECTIVE: This is a 79 year old that is here today for Above Complaints.. Swollen Glands: - Onset of sore throat, mild cough, and swollen glands prompted urgent care visit on 06/12. - Swollen glands have improved but are still present. - Denies fevers, chills, unintentional weight loss, dyspnea, nausea, emesis, or diarrhea. - Reports mild dysphagia, but not severe. - Initially experienced ear discomfort, now resolved. - Using generic Claritin for rhinorrhea; previously used Flonase but discontinued due to concerns about throat irritation. - Denies sinus pain or pressure. PAST MEDICAL HISTORY Diagnosis Date 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 metoprolol succinate ER (TOPROL XL) 25 mg 24 hr tablet Take 1 tablet by mouth once daily. diphenhydrAMINE (SLEEP AID, DIPHENHYDRAMINE,) 25 mg capsule Take 1 capsule by mouth every 6 hours as needed. atorvastatin (LIPITOR) 40 mg tablet Take 1 tablet by mouth daily at bedtime. docosahexaenoic acid/epa (FISH OIL ORAL) Take 2,000 mg by mouth once daily. aspirin, enteric coated (ECOTRIN LOW STRENGTH) 81 mg EC tablet Take 1 tablet by mouth once daily. Zinc Mth/Copper/Saw Palm/Gnsg (PROSTATE HEALTH FORMULA ORAL) Take 1 tablet by mouth once daily. No current facility-administered medications for this visit. Medications and allergies reviewed by this provider. SOCIAL HISTORY Social History Tobacco Use Smoking status: Never Smokeless tobacco: Never Tobacco comments: Smoked a pipe in college Vaping Use Vaping status: Never Used Substance Use Topics Alcohol use: Not Currently Drug use: Never REVIEW OF SYSTEMS All other reviewed and negative other than HPI. OBJECTIVE: BP 114/64 Pulse 64 Temp 36.7 C (98 F) Resp 16 Wt 90.7 kg (200 lb) SpO2 94% BMI 27.89 kg/m . Vital signs reviewed by this provider. APPEARANCE Well appearing, alert, in no acute distress, well-hydrated, well nourished. EYES conjunctiva and sclera normal. EARS External ears normal, canals clear THROAT normal, no erythema NECK Supple, Positive findings: tonsillar adenopathy HEART RRR with normal S1 and S2, no murmurs, no gallops, no JVD appreciated LUNG clear to auscultation. No wheezes, rhonchi or rales SKIN Skin color, texture, turgor normal, no suspicious rashes or lesions to exposed skin Depression Screening Never done Anxiety Screening Never done Hepatitis C Screening Never done DTaP,Tdap,Td Vaccine(1 - Tdap) Never done Shingrix Vaccine(1 of 2) Never done RSV Vaccine(1 - 1-dose 75+ series) Never done Advance Directive Discussion Never done Covid-19 Vaccine( season) due on 11/16/2024 LDL Cholesterol due on 11/18/2024 Influenza Vaccine(Season Ended) due on 04/27/2025 Annual PCP Team Chronic Disease Visit due on 12/18/2025 BP Controlled (<130/80) due on 01/10/2026 Diabetes Screening due on 05/23/2027 Pneumococcal Vaccine: 50+ Completed 1. Localized swelling, mass and lump, head (R22.0) - Cervical lymphadenopathy noted on examination, likely secondary to a viral infection or allergic reaction. - No fever, chills, or unintentional weight loss reported. - Throat examination unremarkable; no evidence of pharyngeal erythema. - Advised continuation of current management with Claritin. - If lymphadenopathy persists beyond one month, will order an ultrasound to further evaluate. 2. Allergic rhinitis, unspecified seasonality, unspecified trigger (J30.9) - Symptoms include runny nose and mild otalgia, currently managed with Claritin. - Discussed proper use of Flonase nasal spray, including technique to minimize mucosal irritation and potential epistaxis. - Recommended rinsing mouth after use of Flonase to prevent oropharyngeal irritation. - Advised to monitor symptoms and report any worsening or new symptoms. Yamilex Melendez APRN.MARGARITA Prescription instructions reviewed with patient as applicable. Patient advised if symptoms do not improve or if symptoms worsen sooner, to contact their primary care physician. Potential red flag symptoms discussed with the patient. Reviewed appropriate action plan to take if red flag symptoms occur. Patient agreeable to treatment plan. Medical Decision Making: Problems: Low: Acute, uncomplicated illness or injury Risk: Low: Low risk from testing/treatment Medical Decision Making Level: 3 - Low documented in this encounter [facility] 01-10-2025 Instructions Jonelle Noel APRN.SURGICAL CORSETIER - 01/10/2025 1:54 PM EDT 1. Glands swollen (R59.9) 2. Acute pharyngitis, unspecified etiology (J02.9) - Lymphadenopathy noted on exam; pharynx erythematous. - Rapid strep test performed in office, results negative. - Differential diagnosis includes viral infection. - Advised supportive care with Tylenol for analgesia and increased fluid intake. - Recommended follow-up with Dr. Petersen on Sunday for further evaluation if symptoms persist or worsen. 3. Fatigue, unspecified type (R53.83) - Chronic fatigue reported. - Further evaluation to be conducted by Dr. Petersen if symptoms persist. The strep test was completed today and came back negative, so antibiotics are not needed at this time. You are advised to take Tylenol for pain, fever, or chills if needed. Drink plenty of fluids to help your body recover. If you continue to feel unwell or develop additional symptoms by Sunday, please follow up with Dr. Petersen for further testing. documented in this encounter [facility] 01-10-2025 Note HNO ID: [id number] Author: JONELLE NOEL APRN.MARGARITA Service: ? Author Type: Nurse Practitioner Type: Progress Notes Filed: 01/10/2025 14:05 Note Text: [facility] Subjective Estella Mckeon is a 79 year old male. Patient presents with: Sore Throat: With right ear pain, swollen glands AND fatigue x1 day Sore Throat Sore Throat and Ear Pain: - Onset yesterday. - Took NyQuil last night, which alleviated ear pain and sore throat. - Took an allergy medication this morning. - Denies fever, nausea, emesis, or diarrhea. - Reports mild chills. - Denies current pain. Cervical Lymphadenopathy: - Noticed swollen cervical lymph nodes yesterday. - Believes this indicates an underlying issue. Fatigue: - Reports chronic fatigue, stating I'm tired all the time. - Duration described as a long time. - States he slept for 3 hours today which is not normal for him. Review of Systems HENT: Positive for sore throat. Constitutional: (+) chills, (+) fatigue Ears/Nose/Mouth/Throat: (+) sore throat, (-) ear pain Gastrointestinal: (-) nausea, (-) vomiting, (-) diarrhea Hematologic/Lymphatic: (+) swollen glands Objective BP 126/69 Pulse 63 Temp 36.8 ?C (98.2 ?F) (Left Tympanic) Resp 16 Wt 90.4 kg (199 lb 4.7 oz) SpO2 97% BMI 27.80 kg/m? 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 - Cerebral ventriculomegaly - Coronary artery disease - Coronary-myocardial bridge (HCC) LAD - Enlarged RV (right ventricle) - Grief 05/23/2024 - Hernia - HLD (hyperlipidemia) - HTN (hypertension) - Postsurgical percutaneous transluminal coronary angioplasty status 2000 - Seasonal allergies - Thalassemia minor - Vertigo PAST SURGICAL HISTORY Procedure Laterality Date - COLONOSCOPY 1993 - HEART CATHETERIZATION early - HERNIA REPAIR HX - TONSILLECTOMY HX - VASECTOMY UNI/BI SPX W/POSTOP SEMEN EXAMS ALLERGIES Seasonal Allergies MEDICATIONS - sertraline (ZOLOFT) 50 mg tablet Take 1 tablet by mouth once daily. - metoprolol succinate ER (TOPROL XL) 25 mg 24 hr tablet Take 1 tablet by mouth once daily. - diphenhydrAMINE (SLEEP AID, DIPHENHYDRAMINE,) 25 mg capsule Take 1 capsule by mouth every 6 hours as needed. - atorvastatin (LIPITOR) 40 mg tablet Take 1 tablet by mouth daily at bedtime. - aspirin, enteric coated (ECOTRIN LOW STRENGTH) 81 mg EC tablet Take 1 tablet by mouth once daily. - Zinc Mth/Copper/Saw Palm/Gnsg (PROSTATE HEALTH FORMULA ORAL) Take 1 tablet by mouth once daily. - docosahexaenoic acid/epa (FISH OIL ORAL) Take 2,000 mg by mouth once daily. FAMILY HISTORY Problem Relation Age of Onset - other (TIA) Mother - Dementia Mother - Cancer Father - Heart disease Sister - Heart Attack Sister - No Known Problems Brother - Anxiety disorder Son - Depression Son - Hypertension Son Social History Tobacco Use - Smoking status: Never - Smokeless tobacco: Never - Tobacco comments: Smoked a pipe in [employer] Vaping Use - Vaping status: Never Used Substance Use Topics - Alcohol use: Not Currently - Drug use: Never Physical Exam Vitals and nursing note reviewed. Constitutional: General: He is not in acute distress. Appearance: Normal appearance. He is not ill-appearing. HENT: Right Ear: Tympanic membrane and external ear normal. Left Ear: Tympanic membrane and external ear normal. Nose: No congestion. Mouth/Throat: Mouth: Mucous membranes are moist. Pharynx: Posterior oropharyngeal erythema present. Cardiovascular: Rate and Rhythm: Normal rate and regular rhythm. Heart sounds: Normal heart sounds. Pulmonary: Effort: Pulmonary effort is normal. No respiratory distress. Breath sounds: Normal breath sounds. No wheezing or rales. Lymphadenopathy: Head: Right side of head: Tonsillar adenopathy present. Left side of head: Tonsillar adenopathy present. Cervical: Cervical adenopathy present. Neurological: Mental Status: He is alert. General: No acute distress. HEENT: Pharynx erythematous; cervical lymphadenopathy. CV: Heart sounds regular. Resp: Lungs clear to auscultation. {1. Glands swollen (R59.9) 2. Acute pharyngitis, unspecified etiology (J02.9) - Lymphadenopathy noted on exam; pharynx erythematous. - Rapid strep test performed in office, results negative. - Differential diagnosis includes viral infection. - Advised supportive care with Tylenol for analgesia and increased fluid intake. - Recommended follow-up with Dr. Petersen on Sunday for further evaluation if symptoms persist or worsen. 3. Fatigue, unspecified type (R53.83) - Chronic fatigue reported. - Further evaluation to be conducted by Dr. Petersen if symptoms persist. - Follow-up with your PCP in 3-5 days if symptoms have not improved or sooner if symptoms worsen - Discussed red flags and need for immediate medical evaluation if any occur. - Discussed supportive care treatment with fluids, (more content not included)... [facility] 01-10-2025 History of Present illness Narrative [facility] Subjective Estella Mckeon is a 79 year old male. Patient presents with: Sore Throat: With right ear pain, swollen glands & fatigue x1 day Sore Throat Sore Throat and Ear Pain: - Onset yesterday. - Took NyQuil last night, which alleviated ear pain and sore throat. - Took an allergy medication this morning. - Denies fever, nausea, emesis, or diarrhea. - Reports mild chills. - Denies current pain. Cervical Lymphadenopathy: - Noticed swollen cervical lymph nodes yesterday. - Believes this indicates an underlying issue. Fatigue: - Reports chronic fatigue, stating I'm tired all the time. - Duration described as a long time. - States he slept for 3 hours today which is not normal for him. Review of Systems HENT: Positive for sore throat. 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 metoprolol succinate ER (TOPROL XL) 25 mg 24 hr tablet Take 1 tablet by mouth once daily. diphenhydrAMINE (SLEEP AID, DIPHENHYDRAMINE,) 25 mg capsule Take 1 capsule by mouth every 6 hours as needed. atorvastatin (LIPITOR) 40 mg tablet Take 1 tablet by mouth daily at bedtime. aspirin, enteric coated (ECOTRIN LOW STRENGTH) 81 mg EC tablet Take 1 tablet by mouth once daily. Zinc Mth/Copper/Saw Palm/Gnsg (PROSTATE HEALTH FORMULA ORAL) Take 1 tablet by mouth once daily. docosahexaenoic acid/epa (FISH OIL ORAL) Take 2,000 mg by mouth once daily. FAMILY HISTORY Problem Relation Age of Onset other (TIA) Mother Dementia Mother Cancer Father Heart disease Sister Heart Attack Sister No Known Problems Brother Anxiety disorder Son Depression Son Hypertension Son Social History Tobacco Use Smoking status: Never Smokeless tobacco: Never Tobacco comments: Smoked a pipe in college Vaping Use Vaping status: Never Used Substance Use Topics Alcohol use: Not Currently Drug use: Never Physical Exam Vitals and nursing note reviewed. Constitutional: General: He is not in acute distress. Appearance: Normal appearance. He is not ill-appearing. HENT: Right Ear: Tympanic membrane and external ear normal. Left Ear: Tympanic membrane and external ear normal. Nose: No congestion. Mouth/Throat: Mouth: Mucous membranes are moist. Pharynx: Posterior oropharyngeal erythema present. Cardiovascular: Rate and Rhythm: Normal rate and regular rhythm. Heart sounds: Normal heart sounds. Pulmonary: Effort: Pulmonary effort is normal. No respiratory distress. Breath sounds: Normal breath sounds. No wheezing or rales. Lymphadenopathy: Head: Right side of head: Tonsillar adenopathy present. Left side of head: Tonsillar adenopathy present. Cervical: Cervical adenopathy present. Neurological: Mental Status: He is alert. General: No acute distress. HEENT: Pharynx erythematous; cervical lymphadenopathy. CV: Heart sounds regular. Resp: Lungs clear to auscultation. {1. Glands swollen (R59.9) 2. Acute pharyngitis, unspecified etiology (J02.9) - Lymphadenopathy noted on exam; pharynx erythematous. - Rapid strep test performed in office, results negative. - Differential diagnosis includes viral infection. - Advised supportive care with Tylenol for analgesia and increased fluid intake. - Recommended follow-up with Dr. Petersen on Sunday for further evaluation if symptoms persist or worsen. 3. Fatigue, unspecified type (R53.83) - Chronic fatigue reported. - Further evaluation to be conducted by Dr. Petersen if symptoms persist. - Follow-up with your PCP in 3-5 days if symptoms have not improved or sooner if symptoms worsen - Discussed red flags and need for immediate medical evaluation if any occur. - Discussed supportive care treatment with fluids, rest and analgesia. - Discussed expected course of illness Jonelle Noel APRN.[employer] Recording using [employer] software for draft documentation of the visit was discussed with the patient/authorized business center representative; all questions welcomed and answered. Patient/authorized business center representative agreed to proceed Additional Tests or Interventions The following testing was considered but ultimately not selected after discussion with patient/family: CBC/CMP-chest xray- lab and xray closed at time of visit Disposition The patient was discharged. OTC Medications were advised: Procedures documented in this encounter [facility] 12-18-2024 Note HNO ID: [id number] Author: SONU PETERSEN MD Service: ? Author Type: Physician Type: Progress Notes Filed: 12/18/2024 12:58 Note Text: Chief Complaint Patient presents with: Follow Up: 3 month follow up for grief HPI Estella Mckeon is a 79 year old male who presents here today for Above Complaints. Patient started on zoloft at last OV in August for continued symptoms of grief/depression after [address] last year. Since starting the Zoloft, his symptoms of depression are improving. Not sure if it is the medication or just getting used to his not being there. Going to meetings through [facility]. Denies side effects or SI/HI. Would like to continue current regimen. PHQ-9 More data exists 03/03/2022 08/06/2023 08/25/2023 02/18/2024 12/17/2024 PHQ-9 Scores Little interest or pleasure in doing things: Several days Several days Several days More than half the days Several days Feeling down, depressed, or hopeless: Several days Several days Several days Several days Several days Trouble falling or staying asleep, or sleeping too much Several days Not at all - Several days Not at all Feeling tired or having little energy More than half the days Nearly every day - Several days Several days Poor appetite or overeating More than half the days Several days - More than half the days Several days Feeling bad about yourself - or that you are a failure or have let yourself or your family down Several days Several days - Several days Not at all Trouble concentrating on things, such as reading the newspaper or watching television Several days Several days - Several days Not at all Moving or speaking so slowly that other people could have noticed. Or the opposite - being so fidgety or restless that you have been moving around a lot more than usual Not at all Not at all - Several days Not at all Thoughts that you would be better off , or of hurting yourself in some way Several days Not at all - Not at all Not at all PHQ-9 Score 10 8 - 10 4 Past medical history, appointments, medications, allergies reviewed. 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) Grief 05/23/2024 Hernia HLD (hyperlipidemia) HTN (hypertension) Postsurgical percutaneous transluminal coronary angioplasty status 2000 Thalassemia minor Vertigo Previous Surgical History PAST SURGICAL HISTORY Procedure Laterality Date COLONOSCOPY 1993 HEART CATHETERIZATION early HERNIA REPAIR HX TONSILLECTOMY HX VASECTOMY UNI/BI SPX W/POSTOP SEMEN EXAMS Family History FAMILY HISTORY Problem Relation Age of Onset other (TIA) Mother Dementia Mother Cancer Father Heart disease Sister Heart Attack Sister No Known Problems Brother Anxiety disorder Son Depression Son Hypertension Son Patient Allergies ALLERGIES Allergen Reactions Seasonal Allergies Other: See Comments uses OTC prn Current Medications Current Outpatient Medications on File Prior to Visit Medication Sig metoprolol succinate ER (TOPROL XL) 25 mg 24 hr tablet Take 1 tablet by mouth once daily. sertraline (ZOLOFT) 50 mg tablet Take 1 tablet by mouth once daily. diphenhydrAMINE (SLEEP AID, DIPHENHYDRAMINE,) 25 mg capsule Take 1 capsule by mouth every 6 hours as needed. atorvastatin (LIPITOR) 40 mg tablet Take 1 tablet by mouth daily at bedtime. docosahexaenoic acid/epa (FISH OIL ORAL) Take 2,000 mg by mouth once daily. aspirin, enteric coated (ECOTRIN LOW STRENGTH) 81 mg EC tablet Take 1 tablet by mouth once daily. Zinc Mth/Copper/Saw Palm/Gnsg (PROSTATE HEALTH FORMULA ORAL) Take 1 tablet by mouth once daily. No current facility-administered medications on file prior to visit. Social History Social History Tobacco Use Smoking status: Never Smokeless tobacco: Never Tobacco comments: Smoked a pipe in college Vaping Use Vaping status: Never Used Substance Use Topics Alcohol use: Not Currently Drug use: Never Review of Symptoms REVIEW OF SYSTEMS GENERAL: No weight loss, malaise or fevers RESPIRATORY: Negative for cough, hemoptysis, wheezing, COPD, dyspnea or shortness of breath CARDIOVASCULAR: Negative for chest pain, leg swelling, hypertension, CHF or palpitations GI: No nausea, vomiting, or diarrhea EXAM: BP 108/64 (BP Site: Left Arm, BP Position: Sitting) Pulse 76 Resp 16 Wt 90.3 kg (199 lb) SpO2 95% BMI 27.75 kg/m? General Appearance: Well appearing, alert, in no acute distress, well-hydrated, well nourished.. Skin: Skin color, texture, turgor normal, no suspicious rashes or lesions. Lungs: Lungs clear to auscultation. No wheezing, rhonchi, rales.. Heart: RRR without murmur, gallop, or rubs. No ectopy. Health Maintenance List Depression Screening Never done Anxiety Screening Neve (more content not included)... [facility] 12-08-2024 Telephone encounter Note Prescription Refill Information The patient has been identified by name and date of : Yes Caregiver verified no other encounters exist for this prescription request: Yes Caregiver confirmed with patient/requestor that no other refills are due, in the near future, with this provider at this time: Yes The last office visit in the department: 09/19/24 Does the patient have a future office visit with this provider/department: Yes 12/18/24 Requested Prescriptions Pending Prescriptions Disp Refills metoprolol succinate ER (TOPROL XL) 25 mg 24 hr tablet 90 tablet 3 Sig: Take 1 tablet by mouth once daily. sertraline (ZOLOFT) 50 mg tablet 30 tablet 2 Sig: Take 1 tablet by mouth once daily. Michelle Gray December 08, 2024 9:44 AM [facility] 12-08-2024 Miscellaneous Notes Prescription Refill Information The patient has been identified by name and date of : Yes Caregiver verified no other encounters exist for this prescription request: Yes Caregiver confirmed with patient/requestor that no other refills are due, in the near future, with this provider at this time: Yes The last office visit in the department: 09/19/24 Does the patient have a future office visit with this provider/department: Yes 12/18/24 Requested Prescriptions Pending Prescriptions Disp Refills metoprolol succinate ER (TOPROL XL) 25 mg 24 hr tablet 90 tablet 3 Sig: Take 1 tablet by mouth once daily. sertraline (ZOLOFT) 50 mg tablet 30 tablet 2 Sig: Take 1 tablet by mouth once daily. Michelle Gray December 08, 2024 9:44 AM documented in this encounter [facility] 10-13-2024 Note HNO ID: [id number] Author: SHUBHAM RILEY MD Service: ? Author Type: Physician Type: Progress Notes Filed: 10/13/2024 08:37 Note Text: Shubham Riley MD Interventional Cardiology [address] [place] [address] [phone] Chief Complaint Patient presents with: Follow Up: seen in [place]- 6 months ago HISTORY OF PRESENT ILLNESS: Mr. Mckeon is a 79 year old male seen in my office today for follow-up prior history of mild nonobstructive coronary artery disease with history of myocardial bridge in the LAD history of hyperlipidemia and hypertension doing well from the cardiac point to be asymptomatic denies chest pain or shortness of breath Echocardiography shows normal left ventricular function with normal ejection fraction mildly dilated right ventricle with mild pulm hypertension recent nuclear stress test in beginning of 2023 shows no evidence of ischemia with normal left ventricular function with normal right ventricular function Cardiac Risk Factors age (male over 45, female over 55), hyperlipidemia, hypertension, family history of CAD PAST MEDICAL HISTORY Diagnosis Date Porter 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) Grief 05/23/2024 Hernia HLD (hyperlipidemia) HTN (hypertension) Postsurgical percutaneous transluminal coronary angioplasty status 2000 Thalassemia minor Vertigo PAST SURGICAL HISTORY Procedure Laterality Date COLONOSCOPY 1993 HEART CATHETERIZATION early 1999' HERNIA REPAIR HX TONSILLECTOMY HX VASECTOMY UNI/BI SPX W/POSTOP SEMEN EXAMS FAMILY HISTORY Problem Relation Age of Onset other (TIA) Mother Dementia Mother Cancer Father Heart disease Sister Heart Attack Sister No Known Problems Brother Anxiety disorder Son Depression Son Hypertension Son Social History Tobacco Use Smoking status: Never Smokeless tobacco: Never Tobacco comments: Smoked a pipe in college Vaping Use Vaping status: Never Used Substance Use Topics Alcohol use: Not Currently Drug use: Never ALLERGIES Allergen Reactions Seasonal Allergies Other: See Comments uses OTC prn Medications: Current Outpatient Medications Medication Sig Dispense Refill docosahexaenoic acid/epa (FISH OIL ORAL) Take 2,000 mg by mouth once daily. sertraline (ZOLOFT) 50 mg tablet Take 1 tablet by mouth once daily. 30 tablet 2 aspirin, enteric coated (ECOTRIN LOW STRENGTH) 81 mg EC tablet Take 1 tablet by mouth once daily. Zinc Mth/Copper/Saw Palm/Gnsg (PROSTATE HEALTH FORMULA ORAL) Take 1 tablet by mouth once daily. diphenhydrAMINE (SLEEP AID, DIPHENHYDRAMINE,) 25 mg capsule Take 1 capsule by mouth every 6 hours as needed. metoprolol succinate ER (TOPROL XL) 25 mg 24 hr tablet Take 1 tablet by mouth once daily. 90 tablet 3 atorvastatin (LIPITOR) 40 mg tablet Take 1 tablet by mouth daily at bedtime. 90 tablet 3 No current facility-administered medications for this visit. Review of Systems Constitutional: Negative for chills, diaphoresis, fever, malaise/fatigue and weight loss. HENT: Negative for congestion, ear discharge, ear pain, hearing loss, nosebleeds, sinus pain, sore throat and tinnitus. Eyes: Negative for blurred vision, double vision, photophobia, pain, discharge and redness. Respiratory: Negative for cough, hemoptysis, sputum production, shortness of breath, wheezing and stridor. Cardiovascular: Negative for chest pain, palpitations, orthopnea, claudication, leg swelling and PND. Gastrointestinal: Negative for abdominal pain, blood in stool, constipation, diarrhea, heartburn, melena, nausea and vomiting. Genitourinary: Negative for dysuria, flank pain, frequency, hematuria and urgency. Musculoskeletal: Negative for back pain, falls, joint pain, myalgias and neck pain. Skin: Negative for itching and rash. Neurological: Negative for dizziness, tingling, tremors, sensory change, speech change, focal weakness, seizures, loss of consciousness, weakness and headaches. Endo/Heme/Allergies: Negative for environmental allergies and polydipsia. Does not bruise/bleed easily. Psychiatric/Behavioral: Negative for depression, hallucinations, memory loss, substance abuse and suicidal ideas. The patient is not nervous/anxious and does not have insomnia. Physical Examination: Vitals:BP 120/56 Pulse 76 Resp 12 Ht 5' 11 (1.80m) Wt 192 lb (87.1kg) SpO2 95% BMI 26.79 kg/(m2). BP w/Orthostatic Vitals Date and Time Orthostatic BP Orthostatic Pulse BP Pulse BP Position BP Site BP Cuff Size 10/13/24 0808 -- -- 120/56 76 Sitting Right Arm Large Adult Peak Flow Date and Time PF Resp 10/13/24807 -- 12 Last 2 Encounter Wt Readings: Date: Wt: 10/13/2024 192 lb (87.1 kg) 09/19/2024 192 lb 9.6 oz (87.4 kg) Physical Exam Constitutional: General: He is not in acute distress. Appearance: He is no (more content not included)... [facility] 10-13-2024 History of Present illness Narrative Images from the original note were not included. Shubham Riley MD Interventional Cardiology [address] [place] [address] [phone] Chief Complaint Patient presents with: Follow Up: seen in [place]- 6 months ago HISTORY OF PRESENT ILLNESS: Mr. Mckeon is a 79 year old male seen in my office today for follow-up prior history of mild nonobstructive coronary artery disease with history of myocardial bridge in the LAD history of hyperlipidemia and hypertension doing well from the cardiac point to be asymptomatic denies chest pain or shortness of breath Echocardiography shows normal left ventricular function with normal ejection fraction mildly dilated right ventricle with mild pulm hypertension recent nuclear stress test in beginning of 2023 shows no evidence of ischemia with normal left ventricular function with normal right ventricular function Cardiac Risk Factors age (male over 45, female over 55), hyperlipidemia, hypertension, family history of CAD PAST MEDICAL HISTORY Diagnosis Date 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) Grief 05/23/2024 Hernia HLD (hyperlipidemia) HTN (hypertension) Postsurgical percutaneous transluminal coronary angioplasty status 2000 Thalassemia minor Vertigo PAST SURGICAL HISTORY Procedure Laterality Date COLONOSCOPY 1993 HEART CATHETERIZATION early 1999' HERNIA REPAIR HX TONSILLECTOMY HX VASECTOMY UNI/BI SPX W/POSTOP SEMEN EXAMS FAMILY HISTORY Problem Relation Age of Onset other (TIA) Mother Dementia Mother Cancer Father Heart disease Sister Heart Attack Sister No Known Problems Brother Anxiety disorder Son Depression Son Hypertension Son Social History Tobacco Use Smoking status: Never Smokeless tobacco: Never Tobacco comments: Smoked a pipe in college Vaping Use Vaping status: Never Used Substance Use Topics Alcohol use: Not Currently Drug use: Never ALLERGIES Allergen Reactions Seasonal Allergies Other: See Comments uses OTC prn Medications: Current Outpatient Medications Medication Sig Dispense Refill docosahexaenoic acid/epa (FISH OIL ORAL) Take 2,000 mg by mouth once daily. sertraline (ZOLOFT) 50 mg tablet Take 1 tablet by mouth once daily. 30 tablet 2 aspirin, enteric coated (ECOTRIN LOW STRENGTH) 81 mg EC tablet Take 1 tablet by mouth once daily. Zinc Mth/Copper/Saw Palm/Gnsg (PROSTATE HEALTH FORMULA ORAL) Take 1 tablet by mouth once daily. diphenhydrAMINE (SLEEP AID, DIPHENHYDRAMINE,) 25 mg capsule Take 1 capsule by mouth every 6 hours as needed. metoprolol succinate ER (TOPROL XL) 25 mg 24 hr tablet Take 1 tablet by mouth once daily. 90 tablet 3 atorvastatin (LIPITOR) 40 mg tablet Take 1 tablet by mouth daily at bedtime. 90 tablet 3 No current facility-administered medications for this visit. Review of Systems Constitutional: Negative for chills, diaphoresis, fever, malaise/fatigue and weight loss. HENT: Negative for congestion, ear discharge, ear pain, hearing loss, nosebleeds, sinus pain, sore throat and tinnitus. Eyes: Negative for blurred vision, double vision, photophobia, pain, discharge and redness. Respiratory: Negative for cough, hemoptysis, sputum production, shortness of breath, wheezing and stridor. Cardiovascular: Negative for chest pain, palpitations, orthopnea, claudication, leg swelling and PND. Gastrointestinal: Negative for abdominal pain, blood in stool, constipation, diarrhea, heartburn, melena, nausea and vomiting. Genitourinary: Negative for dysuria, flank pain, frequency, hematuria and urgency. Musculoskeletal: Negative for back pain, falls, joint pain, myalgias and neck pain. Skin: Negative for itching and rash. Neurological: Negative for dizziness, tingling, tremors, sensory change, speech change, focal weakness, seizures, loss of consciousness, weakness and headaches. Endo/Heme/Allergies: Negative for environmental allergies and polydipsia. Does not bruise/bleed easily. Psychiatric/Behavioral: Negative for depression, hallucinations, memory loss, substance abuse and suicidal ideas. The patient is not nervous/anxious and does not have insomnia. Physical Examination: Vitals:BP 120/56 Pulse 76 Resp 12 Ht 5' 11 (1.80m) Wt 192 lb (87.1kg) SpO2 95% BMI 26.79 kg/(m^2). BP w/Orthostatic Vitals Date and Time Orthostatic BP Orthostatic Pulse BP Pulse BP Position BP Site BP Cuff Size 10/13/24807 -- -- 120/56 76 Sitting Right Arm Large Adult Peak Flow Date and Time PF Resp 10/13/24807 -- 12 Last 2 Encounter Wt Readings: Date: Wt: 10/13/2024 192 lb (87.1 kg) 09/19/2024 192 lb 9.6 oz (87.4 kg) Physical Exam Constitutional: General: He is not in acute distress. Appearance: He is not diaphoretic. HENT: Head: Normocephalic and atraumatic. Right Ear: External ear normal. Left Ear: External ear normal. Nose: Nose normal. Mouth/Throat: Pharynx: Oropharynx is clear. Eyes: General: Right eye: No discharge. Left eye: No discharge. Conjunctiva/sclera: Conjunctivae normal. Pupils: Pupils are equal, round, and reactive to light. Cardiovascular: Rate and Rhythm: Normal rate and regular rhythm. Heart sounds: Normal heart sounds, S1 normal and S2 normal. No murmur heard. No friction rub. No gallop. No S3 or S4 sounds. Pulmonary: Effort: Pulmonary effort is normal. No respiratory distress. Breath sounds: Normal breath sounds. No wheezing or rales. Chest: Chest wall: No tenderness. Abdominal: General: Abdomen is flat. Musculoskeletal: General: Normal range of motion. Cervical back: Normal range of motion and neck supple. Skin: General: Skin is warm and dry. Neurological: Mental Status: He is alert and oriented to person, place, and time. Psychiatric: Mood and Affect: Mood normal. Thought Content: Thought content normal. Judgment: Judgment normal. Pertinent Labs: CBC: Hemoglobin (g/dL) Date Value 05/23/2024 11.6 Hematocrit (%) Date Value 05/23/2024 38.2 WBC (k/uL) Date Value 05/23/2024 7.11 Platelet Count (k/uL) Date Value 05/23/2024 188 BMP: Glucose (mg/dL) Date Value 05/23/2024 87 Potassium (mmol/L) Date Value 05/23/2024 4.3 Sodium (mmol/L) Date Value 05/23/2024 139 Chloride (mmol/L) Date Value 05/23/2024 102 CO2 (mmol/L) Date Value 05/23/2024 26 Creatinine (mg/dL) Date Value 05/23/2024 0.75 BUN (mg/dL) Date Value 05/23/2024 15 Anion Gap (mmol/L) Date Value 05/23/2024 11 Calcium, Total (mg/dL) Date Value 05/23/2024 9.6 INR: Lipid Profile: Cholesterol, Total Date Value Ref Range Status 11/19/2023 142 <200 mg/dL Final Comment: <200 mg/dL, Desirable 200-239 mg/dL, Borderline high >239 mg/dL, High HDL Cholesterol Date Value Ref Range Status 11/19/2023 50 >39 mg/dL Final Comment: 40-59 mg/dL, Acceptable >59 mg/dL, High: Negative risk factor for coronary heart disease <40 mg/dL, Low: Positive risk factor for coronary heart disease LDL Cholesterol Date Value Ref Range Status 11/19/2023 72 <100 mg/dL Final Comment: <100 mg/dL, Optimal 100-129 mg/dL, Near optimal/above optimal 130-159 mg/dL, Borderline high 160-189 mg/dL, High >189 mg/dL, Very high Secondary prevention optimal LDL Cholesterol levels are recommended to be < 70 mg/dL Triglyceride Date Value Ref Range Status 11/19/2023 98 <150 mg/dL Final Comment: <150 mg/dL, Normal 150-199 mg/dL, Borderline high 200-499 mg/dL, High >499 mg/dL, Very high Hemoglobin A1C: No results found for: HGBA1C TSH: No results found for: TSHREFL Prior Cardiac Testing none Assessment and Plan: 79 years old gentleman with hypertensive heart disease and hyperlipidemia history of mild nonobstructive coronary artery disease ASSESSMENT/PLAN: 1. Primary hypertension - ICD9: 401.9, ICD10: I10 (primary diagnosis) - Controlled - Continue current medications - Recommend home blood pressure monitoring, to bring results to next visit - Encouraged sodium restriction, DASH or Mediterranean diet - Recommend regular aerobic exercise 2. Coronary artery disease due to lipid rich plaque - ICD9: 414.00, 414.3, ICD10: I25.10, I25.83 Coronary artery disease continue statin and beta-blockers - METOPROLOL SUCCINATE ER 25 MG TABLET,EXTENDED RELEASE 24 HR - ATORVASTATIN 40 MG TABLET 3. Pure hypercholesterolemia - ICD9: 272.0, ICD10: E78.00 Continue statin Shubham Riley MD Follow up plannin months Electronically signed by Shubham Riley MD on October 13, 2024, 8:33 AM The above note was partially created using a dictation recognition software. A reasonable attempt has been made to correct any errors. documented in this encounter [facility] 09-19-2024 Instructions Sonu Petersen MD - 09/19/2024 11:08 AM EST [facility] [place] [address], [place] [address] [facility] Visit website for more information and locations: [email or web address] [facility] [address], [address] [place] [address] [facility] [address] [place] [address] documented in this encounter [facility] 09-19-2024 Note HNO ID: [id number] Author: SONU PETERSEN MD Service: ? Author Type: Physician Type: Progress Notes Filed: 09/25/2024 20:01 Note Text: Chief Complaint Patient presents with: Follow Up: 3 month HPI Estella Mckeon is a 79 year old male who presents here today for Above Complaints. Patient has been in good health without recent hospitalizations, ER visits, or falls. Patient given information for grief counseling at last OV after recent loss of his . Refused medications at that time. Symptoms have not improved. States that since her passing he has been feeling down/depressed, decreased appetite but is eating 3 meals per day (weight down 11 lbs in 3 months), difficulty sleeping (taking melatonin 1 mg which helps), decreased energy/interest/concentration, feeling of guilt. Denies SI/HI or plan to harm himself. Would like to try rx. Patient evaluated by Dr. 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 MRI showed: IMPRESSION: Stable ventriculomegaly out of proportion to cortical sulci when compared to 02/13/2022, which can be seen with normal pressure/communicating hydrocephalus in the appropriate clinical context, versus central volume loss. There is also some aliasing through the cerebral aqueduct on the CSF flow study which can be seen with hyperdynamic flow. Moderate microvascular ischemic white matter changes, also stable. Small remote infarcts bilateral centrum semiovale. Patient states that he did go to optho at [facility] in the fall with reportedly normal exam. Records not available today. Has not followed up with neuropsych testing yet. Patient denies worsening ataxia or new symptoms of CVA including: vision changes, headache, slurred speech, facial droop, weakness, tingling, unilateral numbness. Has canes he is using for ambulation and feels steady with use. Needs to schedule 3 month follow up with neurology after testing. Patient did schedule establish care visit with Dr. Riley for his known history of CAD. Patient is compliant with ASA, statin and beta baron. Denies chest pain, SOB, palpitaitons, LE edema. Past medical history, appointments, medications, allergies reviewed. 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) Grief 05/23/2024 Hernia HLD (hyperlipidemia) HTN (hypertension) Postsurgical percutaneous transluminal coronary angioplasty status 2000 Thalassemia minor Vertigo Previous Surgical History PAST SURGICAL HISTORY Procedure Laterality Date COLONOSCOPY 1993 HEART CATHETERIZATION early 1999' HERNIA REPAIR HX TONSILLECTOMY HX VASECTOMY UNI/BI SPX W/POSTOP SEMEN EXAMS Family History FAMILY HISTORY Problem Relation Age of Onset other (TIA) Mother Dementia Mother Cancer Father Heart disease Sister Heart Attack Sister No Known Problems Brother Anxiety disorder Son Depression Son Hypertension Son Patient Allergies ALLERGIES Allergen Reactions Seasonal Allergies Other: See Comments uses OTC prn Current Medications Current Outpatient Medications on File Prior to Visit Medication Sig melatonin 1 mg tablet Take 0.5-1 mg by mouth at bedtime as needed for insomnia. atorvastatin (LIPITOR) 40 mg tablet Take 1 tablet by mouth daily at bedtime. metoprolol succinate ER (TOPROL XL) 25 mg 24 hr tablet Take 1 tablet by mouth once daily. Zinc Mth/Copper/Saw Palm/Gnsg (PROSTATE HEALTH FORMULA ORAL) Take 1 tablet by mouth once daily. No current facility-administered medications on file prior to visit. Social History Social History Tobacco Use Smoking status: Never Smokeless tobacco: Never Tobacco comments: Smoked a pipe in [employer] Vaping Use Vaping status: Never Used Substance Use Topics Alcohol use: Not Currently Drug use: Never Review of Symptoms REVIEW OF SYSTEMS GENERAL: No weight loss, malaise or fevers RESPIRATORY: Negative for cough, hemoptysis, wheezing, COPD, dyspnea or shortness of breath CARDIOVASCULAR: Negative for chest pain, leg swelling, hypertension, CHF or palpitations GI: No nausea, vomiting, or diarrhea SKIN: Negative for lesions, rash, and itching EXAM: BP 136/86 Pulse 78 Resp 16 Wt 87.4 kg (192 lb 9.6 oz) SpO2 97% BMI 26.86 kg/m? General Appearance: Well appearing, alert, in no acute distress, well-hydrated, well nourished.. Skin: Skin color, texture, turgor normal, no suspicious rashes or lesions. Lungs: Lungs clear to auscultation. No wheezing, rhonchi, rales.. Heart: RRR without murmur, gallop, or rubs. No ectopy. Abdomen: Normal abdominal exam, Abdomen soft, non-tender. Bowel sounds normal. No masses, organ (more content not included)... [facility] 09-19-2024 History of Present illness Narrative Chief Complaint Patient presents with: Follow Up: 3 month HPI Estella Mckeon is a 79 year old male who presents here today for Above Complaints. Patient has been in good health without recent hospitalizations, ER visits, or falls. Patient given information for grief counseling at last OV after recent loss of his . Refused medications at that time. Symptoms have not improved. States that since her passing he has been feeling down/depressed, decreased appetite but is eating 3 meals per day (weight down 11 lbs in 3 months), difficulty sleeping (taking melatonin 1 mg which helps), decreased energy/interest/concentration, feeling of guilt. Denies SI/HI or plan to harm himself. Would like to try rx. Patient evaluated by Dr. 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 MRI showed: IMPRESSION: Stable ventriculomegaly out of proportion to cortical sulci when compared to 02/13/2022, which can be seen with normal pressure/communicating hydrocephalus in the appropriate clinical context, versus central volume loss. There is also some aliasing through the cerebral aqueduct on the CSF flow study which can be seen with hyperdynamic flow. Moderate microvascular ischemic white matter changes, also stable. Small remote infarcts bilateral centrum semiovale. Patient states that he did go to optho at [facility] in the fall with reportedly normal exam. Records not available today. Has not followed up with neuropsych testing yet. Patient denies worsening ataxia or new symptoms of CVA including: vision changes, headache, slurred speech, facial droop, weakness, tingling, unilateral numbness. Has canes he is using for ambulation and feels steady with use. Needs to schedule 3 month follow up with neurology after testing. Patient did schedule establish care visit with Dr. Riley for his known history of CAD. Patient is compliant with ASA, statin and beta baron. Denies chest pain, SOB, palpitaitons, LE edema. Past medical history, appointments, medications, allergies reviewed. 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) Grief 05/23/2024 Hernia HLD (hyperlipidemia) HTN (hypertension) Postsurgical percutaneous transluminal coronary angioplasty status 2000 Thalassemia minor Vertigo Previous Surgical History PAST SURGICAL HISTORY Procedure Laterality Date COLONOSCOPY 1993 HEART CATHETERIZATION early 1999' HERNIA REPAIR HX TONSILLECTOMY HX VASECTOMY UNI/BI SPX W/POSTOP SEMEN EXAMS Family History FAMILY HISTORY Problem Relation Age of Onset other (TIA) Mother Dementia Mother Cancer Father Heart disease Sister Heart Attack Sister No Known Problems Brother Anxiety disorder Son Depression Son Hypertension Son Patient Allergies ALLERGIES Allergen Reactions Seasonal Allergies Other: See Comments uses OTC prn Current Medications Current Outpatient Medications on File Prior to Visit Medication Sig melatonin 1 mg tablet Take 0.5-1 mg by mouth at bedtime as needed for insomnia. atorvastatin (LIPITOR) 40 mg tablet Take 1 tablet by mouth daily at bedtime. metoprolol succinate ER (TOPROL XL) 25 mg 24 hr tablet Take 1 tablet by mouth once daily. Zinc Mth/Copper/Saw Palm/Gnsg (PROSTATE HEALTH FORMULA ORAL) Take 1 tablet by mouth once daily. No current facility-administered medications on file prior to visit. Social History Social History Tobacco Use Smoking status: Never Smokeless tobacco: Never Tobacco comments: Smoked a pipe in [employer] Vaping Use Vaping status: Never Used Substance Use Topics Alcohol use: Not Currently Drug use: Never Review of Symptoms REVIEW OF SYSTEMS GENERAL: No weight loss, malaise or fevers RESPIRATORY: Negative for cough, hemoptysis, wheezing, COPD, dyspnea or shortness of breath CARDIOVASCULAR: Negative for chest pain, leg swelling, hypertension, CHF or palpitations GI: No nausea, vomiting, or diarrhea SKIN: Negative for lesions, rash, and itching EXAM: BP 136/86 Pulse 78 Resp 16 Wt 87.4 kg (192 lb 9.6 oz) SpO2 97% BMI 26.86 kg/m General Appearance: Well appearing, alert, in no acute distress, well-hydrated, well nourished.. Skin: Skin color, texture, turgor normal, no suspicious rashes or lesions. Lungs: Lungs clear to auscultation. No wheezing, rhonchi, rales.. Heart: RRR without murmur, gallop, or rubs. No ectopy. Abdomen: Normal abdominal exam, Abdomen soft, non-tender. Bowel sounds normal. No masses, organomegaly. Extremities: No deformities, edema, skin discoloration, clubbing or cyanosis. Good capillary refill. . Health Maintenance List Depression Screening Never done Anxiety Screening Never done Hepatitis C Screening Never done DTaP,Tdap,Td Vaccine(1 - Tdap) Never done Shingrix Vaccine(1 of 2) Never done RSV Vaccine(1 - 1-dose 75+ series) Never done Advance Directive Discussion Never done Influenza Vaccine(1) due on 02/23/2025 LDL Cholesterol due on 11/18/2024 Annual PCP Team Chronic Disease Visit due on 06/18/2025 Diabetes Screening due on 05/23/2027 Covid-19 Vaccine Completed Pneumococcal Vaccine: 50+ Completed Data reviewed Latest Ref Rng 05/23/2024 WBC 3.70 - 11.00 k/uL 7.11 RBC 4.20 - 6.00 m/uL 5.59 Hemoglobin 13.0 - 17.0 g/dL 11.6 (L) Hematocrit 39.0 - 51.0 % 38.2 (L) MCV 80.0 - 100.0 fL 68.3 (L) MCH 26.0 - 34.0 pg 20.8 (L) MCHC 30.5 - 36.0 g/dL 30.4 (L) RDW-CV 11.5 - 15.0 % 17.0 (H) Platelet Count 150 - 400 k/uL 188 MPV 9.0 - 12.7 fL 12.1 Neut% % 67.3 Abs Neut (ANC) 1.45 - 7.50 k/uL 4.78 Lymph% % 19.0 Abs Lymph 1.00 - 4.00 k/uL 1.35 [place]% % 11.1 Abs [place] <0.87 k/uL 0.79 Eosin% % 1.5 Abs Eosin <0.46 k/uL 0.11 Baso% % 0.8 Abs Baso <0.11 k/uL 0.06 Immature Gran % % 0.3 IMMATURE GRANS (ABS) <0.10 k/uL <0.03 NRBC /100 WBC 0.0 Absolute nRBC <0.01 k/uL <0.01 DTYPE Auto Protein, Total 6.3 - 8.0 g/dL 7.3 Albumin 3.9 - 4.9 g/dL 4.4 Calcium 8.5 - 10.2 mg/dL 9.6 Bilirubin, Total 0.2 - 1.3 mg/dL 1.2 Alkaline Phosphatase 38 - 113 U/L 50 AST 14 - 40 U/L 27 ALT 10 - 54 U/L 19 Glucose 74 - 99 mg/dL 87 BUN 9 - 24 mg/dL 15 Creatinine 0.73 - 1.22 mg/dL 0.75 Sodium 136 - 144 mmol/L 139 Potassium 3.7 - 5.1 mmol/L 4.3 Chloride 98 - 107 mmol/L 102 CO2 22 - 30 mmol/L 26 Anion Gap 8 - 15 mmol/L 11 eGFR >=60 mL/min/1.73m 94 TSH 0.270 - 4.200 mIU/L 2.720 Vitamin D 25 Hydroxy 31.0 - 80.0 ng/mL 36.3 Legend: (L) Low (H) High ASSESSMENT/PLAN: 1. Grief - ICD9: 309.0, ICD10: F43.21 (primary diagnosis) Persistent symptoms. Will start SSRI and gave information on counseling. F/u in 3 months. - SERTRALINE 50 MG TABLET - SERTRALINE 50 MG TABLET 2. 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 F/u with neuropsych testing and neurology recommendations. 3. Coronary artery disease due to lipid rich plaque - ICD9: 414.00, 414.3, ICD10: I25.10, I25.83 Asymptomatic on medical management. F/u with cardiology as scheduled. No changes to regimen. 4. 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 - COMPLETE BLOOD COUNT AND DIFFERENTIAL 5. Primary hypertension - ICD9: 401.9, ICD10: I10 - Controlled - Continue current medications - Recommend home blood pressure monitoring, to bring results to next visit - Encouraged sodium restriction, DASH or Mediterranean diet - Recommend regular aerobic exercise 6. Hyperlipidemia, unspecified hyperlipidemia type - ICD9: 272.4, ICD10: E78.5 - Controlled - Continue current medications - Counseled on healthy diet and regular exercise 7. Cerebral ventriculomegaly - ICD9: 348.89, ICD10: G93.89 Recommendations per neurology. Sonu Petersen MD documented in this encounter [facility] 08-04-2024 Telephone encounter Note Left a detailed message with results from provider below. Bertrand Neff MD [facility] Care Pool Negative COVID, Influenza, and RSV test. Michael Jj LPN [facility] 08-04-2024 Miscellaneous Notes Left a detailed message with results from provider below. Bertrand Neff MD [facility] Care Pool Negative COVID, Influenza, and RSV test. Michael Jj LPN documented in this encounter [facility] 07-30-2024 Note HNO ID: [id number] Author: BERTRAND NEFF MD Service: ? Author Type: Physician Type: Progress Notes Filed: 07/30/2024 13:03 Note Text: Patient presents with: Cough: Cough, congestion and ST x 1.5 weeks HPI: Coughing since the weather changed to cold - 1 1/2 weeks. 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 He is here to be evaluated for possible COVID causing his symptoms. Positive symptoms: dry cough, hoarse voice, post nasal drainageShortness of breath, left Chest pain, back ache, Headaches (temples), Negative symptoms: Sinus pressure, Nasal Congestion, Rhinorrhea, Fever, Chills, Nausea, Vomiting, Diarrhea, OTC: alkaseltzer, aspirin. Wearing a mask helps his cough and throat. He reports his left chest pain and shortness of breath are unchanged from chronic symptoms. He has heard women have atypical anginal symptoms presenting as back pain and his back pain is a new symptom. His back hurts after sleeping and improves with activity. He has slept poorly since his . PAST MEDICAL HISTORY Diagnosis Date 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 atorvastatin (LIPITOR) 40 mg tablet Take 1 tablet by mouth daily at bedtime. metoprolol succinate ER (TOPROL XL) 25 mg 24 hr tablet Take 1 tablet by mouth once daily. Zinc Mth/Copper/Saw Palm/Gnsg (PROSTATE HEALTH FORMULA ORAL) Take 1 tablet by mouth once daily. No current facility-administered medications for this visit. ALLERGIES: ALLERGIES Allergen Reactions Seasonal Allergies Other: See Comments uses OTC prn VITALS: BP 144/84 Pulse 86 Temp 36.9 ?C (98.5 ?F) (Tympanic) Resp 16 Wt 88.6 kg (195 lb 5.2 oz) SpO2 96% BMI 27.24 kg/m? PHYSICAL EXAM: GEN: Pleasant, in no acute distress. HEENT: PERRL, EOMI, conjunctiva clear Ears: Left canal occluded by cerumen. TMs without erythema, bulge, or effusion Sinuses: non-tender frontal sinus, non-tender maxillary sinuses Throat: moist mucous membranes, no erythema, no exudate Neck: supple, no thyromegaly, no lymphadenopathy HEART: regular rate and rhythm, no murmurs LUNGS: clear to auscultation, no wheezes or crackles, no increased WOB ASSESSMENT/PLAN: 1. Acute cough - ICD9: 786.2, ICD10: R05.1 (primary diagnosis) - COVID AND INFLUENZA A/B AND RSV PCR, ROUTINE. He is not sure how to use his MyChart for results - instructed to call for results in the morning. - Differential includes viral URI and low temperature/humidity recently. - Discussed supportive care treatment with rest, cold medicine, and analgesia. Musculoskeletal bilateral mid to low back pain. He is aware and verbalizes in his own words that heart related back pain would need ruled out in the ER and he will go for evaluation if he has a worsening or change from baseline chest pain or shortness of breath. Follow up with PCP and cardiology for ongoing care. 2. Impacted cerumen of left ear - ICD9: 380.4, ICD10: H61.22 Successful removal of large left canal cerumen with lighted curette. He had a raw area in the inferior mid canal without active bleeding after the procedure. Bertrand Neff MD [facility] 07-30-2024 History of Present illness Narrative Patient presents with: Cough: Cough, congestion and ST x 1.5 weeks HPI: Coughing since the weather changed to cold - 1 1/2 weeks. 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 He is here to be evaluated for possible COVID causing his symptoms. Positive symptoms: dry cough, hoarse voice, post nasal drainageShortness of breath, left Chest pain, back ache, Headaches (temples), Negative symptoms: Sinus pressure, Nasal Congestion, Rhinorrhea, Fever, Chills, Nausea, Vomiting, Diarrhea, OTC: alkaseltzer, aspirin. Wearing a mask helps his cough and throat. He reports his left chest pain and shortness of breath are unchanged from chronic symptoms. He has heard women have atypical anginal symptoms presenting as back pain and his back pain is a new symptom. His back hurts after sleeping and improves with activity. He has slept poorly since his . PAST MEDICAL HISTORY Diagnosis Date 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 atorvastatin (LIPITOR) 40 mg tablet Take 1 tablet by mouth daily at bedtime. metoprolol succinate ER (TOPROL XL) 25 mg 24 hr tablet Take 1 tablet by mouth once daily. Zinc Mth/Copper/Saw Palm/Gnsg (PROSTATE HEALTH FORMULA ORAL) Take 1 tablet by mouth once daily. No current facility-administered medications for this visit. ALLERGIES: ALLERGIES Allergen Reactions Seasonal Allergies Other: See Comments uses OTC prn VITALS: BP 144/84 Pulse 86 Temp 36.9 C (98.5 F) (Tympanic) Resp 16 Wt 88.6 kg (195 lb 5.2 oz) SpO2 96% BMI 27.24 kg/m PHYSICAL EXAM: GEN: Pleasant, in no acute distress. HEENT: PERRL, EOMI, conjunctiva clear Ears: Left canal occluded by cerumen. TMs without erythema, bulge, or effusion Sinuses: non-tender frontal sinus, non-tender maxillary sinuses Throat: moist mucous membranes, no erythema, no exudate Neck: supple, no thyromegaly, no lymphadenopathy HEART: regular rate and rhythm, no murmurs LUNGS: clear to auscultation, no wheezes or crackles, no increased WOB ASSESSMENT/PLAN: 1. Acute cough - ICD9: 786.2, ICD10: R05.1 (primary diagnosis) - COVID & INFLUENZA A/B & RSV PCR, ROUTINE. He is not sure how to use his MyChart for results - instructed to call for results in the morning. - Differential includes viral URI and low temperature/humidity recently. - Discussed supportive care treatment with rest, cold medicine, and analgesia. Musculoskeletal bilateral mid to low back pain. He is aware and verbalizes in his own words that heart related back pain would need ruled out in the ER and he will go for evaluation if he has a worsening or change from baseline chest pain or shortness of breath. Follow up with PCP and cardiology for ongoing care. 2. Impacted cerumen of left ear - ICD9: 380.4, ICD10: H61.22 Successful removal of large left canal cerumen with lighted curette. He had a raw area in the inferior mid canal without active bleeding after the procedure. Bertrand Neff MD documented in this encounter [facility] 06-25-2024 History of Present illness Narrative Radiology Service Progress Note PATIENT NAME: Estella Mckeon DATE OF SERVICE: June 25, 2024 TIME: 11:03 AM PATIENT IDENTITY VERIFICATION COMPLETED USING TWO (2) IDENTIFIERS: Name and Date of confirmed by patient verbally. FALL SCREENING: Has the patient had 2 falls in the last year or 1 fall with injury or currently using an Ambulatory Assistive Device (Walker, Cane, Wheelchair, Crutches, etc.)? Yes, Patient High Risk for Falls What interventions were put in place to prevent falls during this visit? Instructed Patient to Call for Help if Needed, Offered Assistance with Transfers/Clothing, Instructed Patient to Remain Seated (Not on Exam Table) Until Exam, and Increased Observations by Caregivers PATIENT GENDER DATA: Male PATIENT RELEVANT IMPLANT DATA REVIEWED: Yes PATIENT PRESENTS WITH AN IMPLANTABLE OR ATTACHED WARRANT CLERK: No RADIOLOGY DEPARTMENT: MR; Exam(s) Completed: Head: Routine Brain CSF FLOW PERIPHERAL IV DATA: Not applicable SIGNED BY: RT Sidney(R) June 25, 2024 11:03 AM documented in this encounter [facility] 06-18-2024 History of Present illness Narrative Patient was scheduled to follow up on memory concerns. He had an appointment 2 days ago with neurology and memory testing was completed. Workup ordered. No other concerns today. Will cancel today's appointment and see him back in 3 months without charge. documented in this encounter [facility] 06-16-2024 History of Present illness Narrative NEW PATIENT (CONSULT) HISTORY AND PHYSICAL EXAM PRIMARY CARE PHYSICIAN: Sonu Petersen MD REASON FOR CONSULT: Cerebral ventriculomegaly REFERRING PHYSICIAN: No ref. provider found CHIEF COMPLAINT: I dont know why I am here Consultation requested by No ref. provider found for an opinion regarding chief complaint of Patient presents with: New Patient Evaluation: CVA and my final recommendations will be communicated back to the requesting physician by way of shared medical record or letter via [place] mail. HISTORY OF PRESENT ILLNESS: Estella Mckeon is a 78 year old male, BMI 26.3 kg/m2 with a PMH significant for that noted below. Pt has MRI brain last completed on 02/16/22 that per rad reports showed: No evidence of acute intracranial process. Moderate burden of nonspecific, likely microvascular ischemic white matter change. 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 The lateral and third ventricles are enlarged out of proportion to cortical sulci which could be due to central volume loss particularly given the amount of white matter change, versus normal pressure/communicating hydrocephalus in the appropriate clinical context. On my review of above brain imaging, pt also appears to have significant cortical volume loss, most predominant in the temp lobes. Pt also saw Dr. Pathak on 02/19/24. Notes and prior workup reviewed. Per report: Estella Mckeon is a 78 year old ambidextrous male who presents for evaluation of imbalance. His examination demonstrates multidirectional including vertical nystagmus, mild hypomimia, and wider based gait. 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 No concern about the read of tiny remote right cerebellar infarct, I can't find it on the scan and do not think it is clinically relevant. Will do labs for potential causes of ataxia. If negative, explained potential next steps such as LP, genetic testing, or observation. Explained MSA as a more common cause though may not ever find exact named condition. Encouraged him to stay active, avoid unsteady conditions, and use cane if falling. He should return to see me in 4 months. When I ask why patient is here today, states he does not know why. On further discussion patient previously followed by Dr. Stephenie Pratt, but pt cannot provide a history. Often pauses in discussion. Then cannot tell me why he saw him. Then tells me he is here due to stroke in the cerebellum - already d/w Dr. Pathak. When asked about other symptoms that are present, patient states he is having memory loss. Patient however is focused on stroke. Patient is a poor historian throughout the discussion. Often forgets his symptoms throughout the visit. Currently falls about twice per month per pt. When I ask the setting, states he will be walking on a double pitch. When I ask if falls in the house, states not typically. Denies any fine motor deficits. States when symptoms first came up, he thought he had vertigo, but as d/w doctors, it is not vertigo but probably ataxia. When I ask when symptoms started he states when Dr. Pratt was his doctor. Note I have none of these prior records for review. Denies history of ETOH use. States mother and sister with similar things but never diagnosed with ataxia. Denies bladder or bowel incontinence. No back pain. MRI C spine also completed in 2021 showing: Cervical spondylosis as described worst at C3-C4 and C5-6 with mild to moderate canal narrowing, likely due to chronic fusion of C4-C5. No cord compression or abnormal cord signal. Minimal thoracic spondylosis without high-grade canal narrowing, cord compression, or abnormal cord signal. Per report from [facility] in 2019, ventricular prominence but no mass lesion and vascular imaging showing no large vessel disease in head or neck. States mother passed of dementia. When asked of head traumas - baseball traumas and hit in head with pitch and line drive years ago. Walked into a steel door 3x with loc x1. All labs ordered by Dr. Pathak appear unremarkable. Pt stresses he does not want CSF testing. Family present but do not provide any additional history. Then states they are more worried about cognitive issues (son). MODIFIED MOCA: Immediate recall: 5/5 Number repeat: 2/2 Sentence repeat: 2/2 Serial 7s: [id number] 10/27 Abstract: 09/28 Orientation: 06/16/24, Tereso, Tuesday 01/30 Namin/3 Delayed recall: 08/31 Cube copy: 08/27 Clock drawin/3 Further review of records show that pt saw Dr. Meraz of neuromuscular as well in 2021. Per last assessment: 77-year-old man with difficulty characterized gait disorder - Extensive work-up to this point including vestibular battery testing is been unremarkable - He still does have some nystagmus uncertain etiology. May benefit from vestibular rehab - To new on today's exam is an apparent thoracic sensory level. In this context check MRI of the cervical and thoracic spine - Reviewed again that the does have mild ventricular prominence. He reports that shuffling gait is improved to some degree as he is more conscious of picking up his feet. - If the above is unremarkable may consider utility of referral to movement disorder specialist given the radiographic possibility of NPH. No diagnosis found. No follow-ups on file. Appears was worried about pt's memory prior to her passing last year. On further discussion and review of records, symptoms likely present for the past 8 years. Pt at end of discussion states born with hydrocephalus. Not dizzy or lightheaded with positional therapy. REVIEW OF SYSTEMS GENERAL:No weight loss, malaise or fevers. HEENT:Negative for frequent or significant headaches, No changes in hearing or vision, no nose bleeds or other nasal problems NECK:Negative for lumps, goiter, pain and significant neck swelling RESPIRATORY: Negative for cough, wheezing or shortness of breath. CARDIOVASCULAR: Negative for chest pain, leg swelling or palpitations. GASTROINTESTINAL: Negative for abdominal discomfort, blood in stools or black stools or change in bowel habits GENITOURINARY: No history of dysuria, frequency or incontinence MUSCULOSKELETAL: Negative for joint pain or swelling, back pain or muscle pain. NEUROLOGIC:Negative for focal numbness or weakness, headaches and dizziness or syncope, vision changes, speech/language changes, changes in gait or falls -- besides those complaints as above in HPI. SKIN:Negative for lesions, rash, and itching. PSYCHIATRIC: Recent passing of . LAB/IMAGING: Reviewed and include: WBC (k/uL) Date Value 05/23/2024 7.11 RBC (m/uL) Date Value 05/23/2024 5.59 Hemoglobin (g/dL) Date Value 05/23/2024 11.6 (L) Hematocrit (%) Date Value 05/23/2024 38.2 (L) MCV (fL) Date Value 05/23/2024 68.3 (L) MCH (pg) Date Value 05/23/2024 20.8 (L) MCHC (g/dL) Date Value 05/23/2024 30.4 (L) RDW-CV (%) Date Value 05/23/2024 17.0 (H) Platelet Count (k/uL) Date Value 05/23/2024 188 MPV (fL) Date Value 05/23/2024 12.1 Glucose (mg/dL) Date Value 05/23/2024 87 BUN (mg/dL) Date Value 05/23/2024 15 Creatinine (mg/dL) Date Value 05/23/2024 0.75 Sodium (mmol/L) Date Value 05/23/2024 139 Potassium (mmol/L) Date Value 05/23/2024 4.3 Chloride (mmol/L) Date Value 05/23/2024 102 CO2 (mmol/L) Date Value 05/23/2024 26 Protein, Total (g/dL) Date Value 05/23/2024 7.3 Albumin (g/dL) Date Value 05/23/2024 4.4 Calcium, Total (mg/dL) Date Value 05/23/2024 9.6 Alkaline Phosphatase (U/L) Date Value 05/23/2024 50 Bilirubin, Total (mg/dL) Date Value 05/23/2024 1.2 AST (U/L) Date Value 05/23/2024 27 ALT (U/L) Date Value 05/23/2024 19 NNAMDI (no units) Date Value 02/26/2024 Positive (A) SSA Antibody IgG (AI) Date Value 02/26/2024 <0.2 SSB Antibody (AI) Date Value 02/26/2024 <0.2 MEDICATIONS: melatonin 1 mg tablet Take 0.5-1 mg by mouth at bedtime as needed for insomnia. atorvastatin (LIPITOR) 40 mg tablet Take 1 tablet by mouth daily at bedtime. metoprolol succinate ER (TOPROL XL) 25 mg 24 hr tablet Take 1 tablet by mouth once daily. Zinc Mth/Copper/Saw Palm/Gnsg (PROSTATE HEALTH FORMULA ORAL) Take 1 tablet by mouth once daily. HISTORIES PAST MEDICAL HISTORY Diagnosis Date 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) Grief 05/23/2024 Hernia HLD (hyperlipidemia) HTN (hypertension) Postsurgical percutaneous transluminal coronary angioplasty status 2000 Thalassemia minor Vertigo FAMILY HISTORY Problem Relation Age of Onset other (TIA) Mother Dementia Mother Cancer Father Heart disease Sister Heart Attack Sister No Known Problems Brother Anxiety disorder Son Depression Son Hypertension Son SOCIAL HISTORY Social History Tobacco Use Smoking status: Never Smokeless tobacco: Never Tobacco comments: Smoked a pipe in [employer] Vaping Use Vaping status: Never Used Substance Use Topics Alcohol use: Not Currently Drug use: Never PHYSICAL EXAMINATION BP 120/73 (BP Site: Left Arm, BP Position: Sitting) Pulse 76 Wt 85.5 kg (188 lb 9.6 oz) SpO2 97% BMI 26.30 kg/m GENERAL EXAM: General appearance: NAD, pleasant. HEENT: NC/AT, nasal congestion absent, no oral lesions, membranes moist. NECK: No masses, supple. Lungs: CTA bilaterally. CV: RRR nl S1, S2. No carotid bruits. Extr: No cyanosis, clubbing or edema. Skin: Cool to touch. NEUROLOGICAL EXAM: General: Awake, alert, oriented x3 (person,place,time), speech fluent, no dysarthria; comprehension, naming, repetition intact. MOCA as above. CN: PERRL, fundi with no evidence of papilledema, EOMI but lateral nystagmus more prominent on the right, VFF to confrontation, facial sensation and strength are normal and symmetric, hearing is intact to finger rub bilaterally, palate and tongue movements are intact and symmetric. SCM and trapezius strength symmetric. Motor: Normal tone, bulk and strength (5/5) bilaterally (throughout extremities x4). Reflexes: 1/4 and symmetric, plantar stimulation is flexor. Coordination: FNF, SERGIO, HTS intact. No tremors. Sensation: Light touch, pin, vibration, temperature intact throughout. No evidence of neglect. Gait: Normal base, normal stride, intentionally lifting knees because he practices to do that to help him walk, normal arm swing. Romberg normal. No retropulsion on pull testing. Assessment and Plan: ASSESSMENT/PLAN: 1. 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 Cerebral ventriculomegaly - ICD9: 348.89, ICD10: G93.89 3. Memory loss - ICD9: 780.93, ICD10: R41.3 4. Recurrent falls - ICD9: V15.88, ICD10: R29.6 5. Nystagmus - ICD9: 379.50, ICD10: H55.00 Patient with multiple complaints for which he has had extensive workups over the past 5 plus years by multiple neurologists. Note that those studies performed by [facility] are not available, the patient has had testing here at [facility] and as above. On review of MRI from 2+ years ago, I agree with Dr. Pathak that the possible stroke of the cerebellum is likely not contributing to symptoms, if even a stroke. In face, neurologic exam at this time is normal except for impairment of delayed recall on MOCA as well as abnormal gait that appears of voluntary nature with pt even stating that he likes to pick his knees up high. There is no weakness, no coordination deficits, no hyperreflexia, and no sensation deficits. The only other abnormality is nystagmus on EOM testing, and I cannot determine when in fact this started but appears was present on prior neuro exams. A this time, I am uncertain the etiology of symptoms. Again, MRI brain 2+ years ago showing enlarged ventricles but pt today stating he was born with hydrocephalus and he does not endorse NPH triad (no bladder incontinence). There is however diffuse atrophy that I feel was advanced for age and mother with history of dementia, and given subjective reports of cognitive decline and impaired memory on MOCA, question if in early stages on a neurodegenerative dementia. Whether this is related to other symptoms is unclear. Also unclear if nystagmus in fact may have been present during childhood. Furthermore, patient is not endorsing vertigo as a cause of falls. Further workup necessary in my opinion despite what has already been completed. This includes MRI brain to evaluate for progression of hydrocephalus as well atrophy. Recommend volumetric study to better evaluate degree of atrophy for age. Would also like neuro ophthalmology evaluation for nystagmus for possible etiologies which have not been determined by workup thus far. Also with regards to cognitive issues, will consult for neurocognitive testing to better determine to what extent this is true decline vs even possible pseudodementia with passing of his last year. FInally, I did encourage physical therapy but pt declines stating that it makes him worse the following day. Pt to follow up after testing above. Igor Lan MD I spent a total of 70 minutes on the date of the service which included preparing to see the patient, [id number] patient care, completing clinical documentation, obtaining and/or reviewing separately obtained history, performing a medically appropriate examination, counseling and educating the patient/family/caregiver, ordering medications, tests, or procedures, independently interpreting results (not separately reported), and communicating results to the patient/family/caregiver. documented in this encounter [facility] 05-27-2024 Telephone encounter Note Reviewed. Thalassemia was not discussed at his OV. Looks like his anemia has been stable for the last 2-3 years. Will continue to monitor without other labs at this time. [facility] 05-27-2024 Miscellaneous Notes Reviewed. Thalassemia was not discussed at his OV. Looks like his anemia has been stable for the last 2-3 years. Will continue to monitor without other labs at this time. Patient notified, verbalized understanding. States he has been diagnosed with Thalassemia minor which he states will show anemia but he is not. Advised him of all the rest of his labs, verbalized understanding. Blood work positive for mild anemia. Recommend checking iron and vitamin studies, and stool for blood as ordered to further evaluate this. Urine negative for signs of infection, but does show signs of dehydration. Recommend increasing fluid intake. Other labs normal. documented in this encounter [facility] 05-26-2024 Telephone encounter Note Patient notified, verbalized understanding. States he has been diagnosed with Thalassemia minor which he states will show anemia but he is not. Advised him of all the rest of his labs, verbalized understanding. [facility] 05-26-2024 Telephone encounter Note Blood work positive for mild anemia. Recommend checking iron and vitamin studies, and stool for blood as ordered to further evaluate this. Urine negative for signs of infection, but does show signs of dehydration. Recommend increasing fluid intake. Other labs normal. [facility] 05-23-2024 Instructions Sonu Petersen MD - 05/23/2024 9:22 AM EDT [facility] [place] [address], [place], [place] [id number] [facility] Visit website for more information and locations: [email or web address] [facility] [address], [address] [place] [address] [facility] [address] [place] [address] documented in this encounter [facility] 05-23-2024 History of Present illness Narrative Chief Complaint Patient presents with: Establish Care HPI Estella Mckeon is a 78 year old male who presents here today for establish care visit. Previous PCP was Dr. Moreira with last OV in October. Moved to [place] a few weeks ago. Accompanied today by his son Herrera. Patient's from metastatic breast cancer on 04/29 just prior to moving into his new condo. States they were moving to the area so she could be closer to their grandson and she made up the condo the way she wanted it and he is living in her vision. States that since her passing he has been feeling down/depressed, decreased appetite but is eating 3 meals per day (weight down 11 lbs in 3 months), difficulty sleeping (taking melatonin 1 mg which helps), decreased energy/interest/concentration, feeling of guilt. Denies SI/HI or plan to harm himself. Not going to counseling. States that he had an old prescription for Valium which he was taking for feeling overwhelmed prior to her . History of ataxia which is being managed by Dr. Pathak with recent labs which were negative. Has appointment with Dr. Lan on 06/16 for CVA and ataxia. Admits to fall about 7-10 days ago. Tripped and fell backwards without head injury or LOC. Denies pain on his back, backside or hips. Able to get up on his own and has not had any pain with walking. Has a cane he is supposed to use, but has not been compliant with this. History of CAD and angioplasty. Denies chest pain, SOB, palpitations, LE edema today. Compliant with regimen. Patient had COVID and flu vaccination in the last week at [facility]. Past medical history, appointments, medications, allergies reviewed. 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) Hernia HLD (hyperlipidemia) HTN (hypertension) Postsurgical percutaneous transluminal coronary angioplasty status 2000 Vertigo Previous Surgical History PAST SURGICAL HISTORY Procedure Laterality Date HERNIA REPAIR HX TONSILLECTOMY HX VASECTOMY UNI/BI SPX W/POSTOP SEMEN EXAMS Family History FAMILY HISTORY Problem Relation Age of Onset other (dementia) Mother other (TIA) Mother Cancer Father Patient Allergies ALLERGIES Allergen Reactions Seasonal Allergies Other: See Comments uses OTC prn Current Medications Current Outpatient Medications on File Prior to Visit Medication Sig melatonin 1 mg tablet Take 0.5-1 mg by mouth at bedtime as needed for insomnia. atorvastatin (LIPITOR) 40 mg tablet Take 1 tablet by mouth daily at bedtime. metoprolol succinate ER (TOPROL XL) 25 mg 24 hr tablet Take 1 tablet by mouth once daily. Zinc Mth/Copper/Saw Palm/Gnsg (PROSTATE HEALTH FORMULA ORAL) Take 1 tablet by mouth once daily. triamcinolone acetonide (KENALOG) 0.1 % cream Apply to affected area twice a day for 1-2 weeks off an on only as needed clotrimazole (LOTRIMIN) 1 % cream Apply 1 application to affected area two times a day. (Patient not taking: Reported on 05/23/2024) No current facility-administered medications on file prior to visit. Social History Social History Tobacco Use Smoking status: Never Smokeless tobacco: Never Vaping Use Vaping status: Never Used Substance Use Topics Alcohol use: Not Currently Drug use: Never Review of Symptoms REVIEW OF SYSTEMS GENERAL: No weight loss, malaise or fevers RESPIRATORY: Negative for cough, hemoptysis, wheezing, COPD, dyspnea or shortness of breath CARDIOVASCULAR: Negative for chest pain, leg swelling, hypertension, CHF or palpitations GI: No nausea, vomiting, or diarrhea SKIN: Negative for lesions, rash, and itching EXAM: BP 122/64 Pulse 89 Resp 16 Ht 180.3 cm (5' 11) Wt 84 kg (185 lb 3.2 oz) SpO2 98% BMI 25.83 kg/m General Appearance: Well appearing, alert, in no acute distress, well-hydrated, well nourished.. Skin: Skin color, texture, turgor normal, no suspicious rashes or lesions. Lungs: Lungs clear to auscultation. No wheezing, rhonchi, rales.. Heart: RRR without murmur, gallop, or rubs. No ectopy. Abdomen: Normal abdominal exam, Abdomen soft, non-tender. Bowel sounds normal. No masses, organomegaly. Extremities: No deformities, edema, skin discoloration, clubbing or cyanosis. Good capillary refill. . Health Maintenance List Depression Screening Never done Anxiety Screening Never done Hepatitis C Screening Never done DTaP,Tdap,Td Vaccine(1 - Tdap) Never done Shingrix Vaccine(1 of 2) Never done RSV Vaccine(1 - 1-dose 75+ series) Never done Advance Directive Discussion Never done Influenza Vaccine(1) due on 04/27/2024 Annual PCP Team Chronic Disease Visit due on 11/07/2024 LDL Cholesterol due on 11/18/2024 Diabetes Screening due on 03/13/2027 Covid-19 Vaccine Completed Pneumococcal Vaccine: 65+ Completed Data reviewed Latest Ref Rng 11/19/2023 02/20/2024 Protein, Total 6.3 - 8.0 g/dL 7.1 Albumin 3.9 - 4.9 g/dL 4.5 Calcium 8.5 - 10.2 mg/dL 9.4 Bilirubin, Total 0.2 - 1.3 mg/dL 1.3 Alkaline Phosphatase 38 - 113 U/L 46 AST 14 - 40 U/L 27 ALT 10 - 54 U/L 20 Glucose 74 - 99 mg/dL 122 (H) BUN 9 - 24 mg/dL 15 Creatinine 0.73 - 1.22 mg/dL 0.84 Sodium 136 - 144 mmol/L 141 Potassium 3.7 - 5.1 mmol/L 4.3 Chloride 97 - 105 mmol/L 106 (H) CO2 22 - 30 mmol/L 27 Anion Gap 9 - 18 mmol/L 8 (L) eGFR >=60 mL/min/1.73m 90 Cholesterol, Total <200 mg/dL 142 Triglyceride <150 mg/dL 98 HDL Cholesterol >39 mg/dL 50 Non HDL Cholesterol <130 mg/dL 92 Fasting Time hrs 12 VLDL Cholesterol <30 mg/dL 20 TC:HDL Ratio <5.10 2.84 LDL Cholesterol <100 mg/dL 72 LDL:HDL Ratio <2.54 1.44 Hemoglobin A1C 4.3 - 5.6 % 5.5 Estimated Average Glucose mg/dL 111 PSA Screening <2.60 ng/mL 0.43 Glucose, Fasting 74 - 99 mg/dL 106 (H) Legend: (H) High (L) Low ASSESSMENT/PLAN: 1. Encounter for medical examination to establish care - ICD9: V70.9, ICD10: Z00.00 (primary diagnosis) - Counseled on healthy diet and regular exercise - COMPREHENSIVE METABOLIC PANEL - THYROID STIMULATING HORMONE - VITAMIN D 25 HYDROXY - COMPLETE BLOOD COUNT AND DIFFERENTIAL - URINALYSIS, WITH MICROSCOPIC 2. Grief - ICD9: 309.0, ICD10: F43.21 Spent the majority of today's visit discussing grief and typical reaction. I believe what he is experiencing is not abnormal and we discussed trial of SSRI and referral to counseling. He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 swelling. 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) Hernia HLD (hyperlipidemia) HTN (hypertension) Postsurgical percutaneous transluminal coronary angioplasty status 2000 Vertigo PAST SURGICAL HISTORY Procedure Laterality Date HERNIA REPAIR HX TONSILLECTOMY HX VASECTOMY UNI/BI SPX W/POSTOP SEMEN EXAMS SOCIAL HISTORY Social History Tobacco Use Smoking status: Never Smokeless tobacco: Never Vaping Use Vaping Use: Never used Substance Use Topics Alcohol use: Not Currently Drug use: Never FAMILY HISTORY Problem Relation Age of Onset other (dementia) Mother other (TIA) Mother Cancer Father ALLERGIES: ALLERGIES Allergen Reactions Seasonal Allergies Other: See Comments uses OTC prn MEDICATIONS: Current Outpatient Medications Medication Sig melatonin 1 mg tablet Take 0.5-1 mg by mouth at bedtime as needed for insomnia. Zinc Mth/Copper/Saw Palm/Gnsg (PROSTATE HEALTH FORMULA ORAL) Take 1 tablet by mouth once daily. atorvastatin (LIPITOR) 40 mg tablet Take 1 tablet by mouth daily at bedtime. metoprolol succinate ER (TOPROL XL) 25 mg 24 hr tablet Take 1 tablet by mouth once daily. triamcinolone acetonide (KENALOG) 0.1 % cream Apply to affected area twice a day for 1-2 weeks off an on only as needed (Patient not taking: Reported on 09/28/2023) clotrimazole (LOTRIMIN) 1 % cream Apply 1 application to affected area two times a day. (Patient not taking: Reported on 09/28/2023) Current Facility-Administered Medications Medication Dose Route Frequency perflutren lipid microspheres 1.3 mL in NaCl (PF) 0.9% 10 mL injection (DEFINITY) INTRAVENOUS DIRECTED PRN sodium chloride 0.9 % (flush) 10 mL (BD POSIFLUSH) 10 mL INTRAVENOUS DIRECTED PRN REVIEW OF SYSTEMS: All 12 systems reviewed, all negative except what mentioned in HPI. PHYSICAL EXAMINATION: BP 122/64 Pulse 72 Wt 197 lb (89.4kg) SpO2 97% General:well developed Skin:warm and dry Neck:no JVD, no carotid bruits Lungs:clear to auscultation Heart:regular rhythm and S1, S2 normal PV Pulses:pulses intact Abdomen:soft, non-tender Extremities:normal exam CARDIOVASCULAR MEDICINE TESTING: Electrocardiogram: NSR, 1degree AV block, I have personally reviewed the Electrocardiogram. IMPRESSION: Mr. Mckeon is a 78 year old male with PMH of the cerebellum infarct, HTN, HLP, non-obstructive CAD at 2019 and right side dilation and dysfunction. He mentioned that I fhe lift heavy things will get chest and left arm pain but no pain when walking on flat surface. He denies any SOB or swelling. PLAN AND RECOMMENDATIONS: ASSESSMENT/PLAN: 1. Coronary artery disease due to lipid rich plaque - ICD9: 414.00, 414.3, ICD10: I25.10, I25.83 (primary diagnosis) - ECG B/O W INTERP (MED OFFICE) - ATORVASTATIN 40 MG TABLET - METOPROLOL SUCCINATE ER 25 MG TABLET,EXTENDED RELEASE 24 HR - ECHO - PERFLUTREN LIPID MICROSPHERES 1.1 MG/ML INJECTION IN NS 10 ML - SODIUM CHLORIDE 0.9 % (FLUSH) INJECTION SYRINGE 2. Encounter for screening for cardiovascular disorders - ICD9: V81.2, ICD10: Z13.6 - ATORVASTATIN 40 MG TABLET - METOPROLOL SUCCINATE ER 25 MG TABLET,EXTENDED RELEASE 24 HR - NM CARDIAC PERF STRESS/EXERCISE - ECHO - PERFLUTREN LIPID MICROSPHERES 1.1 MG/ML INJECTION IN NS 10 ML - SODIUM CHLORIDE 0.9 % (FLUSH) INJECTION SYRINGE 3. Primary hypertension - ICD9: 401.9, ICD10: I10 - Controlled - Continue current medications - Recommend home blood pressure monitoring, to bring results to next visit - Encouraged sodium restriction, DASH or Mediterranean diet - Recommend regular aerobic exercise 4. Hyperlipidemia, unspecified hyperlipidemia type - ICD9: 272.4, ICD10: E78.5 - Controlled - Continue current medications - Counseled on healthy diet and regular exercise Caroline Torres MD,[facility] Regional Section of Interventional Cardiology [facility], [address], [email or web address] documented in this encounter [facility] 09-28-2023 Nurse Note No cardiac complaints today, would like you to take over refilling meds in Dr. Ortega's absence. Rufina Brady MA documented in this encounter [facility] 08-28-2023 Note HNO ID: [id number] Author: Liliane Krishnan MD Service: ? Author Type: Physician Type: Progress Notes Filed: 08/28/2023 12:29 PM Note Text: Liliane Krishnan MD Hand AND Upper Extremity Surgery [address], [place] [address] [address] [facility], [address], [place] [address] [address], [address], [place] [address] OUTPATIENT VISIT SERVICE DATE: 08/28/2023 CHIEF COMPLAINT: Left palm nodules HISTORY OF PRESENT ILLNESS: Estella Mckeon is a Right Handed 78 year old male who presents for above chief complaint. Patient is referred by: Quincy Moreira* My final recommendation will be communicated back to the requesting physician by way of shared medical record or letter to requesting physician via fax/US mail. Patient does not recall a specific injury. Did state he was hit in the hand with many baseballs growing up. 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 No Yes, Provider notified Pain Scales - Verbal (Numeric Rating or Visual Analog Scale) Pain Level - 1 Pain Location - (No Data) Description - (No Data) Duration Amount of Time - (No Data) Duration Units - Years Frequency - Continuous Intervention/Comfort measure - - Pain Assessment - - PMDP report reviewed and All prescriptions have been APPROPRIATELY filled. No suspicious activity was identified. 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 PAST MEDICAL HISTORY Diagnosis Date Hernia Vertigo PAST SURGICAL HISTORY Procedure Laterality Date HERNIA REPAIR HX TONSILLECTOMY HX VASECTOMY UNI/BI SPX W/POSTOP SEMEN EXAMS FAMILY HISTORY Problem Relation Age of Onset other (dementia) Mother other (TIA) Mother Cancer Father Social History Tobacco Use Smoking status: Never Smokeless tobacco: Never Vaping Use Vaping Use: Never used Substance Use Topics Alcohol use: Not Currently Drug use: Never MEDICATIONS: Current Outpatient Medications Medication Sig clotrimazole (LOTRIMIN) 1 % cream Apply 1 application to affected area two times a day. atorvastatin (LIPITOR) 40 mg tablet TAKE 1 TABLET BY MOUTH AT BEDTIME Zinc Mth/Copper/Saw Palm/Gnsg (PROSTATE HEALTH FORMULA ORAL) metoprolol succinate ER (TOPROL XL) 25 mg 24 hr tablet Take 1 tablet by mouth once daily. No current facility-administered medications for this visit. ALLERGIES: ALLERGIES Allergen Reactions Seasonal Allergies Other: See Comments uses OTC prn PHYSICAL EXAM: VITAL SIGNS: Resp 18 Ht 5' 11.5 (1.82m) Wt 199 lb (90.3kg) BMI 27.37 kg/(m2). GENERAL: The patient is awake, alert, and oriented with appropriate mood and affect. SKIN: The skin over the hand shows no rash lesion or erythema, and that is comparable to the contralateral hand. Well defined fascial cords are noted along the 4th ray and spreading radially over the MCPs INSPECTION/PALPATION: There is no focal swelling, and no palpable joint effusion. TENDERNESS: No tenderness to palpation. ROM: There is no flexion contracture of the 4th ray. He has chronic contractures of the small finger and the index finger PIP joints he states from prior basketball injuries LIGAMENTS: There is no gross ligamentous laxity. MUSCLE: Rn Wom[facility] strength is well maintained. No atrophy present. NEURO: The patient reports no decreased sensation to the digit. VASCULAR: Strong radial pulse. 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 This rope eventually tightens to where the involved fingers are bent and can no longer straighten actively. Early signs of this disease are nodules at the distal palmar crease or pitting or dimpling in the palm. Treatment for these is usually observation but we can discuss injection if the area is painful. While there is no cure, there are different options for intervention which are surgical or nonsurgical but no intervention is needed unless the contracture of the digit develops and effects the ability to complete daily tasks. I demonstrated the tabletop test for the patient. We discussed that any injections or surgery in the area of the palm may worsen the contracture. Also, discussed that while this is a progressive disorder the exact timeline for progression varies from patient to patient and is unpredictable. Al (more content not included)... [facility] 08-09-2023 Miscellaneous Notes Ortho- Referral information submitted to [facility]. Ref# [id number]. [facility] Specialty office will call the patient within 7-10 business days to set this appointment up. Neurology- Referral information submitted to [facility]. Ref# [id number]. [facility] Specialty office will call the patient within 7-10 business days to set this appointment up. Cardiology- Referral information submitted to [facility]. Ref# [id number]. [facility] Specialty office will call the patient within 7-10 business days to set this appointment up. 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 11/08/2023 Vertigo 09/21/2020 11/08/2023 Last Assessment & Plan: Assessment: saw neurologist; attributed to aging documented as of this encounter (statuses as of 11/20/2023) [facility]11-16-2023 Miscellaneous Notes* Telephone Encounter - Ashlyn Gooden PSS - 07/12/2023 8:56 AM EST Attempted to contact patient - no answer - left Appinions - GeoSentric message sent also [facility] Instructions* Patient Instructions* Ana Cali APRN.CNP - 04/24/2023 2:02 PM EDT Supportive care is advised, such as nasal spray/ nasal saline, humidifier, good hand washing, increased fluids, OTC pain reliever, salt water gargles, tea with honey and lemon, and other measures as discussed. Follow-up with PCP in 7-10 days if symptoms persist; sooner for new or worsening symptoms. Strict ER precautions for chest pain, trouble breathing, and/or other emergent concerns. Beginning Home Isolation Isolation is used to separate people infected with SARS-CoV-2, the virus that causes COVID-19, frompeople who are not infected. People who are in isolation should stay home until it s safe for them to be around others. In the home, anyone sick or infected should separate themselves from others by staying in a specific sick room or area and using a separate bathroom (if available). Isolation or Quarantine: What's the difference? Quarantine keeps someone who might have been exposed to the virus away from others. Isolation keeps someone who is infected with the virus away from others, even in their home. Who needs to isolate People who have COVID-19 People who have symptoms of COVID-19 and are able to recover at home People who have no symptoms (are asymptomatic) but have tested positive for infection with SARS-CoV-2 Steps to take Stay home except to get medical care Monitor your symptoms. Stay in a separate room from other household members, if possible Use a separate bathroom, if possible Avoid contact with other members of the household and pets Don t share personal household items, like cups, towels, and utensils Wear a mask when around other people, if you are able to When to seek emergency medical attention Look for emergency warning signs* for COVID-19. If someone is showing any of these signs, seek emergency medical care immediately: Trouble breathing Persistent pain or pressure in the chest New confusion Inability to wake or stay awake Bluish lips or face *This list is not all possible symptoms. Please call your medical provider for any other symptoms that are severe or concerning to you. Call 911 or call ahead to your local emergency facility: Notify the packing machine operator that you are seeking care for someone who has or may have COVID-19. Ending Home Isolation - When you can be around others after you had or likely had COVID-19 When you can be around others after you had or likely had COVID-19 If You Test Positive for COVID-19 (Isolation) Everyone, regardless of vaccination status: Stay home for 5 days. Note: Day 0 is your first day of symptoms or the date of collection of a positive viral test if no symptoms. Day 1 is the first full day after symptoms developed or test specimen was collected. If you have no symptoms or your symptoms are resolving after 5 days, you can leave your house. Continue to wear a mask around others for 5 additional days. If you have a fever, continue to stay home until your fever resolves, even if it is longer than 5 days. If You Were Exposed to Someone with COVID-19 (Quarantine) If you: 1. Have been boosted OR 2. Completed the primary series of Pfizer or Moderna vaccine within the last 6 months OR 3. Completed the primary series of J&J vaccine within the last 2 months THEN: 1. Wear a mask around others for 10 days. 2. Test on day 5, if possible. If you develop symptoms get a test and stay home. If You Were Exposed to Someone with COVID-19 (Quarantine) If you: 1. Completed the primary series of Pfizer or Moderna vaccine over 6 months ago and are not boosted OR 2. Completed the primary series of J&J over 2 months ago and are not boosted OR 3. Are unvaccinated THEN: 1. Stay home for 5 days. After that continue to wear a mask around others for 5 additional days. 2. If you can't quarantine you must wear a mask for 10 days. 3. Test on day 5 if possible. If you develop symptoms get a test and stay home. I had COVID-19 or I tested positive for COVID-19 and I have a weakened immune system If you have a weakened immune system (immunocompromised) due to a health condition or medication, you might need to stay home and isolate longer than 10 days. Talk to your healthcare provider for more information. Your doctor may work with an infectious disease expert at your local health department to determinewhen you can be around others. documented in this encounterC[facility] History of Present illness Narrative* Ana Cali APRN.MARGARITA - 04/24/2023 1:26 PM EDT This note was created using [employer] Subjective Estella Mckeon is a 77 year old male. Patient reports sore throat x3 days. He is taking an antihistamine, which helps a little but sore throat has not resolved. He is also using a hydrogen peroxide based throat spray. No known sick contacts; patient would like to r/o Covid. He denies fever, n/v/d, chest pain cough, SOB, and headache. He says he has chronic dizziness r/t his diagnosis of vertigo. Review of Systems Constitutional: Negative for appetite change and fever. HENT: Positive for sore throat. Negative for congestion, drooling, ear pain and trouble swallowing. Respiratory: Negative for cough. Cardiovascular: Negative for chest pain. Gastrointestinal: Negative for diarrhea, nausea and vomiting. Allergic/Immunologic: Negative for immunocompromised state. Neurological: Negative for weakness and headaches. Hematological: Negative for adenopathy. Psychiatric/Behavioral: Negative for confusion. Objective BP 127/80 Pulse 68 Temp 36.5 C (97.7 F) (Temporal) Wt 89.4 kg (197 lb) SpO2 97% BMI 27.09kg/m Physical Exam Vitals and nursing note reviewed. Constitutional: General: He is not in acute distress. Appearance: Normal appearance. He is not ill-appearing, toxic-appearing or diaphoretic. Comments: Patient in NAD, speaking in full sentences, and breathing is not labored HENT: Head: Normocephalic and atraumatic. Right Ear: Tympanic membrane, ear canal and external ear normal. There is no impacted cerumen. Left Ear: Ear canal and external ear normal. There is impacted cerumen. Ears: Comments: Full cerumen impaction at left ear Verbal consent obtained. MA completed lavage of left ear with warm water. Patient tolerated well. Cerumen completely removed. Left canal is WNL and TM is intact and non-erythematous. Nose: Nose normal. Mouth/Throat: Mouth: Mucous membranes are moist. Pharynx: No oropharyngeal exudate. Comments: PND noted, uvula midline, no swelling Cardiovascular: Rate and Rhythm: Normal rate. Pulmonary: Effort: Pulmonary effort is normal. No respiratory distress. Breath sounds: Normal breath sounds. No wheezing or rales. Skin: General: Skin is warm and dry. Coloration: Skin is not jaundiced or pale. Neurological: General: No focal deficit present. Mental Status: He is alert and oriented to person, place, and time. Motor: No weakness. Psychiatric: Mood and Affect: Mood normal. Behavior: Behavior normal. Assessment and Plan MDM: Patient reports sore throat x3 days. He is taking an antihistamine, which helps a little but sore throat has not resolved. He is also using a hydrogen peroxide based throat spray. No known sick contacts; patient would like to r/o Covid. He denies fever, n/v/d, chest pain cough, SOB, and headache. He says he has chronic dizziness r/t his diagnosis of vertigo. BP 127/80 Pulse 68 Temp 36.5 C (97.7 F) (Temporal) Wt 89.4 kg (197 lb) SpO2 97% BMI 27.09kg/m Upon exam, patient in NAD, speaking in full sentences, and breathing is not labored. Physical exam as documented and findings discussed with patient. Swab specimen sent to lab for Covid testing. They will receive results by My Chart (if active) or will otherwise be notified. Advised to isolate at this time. Patient given printed information about Covid. Prescription for fluticasone sent to pharmacy. Patient is stable, non-toxic, and in NAD. Discussed dosing and side effects of medications, home care instructions, and indications for follow-up and for ER visit. Patient states understanding and is agreeable to the plan. ASSESSMENT/PLAN: 1. Impacted cerumen of left ear - ICD9: 380.4, ICD10: H61.22 (primary diagnosis) - REMOVAL OF IMPACTED CERUMEN - INSTRUMENTATION 2. Acute pharyngitis, unspecified etiology - ICD9: 462, ICD10: J02.9 - FLUTICASONE PROPIONATE 50 MCG/ACTUATION NASAL SPRAY,SUSPENSION 3. Suspected COVID-19 virus infection - ICD9: V01.79, ICD10: Z20.822 - COVID NAAT, ROUTINE 4. Post-nasal drainage - ICD9: 473.9, ICD10: R09.82 - FLUTICASONE PROPIONATE 50 MCG/ACTUATION NASAL SPRAY,SUSPENSION Supportive care is advised, such as nasal spray/ nasal saline, humidifier, good hand washing, increased fluids, OTC pain reliever, salt water gargles, tea with honey and lemon, and other measures as discussed. Follow-up with PCP in 7-10 days if symptoms persist; sooner for new or worsening symptoms. Strict ER precautions for chest pain, trouble breathing, and/or other emergent concerns. Ana Cali APRN.SURGICAL CORSETIER documented in this encounterC[facility] Miscellaneous Notes* Telephone Encounter - Lurdes Montenegro Ma - 02/06/2023 8:05 AM EDT Patient phones requesting refills as follows: Last office visit 11/23/22 Requested Prescriptions Pending Prescriptions Disp Refills atorvastatin (LIPITOR) 40 mg tablet [Pharmacy Med Name: atorvastatin 40 mg tablet] 90 tablet 1 Sig: TAKE 1 TABLET BY MOUTH AT BEDTIME Please review and advise. Lurdes Montenegro Ma documented in this encounterC[facility]04-24-[facility] History of Present illness Narrative* Reyna Gruber DO - 12/18/2022 9:27 AM EDT New Patient Visit Referred from: Dr Jose Moreira Chief complaint: skin lesions HPI: 77 year old male. Today's concerns are: 1) skin lesions Location: R posterior shoulder, L forehead Duration: months Symptoms: dry Current treatment: none Past treatment: none Past Derm History: Personal history of melanoma: No Family history of melanoma (1st degree relative): No Atypical nevi: No Personal history of NMSC: No Meds: Current Outpatient Medications on File Prior to Visit Medication Sig Zinc Mth/Copper/Saw Palm/Gnsg (PROSTATE HEALTH FORMULA ORAL) metoprolol succinate ER (TOPROL XL) 25 mg 24 hr tablet Take 1 tablet by mouth once daily. atorvastatin (LIPITOR) 40 mg tablet Take 1 tablet by mouth daily at bedtime. No current facility-administered medications on file prior to visit. ROS: Denies fevers, weight loss, night sweats, joint pain, abdominal pain, headaches, cough. Skin as above. Physical Exam: Gen: AAOX3, NAD Skin exam performed including scalp, face, neck, chest, abdomen, back, arms, hands, legs, feet. Notable exam findings as follows: -face, neck, trunk, including back UE with scattered rivas-brown macules in sun- exposed distribution -torso and arms: scattered dome-shaped red papules -Trunk, UE, LE with scattered warty brown stuck-on papules -L forehead, L adventist:10 gritty keratotic papules Assessment/Plan: ASSESSMENT/PLAN: 1. Seborrheic keratosis - ICD9: 702.19, ICD10: L82.1 (primary diagnosis) -Reassured regarding benign nature. No treatment necessary unless symptomatic/changing. 2. [place] angioma - ICD9: 228.01, ICD10: D18.01 -Reassured regarding benign nature. No treatment necessary unless symptomatic/changing. 3. Lentigines - ICD9: 709.09, ICD10: L81.4 -Reassured regarding benign nature. No treatment necessary unless symptomatic/changing. -Recommended SPF 30 or greater 4. Actinic keratosis - ICD9: 702.0, ICD10: L57.0 -- Cryotheraphy SE/Risks discussed: The risks, benefits, indications, alternatives, and complications were discussed, and informed consent was obtained. Specifically, the risks of permanent scar, loss or darkening of skin color, blister and recurrence of lesion were discussed. Patient verbalized und erstanding and wished to proceed. Verbal consent was obtained. - See procedure notes. Procedures: Procedure Note - Benign/Pre-Malignant Lesion(s) - Lesion(s) x10 AK;s were treated with cryotherapy x 2 cycles x 10 sec/cycle with liquid nitrogen via cryostat spray device. The risks, benefits, indications, alternatives, and complications were discussed, and informed consent was obtained. Specifically, the risks of permanent scar, loss or darkeni ng of skin color, blister and recurrence of lesion were discussed. Patient verbalized understandingand wished to proceed. Verbal consent was obtained. The patient tolerated the procedure well without complications. Wound care instructions were reviewed and given to patient RTC 4 week AK follow up. The patient is seen and examined by Dr. Gruber and the following reflects his/her service. Scribed by Trina Rios CMA I agree with the Chief Complaint, ROS, and Past Histories independently gathered by the clinical support associate and the remaining scribed note accurately describes my personal service to the patient. Reyna Gruber DO documented in this encounterC[facility]03-30-2023 History of Present illness Narrative* Quincy Moreira MD - 11/23/2022 1:59 PM EDT Estella Mckeon is a 77 year old male known to our practice. Patient presents with: Derm Problem: L forehead area, back Multiple skin lesions on his back. One on the top is irritating him. Vertigo - pt is currently seeing neurologist and in PT for vestibular rehab. Some improvement but feels like he platoud out at this point. Extensive work up by neurologist. Small lacunar infarct in the cerebellum. Past Medical, Surgical, Family and Social Histories reviewed and updated today in the History tab of [facility]. Current Medications and allergies reviewed. 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 atorvastatin (LIPITOR) 40 mg tablet Take 1 tablet by mouth daily at bedtime. No current facility-administered medications for this visit. PHYSICAL EXAMINATION: BP 119/73 Pulse 72 Temp 37 C (98.6 F) Ht 181.6 cm (5' 11.5) Wt 87.5 kg (193 lb) BMI 26.54 kg/m PHYSICAL EXAMINATION: General appearance: Well appearing, alert, in no acute distress, well-hydrated, well nourished. Lungs: Lungs clear to auscultation. No wheezing, rhonchi, rales Heart: RRR without murmur, gallop, or rubs. No ectopy . Skin: scaly erythematous 7 mm lesion right upper back, irritated. Multiple SKs scattered on back. Scaly erythematous patch on forehead \ ASSESSMENT/PLAN: 1. Skin neoplasm - ICD9: 239.2, ICD10: D49.2 (primary diagnosis) - CONSULT TO DERMATOLOGY 2. Screening for lipid disorders - ICD9: V77.91, ICD10: Z13.220 - LIPID PANEL BASIC 3. Screening for diabetes mellitus - ICD9: V77.1, ICD10: Z13.1 - COMP METABOLIC PANEL 4. Neoplasm of skin - ICD9: 239.2, ICD10: D49.2 5. Screening for prostate cancer - ICD9: V76.44, ICD10: Z12.5 - PSA/PROSTSPECAG SCRN 6. 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 Vertigo - ICD9: 780.4, ICD10: R42 Continue PT and neurologist Quincy Moreira MD [facility] History of Present illness Narrative* Chloe Cleveland PT - 11/15/2022 11:08 AM EDT Episode Visit Count: 11 Therapist That Will Accept/Oversee The Plan Of Care: Chloe Cleveland PT Start of Care Date: 08/03/22 Onset Date: 07/04/22 Plan of Care Certification Date: 10/02/22 Next Certification Due Date: 12/01/22 Patient Identified by Name and Date of : Yes REHABILITATION AND SPORTS THERAPY PHYSICAL THERAPY TREATMENT NOTE ASSESSMENT: Estella Mckeon tolerated the session with expected muscle soreness. He continues to present with c/o being unable to tolerate walking > 2 miles, which appears to be affecting the quality of his life, given that he used to be a runner. Focused on exercises to strengthen the pelvis/buttock/hip musculature, as this is the area he feels gets the weakest during walking and limits his walking distance. Question if a trial of aquatic PT may be beneficial to him in that it will unload his joints but allow him to jog in water in the deep end. Question if he may have better endurance in the pool, which may be of some encouragement to him. Recommend trial of 4 pool sessions and then return to primary PT for recheck. The patient will continue to benefit from ongoing skilled physical therapy to progress toward set goals. PLAN FOR NEXT VISIT: initiate aquatic PT to allow pt to work on strengthening of pelvis, hips, LE and core. May try water jogging in deep end. After four sessions in the pool, have pt return to primary PT for additional assessment. SUBJECTIVE: Pt states that he walked two miles, twice. But he said that his carriage felt like spaghetti (pt pointed to pelvis and groin). He said it felt wrong, like his legs would collapse. He said that hecan walk 1.5 miles and he feels fine. Pt reports that he has not been sleeping well so he took some melatonin. He said that it helped thefirst night but not the next nights. He said that it makes him feel woozy during the day. He said that he has also been wearing water shoes in the house. He said that he likes that they wrap around his foot. He does report that he was wearing these shoes on Sunday and he caught his foot on the step. He said that he crashed into the wall and put his R shoulder through the wall. He denieshitting his head. He said that he feels very discouraged. Aquatic Screen. Contra-indication Check: History of cardiac problems: Yes - [place] Years ago (pt states that his splunk developer said that his heart is fine) History of seizures: No Open wounds / sores: No Incontinence: No Fear of Water: had one bad experience in a [place] last summer. He was a swimmer but on this occasion, he jumped in and panicked. Active infection ( flu, gastrointestinal, vomiting, UTI): No Kidney disease: No Pain patch: No Precaution Check: Chlorine Senstivity / Allergy: No How much do you weigh? 192# per chart Are you comfortable in the water? Yes Are you able to dress / undress yourself? Yes Are you able to ascend / descend 5 stairs with the assist of a railing? Yes Pain: Pain Pain Level: 0 OBJECTIVE MEASURES WITH LEVEL OF FUNCTION: During squats, pt tended to bend knees over toes. Pt had difficulty performing squats correctly, maintaining hips posteriorly. Needed to have occ UE support. TREATMENT: Therapeutic Exercise: 1: Sci Fit x 7 min warm up and endurance training. 2: reviewed POC including trial of aquatics to unload LEs to work on hip/LE strengthening and endurance training 3: ball squeezes in hooklying x 10 reps 4: ball squeezes with bridge lifts x 10 reps x 2 5: prone lying hip ext with knee flexed and knee extended x 10 reps on each side* 6: *added to HEP, handouts issued 7: standing squats x 15 reps, chair behind him 8: standing and tossing/catching ball (PT guarding pt, who was wearing gait belt). This activity performed per pt request as he wished to see if he had strength/coordination to catch a ball Skilled Intervention: Patient was educated in proper exercise technique and purpose for exercises. Skilled judgment was provided in selection of appropriate interventions. Patient education as noted. Billing Therapeutic Exercise Treatment Minutes: 55 Total Treatment Time Minutes (timed/untimed): 55 Chloe Cleveland PT documented [facility] History of Present illness Narrative* Chloe Cleveland PT - 10/31/2022 1:06 PM EST Episode Visit Count: 10 Therapist That Will Accept/Oversee The Plan Of Care: Chloe Cleveland PT Start of Care Date: 08/03/22 Onset Date: 07/04/22 Plan of Care Certification Date: 10/02/22 Next Certification Due Date: 12/01/22 Patient Identified by Name and Date of : Yes REHABILITATION AND SPORTS THERAPY PHYSICAL THERAPY PROGRESS REPORT PLAN OF CARE UPDATE: Assessment: Estella Mckeon demonstrates improvements in functional performance as noted by his improved scores on his 30 sec sit to stand and decreased time score on 5x sit to stand and TUG tests. He still appears discouraged by his progress but appears to have more realistic expectations/goals for himself. Still needs work on postural/core strengthening and higher level balance with dual tasking. Pt has two more PT apps scheduled. Feel he may be ready for d/c at that time. Goals for Episode of Care: created on 08/03/22 through 11/30/22; updated 10/02/22; updated 10/31/22 Patient will report no falls in next 8 weeks. achieved. Ongoing. Complete evaluation and establish goals. Achieved Improve balance as evidenced by pt being able to stand Rhomberg, firm EC x 60 sec with min-nil sway: Met Improve score on DGI to 19+ in order to reduce fall risk:Met Pt to perform dual tasking with agility ladder stepping patterns without stopping. Partially achieved New goals: Pt to be able to walk 2 miles 2x/week. Planned Interventions, Frequency, and Duration: 1x/week, 2 weeks Total Number of Visits Planned: 2 Patient to be seen for Neuromuscular re-education (12481), Therapeutic exercise (94307), Patient/Family/Caregiver Education PLAN FOR NEXT VISIT: may try walking over hurdles or tossing/catching ball SUBJECTIVE: Pt states that he is always off balance. He said that he feels better than he was 4-5 months ago. I know I'm not going to run a marathon and I'm ok with that. He would like to be able to mow the lawn. He reports that a few weeks ago he took his sinks apart. He said that a year ago, he would not havebeen able to do that (crawling under the sink.) Pt states that he would like to be able to walk a few miles 2x/week. Pt states that he did the LE bands this am and he is still very fatigued this am. Pain: PROMIS Scales Higher is Better 10/12/2022 09/04/2022 08/01/2022 Phys Func - Score 40 (mild dysfunction) 39 (moderate dysfunction) 39 (moderate dysfunction) Phys Func - Percentile 16 % 14 % 14 % Self-Eff Symptom - Score 40 (Average) 44 (Average) 41 (Average) Self-Eff Symptom - Percentile 16 % 27 % 18 % T-scores: mean of general population = 50. 5 points is clinically meaningfully difference Percentiles provide an indication of how the patient's score ranks in relation to the general population. Higher percentile rankings indicate better function/quality of life. 50th percentile is the average of the general population and indicates half of respondents had a worse score. OBJECTIVE MEASURES WITH LEVEL OF FUNCTION: Functional Performance Test Results 30 Second Chair Stand Test: 11 reps 5 Times Sit to Stand Test : 13.6 sec Timed Up and Go (sec): 9.04 sec Performed sit to stand from sitting on blue ball: 14 reps in 30 sec Balance testing: firm, feet together, EC, arms crossed: trial 1: 60 sec, sway: min-nil foam, feet together, EO, arms crossed: trial 1: 60 sec, sway: min foam, feet together, EC, arms crossed: trial 1: 8 sec, sway: LOB, trial 2: 14 sec, LOB TREATMENT: Neuromuscular Re-Education: 1: SciFit recumbent bike x 7 min to warm up and prepare for exercise 2: progress note completed 3: sitting on blue exercise ball for the followin: bouncing to stimulate vestibular system 5: sitting on ball turning neck side to side and up and down x 30 sec each direction 6: sitting on ball with LAQ x 10 reps B 7: sitting on ball with unilateral hip flex x 10 reps B 8: balance as above Skilled Intervention: Skilled judgment used to assess appropriate program for balance and coordination activity. Patient education as noted. Billing Neuromuscular Re-Education Treatment Minutes: 40 Total Treatment Time Minutes (timed/untimed): 40 Chloe Cleveland PT documented in this encounterC[facility] History of Present illness Narrative* Chloe Cleveland PT - 10/24/2022 1:02 PM EST Episode Visit Count: 9 Therapist That Will Accept/Oversee The Plan Of Care: Chloe Cleveland PT Start of Care Date: 08/03/22 Onset Date: 07/04/22 Plan of Care Certification Date: 10/02/22 Next Certification Due Date: 12/01/22 Patient Identified by Name and Date of : Yes REHABILITATION AND SPORTS THERAPY PHYSICAL THERAPY TREATMENT NOTE ASSESSMENT: Estella Mckeon tolerated the session with improved tolerance since last visit. He still demonstrates difficulty with balance on compliant surface with EC as well as difficulty coordinating activities with dual tasking. Pt appears discouraged and presents with depressed affect. Question if pt may benefit from speaking with someone to address any emotional concerns. The patient will continue to benefit from ongoing skilled physical therapy to progress toward set goals. PLAN FOR NEXT VISIT: NV: progress note. Determine need for additional PT. SUBJECTIVE: Pt states that he feels a little better than last week and he denies any falls. Pain: Pain Pain Level: 0 OBJECTIVE MEASURES WITH LEVEL OF FUNCTION: Balance testing: firm, feet together, EC, arms crossed: trial 1: 60 sec, sway: min foam, feet together, EO, arms crossed: trial 1: 60 sec, sway: min-mod foam, feet together, EC, arms crossed: trial 1: 10 sec, sway: LOB, trial 2: 3 sec, LOB TREATMENT: Therapeutic Exercise: 1: 4 way hip with green tband x 10 reps all directions* 4: *issued for HEP, Skilled Intervention: Patient was educated in proper exercise technique and purpose for exercises. Skilled judgment was provided in selection of appropriate interventions. Patient education as noted. Neuromuscular Re-Education: 1: SciFit recumbent bike x 6 min to warm up and prepare for exercise 2: balance as above 3: rocker board fwd/back and side to side 4: agility ladder (in-in, out out and typewriters naming men/women's names for dual tasking) Skilled Intervention: Skilled judgment used to assess appropriate program for balance and coordination activity. Patient education as noted. Billing Therapeutic Exercise Treatment Minutes: 15 Neuromuscular Re-Education Treatment Minutes: 35 Total Treatment Time Minutes (timed/untimed): 50 Chloe Cleveland PT documented in [facility] History of Present illness Narrative* Chloe Cleveland PT - 10/12/2022 12:33 PM EST Episode Visit Count: 8 Therapist That Will Accept/Oversee The Plan Of Care: Chloe Cleveland PT Start of Care Date: 08/03/22 Onset Date: 07/04/22 Plan of Care Certification Date: 10/02/22 Next Certification Due Date: 12/01/22 Patient Identified by Name and Date of : Yes REHABILITATION AND SPORTS THERAPY PHYSICAL THERAPY TREATMENT NOTE ASSESSMENT: Estella Mckeon demonstrated increased fatigue throughout session, possibly due to recovering from COVID last week. The patient will continue to benefit from ongoing skilled physical therapy to progress toward set goals. PLAN FOR NEXT VISIT: progress to higher level balance and endurance training. SUBJECTIVE: Pt states that he had COVID last week (tested + on 10/03/22). Reports that he had much coughing and fever 100 degrees F. [place] significantly worse in terms of balance. [place] like he was back at his starting point again. Pt saw virtual specialist and was placed on Plaxlovid x 5 days. Feels significantly better now. Pt states that at his worst, he knocked over 3 lamps and fell on the floor all three times. He did report that one of the falls, he landed on his R hip. He does not think he hit his head; he denies LOC with falls. Feels off balance only with movement, but not when sitting still. Pt was unable to perform any balance or band exercises while he had COVID. Still feeling very fatigued. Pain: Pain Pain Level: 0 OBJECTIVE MEASURES WITH LEVEL OF FUNCTION: Balance testing: firm, feet together, EC, arms crossed: trial 1: 60 sec, sway: min foam, feet together, EO, arms crossed: trial 1: 60 sec, sway: min foam, feet together, EC, arms crossed: trial 1: 5 sec, sway: LOB; trial 2: 51 sec, mod sway-LOB vitals end of session: 121/71 HR: 60 bpm SpO2: 99% TREATMENT: Neuromuscular Re-Education: 1: positional testing defered- pt states that he did not want this completed 2: balance as above 3: instructed pt to resume Rhomberg in corner EC, firm 2x/day 4: reassurance provided to pt as he reported that he felt he was back to square one 5: Sci Fit recumbent bike x 5 min to work on endurance 6: encouraged pt to stay hydrated 7: tbands deferred as pt felt woozy after recumbent bike; vitals rececked Skilled Intervention: Skilled judgment used to assess appropriate program for balance and coordination activity. Patient education as noted. Billing Neuromuscular Re-Education Treatment Minutes: 38 Total Treatment Time Minutes (timed/untimed): 38 Chloe Cleveland PT documented in this encounterC[facility] Instructions* Patient Instructions* Radames George MD - 10/03/2022 4:36 PM EST FACT SHEET FOR PATIENTS, PARENTS, AND CAREGIVERS EMERGENCY USE AUTHORIZATION (EUA) OF PAXLOVID FOR CORONAVIRUS DISEASE 2019 (COVID-19) You are being given this Fact Sheet because your healthcare provider believes it is necessary to provide you with PAXLOVID for the treatment of vjpf-dr-rjdfspbz coronavirus disease (COVID-19) caused by the SARS-CoV-2 virus. This Fact Sheet contains information to help you understand the risks and benefits of taking the PAXLOVID you have received or may receive. The [place].S. Food and Drug Administration (FDA) has issued an Emergency Use Authorization (EUA) to makePAXLOVID available during the COVID-19 pandemic (for more details about an EUA please see What is an Emergency Use Authorization? at the end of this document). PAXLOVID is not an FDA-approved medicine in the [place]. Read this Fact Sheet for information about PAXLOVID. Talk to your healthcareprovider about your options or if you have any questions. It is your choice to take PAXLOVID. What is COVID-19? COVID-19 is caused by a virus called a coronavirus. You can get COVID-19 through close contact withanother person who has the virus. COVID-19 illnesses have ranged from very jwgx-jd-ancqkm, including illness resulting in . While information so far suggests that most COVID-19 illness is mild, serious illness can happen and maycause some of your other medical conditions to become worse. Older people and people of all ages with severe, long lasting (chronic) medical conditions like heart disease, lung disease, and diabetes,for example seem to be at higher risk of being hospitalized for COVID-19. What is PAXLOVID? PAXLOVID is an investigational medicine used to treat dnoe-yk-mqtolrgs COVID-19 in adults and children [12 years of age and older weighing at least 88 pounds (40 kg)] with positive results of direct SARS-CoV-2 viral testing, and who are at high risk for progression to severe COVID-19, including hospitalization or . PAXLOVID is investigational because it is still being studied. There is limited information about the safety and effectiveness of using PAXLOVID to treat people with isnw-me-uezwdcmr COVID-19. The FDA has authorized the emergency use of PAXLOVID for the treatment of fyug-wt-swzkuybl COVID-19in adults and children [12 years of age and older weighing at least 88 pounds (40 kg)] with a positive test for the virus that causes COVID-19, and who are at high risk for progression to severe COVID-19, including hospitalization or , under an EUA. 1 Revised: 11 November 2021 What should I tell my healthcare provider before I take PAXLOVID? Tell your healthcare provider if you: Have any allergies Have liver or kidney disease Are or plan to become Are a child Have any serious illnesses Tell your healthcare provider about all the medicines you take, including prescription and bafu-ktw-smtcsrt medicines, vitamins, and herbal supplements. Some medicines may interact with PAXLOVID and may cause serious side effects. Keep a list of your medicines to show your healthcare provider and pharmacist when you get a new medicine. You can ask your healthcare provider or pharmacist for a list of medicines that interact with PAXLOVID. Do not start taking a new medicine without telling your healthcare provider. Your healthcare provider can tell you if it is safe to take PAXLOVID with other medicines. Tell your healthcare provider if you are taking combined hormonal contraceptive. PAXLOVID may affect how your control pills work. Females who are able to become should use another effective alternative form of contraception or an additional barrier method of contraception. Talk to your healthcare provider if you have any questions about contraceptive methods thatmight be right for you. How do I take PAXLOVID? PAXLOVID consists of 2 medicines: nirmatrelvir and ritonavir. Take 2 pink tablets of nirmatrelvir with 1 white tablet of ritonavir by mouth 2 times each day (in the morning and in the evening) for 5 days. For each dose, take all 3 tablets at the same time. If you have kidney disease, talk to your healthcare provider. You may need a different dose. Swallow the tablets whole. Do not chew, break, or crush the tablets. Take PAXLOVID with or without food. Do not stop taking PAXLOVID without talking to your healthcare provider, even if you feel better. If you miss a dose of PAXLOVID within 8 hours of the time it is usually taken, take it as soon as you remember. If you miss a dose by more than 8 hours, skip the missed dose and take the next dose atyour regular time. Do not take 2 doses of PAXLOVID at the same time. If you take too much PAXLOVID, call your healthcare provider or go to the nearest hospital emergency room right away. If you are taking a ritonavir-or cobicistat-containing medicine to treat hepatitis C or Human Immunodeficiency Virus (HIV), you should continue to take your medicine as prescribed by your healthcare provider. Talk to your healthcare provider if you do not feel better or if you feel worse after 5 days. Who should generally not take PAXLOVID? Do not take PAXLOVID if: You are allergic to nirmatrelvir, ritonavir, or any of the ingredients in PAXLOVID You are taking any of the following medicines: Alfuzosin Pethidine, propoxyphene Ranolazine Amiodarone, dronedarone, flecainide, propafenone, quinidine Colchicine Lurasidone, pimozide, clozapine Dihydroergotamine, ergotamine, methylergonovine Lovastatin, simvastatin Sildenafil (Revatio ) for pulmonary arterial hypertension (PAH) Triazolam, oral midazolam Apalutamide Carbamazepine, phenobarbital, phenytoin Rifampin [place] s Wort (hypericum perforatum) Taking PAXLOVID with these medicines may cause serious or life-threatening side effects or affect how PAXLOVID works. These are not the only medicines that may cause serious side effects if taken with PAXLOVID. PAXLOVID may increase or decrease the levels of multiple other medicines. It is very important to tell your healthcare provider about all of the medicines you are taking because additional laboratory tests or changes in the dose of your other medicines may be necessary while you are taking PAXLOVID. Your healthcare provider may also tell you about specific symptoms to watch out for that may indicate that you need to stop or decrease the dose of some of your other medicines. What are the important possible side effects of PAXLOVID? Possible side effects of PAXLOVID are: Allergic Reactions. Allergic reactions can happen in people taking PAXLOVID, even after only 1 dose. Stop taking PAXLOVID and call your healthcare provider right away if you get any of the following symptoms of an allergic reaction: hives trouble swallowing or breathing swelling of the mouth, lips, or face throat tightness hoarseness skin rash Liver Problems. Tell your healthcare provider right away if you have any of these signs and symptoms of liver problems: loss of appetite, yellowing of your skin and the whites of eyes (jaundice), dark-colored urine, pale colored stools and itchy skin, stomach area (abdominal) pain. Resistance to HIV Medicines. If you have untreated HIV infection, PAXLOVID may lead to some HIV medicines not working as well in the future. Other possible side effects include: altered sense of taste diarrhea high blood pressure muscle aches These are not all the possible side effects of PAXLOVID. Not many people have taken PAXLOVID. Serious and unexpected side effects may happen. PAXLOVID is still being studied, so it is possible that all of the risks are not known at this time. What other treatment choices are there? Veklury (remdesivir) is FDA-approved for the treatment of blmp-zg-xivjmqhz COVID-19 in certain adults and children. Talk with your doctor to see if Veklury is appropriate for you. Like PAXLOVID, FDA may also allow for the emergency use of other medicines to treat people with COVID-19. Go to https://www.fda.gov/ifnunuijs-twpjuicsgewl-zhpuaxtdmni/azr-zokpm-wqkslrhoyd-and- policy-framework/rbuovqeld-vda-tlqggcnkvyqns for information on the emergency use of other medicines that are authorized by FDA to treat people with COVID-19. Your healthcare provider may talk with you aboutclinical trials for which you may be eligible. It is your choice to be treated or not to be treated with PAXLOVID. Should you decide not to receive it or for your child not to receive it, it will not change your standard medical care. What if I am or ? There is economist research assistant treating women or mothers with PAXLOVID. For a motherand unborn baby, the benefit of taking PAXLOVID may be greater than the risk from the treatment. Ifyou are , discuss your options and specific situation with your healthcare provider. It is recommended that you use effective barrier contraception or do not have sexual activity whiletaking PAXLOVID. If you are , discuss your options and specific situation with your healthcare provider. How do I report side effects with PAXLOVID? Contact your healthcare provider if you have any side effects that bother you or do not go away. Report side effects to [employer] at www.fda.gov/medwatch or call 4-734-QHG1312 or you can reportside effects to [employer] at the contact information provided below. Website Fax number Telephone number [place]haali How should I store PAXLOVID? Store PAXLOVID tablets at room temperature, between 68?F to 77?F (20?C to 25?C). How can I learn more about COVID-19? Ask your healthcare provider. Visit https://www.cdc.gov/COVID19. Contact your local or state public health department. What is an Emergency Use Authorization (EUA)?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 Risk : Active at risk Goals for Episode of Care: created on 08/03/22 through 10/02/22 Patient will report no falls in next 8 weeks. Complete evaluation and establish goals Planned Interventions, Frequency, and Duration: Current Frequency: 1x/week Duration: 8 weeks Total Number of Visits Planned: 8 Planned Treatment Interventions: Therapeutic exercise (08796);Neuromuscular re- education (81386);Self-halfway management (03614);Patient/Family/Caregiver Education;Canalith Repositioning Maneuvers ([id number]) (YARN SALVAGER if needed) PLAN FOR NEXT VISIT: complete evaluation and further establish goals Patient demonstrates good understanding of plan of care and treatment. The above goals and plan of care were discussed and agreed upon by patient/family. SUBJECTIVE: Estella Mckeon is a 77 year old male seen today for imbalance. Pt reports that he hasfallen at least 12 times this past year. He denies any injury. He denies any dizziness. Pt reports that 6 years ago, he ran a full marathon and now he can't run 50'. He used to run ~35 miles per week. Now he said that he feels accomplished if he can walk a mile. He said that pushing his lawnmower up his yard is very challenging. Pt reports that he used to call it vertigo but he denies dizziness. Pt states that he was walking ~4.5 miles (~5 years ago) and he remembers that he had to stop walking because he felt like he couldn't walk. He can't remember if he had pain but he wondered if he was going to on the street. He had to kneel down. About 6 months later he was having sex and instead of taking one pill, he took 1.5. He said that hefelt explosion in his head and wasn't sure if he passed out. 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 Pt states that he feels that overall in the past few years, he has been getting a little better. Concussion History of Concussion: Yes (~10 years ago) Number of Concussions: 1 Vestibular Symptoms present for: (~ 5 years ago) Symptom onset: sudden (but never spinning episodes) Pain: Pain Pain Level: 0 PROMIS Scales Higher is Better 01/17/2022 07/25/2022 08/01/2022 Phys Func - Score - - 39 (moderate dysfunction) Phys Func - Percentile - - 14 % GH Physical - Score 44.9 (Good) 42.3 (Good) - GH Physical - Percentile 31 % 22 % - GH Mental - Score 45.8 (Good) 50.8 (Very Good) - GH Mental - Percentile 34 % 53 % - Self-Eff Symptom - Score - - 41 (Average) Self-Eff Symptom - Percentile - - 18 % T-scores: mean of general population = 50. 5 points is clinically meaningfully difference Percentiles provide an indication of how the patient's score ranks in relation to the general population. Higher percentile rankings indicate better function/quality of life. 50th percentile is the average of the general population and indicates half of respondents had a worse score. T-scores: mean of general population = 50. 5 points is clinically meaningfully difference Percentiles provide an indication of how the patient's score ranks in relation to the general population. Higher percentile rankings indicate better function/quality of life. 50th percentile is the average of the general population and indicates half of respondents had a worse score. OBJECTIVE MEASURES WITH LEVEL OF FUNCTION: Pt arrived 10 min late. Able to accommodate for shortened session. LE Strength R Hip Flexion (L2): 5/5 R Knee Extension (L3): 5/5 R Knee Flexion: 4+/5 R Ankle Dorsiflexion (L4): 5/5 R Ankle Plantar Flexion: 5/5 L Hip Flexion (L2): 5/5 L Knee Extension (L3): 5/5 L Knee Flexion: 5/5 L Ankle Dorsiflexion (L4): 5/5 L Ankle Plantar Flexion: 5/5 Sensation: pt denies any numbness or tingling in LEs. Gait: ambulates community distances independently without assistive device, but slowly and with some evidence for imbalance. Education: Education Learning Preferences: Demonstration;Explanation Barriers: None Learning/educational needs: Plan of Care Education Provided: Yes, see treatment interventions for education provided Education Provided To: Patient Education Mode/Type: Demonstration;Explanation/Discussion Response to Education/Teach Back: States/Identifies TREATMENT: PT Treatment Interventions: Neuromuscular Re-Education Evaluation Neuromuscular Re-Education: 1: Long discussion with pt about anatomy of the inner ear 2: educated in the function of the inner ear 3: reviewed POC Skilled Intervention: Patient education as noted. Billing * Evaluation Moderate Complexity: 1 Unit Neuromuscular Re-Education Treatment Minutes: 10 Total Treatment Time Minutes (timed/untimed): 35 Chloe Cleveland PT documented [facility] History of Present illness Narrative* Quincy Moreira MD - 08/01/2022 10:52 AM EST Estella Mckeon is a 77 year old male known to our practice. Patient presents with: Cough: X 6 weeks, cough with mucus Pt had sinusitis 6 weeks ago. Started on abx. Symptoms stayed after augmentin. Second time he was seen 4 days ago and started on doxy and prednsione. Feeling much better. His lungs were rattling before the steroids but it's no longer an issue. Had ear infection but that resolved. No fevers no chills. No sob or chest pain. Dizziness - continues to have balance issues. Seeing neurologist. He is starting PT this week. Past Medical, Surgical, Family and Social Histories reviewed and updated today in the History tab of [facility]. Current Medications and allergies reviewed. 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 atorvastatin (LIPITOR) 40 mg tablet Take 1 tablet by mouth daily at bedtime. methylPREDNISolone (MEDROL, GINNY,) 4 mg Dose-Pack Follow dosing instructions, take with food. metoprolol succinate ER (TOPROL XL) 25 mg 24 hr tablet Take 1 tablet by mouth once daily. benzonatate (TESSALON PERLE) 100 mg capsule Take 1 capsule by mouth three times daily as needed forcough. (Patient not taking: Reported on 08/01/2022) meclizine (ANTIVERT) 12.5 mg tab (Patient not taking: No sig reported) aspirin, enteric coated (ASPIRIN, ENTERIC COATED) 81 mg EC tablet Take 81 mg by mouth once daily. docosahexaenoic acid/epa (FISH OIL ORAL) Take by mouth. Melatonin 5 mg cap Take by mouth. (Patient not taking: Reported on 07/17/2022) homeopathic drugs (PROSTATE ORAL) Take by mouth. (Patient not taking: Reported on 07/17/2022) Current Facility-Administered Medications Medication Dose Route Frequency perflutren lipid microspheres 1.3 mL in NaCl (PF) 0.9% 10 mL injection (DEFINITY) INTRAVENOUS DIRECTED PRN sodium chloride 0.9 % (flush) 10 mL (BD POSIFLUSH) 10 mL INTRAVENOUS DIRECTED PRN REVIEW OF SYSTEMS GENERAL: No weight loss, malaise or fevers PHYSICAL EXAMINATION: BP 127/76 Pulse 78 Temp 36.5 C (97.7 F) (Left Tympanic) Ht 181.6 cm (5' 11.5) Wt 87.1 kg (192 lb 1.6 oz) SpO2 95% BMI 26.42 kg/m PHYSICAL EXAMINATION: General appearance: Well appearing, alert, in no acute distress, well-hydrated, well nourished. Lungs: Lungs clear to auscultation. No wheezing, rhonchi, rales Heart: RRR without murmur, gallop, or rubs. No ectopy Ears: External ears normal, canals clear Nose/Sinuses: Nares normal, septum midline, mucosa normal, no drainage or sinus tenderness Oropharynx: Lips, mucosa, and tongue normal, teeth and gums normal, oropharynx normal Neck: Supple, no adenopathy; thyroid symmetric, normal size, no bruits ASSESSMENT/PLAN: 1. Bronchitis - ICD9: 490, ICD10: J40 (primary diagnosis) Continue doxy 2. Screening for lipid disorders - ICD9: V77.91, ICD10: Z13.220 - LIPID PANEL BASIC 3. Dizziness - ICD9: 780.4, ICD10: R42 See PT as scheduled Quincy Moreira MD documented in this encounterC[facility] History of Present illness Narrative* Lola Katz PA-C - 07/29/2022 10:11 AM EST Subjective 77 y/o male Pt c/o chest congestion, coughing, wheezing and sob. Started about 1 month ago. Was seen here ~ 2 weeks ago and dx w/sinusitis. Treated with 7 days of augmentin. Says sinus symptoms resolved but cough is worse. He says cough is mostly dry. No fever or chest pain. He does feel sob with coughing. He has been using otc cold and cough medication and says it works for a couple of hours. He was rx benzonatate but it makes him dizzy and doesn't help the cough. The history is provided by the patient. Cough Associated symptoms include shortness of breath and wheezing. Pertinent negatives include no chest pain, no chills, no ear pain, no headaches, no sore throat and no myalgias. Review of Systems Constitutional: Negative for chills, fever and malaise/fatigue. HENT: Negative for congestion, ear pain, sinus pain and sore throat. Eyes: Negative for discharge. Respiratory: Positive for cough, sputum production, shortness of breath and wheezing. Cardiovascular: Negative for chest pain, palpitations and leg swelling. Gastrointestinal: Negative for abdominal pain, diarrhea, nausea and vomiting. Musculoskeletal: Negative for myalgias and neck pain. Skin: Negative for rash. Neurological: Negative for headaches. Psychiatric/Behavioral: The patient is not nervous/anxious. Objective BP 132/78 (BP Site: Right Arm, BP Position: Sitting, BP Cuff Size: Large Adult) Pulse 72 Temp 37.2 C (99 F) (Temporal) Resp 16 Ht 181.6 cm (5' 11.5) Wt 88.5 kg (195 lb) SpO2 95% BMI 26.82 kg/m Physical Exam Vitals and nursing note reviewed. Constitutional: General: He is not in acute distress. Appearance: Normal appearance. He is not ill-appearing. HENT: Head: Normocephalic and atraumatic. Right Ear: Tympanic membrane, ear canal and external ear normal. Left Ear: Tympanic membrane, ear canal and external ear normal. Nose: Nose normal. Mouth/Throat: Mouth: Mucous membranes are moist. Pharynx: Oropharynx is clear. No oropharyngeal exudate. Cardiovascular: Rate and Rhythm: Normal rate and regular rhythm. Heart sounds: Normal heart sounds. No murmur heard. No gallop. Pulmonary: Effort: Pulmonary effort is normal. No accessory muscle usage, prolonged expiration or respiratory distress. Breath sounds: No decreased air movement. Examination of the right-upper field reveals rhonchi. Examination of the right-middle field reveals rhonchi. Examination of the right-lower field reveals rhonchi. Wheezing and rhonchi present. No decreased breath sounds. Comments: Diffuse wheezing Musculoskeletal: Cervical back: Normal range of motion and neck supple. Right lower leg: No edema. Left lower leg: No edema. Lymphadenopathy: Cervical: No cervical adenopathy. Skin: General: Skin is warm and dry. Neurological: Mental Status: He is alert and oriented to person, place, and time. Psychiatric: Mood and Affect: Mood and affect normal. Behavior: Behavior normal. Thought Content: Thought content normal. Judgment: Judgment normal. ASSESSMENT/PLAN: 1. Acute bronchitis, unspecified organism - ICD9: 466.0, ICD10: J20.9 - Start Medrol today - Start Doxycycline today - Symptomatic treatment with tylenol and motrin for pain and /or fever - Supportive care with fluids and rest - Use behind the counter Sudafed for congestion if needed - Use Saline nasal spray as needed for congestion - Use over the counter Mucinex DM for cough - Use warm salt water gargles, throat lozenges and/or chloraseptic throat spray as needed. - Follow up with primary physician in 2 weeks if symptoms persist or sooner if worsening of symptoms Lola Katz PA-C documented in this encounterC[facility]12-02-2022 Instructions* Patient Instructions* Lola Katz PA-C - 07/28/2022 4:21 PM EST ASSESSMENT/PLAN: 1. Acute bronchitis, unspecified organism - ICD9: 466.0, ICD10: J20.9 - Start Medrol today - Start Doxycycline today - Symptomatic treatment with tylenol and motrin for pain and /or fever - Supportive care with fluids and rest - Use behind the counter Sudafed for congestion if needed - Use Saline nasal spray as needed for congestion - Use over the counter Mucinex DM for cough - Use warm salt water gargles, throat lozenges and/or chloraseptic throat spray as needed. - Follow up with primary physician in 2 weeks if symptoms persist or sooner if worsening of symptoms Lola Katz PA-C documented in this encounterC[facility]11-28-2022 Miscellaneous Notes* Telephone Encounter - Lurdes Montenegro Ma - 07/24/2022 1:17 PM EST Last office visit with cardiology 08/09/21 * Telephone Encounter - Sasha Holland - 07/24/2022 12:01 PM EST Patient has been identified by name and date of : Yes Last office visit in this department: 01/17/2022 RX INSTRUCTIONS: Patient aware RX will be sent to pharmacy. No need to notify patient. Patient phones requesting refills as follows: Requested Prescriptions Pending Prescriptions Disp Refills metoprolol succinate ER (TOPROL XL) 25 mg 24 hr tablet 90 tablet 3 Sig: Take 1 tablet by mouth once daily. atorvastatin (LIPITOR) 40 mg tablet 90 tablet 1 Sig: Take 1 tablet by mouth daily at bedtime. Please review and advise. Sasha Holland documented in this encounterC[facility]11-10-2022 History of Present illness Narrative* Jayna Agarwal RN - 07/06/2022 11:37 AM EST ACM EM RN Action/FYI: Medication Adherence review completed per request of [facility]. NO PROVIDER ACTION REQUIRED Atorvastatin 40mg Last filled: 03/06/22 Days Supply: 90 Refill Due: 06/04/22 Pharmacy: [facility] ([facility] MY CHART MESSAGE SENT Patient identified by name and date of . Patient Attributed To: QAE Payer: [facility] Reason for review or outreach: Medication Adherence Medication Adherence Review Details: Cholesterol Summary / Findings: As per above Action Taken: Data submitted to [employer] message to patient Contact made with patient: No, Chart review only. Signature: Jayna Agarwal RN documented in this encounterC[facility]11-09-2022 Miscellaneous Notes* Telephone Encounter - Hannah Leiva - 07/05/2022 12:30 PM EST See thank you message from patient documented in this encounterC[facility]11-08-2022 History of Present illness Narrative* Pradip Meraz MD - 07/04/2022 4:13 PM EST Images from the original note were not included. [facility] Follow up/ Established patient visit Individuals who were included in, or assisted with the encounter were: Estella Misa Meraz MD Chief Complaint/Issues: Estella Mckeon is a 77 year old male seen in the [facility] for: Balance Difficulties Most Recent Neurological Assessment and Plan: Last Filed Values Date of Most Recent Assessment and Plan 03/03/22 Specialty General Neurology Assessment 76 year old man with over 4 years of struggles with balance. - Neurological exam is most remarkable for nystagmus that appears to be somewhat direction changingwith a downbeat overall fairly subtle and he would benefit from vestibular battery testing to further characterize the nature of this nystagmus. This could further clarify the distinct possibility ofa central component versus peripheral etiology. - Also check blood work to look for possible contributing factors which can include vitamin/nutritional deficiencies. - MRI of the brain is also reviewed with ventricles that are enlarged out of proportion to his generalized atrophy, however, evaluation of his gait at the bedside is less characteristic for hydrocephalus. He does report that he shuffles, however, this was not observed during this examination. - Depending on the results of above may consider utility of repeat referral to neuro otology HPI/Interval History: Follow up for balance disorder He notes that he was recently mulching his leaves He feels like he does not have control over the feet His notes that his head feels whooshy He notes that he has a tendency to fall on uneven services He can no longer run General Examination: BP 118/75 Pulse 71 Wt 86.2 kg (190 lb) BMI 26.13 kg/m He is alone. General: Awake, alert, interactive, no acute distress, good nutritional status, normal development,well-kept Neurological Exam Mental Status Alert, fully oriented, attentive, with normal cognition, memory, speech and affect. Cranial Nerves Visual michael intact. Fundi with normal discs and vasculature. Pupils reactive. Extraocular movements conjugate and full. No ptosis. No nystagmus. Facial sensation intact. Face symmetric and strong. Palate and tongue normal. XI normal. Motor Examination and Coordination Neuromuscular Examination Axial Muscles Ptosis: R: none L: none Extremity Muscles Upper Extremity Right Left Shoulder abduction 5 5 Elbow flexion 5 5 Elbow extension 5 5 Wrist extension 5 5 Finger flexion/clinical research nurse coordinator 5 5 Finger extension 5 5 First dorsal interosseous 5 5 Abductor digiti minimi 5 5 Abductor pollicis brevis 5 5 Lower Extremity Right Left Hip flexion 5- 5- Hip extension 5 5 Knee flexion 5 5 Knee extension 5 5 Ankle plantarflexion 5 5 Ankle dorsiflexion 5 5 Extensor hallucis longus 5 5 Flexor digitorum longus 5 5 Finger taps: R: normal L: normal Foot taps: R: irregular L: irregular Tremor: None Coordination: Diffiulty with heel knee ramirez testing Reflexes Deep tendon reflexes graded by [facility] Deep Tendon Reflexes Right Left Biceps Tr Tr Triceps Tr Tr Patellar 3 3+ Achilles 1+ 1 Sensation Pinprick: Thoracic sensory level apparent on today's e Assessment & Plan 07/05/2022 - Neuromuscular, Pradip Meraz MD ASSESSMENT 77-year-old man with difficulty characterized gait disorder - Extensive work-up to this point including vestibular battery testing is been unremarkable - He still does have some nystagmus uncertain etiology. May benefit from vestibular rehab - To new on today's exam is an apparent thoracic sensory level. In this context check MRI of the cervical and thoracic spine - Reviewed again that the does have mild ventricular prominence. He reports that shuffling gait is improved to some degree as he is more conscious of picking up his feet. - If the above is unremarkable may consider utility of referral to movement disorder specialist given the radiographic possibility of NPH. No diagnosis found. No follow-ups on file. Data Review Objective Current Outpatient Medications Medication Sig atorvastatin (LIPITOR) 40 mg tablet TAKE 1 TABLET BY MOUTH AT BEDTIME metoprolol succinate ER (TOPROL XL) 25 mg 24 hr tablet Take 1 tablet by mouth once daily. Melatonin 5 mg cap Take by mouth. homeopathic drugs (PROSTATE ORAL) Take by mouth. meclizine (ANTIVERT) 12.5 mg tab (Patient not taking: Reported on 07/04/2022) aspirin, enteric coated (ASPIRIN, ENTERIC COATED) 81 mg EC tablet Take 81 mg by mouth once daily. docosahexaenoic acid/epa (FISH OIL ORAL) Take by mouth. 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 Umbilical Hernia Without Obstruction Or Gangrene Thalassemia Minor Chest Pain of Unknown Etiology PAST MEDICAL HISTORY Diagnosis Date Hernia Vertigo PAST SURGICAL HISTORY Procedure Laterality Date HERNIA REPAIR HX TONSILLECTOMY HX VASECTOMY UNI/BI SPX W/POSTOP SEMEN EXAMS Social History Tobacco Use Smoking status: Never Smokeless tobacco: Never Vaping Use Vaping Use: Never used Substance Use Topics Alcohol use: Not Currently Drug use: Never FAMILY HISTORY Problem Relation Age of Onset other (dementia) Mother other (TIA) Mother Cancer Father Review of Systems Constitutional: Negative for recent unintentional weight loss. Lab and Test Review: No visits with results within 3 Month(s) from this visit. Latest known visit with results is: Appointment on 03/17/2022 Component Date Value Ref Range Status Vitamin B12 03/17/2022 556 232-1,245 pg/mL Final Vitamin E-alpha 03/17/2022 13.3 6.0 - 23.0 mg/L Final Vitamin E-gamma 03/17/2022 0.4 0.3 - 3.2 mg/L Final This test was developed and its performance characteristics determined by [facility] [place] ([facility]). It has not been cleared or approved by the FDA. [facility] is regulated under CLIA as qualified to perform high-complexity testing. [facility]istest is used for clinical purposes. It should not be regarded as investigational or for research. Vitamin B6 03/17/2022 460.0 (A) 20.0 - 125.0 nmol/L Final INTERPRETIVE INFORMATION: Vitamin B6 (Pyridoxal 5-Phosphate) Pyridoxal 5'-phosphate measured in a specimen collected following an 8-hour or overnight fast accurately indicates vitamin B6 nutritional status. Non-fasting specimen concentration reflects recent vitamin intake. This test was developed and its performance characteristics determined by [facility]. It has not been cleared or approved by the [place] Food and Drug Administration. This test was performed in a CLIA certified laboratory and is intended for clinical purposes. Performed By: [facility] [address] [place] [id number] Nurse Transitional: Marshal Alexandre MD, PhD [place] 03/17/2022 <0.1 (A) 0.6 - 1.2 mmol/L Final Reference ranges and high/low indicator flags are provided as general guidelines only. The treatingphysician must determine appropriate target levels/dosing based on the specific clinical situation. Result rechecked. WBC 03/17/2022 6.55 3.70 - 11.00 k/uL Final RBC 03/17/2022 5.85 4.20 - 6.00 m/uL Final Hemoglobin 03/17/2022 12.1 (A) 13.0 - 17.0 g/dL Final Hematocrit 03/17/2022 39.0 39.0 - 51.0 % Final MCV 03/17/2022 66.7 (A) 80.0 - 100.0 fL Final MCH 03/17/2022 20.7 (A) 26.0 - 34.0 pg Final MCHC 03/17/2022 31.0 30.5 - 36.0 g/dL Final RDW-CV 03/17/2022 16.9 (A) 11.5 - 15.0 % Final Platelet Count 03/17/2022 176 150 - 400 k/uL Final Results checked and verified. No clot detected MPV 03/17/2022 11.7 9.0 - 12.7 fL Final Neut% 03/17/2022 61.1 % Final Abs Neut 03/17/2022 4.00 1.45 - 7.50 k/uL Final Lymph% 03/17/2022 22.7 % Final Abs Lymph 03/17/2022 1.49 1.00 - 4.00 k/uL Final [place]% 03/17/2022 12.5 % Final Abs [place] 03/17/2022 0.82 <0.87 k/uL Final Eosin% 03/17/2022 2.4 % Final Abs Eosin 03/17/2022 0.16 <0.46 k/uL Final Baso% 03/17/2022 1.1 % Final Abs Baso 03/17/2022 0.07 <0.11 k/uL Final Immature Gran % 03/17/2022 0.2 % Final Abs Immature Gran 03/17/2022 <0.03 <0.10 k/uL Final NRBC 03/17/2022 0.0 /100 WBC Final Absolute nRBC 03/17/2022 <0.01 <0.01 k/uL Final Diff Type 03/17/2022 Auto Final Iron 03/17/2022 149 41 - 186 ug/dL Final TIBC 03/17/2022 274 232 - 386 ug/dL Final Transferrin Saturation 03/17/2022 54.4 15.0 - 57.0 % Final Outside Data/Labs: Subjective Patient-Entered Data: NM Treatment and Fall Risk No flowsheet data found. PROMIS-10 PROMIS 10 01/17/2022 04/18/2021 In general, would you say your health is: Good Good In general, would you say your quality of life is: Good Excellent In general, how would you rate your physical health? Good Very good In general, how would you rate your mental health, including your mood and your ability to think? Very good Good In general, how would you rate your satisfaction with your social activities and relationships? Good Fair To what extent are you able to carry out your everyday physical activities such as walking, climbing stairs, carrying groceries, or moving a chair? Moderately Completely In general, please rate how well you carry out your usual social activities and roles. (This includes activities at home, at work and in your community, and responsibilities as a parent, child, spouse, employee, friend, etc.) Good Very good How would you rate your pain on average? 0 - No Pain 1 How would you rate your fatigue on average? Moderate Mild How often have you been bothered by emotional problems such as feeling anxious, depressed or irritable? Sometimes Rarely PROMIS Adult Short Form-Global Health Score (Physical) 44.9 (Good) 54.1 (Very Good) PROMIS Adult Short Form-Global Health Score (Mental) 45.8 (Good) 48.3 (Very Good) PHQ-9 PHQ-9 All Questions 03/03/2022 04/18/2021 Little interest or pleasure in doing things 1 1 Feeling down, depressed, or hopeless 1 1 Trouble falling or staying asleep, or sleeping too much 1 - Feeling tired or having little energy 2 - Poor appetite or overeating 2 - Feeling bad about yourself - or that you are a failure or have let yourself or your family down 1 - Trouble concentrating on things, such as reading the newspaper or watching television 1 - Moving or speaking so slowly that other people could have noticed. Or the opposite - being so fidgety or restless that you have been moving around a lot more than usual 0 - Thoughts that you would be better off , or of hurting yourself in some way 1 - PHQ-9 Score 10 - (0-4) minimal depression (5-9) mild depression (10-14) moderate depression (15-19) moderately severe depression (20-27) severe depression Sleep 09/26/2020 Do you snore loudly? No Do you often feel sleepy, tired, or fatigued during the day? Yes Have you been told that you stop breathing during sleep? No Have you been told or are you being treated for high blood pressure? No Probability of moderate-severe sleep apnea (%) SAPS V2 51.53 (Recommend sleep study) No flowsheet data found. I spent a total of 30 minutes on the date of the service which included preparing to see the patient, [id number] patient care, completing clinical documentation, obtaining and/or reviewing separately obtained history, performing a medically appropriate examination, counseling and educating the pat ient/family/caregiver, ordering medications, tests, or procedures, and communicating with other HCPs (not separately reported). Pradip Meraz MD documented in this encounterC[facility] History of Present illness Narrative* Carmen Romero - 06/15/2022 8:43 AM EDT POPULATION HEALTH NAVIGATION OUTREACH Action/FYI Called and left voicemail for patient to call me back directly. [employer] message sent Patient needs to schedule a colonoscopy, AD Discussion and flu vaccine. Pt identified by name and : NO Outreach Outcome/Action Unable to reach patient: Left message MyChart message sent Did you use a PCP flex slot to schedule this appointment? N/A Reason for Outreach Care Gap or Scheduling/Wellness visits Payer: Payor: [facility] MEDICARE / Plan: [facility] MEDICARE ADVANTAGE PPO / Product Type: PPO / Care Gap Reviewed:: Colorectal Cancer Screening Flu vaccine Reminder: Reminder note to check Health Maintenance for items below Health Maintenance items due: HEPATITIS C SCREENING Never done DTAP,TDAP,TD(1 - Tdap) Never done COLORECTAL CANCER SCREENING Never done SHINGRIX VACCINE(1 of 2) Never done PNEUMOCOCCAL: 65+(1 - PCV) Never done ADVANCE DIRECTIVE DISCUSSION Never done DEPRESSION ASSESSMENT Never done COVID-19 VACCINE(5 - Booster for Pfizer series) due on 02/18/2022 LDL CHOLESTEROL due on 04/12/2022 INFLUENZA(1) due on 04/27/2022 Message Sent to Practice: No Navigation Signature: Carmen Romero June 15, 2022 8:48 AM documented in this encounterC[facility]07-11-2022 Instructions* Patient Instructions* Porsha Dorado, CCC-A - 03/06/2022 12:11 PM EDT Images from the original note were not included. [facility] For the body to feel balanced, the brain requires input from inner ear organs, eyes, muscles, and joints. Symptoms of dizziness, imbalance, vertigo, or lightheadedness may have many different causes.These symptoms may be due to problems associated with your inner ear, vision, brain, heart, medications, or other health conditions. Today you completed a comprehensive evaluation of your ear vestibular balance system. Our vestibular system involves 3 semicircular canals (our head rotation sensors), 2 otolith organs (our gravity sensors), and our vestibular nerve. Test Summary: The purpose of today's evaluation was to assess for any peripheral, or inner ear involvement for the symptoms you have been experiencing. Based on today s evaluation, your vestibular system appears to be abnormal. There was an abnormal down-beating of your eyes upon gazing to the leftduring bedside screening and testing. Additionally, there was a left-beating nystagmus with rollingto the left. Recommendations: * Continue medical follow-up with Pradip Meraz MD * Maintain a healthy sleep schedule in addition to diet, hydration, and exercise to help your body function overall. * Consider Vestibular & Balance therapy (Physical Therapy) to help reduce symptoms. Falling Risk: Dizziness, vertigo and/or imbalance are symptoms that raise concern for falling risk. Below are some tips to reduce falls: Install night lights; always turn on a light before entering a room. Keep walkways well lit. Remove home hazards such as floor throw rugs, loose electrical cords, stools or other small pieces of furniture that can trip people, and all floor clutter. Change positions or turn slowly and have something nearby to hold onto. Keep medical conditions under control by taking prescribed medications and/or following a prescribed diet. Learn to practice exercises that can improve balance, such as Mikael Chi or yoga. Wear low-heeled shoes, walking shoes, or other flexible shoes with good traction Always use handrails when walking up and down stairs. Discuss with a health care provider any concerns you have about falls, or if you experience a fall. documented in this encounterC[facility]07-11-2022 History of Present illness Narrative* Porsha Dorado CCC-A - 03/06/2022 10:30 AM EDT [facility] Vestibular Test Battery Report Name: Estella Mckeon [facility]#: [id number] Date of Service: 03/06/2022 Date of : 1945 Age: [age] year old Referred by: Pradip Meraz MD And is a patient of MD Quincy Gregg ([facility]) [address] [place] [address] Referred for: Evaluation of the cause of disorder of hearing, tinnitus, or balance. Referral documented: In an order in [facility] Pretest Instructions: Patient complied with pretest instructions indicating to avoid the following for 48 hours prior to testing: no alcohol, no medication for dizziness/motion sickness, no sedatives(sleep aids, tranquilizers, antihistamines), no eye makeup and only have a light meal prior to testing. Impressions and Recommendations OVERALL IMPRESSIONS: Essentially normal vestibular evaluation. Mr. Estella Mckeon presents with dizziness and unsteadiness described as a lack of balance. Symptoms began about 4 years ago, with symptoms now happening constantly at some level (sometimes better, sometimes worse). Symptoms are worse since onset. Symptoms are exasperated by any type of head movement or displacement and seem to get worse with heightened caffeine intake. Associated symptoms include falling forward, occasional nausea, vision problems (nystagmus with eye movements to extremes) and weakness in the knees and legs. Symptoms are alleviated by laying down, sitting down, and focusing on something on the horizon. Connor denies any neurologic complaints. He will occasionally experience non-bothersome tinnitus with unspecified laterality. Connor has fallen in the past year, and is restricting activities due to symptoms. Connor has not participated in vestibular rehabilitation to help address current symptoms and is interested in learning more about vestibular and balance therapy. Hehas stiffness in his neck, especially with [id number] cervical movements, as did his mother. Today's evaluation revealed the following: Findings suggest possible central ocular control pathway involvement given 4 d/s pure down-beating nystagmus observed during left gaze with fixation present and consistent with findings on bedside examination. Additionally, left-beating nystagmus (3-5 d/s) present during body roll left supine and bow positions. Consider further investigation of a central involvement as pure down-beating nystagmuswas recorded only with fixation present and should be considered of central origin until proven otherwise (Trey Dasilva and Demetria, 2016). Further consideration of abnormalities on MRI Brain WO/W IV contrast on 02/16/2022 as contributing to today's findings and patient reported symptoms. There were no indications peripheral vestibular system pathway involvement noted. Normal investigation of superior vestibular nerve function via examination of the horizontal semicircular canals. There were no objective indications of Benign Paroxysmal Positional Vertigo (BPPV), but the patient repo rted dizziness during both left-ear and right-ear down edis-hallpike maneuvers. Abnormal observation of gait and transfers due to the following: slow gait and wide base of support. Postural control findings demonstrate a vestibular dysfunction pattern indicating the patient's difficulty in using vestibular information alone for maintenance of stance observed during the Modified Clinical Test of Sensory Integration on Balance (mCTSIB). Abnormal increased body sway and/or fallreactions observed during the eyes closed, foam condition. Patient is at risk of falling based on the following measures: previous fall history, observed abnormal gait. The patient was counseled on fall prevention and provided with a list of falling risk strategies. RECOMMENDATIONS: * Continue medical follow-up with Pradip Meraz MD. * Maintain a healthy sleep schedule in addition to diet, hydration, and exercise to help your body function overall. * Referral to vestibular and balance rehabilitation therapy to address central vestibular system impairment. Treatment focus may consider elements of traditional therapy techniques: 1) gaze stabilization exercises, 2) habituation, 3) sensory substitution, and 4) general balance/gait exercises to improve functioning during activities of daily living and reduce falling risk. Additional general conditioning exercises may be of benefit. The results and recommendations were explained to Connor Mckeon and he expressed understanding of theinformation. History Present Illness SUMMARY OF PAST MEDICAL HISTORY: Encounter with Pradip Meraz MD on 03/03/2022: Balance and dizziness for four years, feels like he will fall forward while running, several falls forward, if he looks down and back up it triggers dizziness, if he bends his knees a certain way/athletic position he falls forward, cannot run and turn at the same time. Exam revealed down-beating n ystagmus with both left and right gaze. MRI Brain WO/W IV contrast on 02/16/2022: Moderate non-specific likely microvascular ischemic white matter change, tiny remote artifact in the right cerebellum, lateral and third ventricles enlarged out of proportion to coritcal sulci which could be due to central volume loss particularly given the amount of white matter change versus normal pressure/communicating hydrocephalus in the appropriate clinical context. ED to admission encounter on 04/11/2021: Dizzy and lightheaded while mowing his yard, couldn't stand up straight, felt like he was going to pass out, felt generalized weakness, feeling unwell and generalized body aches. He also reported exertional dyspnea and tingling down his right arm that is now resolved. CHIEF COMPLAINT: Patient-Entered Questionnaire Scores PHQ-9 03/03/2022 Score 10 PROMIS Global Health Scale 01/17/2022 04/18/2021 09/26/2020 Physical Health Percentile 31 66 66 Mental Health Percentile 34 43 53 Percentiles provide an indication of how a patient's score ranks in relation to the [place] general population. > 31st percentile is within normal limits or better * < 31st percentile is at least SD worse than population, which may be clinically relevant < 16th percentile is at least 1 SD worse than population and warrants attention Based on review of the patient's past medical history and chief complaint, the following clinical questions were explored during today's appointment: is Mr. Wilson's vestibular system functioning properly? Is the vestibular system playing a role in his perceived deterioration of balance? 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 aspirin, enteric coated (ASPIRIN, ENTERIC COATED) 81 mg EC tablet Take 81 mg by mouth once daily. docosahexaenoic acid/epa (FISH OIL ORAL) Take by mouth. Melatonin 5 mg cap Take by mouth. homeopathic drugs (PROSTATE ORAL) Take by mouth. Current Facility-Administered Medications on File Prior to Visit Medication perflutren lipid microspheres 1.3 mL in NaCl (PF) 0.9% 10 mL injection (DEFINITY) sodium chloride 0.9 % (flush) 10 mL (BD POSIFLUSH) Current medications with potential vestibular/balance side effects include: none Family/Social History FAMILY HISTORY Problem Relation Age of Onset other (dementia) Mother other (TIA) Mother Cancer Father Family history of otologic or neurologic disorders: No Social History Tobacco Use Smoking status: Never Smoker Smokeless tobacco: Never Used Vaping Use Vaping Use: Never used Substance Use Topics Alcohol use: Not Currently Drug use: Never Physical/Vestibular Evaluation GENERAL: Cognitive Status: Alert, Oriented and Cooperative EARS: Right ear: Ear canal clear, Eardrum visible and Landmarks noted Left ear: Eardrum not visible due to cerumen; following cerumen removal, ear canal was clear with avisible TM and normal landmarks EYES/OCULOMOTOR: Extra-ocular range of motion (CN III, IV, ): Abnormal; down-beat nystagmus noted at far left and right. Conjugate eye movements: Yes Smooth pursuit (horizontal and vertical): Abnormal; down-beat nystagmus present at far left and right Saccades (horizontal, vertical, oblique): Abnormal; down-beat nystagmus present at far left and right Cover uncover test: Normal Jvhnt-tibdf-kchui test: Normal Convergence test: Normal NECK: Cervical rotation right restrictions: moderate. Reported pain: Mild Cervical rotation left restrictions: moderate. Reported pain: Mild Cervical extension restrictions: minimal. Reported pain: Mild Cervical flexion restrictions: minimal. Reported pain: Mild GAIT AND BALANCE: Observation of gait and transfer: Normal Modified Clinical Test of Sensory Interaction on Balance (MCTSIB): Abnormal postural control. Eyes open, firm surface: Fall Reactions: 0 Eyes closed , firm surface: Fall Reactions: 0 Eyes open, foam surface: Fall Reactions: 0 Eyes closed, foam surface: Fall Reactions: 3 VESTIBULAR: Head impulses of semi-circular canals: Normal Ocular counter roll: Normal Videonystagmography Examination (VNG): CPT codes: 93871, 85359, 71168, 03637. Description of Procedure: objective assessment of peripheral (e.g., low frequency horizontal canal VOR function), status of compensation, Benign Paroxysmal Positional Vertigo (BPPV), and central vestibulo-ocular pathway (oculomotor examination). Procedure time: 30-45 minutes. Note: The fast component (direction) of all nystagmus is reported from the patient's perspective. Calibration procedure: unremarkable Saccade Performance test (pseudo-random presentation of a laser target; 5 - 50 deg horizontal steps): Latency values: Normal Accuracy values: Normal Peak Velocity values: Normal Reported symptoms: none Pursuit Tracking test (sinusoidal presentation of a laser target; .1-.6 Hz, 10- 60 deg/sec): Gain values: Normal. Evidence of saccadic pursuit: No. Reported symptoms: none Spontaneous & Gaze-Evoked Nystagmus test: Nystagmus center gaze with fixation: none. Temporal profile: N/A. Saccadic intrusions/oscillations:none. Symptoms: none. Nystagmus center gaze without fixation: none. Temporal profile: N/A. Saccadic intrusions/oscillations: none. Symptoms: none. Nystagmus right gaze with fixation: none. Temporal profile: N/A. Saccadic intrusions/oscillations: none. Symptoms: none. Nystagmus right gaze without fixation: none. Temporal profile: N/A. Saccadic intrusions/oscillations: none. Symptoms: none. Nystagmus left gaze with fixation: 4 d/s down-beating. Temporal profile: Continuous. Saccadic intrusions/oscillations: none. Symptoms: none. Nystagmus left gaze without fixation: none. Temporal profile: N/A. Saccadic intrusions/oscillations: none. Symptoms: none. Nystagmus up gaze with fixation: none. Temporal profile: N/A. Saccadic intrusions/oscillations: none. Symptoms: none. Nystagmus up gaze without fixation: none. Temporal profile: N/A. Saccadic intrusions/oscillations: none. Symptoms: none. Nystagmus down gaze with fixation: none. Temporal profile: N/A. Saccadic intrusions/oscillations: none. Symptoms: none. Nystagmus down gaze without fixation: none. Temporal profile: N/A. Saccadic intrusions/oscillations: none. Symptoms: none. Note: remainder of testing completed without fixation unless otherwise specified. Head shaking test: Nystagmus post-horizontal head shake: none. Temporal profile: N/A. Symptoms: none. Nystagmus post-vertical head shake: none. Temporal profile: N/A. Symptoms: dizziness/not in focus. Neck torsion test: Nystagmus neck torsion right: none. Temporal profile: N/A. Symptoms: none. Nystagmus neck torsion left: none. Temporal profile: N/A. Symptoms: none. Vertical Semi-circular Canal BPPV Nystagmus tests: Nystagmus Edis-Hallpike right ear down position: none. Temporal profile: N/A. Symptoms: none. Nystagmus Arimo-Hallpike right ear return to sit position: none. Temporal profile: N/A. Symptoms: dizziness. Nystagmus Arimo-Hallpike left ear down position: none. Temporal profile: N/A. Symptoms: dizziness. Nystagmus Edis-Hallpike left ear return to sit position: none. Temporal profile: N/A. Symptoms: dizziness. Horizontal Semi-circular Canal BPPV and Positional Nystagmus tests: Nystagmus head center supine: none. Temporal profile: N/A. Symptoms: none. Nystagmus head (roll) right: none. Temporal profile: N/A. Symptoms: none. Nystagmus head (roll) left: none. Temporal profile: N/A. Symptoms: none. Nystagmus body right: none. Temporal profile: N/A. Symptoms: none. Nystagmus body left: 5 d/s left-beating. Temporal profile: Decaying. Symptoms: none. Nystagmus bend forward (bow): 3 d/s left-beating. Temporal profile: Decaying. Symptoms: none. Nystagmus lean back (lean): none. Temporal profile: N/A. Symptoms: none. *patient reported nausea at this point in testing. Monothermal water calorics screening (20 second irrigations, supine position): Unilateral Weakness (UW%): Normal. 11% UW in the left ear. Fixation Suppression Index (FI%): Normal. (Note: normal FI% < 0.6) Nystagmus pre-caloric position (10 sec screening): none. Right ear: Warm (44 deg C): 50 d/s SPV avg. Left ear: Warm (44 deg C): 40 d/s SPV avg. Video Head Impulse Test (VHIT): CPT code: 15189 Description of Procedure: assessment of the angular vestibulo-ocular reflex (VOR) of all six semicircular canals. During vHIT, patients wear infrared goggles and their head is quickly moved in the plane of each semicircular canal. Measurements of VOR gain and corrective saccades are used to determine semicircular canal paresis. Procedure time: 20 minutes. Calibration procedure: unremarkable. Camera placement over the right eye. Lateral Canal VHIT: Normal. Results are not consistent with lateral semicircular canal/VOR pathway involvement in both ears. Right lateral: gain: 0.87, no saccades - difficulty with pupil tracking due to blinks/fogging of lens Left lateral: gain: 0.82, no saccades - difficulty with pupil tracking due to blinks/fogging of lens (Note: abnormal gain < 0.80) It was my pleasure to evaluate Connor Mckeon. If you have any questions regarding this information, please contact me at [phone]. Ely Diaz BA Doctor of Audiology (Porsha) Production Line Operator I verify that I have reviewed the history, test results, and interpretation for this patient. Porsha Dorado, CCC-A copy to: Pradip Meraz MD documented in this encounterCleveland [facility]07-08-[facility] History of Present illness Narrative* Pradip Meraz MD - 03/03/2022 9:40 AM EDT Images from the original note were not included. [facility] for General Neurology New Patient Evaluation Consulting Provider: Quincy Moreira ([facility]) [address] [facility] [facility] [place] [address] Individuals who were included in, or assisted with the encounter were: Estella Bynum Mike Meraz MD Chief Complaint/Issues: Estella Mckeon is a 76 year old male seen in the [facility] for General Neurology for: 1. Balance Difficulties HPI: 76 year old man notes that for the last 4 years he has battled with balance and dizziness. He begins by noting an example of difficulty with running due to balance and dizziness issues. Sometimes when running he would note that he would sometimes feel like he would fall forward while running. In fact, he has had several falls in the forward direction. He notes that if he looks down and looks backup his dizziness will be impacted. He has noted that sometimes during a bad attack. He notes that sometimes when he bends his knees to in a certain way (athletic position) he will have the tendencyto fall forward. He does not have any specific urinary complaints other than frequency. He notes that he cannot turn and run at the same time (as in going out for a pass). He is not aware of any weakness in the legs in between these events. He does not have signficant back pain. General Examination: BP 118/73 Pulse 69 Wt 89.4 kg (197 lb) BMI 27.09 kg/m He is alone. General: Awake, alert, interactive, no acute distress, good nutritional status, normal development,well-kept Neurological Exam Mental Status Alert, fully oriented, attentive, with normal cognition, memory, speech and affect. Cranial Nerves Visual michael: intact to confrontation Fundi: normal discs and vasculature Extraocular movements: conjugate and full. There is an apparent downbeat nystagmus with both left and right gaze Nystagmus: absent Pupils: R reactive L reactive equal reactive Ptosis: absent Trigeminal: V1-V3 intact, V motor normal Facial: face symmetric and strong Palate: central, normal movement, no dysphonia Tongue: normal bulk, strength, and rapid movements, no fasciculations XI: normal sternocleidomastoids and trapezius Motor Examination and Coordination Motor examination with normal bulk, strength and tone. No drift. Normal rapid alternating movementsand coordination. No adventitious movements or significant tremor. Reflexes Deep Tendon Reflexes Right Left Biceps 1+ 1+ Triceps 1+ Brachioradialis 1+ Patellar 2+ 2+ Achilles Tr Tr Plantar Downgoing Downgoing Sensation Sensation intact to light touch, pinprick, proprioception. Gait Comes: independently ambulatory Arises: easily without arm use Postural reflexes: normal Posture: erect Gait initiation: normal Gait: Mildy cautious with an occasional uneven jessica and side rigo Tandem: sway Romberg: normal Turns: Fluid Assessment & Plan 03/03/2022 - General Neurology, Pradip Meraz MD ASSESSMENT 76 year old man with over 4 years of struggles with balance. Neurological exam is most remarkable for nystagmus that appears to be somewhat direction changing with a downbeat overall fairly subtle and he would benefit from vestibular battery testing to furthercharacterize the nature of this nystagmus. This could further clarify the distinct possibility of acentral component versus peripheral etiology. Also check blood work to look for possible contributing factors which can include vitamin/nutritional deficiencies. MRI of the brain is also reviewed with ventricles that are enlarged out of proportion to his generalized atrophy, however, evaluation of his gait at the bedside is less characteristic for hydrocephalus. He does report that he shuffles, however, this was not observed during this examination. Depending on the results of above may consider utility of repeat referral to neuro otology Encounter Diagnosis ICD-10-CM 1. Ataxia R27.0 2. Memory loss R41.3 No follow-ups on file. Data Review Objective Current Outpatient Medications Medication Sig atorvastatin (LIPITOR) 40 mg tablet TAKE 1 TABLET BY MOUTH AT BEDTIME meclizine (ANTIVERT) 12.5 mg tab metoprolol succinate ER (TOPROL XL) 25 mg 24 hr tablet Take 1 tablet by mouth once daily. aspirin, enteric coated (ASPIRIN, ENTERIC COATED) 81 mg EC tablet Take 81 mg by mouth once daily. docosahexaenoic acid/epa (FISH OIL ORAL) Take by mouth. Melatonin 5 mg cap Take by mouth. homeopathic drugs (PROSTATE ORAL) Take by mouth. 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 Umbilical Hernia Without Obstruction Or Gangrene Thalassemia Minor Chest Pain of Unknown Etiology PAST MEDICAL HISTORY Diagnosis Date Hernia Vertigo PAST SURGICAL HISTORY Procedure Laterality Date HERNIA REPAIR HX TONSILLECTOMY HX VASECTOMY UNI/BI SPX W/POSTOP SEMEN EXAMS Social History Tobacco Use Smoking status: Never Smoker Smokeless tobacco: Never Used Vaping Use Vaping Use: Never used Substance Use Topics Alcohol use: Not Currently Drug use: Never FAMILY HISTORY Problem Relation Age of Onset other (dementia) Mother other (TIA) Mother Cancer Father Review of Systems Constitutional: Negative. Negative for recent unintentional weight loss. Skin: Negative. HENT: Infrequent problems with swallowing Musculoskeletal: Negative for back pain. Eyes: Cataracts that are in line to get removed. Respiratory: Negative for shortness of breath. Cardiovascular: Positive for chest pain. Negative cardiac workup Gastrointestinal: Positive for nausea. Associated with dizziness occasionally. Hematologic/Lymphatic: Negative. Psychiatric: Understandable frustration with current symptoms Lab and Test Review: No visits with results within 3 Month(s) from this visit. Latest known visit with results is: Admission on 04/11/2021, Discharged on 04/12/2021 Component Date Value Ref Range Status STEPHANIE High Sensitivity 04/11/2021 13 (A) <12 ng/L Final When assessing risk for acute coronary syndromes: In patients undergoing blood draw greater than orequal to 2 hours from symptom onset, with history of very low to moderate risk and non-ischemic ECG, an initial hs-Troponin T less than 12 ng/L AND a 1 hour delta hs-Troponin T less than 3 ng/L should be considered very low risk for 30 day MACE. STEPHANIE High Sensitivity 04/11/2021 12 (A) <12 ng/L Final When assessing risk for acute coronary syndromes: In patients undergoing blood draw greater than orequal to 2 hours from symptom onset, with history of very low to moderate risk and non-ischemic ECG, an initial hs-Troponin T less than 12 ng/L AND a 1 hour delta hs-Troponin T less than 3 ng/L should be considered very low risk for 30 day MACE. Hemoglobin A1C 04/11/2021 5.3 4.3 - 5.6 % Final Estimated Average Glucose 04/11/2021 105 mg/dL Final eAG: (Estimated average glucose) is a calculated value from HgbA1c and is business center representative of the average blood glucose level in the last 2-3 month period. Cholesterol, Total 04/12/2021 177 <200 mg/dL Final <200 mg/dL, Desirable 200-239 mg/dL, Borderline high >239 mg/dL, High Triglyceride 04/12/2021 104 <150 mg/dL Final <150 mg/dL, Normal 150-199 mg/dL, Borderline high 200-499 mg/dL, High >499 mg/dL, Very high HDL Cholesterol 04/12/2021 53 >39 mg/dL Final 40-59 mg/dL, Acceptable >59 mg/dL, High: Negative risk factor for coronary heart disease <40 mg/dL, Low: Positive risk factor for coronary heart disease Non HDL Cholesterol 04/12/2021 124 <130 mg/dL Final <130 mg/dL, Optimal 130-159 mg/dL, Near optimal/above optimal 160-189 mg/dL, Borderline high 190-219 mg/dL, High >219 mg/dL, Very high Secondary prevention optimal non HDL Cholesterol levels are recommended to be <100 mg/dL Fasting Time 04/12/2021 8 hrs Final VLDL Cholesterol 04/12/2021 21 <30 mg/dL Final TC:HDL Ratio 04/12/2021 3.34 <5.10 Final LDL Cholesterol 04/12/2021 103 (A) <100 mg/dL Final <100 mg/dL, Optimal 100-129 mg/dL, Near optimal/above optimal 130-159 mg/dL, Borderline high 160-189 mg/dL, High >189 mg/dL, Very high Secondary prevention optimal LDL Cholesterol levels are recommended to be < 70 mg/dL LDL:HDL Ratio 04/12/2021 1.94 <2.54 Final Reference: 1. National Cholesterol Education Program ATP III Guideline At-A-Glance Quick Desk Reference: National Heart, Lung, and Blood [place]. National Institutes of Health. 2001: NIH Publication No. 01-3305. 2. An International Atherosclerosis Society position paper: global recommendations for the management of dyslipidemia: executive summary, Atherosclerosis. 2014: 232(2):410-413. LV Ejection Fraction 04/12/2021 69 % Final Comment: (2D biplane) EF > 52 An LV Ejection Fraction of > 50% is normal Stemhole Borer 04/12/2021 Final Electronically Submitted by: Timothy Harp MD On: 04/12/2021 at 3:39:49 PM Outside Data/Labs: Subjective Patient-Entered Data: 03/03/22 - PHQ-2 Score: 2 PHQ-9 Score: 10 GENERAL NEUROLOGY SCORES PROMIS 10 09/26/2020 04/18/2021 01/17/2022 In general, would you say your health is: Very good Good Good In general, would you say your quality of life is: Very good Excellent Good In general, how would you rate your physical health? Very good Very good Good In general, how would you rate your mental health, including your mood and your ability to think? Very good Good Very good In general, how would you rate your satisfaction with your social activities and relationships? Good Fair Good To what extent are you able to carry out your everyday physical activities such as walking, climbing stairs, carrying groceries, or moving a chair? Completely Completely Moderately In general, please rate how well you carry out your usual social activities and roles. (This includes activities at home, at work and in your community, and responsibilities as a parent, child, spouse, employee, friend, etc.) Excellent Very good Good How would you rate your pain on average? 2 1 0 - No Pain How would you rate your fatigue on average? Mild Mild Moderate How often have you been bothered by emotional problems such as feeling anxious, depressed or irritable? Rarely Rarely Sometimes PROMIS Adult Short Form-Global Health Score (Physical) 54.1 54.1 (Very Good) 44.9 (Good) PROMIS Adult Short Form-Global Health Score (Mental) 50.8 48.3 (Very Good) 45.8 (Good) Depression Screening 04/18/2021 03/03/2022 PHQ-2 Score 2 2 PHQ-9 Score - 10 SLEEP APNEA SCORE 09/26/2020 Probability of moderate-severe sleep apnea (%) SAPS V2 51.53 (Recommend sleep study) AVERAGE SLEEP 24 HOURS 03/03/2022 Average sleep last 24 hrs 7 PROMIS CAT Sleep Disturbance 02/28/2022 PROMIS Sleep Disturbance T-Score 49 (within normal limits) I spent a total of 60 minutes on the date of the service which included preparing to see the patient, [id number] patient care, completing clinical documentation, obtaining and/or reviewing separately obtained history, performing a medically appropriate examination, counseling and educating the pat ient/family/caregiver and ordering medications, tests, or procedures. Pradip Meraz MD documented in this encounterC[facility] History of Present illness Narrative* Nnamdi Watts RN - 02/16/2022 10:40 AM EDT Radiology Service Progress Note DATE OF SERVICE: February 16, 2022 TIME: 10:49 AM PATIENT WEIGHT: 197LBS PATIENT IDENTITY VERIFICATION COMPLETED USING TWO (2) STANDARD IDENTIFIERS: Name and Date of confirmed by patient verbally. FALL SCREENING: Has the patient had 2 falls in the last year or 1 fall with injury or currently using an Ambulatory Assistive Device (Walker, Cane, Wheelchair, Crutches, etc.)? No PATIENT GENDER DATA: Male ALLERGIES: Reviewed and unchanged CONTRAST ALLERGY: No EXAM: MRI - CONTRAST TYPE: GROUP II IV SITE: Ambulatory: A peripheral IV was started in the Left antecubital site with a Angio cath: 22gauge. and A Saline lock was inserted per protocol IV SITE APPEARANCE: Clean,Dry and Intact SIGNATURE: Nnamdi Watts RN PATIENT NAME: Estella Mckeon DATE: February 16, 2022 TIME: 10:49 AM * Smith Caballero MRI Tech - 02/16/2022 10:40 AM EDT Radiology Service Progress Note PATIENT NAME: Estella Mckeon DATE OF SERVICE: February 16, 2022 TIME: 1:57 PM PATIENT IDENTITY VERIFICATION COMPLETED USING TWO (2) IDENTIFIERS: Name and Date of confirmedby patient verbally. FALL SCREENING: Has the patient had 2 falls in the last year or 1 fall with injury or currently using an Ambulatory Assistive Device (Walker, Cane, Wheelchair, Crutches, etc.)? No PATIENT GENDER DATA: Male PATIENT RELEVANT IMPLANT DATA REVIEWED: Yes RADIOLOGY DEPARTMENT: MR; Exam(s) Completed: Head: Routine Brain PERIPHERAL IV DATA: Site assessment: Clean,Dry and Intact, Site disposition Discontinued SIGNED BY: CUBA Claudio February 16, 2022 1:57 PM documented in this encounterC[facility]05-[facility]22 Miscellaneous Notes* Telephone Encounter - Ingrid Romero - 01/17/2022 3:40 PM EDT Referral information submitted to [facility]. Ref# [id number]. [facility] Specialty office will call the patient within 7-10 business days to set this appointment up. documented in this encounterC[facility]05-24-[facility]22 History of Present illness Narrative* Quincy Moreira MD - 01/17/2022 3:24 PM EDT Estella Mckeon is a 76 year old male known to our practice. Patient presents with: Results: Patient here to discuss MRI results that he had done in 2019 due to him falling was being treated by a physician that had past and is here for a second opinion Pt continues to feel unsteady, falling forward. Pt complains of some recent memory loss. fam hist of dementia. MRI from 2018 showed chronic small vessel ischemic changes, atrophy but no acute findings. No recent imaging, hasn't see neuro recently either. No weakness, no tingling numbness, no doublevision, no headaches. no other symptoms Past Medical, Surgical, Family and Social Histories reviewed and updated today in the History tab of [employer]. Current Medications and allergies reviewed. ACTIVE PROBLEM LIST Vertigo Non-Recurrent Bilateral Inguinal Hernia Without Obstruction Or Gangrene Umbilical Hernia Without Obstruction Or Gangrene Thalassemia Minor Chest Pain of Unknown Etiology ALLERGIES: Seasonal Allergies Current Outpatient Medications Medication Sig atorvastatin (LIPITOR) 40 mg tablet TAKE 1 TABLET BY MOUTH AT BEDTIME meclizine (ANTIVERT) 12.5 mg tab metoprolol succinate ER (TOPROL XL) 25 mg 24 hr tablet Take 1 tablet by mouth once daily. docosahexaenoic acid/epa (FISH OIL ORAL) Take by mouth. Melatonin 5 mg cap Take by mouth. homeopathic drugs (PROSTATE ORAL) Take by mouth. iv contrast (will be provided with radiology test) MRI Brain Inject, intravenously, once for 1 dose.No IV access, insert saline lock prior to beginning of sedation, infusion, injection of imaging exam.Discontinue saline lock post exam. If Pt. has a central line or IVAD, may access for administration according to line specific nursing protocol.Once exam is complete flush line and de-access according to line specific nursing protocol in the MR contrast administration guidelines link polyethylene glycol 3350 (MIRALAX, GLYCOLAX) 17 gram/dose powder Use as directed for Miralax / Gatorade Bowel Prep Kit (Patient not taking: Reported on 05/17/2021 ) Gatorade Sports Drink Use as directed for Miralax / Gatorade Bowel Prep Kit Bisacodyl (DULCOLAX) 5 mg tab Use as directed for Miralax / Gatorade Bowel Prep Kit aspirin, enteric coated (ASPIRIN, ENTERIC COATED) 81 mg EC tablet Take 81 mg by mouth once daily. ibuprofen (MOTRIN) 200 mg tablet Take 200 mg by mouth every 6 hours as needed. Current Facility-Administered Medications Medication Dose Route Frequency perflutren lipid microspheres 1.3 mL in NaCl (PF) 0.9% 10 mL injection (DEFINITY) INTRAVENOUS DIRECTED PRN sodium chloride 0.9 % (flush) 10 mL (BD POSIFLUSH) 10 mL INTRAVENOUS DIRECTED PRN REVIEW OF SYSTEMS GENERAL: No weight loss, malaise or fevers RESPIRATORY: Negative for cough, hemoptysis, wheezing, COPD, dyspnea or shortness of breath CARDIOVASCULAR: Negative for chest pain, leg swelling, CHF or palpitations GI: No nausea, vomiting, or diarrhea PHYSICAL EXAMINATION: BP 123/67 (BP Site: Left Arm, BP Position: Sitting, BP Cuff Size: Large Adult) Pulse 72 Temp 36.6 C (97.8 F) (Left Tympanic) Resp 12 Ht 181.6 cm (5' 11.5) Wt 89.4 kg (197 lb) BMI 27.09 kg/m PHYSICAL EXAMINATION: General appearance: Well appearing, alert, in no acute distress, well-hydrated, well nourished. Neuro: Gait normal. Reflexes normal and symmetric. Sensation grossly intact. Psychiatric: Patien has a normal mood and affect. Patient's speech is normal and behavior is normal. Judgment and thought content normal. Patient is not actively hallucinating. Cognition and memory are normal. Patient expresses no homicidal and no suicidal ideation. ASSESSMENT/PLAN: 1. Ataxia - ICD9: 781.3, ICD10: R27.0 (primary diagnosis) - MRI BRAIN WO/W IVCON - CONSULT TO NEUROLOGY 2. Memory loss - ICD9: 780.93, ICD10: R41.3 - CONSULT TO NEUROLOGY Quincy Moreira MD documented in this encounterWatertown ClinicDischarge summary Author George Rodriguez [facility] Note Date/Time May 05, 2025 1:34pm [facility] Medical Records Department [address] [place] [address] Emergency Department Summary 05/05/25 MR#: [id number] Acct: [id number] Name: ESTELLA MCKEON Rep #:[id number] : 1945 79 From: George Rodriguez MD PCP: Status:REG ER Location: ED HPI HPI - Fall History of Present Illness Chief Complaint: Fall Narrative Narrative: 79-year-old male presents with his friend because of injury to his right lower extremity on the anterior tibial area that he sustained a few days ago. He states that last week he was walking up concrete stairs in his garage and took achunk of skin out of his right anterior tibial area. He states he went to cleanit, and removed some red thin skin. He was unsure if his avulsion laceration went all the way down to the bone. He has noticed foot swelling over the last week surrounded by redness to his wound. He states he also had a fall a few days ago where he hit his head. While he states he takes a blood thinner he cannot recall when he takes it for, or which 1. He is concerned about his foot and ankle swelling. As well as his avulsion laceration which has redness aroundit. He denies any fevers or chills, no nausea or vomiting, no other injuries. He states that he went to urgent care today and they refused to take an x-ray ofit because of his head injury. [facility] Medical History (Updated 05/05/25 @ 13:22 by George Rodriguez MD) Depression HTN (hypertension) Hyperlipidemia Home Medications ?Medication ?Instructions ?Recorded ?Last Taken ?Type amoxicillin 875 mg-potassium 1 tab PO BID #14 tabs 05/21 Unknown Rx clavulanate 125 mg tablet atorvastatin 40 mg tablet 40 mg PO QHS 05/05/25 Unknow n History metoprolol succinate 25 mg 25 mg PO DAILY 05/05/25 Unk nown History tablet,extended release 24 hr sertraline 50 mg tablet 50 mg PO DAILY 05/05/25 Unkn own History Allergy/AdvReac Type Severity Reaction Status Date / Time No Known Allergies Allergy Verified 05/05/25 10:27 Social History Smoking Status: Never smoker ROS ROS ED ROS Narrative Review of systems positive for wound to right anterior tibial area sustained approximately a week ago. Positive swelling of right ankle since then. Pain inankle worse with walking and weightbearing. No fevers or chills, no drainage orpus from wound. No headache. No neck pain. No chest pain or shortness of breath. EXAM Physical Exam Narrative Exam Narrative: GCS 15. ABCs intact. Head normocephalic atraumatic. PERRL, EOMI. Neck soft and supple without meningismus. Full range of motion without pain. Cardiovascular examination reveals a regular rate and rhythm. Lungs clear to auscultation bilaterally. Abdomen soft and nontender with normoactive bowel sounds. Inspection of the right anterior tibial area does show a 1 cm avulsion laceration without active bleeding with mild surrounding erythema, no fluctuance. Full range of motion of right ankle with noted swelling diffusely. No calf tenderness, no palpable cord. Palpable dorsalis pedis pulse. Neurological examination nonfocal, nonlateralizing. Const Vital Signs: 05/05/25 10:27 05/05/25 12:27 05/05/25 12:38 Temperature 98.2 F 98.4 F Temperature Source Temporal Oral Pulse Rate 72 55 L Respiratory Rate 14 17 Respiratory Effort Normal Non-Labored Respiratory Depth Normal Respiratory Pattern Normal Blood Pressure 133/83 H 147/55 H Blood Pressure Mean 99 85 Pulse Ox 98 97 Oxygen Delivery Method Room Air Room Air Room Air 05/05/25 13:00 Temperature 97.8 F Temperature Source Oral Pulse Rate 57 L Respiratory Rate 15 Respiratory Effort Respiratory Depth Respiratory Pattern Blood Pressure 131/77 H Blood Pressure Mean 95 Pulse Ox 94 Oxygen Delivery Method Room Air MDM MDM MDM Narrative Medical decision making narrative: Differential diagnosis includes but not limited to ankle sprain versus fracture versus wound infection. I have lower suspicion for DVT, but the patient cannot recall which blood thinner he may take or why. In order to rule out DVT, I obtained an ultrasound of the right lower extremity which shows no evidence of DVT according to the biomass technician. I ordered x-rays of the right tibia and fibulato look for any fracture of the bone or the anterior tibial area mainly. On my individual interpretation, there is no evidence of an acute fracture. Patient was mildly insistent that he needed dedicated ankle films, even though he was told that the tibia and fibula include the ankle bones. On my individual interpretation of the ankle x-rays there is no evidence of fracture but degenerative changes. He may have pain and swelling secondary to arthritis. I reviewed the radiology report which confirms my independent interpretation. At this point in time, I do not feel he requires laboratory work and I feel he can be discharged to follow-up with his primary care provider. I offered to wrap his right ankle with an Don wrap, but he declined. He was concerned about infection around the room and given the hyperemia/erythema he was started on Augmentin for the next 7 days. He can have a wound check by his primary care provider. Return instructions to the emergency department were reviewed. Disposition is discharged home in stable condition. History & Record Review Discussion w/independent historian: Patient and Friend Additional record(s) reviewed:: No prior records (No prior ED visits) Radiography Diagnostic Testing: Clinical Impression(s) from Imaging Studies Ankle X-Ray 05/05/25 11:48 IMPRESSION: 1. No fracture. Degenerative changes. Reading Location: [facility] Tibia/Fibula X-Ray 05/05/25 11:48 IMPRESSION: No acute abnormality. Advanced atherosclerosis. Reading Location: [facility] Discharge Plan Triage Chief Complaint: Fall ED Provider: George Rodriguez Dx/Rx/DC Orders Clinical Impression: Avulsion of skin of right lower leg, Right ankle swelling Instructions: ED Peripheral Edema, Unilateral, ED Fall Prevention Prescriptions: New amoxicillin-pot clavulanate 875-125 mg tablet 1 tab PO BID Qty: 14 0RF No Action atorvastatin 40 mg tablet 40 mg PO QHS metoprolol succinate 25 mg tablet extended release 24 hr 25 mg PO DAILY sertraline 50 mg tablet 50 mg PO DAILY Activity Restrictions/Additional Instructions: Follow-up with your primary care provider in the next 7 to 10 days. Return to the emergency department with fever, drainage of pus from wound, new or worsening symptoms. Your ultrasound was negative today for DVT. Print Language: Canadian Disposition Disposition: Home, Self Care What to do if you have Problems For any increased pain, shortness of breath, bleeding, nausea or vomiting, chestpain, or any unexpected problems, contact your Primary Care Provider. Call [employer] [facility] ([phone]) or report to the closest Emergency Room. Call 911 if necessary. 05/05/25 1334 <Electronically signed by George Rodriguez MD> Cosigner Signature (if applicable): CC: ~ Signed [facility] Work Phone: Evaluation note* Diagnosis Ataxia- Primary Lack of coordination Memory loss documented in this encounter [facility] note* Diagnosis Vertigo- Primary Dizziness and giddiness Ataxia Lack of coordination Memory loss Vertigo of central origin Iron deficiency anemia, unspecified iron deficiency anemia type documented in this encounter [facility] note* Diagnosis Vertigo of central origin- Primary Imbalance Abnormality of gait documented in this encounter [facility] note* Diagnosis Myelopathy (HCC)- Primary Unspecified disease of spinal cord Spinal stenosis of cervical region Spinal stenosis in cervical region Gait disorder Abnormality of gait Balance disorder Other symptoms involving nervous and musculoskeletal systems documented in this encounter [facility] note* Diagnosis Acute bronchitis, unspecified organism- Primary documented in this encounter [facility] note* Diagnosis Bronchitis- Primary Bronchitis, not specified as acute or chronic Screening for lipid disorders Dizziness Dizziness and giddiness documented in this encounter [facility] note* Diagnosis Imbalance- Primary Abnormality of gait Dizziness and giddiness documented in this encounter [facility] note* Diagnosis Imbalance- Primary Abnormality of gait Falls frequently Personal history of fall documented in this encounter [facility] note* Diagnosis Imbalance- Primary Abnormality of gait Dizziness and giddiness documented in this encounter [facility] note* Diagnosis Imbalance- Primary Abnormality of gait Dizziness and giddiness Falls frequently Personal history of fall documented in this encounter [facility] note* Diagnosis Imbalance- Primary Abnormality of gait documented in this encounter [facility] note* Diagnosis COVID-19- Primary documented in this encounter [facility] note* Diagnosis Imbalance- Primary Abnormality of gait documented in this encounter [facility] note* Diagnosis Imbalance- Primary Abnormality of gait documented in this encounter [facility] note* Diagnosis Imbalance- Primary Abnormality of gait Dizziness and giddiness documented in this encounter [facility] note* Diagnosis Skin neoplasm- Primary Neoplasm of unspecified nature of bone, soft tissue, and skin Screening for lipid disorders Screening for diabetes mellitus Neoplasm of skin Neoplasm of unspecified nature of bone, soft tissue, and skin Screening for prostate cancer Special screening for malignant neoplasm of prostate Other forms of angina pectoris (HCC) Vertigo Dizziness and giddiness documented in this encounter [facility] note* Diagnosis Seborrheic keratosis- Primary Other seborrheic keratosis [place]un[place] angioma Nevus, non-neoplastic Lentigines Other dyschromia Actinic keratosis [facility]* Diagnosis Impacted cerumen of left ear- Primary Impacted cerumen Acute pharyngitis, unspecified etiology Suspected COVID-19 virus infection Post-nasal drainage Unspecified sinusitis (chronic) [facility] Diagnosis Myelopathy (HCC) Unspecified disease of spinal cord Gait disorder Abnormality of gait [facility] Diagnosis Ataxia Lack of coordination [facility] Diagnosis Coronary artery disease due to lipid rich plaque- Primary Encounter for screening for cardiovascular disorders Screening for other and unspecified cardiovascular conditions Primary hypertension Unspecified essential hypertension Hyperlipidemia, unspecified hyperlipidemia type [facility] Diagnosis Coronary artery disease due to lipid rich plaque Encounter for screening for cardiovascular disorders Screening for other and unspecified cardiovascular conditions [facility] Diagnosis Encounter for screening for cardiovascular disorders Screening for other and unspecified cardiovascular conditions [facility] Diagnosis Ataxia- Primary Lack of coordination Abnormal MRI of head Nonspecific (abnormal) findings on radiological and other examination of skull and head Coronary artery disease due to lipid rich plaque Screening for prostate cancer Special screening for malignant neoplasm of prostate Cerebellar infarct (HCC) Unspecified cerebral artery occlusion with cerebral infarction [facility] Hyperglycemia- Primary Other abnormal glucose [facility] Diagnosis Ataxia- Primary Lack of coordination Cerebral ventriculomegaly Other conditions of brain [facility] Diagnosis Hyperglycemia- Primary Other abnormal glucose [facility] Diagnosis Preop examination- Primary Preoperative examination, unspecified Non-recurrent bilateral inguinal hernia without obstruction or gangrene Umbilical hernia without obstruction or gangrene Umbilical hernia without mention of obstruction or gangrene Vertigo Dizziness and giddiness Thalassemia minor Encounter for medical examination to establish care- Primary Grief Adjustment disorder with depressed mood Ataxia Lack of coordination Coronary artery disease due to lipid rich plaque Fall in home, initial encounter [facility] Diagnosis Preop examination- Primary Preoperative examination, unspecified Non-recurrent bilateral inguinal hernia without obstruction or gangrene Umbilical hernia without obstruction or gangrene Umbilical hernia without mention of obstruction or gangrene Vertigo Dizziness and giddiness Thalassemia minor Ataxia- Primary Lack of coordination Cerebral ventriculomegaly Other conditions of brain Memory loss Recurrent falls Personal history of fall Nystagmus Nystagmus, unspecified [facility] Diagnosis Preop examination- Primary Preoperative examination, unspecified Non-recurrent bilateral inguinal hernia without obstruction or gangrene Umbilical hernia without obstruction or gangrene Umbilical hernia without mention of obstruction or gangrene Vertigo Dizziness and giddiness Thalassemia minor OPENED IN ERROR- Primary To allow closing an encounter opened in error (used in SmartSet) [facility] Diagnosis Preop examination- Primary Preoperative examination, unspecified Non-recurrent bilateral inguinal hernia without obstruction or gangrene Umbilical hernia without obstruction or gangrene Umbilical hernia without mention of obstruction or gangrene Vertigo Dizziness and giddiness Thalassemia minor Ataxia Lack of coordination Cerebral ventriculomegaly Other conditions of brain Memory loss Recurrent falls Personal history of fall [facility] Diagnosis Preop examination- Primary Preoperative examination, unspecified Non-recurrent bilateral inguinal hernia without obstruction or gangrene Umbilical hernia without obstruction or gangrene Umbilical hernia without mention of obstruction or gangrene Vertigo Dizziness and giddiness Thalassemia minor Microcytic anemia- Primary Iron deficiency anemia, unspecified [facility] Diagnosis Preop examination- Primary Preoperative examination, unspecified Non-recurrent bilateral inguinal hernia without obstruction or gangrene Umbilical hernia without obstruction or gangrene Umbilical hernia without mention of obstruction or gangrene Vertigo Dizziness and giddiness Thalassemia minor Acute cough- Primary Impacted cerumen of left ear Impacted cerumen [facility] Diagnosis Preop examination- Primary Preoperative examination, unspecified Non-recurrent bilateral inguinal hernia without obstruction or gangrene Umbilical hernia without obstruction or gangrene Umbilical hernia without mention of obstruction or gangrene Vertigo Dizziness and giddiness Thalassemia minor Grief- Primary Adjustment disorder with depressed mood Ataxia Lack of coordination 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 Primary hypertension Unspecified essential hypertension Hyperlipidemia, unspecified hyperlipidemia type Cerebral ventriculomegaly Other conditions of brain [facility] Diagnosis Preop examination- Primary Preoperative examination, unspecified Non-recurrent bilateral inguinal hernia without obstruction or gangrene Umbilical hernia without obstruction or gangrene Umbilical hernia without mention of obstruction or gangrene Vertigo Dizziness and giddiness Thalassemia minor Primary hypertension- Primary Unspecified essential hypertension Coronary artery disease due to lipid rich plaque Pure hypercholesterolemia [facility] Diagnosis Preop examination- Primary Preoperative examination, unspecified Non-recurrent bilateral inguinal hernia without obstruction or gangrene Umbilical hernia without obstruction or gangrene Umbilical hernia without mention of obstruction or gangrene Vertigo Dizziness and giddiness 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 Grief Adjustment disorder with depressed mood [facility] Diagnosis Preop examination- Primary Preoperative examination, unspecified Non-recurrent bilateral inguinal hernia without obstruction or gangrene Umbilical hernia without obstruction or gangrene Umbilical hernia without mention of obstruction or gangrene Vertigo Dizziness and giddiness Thalassemia minor Glands swollen- Primary Enlargement of lymph nodes Acute pharyngitis, unspecified etiology Fatigue, unspecified type [facility] Diagnosis Preop examination- Primary Preoperative examination, unspecified Non-recurrent bilateral inguinal hernia without obstruction or gangrene Umbilical hernia without obstruction or gangrene Umbilical hernia without mention of obstruction or gangrene Vertigo Dizziness and giddiness Thalassemia minor Localized swelling, mass and lump, head Allergic rhinitis, unspecified seasonality, unspecified trigger [facility]* Diagnosis Preop examination- Primary Preoperative examination, unspecified Non-recurrent bilateral inguinal hernia without obstruction or gangrene Umbilical hernia without obstruction or gangrene Umbilical hernia without mention of obstruction or gangrene Vertigo Dizziness and giddiness Thalassemia minor Grief- Primary Adjustment disorder with depressed mood Primary hypertension Unspecified essential hypertension Frequent falls Personal history of fall Ataxia Lack of coordination Cerebral ventriculomegaly Other conditions of brain Nystagmus Nystagmus, unspecified [facility]* Diagnosis Preop examination- Primary Preoperative examination, unspecified Non-recurrent bilateral inguinal hernia without obstruction or gangrene Umbilical hernia without obstruction or gangrene Umbilical hernia without mention of obstruction or gangrene Vertigo Dizziness and giddiness Thalassemia minor Falling- Primary Unspecified fall Frequent falls Personal history of fall Ataxia Lack of coordination [facility] noteNo assessment information availableWLancaster Municipal Hospital Work Phone: Evaluation note* Diagnosis Preop examination- Primary Preoperative examination, unspecified Non-recurrent bilateral inguinal hernia without obstruction or gangrene Umbilical hernia without obstruction or gangrene Umbilical hernia without mention of obstruction or gangrene Vertigo Dizziness and giddiness Thalassemia minor Injury of head, initial encounter- Primary documented in this encounter [facility] note* Diagnosis Preop examination- Primary Preoperative examination, unspecified Non-recurrent bilateral inguinal hernia without obstruction or gangrene Umbilical hernia without obstruction or gangrene Umbilical hernia without mention of obstruction or gangrene Vertigo Dizziness and giddiness Thalassemia minor Fall, subsequent encounter- Primary Laceration of right lower extremity, subsequent encounter Cellulitis of skin Cellulitis and abscess of unspecified site Injury of head, subsequent encounter documented in this encounter [facility] for referral (narrative)* Outpatient Procedure (Routine) - Pending Review Specialty Diagnoses / Procedures Referred By Maryse hitchcock Referred To Contact [facility] Diagnoses Coronary artery disease due to lipid rich plaque Encounter for screening for cardiovascular disorders Procedures ECHO ECHO TTHRC R-T 2D W/WOM-MODE COMPL SPEC&COLR D Caroline Torres MD [address] [place] [address] [facility] [address] [place] [address] Referral ID Status Reason Start Date Expiration Date Visits Requested Visits Authorized [id number] Pending Review Auto-Generat ed Referral 09/28/2023 09/27/2024 1 1 * Diagnostic Procedure Only (Routine) - Pending Review Specialty Diagnoses / Procedures Referred By Maryse hitchcock Referred To Contact MOLECULAR & FUNCTIONAL IMAGING Diagnoses Encounter for screening for cardiovascular disorders Procedures NM CARDIAC PERF STRESS/EXERCISE MYOCARDIAL SPECT MULTIPLE STUDIES Caroline Torres MD [address] [place] [address] Fax: Molecular & Functional Imaging [address] [id number] Referral ID Status Reason Start Date Expiration Date Visits Requested Visits Authorized [id number] Pending Review Auto-Generat ed Referral 09/28/2023 10/27/2024 1 1 [facility] for referral (narrative)* Outpatient Procedure (Routine) - Closed Specialty Diagnoses / Procedures Referred By Maryse hitchcock Referred To Contact [facility] Diagnoses Coronary artery disease due to lipid rich plaque Encounter for screening for cardiovascular disorders Procedures ECHO ECHO TTHRC R-T 2D W/WOM-MODE COMPL SPEC&COLR D Caroline Torres MD [address] [place] [address] Fax: [facility] [address] [place] [address] Referral ID Status Reason Start Date Expiration Date V isits Requested Visits Authorized [id number] Closed Auto-Generate d Referral 09/28/2023 09/27/2024 1 1 [facility] for referral (narrative)* Diagnostic Procedure Only (Routine) - Closed Specialty Diagnoses / Procedures Referred By Maryse hitchcock Referred To Contact MOLECULAR & FUNCTIONAL IMAGING Diagnoses Encounter for screening for cardiovascular disorders Procedures NM CARDIAC PERF STRESS/EXERCISE MYOCARDIAL SPECT MULTIPLE STUDIES Caroline Torres MD [address] [place] [address] Fax: Molecular & Functional Imaging [address] [id number] Referral ID Status Reason Start Date Expiration Date V isits Requested Visits Authorized [id number] Closed Auto-Generate d Referral 09/28/2023 10/27/2024 1 1 [facility] for referral (narrative)No reason for referral information availableWLancaster Municipal Hospital Work Phone: Reason for visit Narrative* Outpatient Procedure (Routine) - Closed Specialty Diagnoses / Procedures Referred By Maryse hitchcock Referred To Contact [facility]ART [facility] [place] Diagnoses Coronary artery disease due to lipid rich plaque Encounter for screening for cardiovascular disorders Procedures ECHO ECHO TTHRC R-T 2D W/WOM-MODE COMPL SPEC&COLR D Caroline Torres MD [address] [place] [address] Fax: [facility] [address] [place] [address] Referral ID Status Reason Start Date Expiration Date V isits Requested Visits Authorized [id number] Closed Auto-Generate d Referral 09/28/2023 09/27/2024 1 1 [facility] Diagnostic Procedure Only (Routine) - Closed Specialty Diagnoses / Procedures Referred By Maryse hitchcock Referred To Contact MOLECULAR & FUNCTIONAL IMAGING Diagnoses Encounter for screening for cardiovascular disorders Procedures NM CARDIAC PERF STRESS/EXERCISE MYOCARDIAL SPECT MULTIPLE STUDIES Caroline Torres MD [address] [place] [address] [facility] [address] [place] [address] Referral ID Status Reason Start Date Expiration Date V isits Requested Visits Authorized [id number] Closed Auto-Generate d Referral 09/28/2023 10/27/2024 1 1 [facility] Summary Purpose Family History No Family History Records FoundNo Family History Records FoundNo Family History Records FoundNo Family History Records FoundNo Family History Records Found Advance Directives No Advanced Directives Records FoundDocuments on File Type Date Recorded 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 No May 05, 2025 1:04pm Reason for Referral Specialty Diagnoses / Procedures Referred By Maryse t Referred To Contact Neurology Diagnoses Ataxia Memory loss Procedures CONSULT TO NEUROLOGY OFFICE/OUTPATIENT [facility] HIGH MDM 60-74 MINUTES Quincy Moreira MD [address] [place] [address] Referral ID Status Reason Start Date Expiration Date Visits Requested Visits Authorized [id number] Pending Review PCP Requested Referral 01/17/2022 01/17/2023 1 1 Specialty Diagnoses / Procedures Referred By Contac t Referred To Contact MR IMAGING Diagnoses Ataxia Procedures MRI BRAIN WO/W IVCON MRI BRAIN BRAIN STEM W/O W/CONTRAST MATERIAL Quincy Moreira MD [address] [place] [address] Mr Imaging Referral ID Status Reason Start Date Expiration Date Visits Requested Visits Authorized [id number] Pending Review Auto-Generat ed Referral 01/17/2022 02/16/2023 1 1 Specialty Diagnoses / Procedures Referred By Contac t Referred To Contact MR IMAGING Diagnoses Myelopathy (HCC) Gait disorder Procedures MRI THORACIC SPINE WO IVCON MRI SPINAL CANAL THORACIC W/O CONTRAST Pradip Martinez MD [address] [place] [address] Mr Imaging Referral ID Status Reason Start Date Expiration Date Visits Requested Visits Authorized [id number] Authorized Auto-Generat ed Referral 07/04/2022 08/03/2023 1 1 Specialty Diagnoses / Procedures Referred By Contac t Referred To Contact MR IMAGING Diagnoses Myelopathy (HCC) Gait disorder Procedures MRI CERVICAL SPINE WO IVCON MRI SPINAL CANAL CERVICAL W/O CONTRAST Pradip Martinez MD [address] [place] [address] Mr Imaging Referral ID Status Reason Start Date Expiration Date Visits Requested Visits Authorized [id number] Authorized Auto-Generat ed Referral 07/04/2022 08/03/2023 1 1 Specialty Diagnoses / Procedures Referred By Contac t Referred To Contact [facility] Diagnoses Imbalance Dizziness and giddiness Procedures PT REHAB FOLLOW UP ORDER THERAPEUTIC EXERCISES RE, EA 15 MIN. Pt [facility] [address] [place] [address] [facility] [address] [place] [address] Referral ID Status Reason Start Date Expiration Date Visits Requested Visits Authorized [id number] Pending Review PCP Requested Referral Auto-Generate d Referral 08/04/2022 11/02/2022 1 1 Specialty Diagnoses / Procedures Referred By Contac t Referred To Contact [facility] Diagnoses Imbalance Dizziness and giddiness Procedures PT REHAB FOLLOW UP ORDER THERAPEUTIC EXERCISES RE, EA 15 MIN. [facility] [address] [place] [id number] Referral ID Status Reason Start Date Expiration Date V isits Requested Visits Authorized [id number] Closed PCP Requested Referral Auto-Generated Referral 09/05/2022 12/04/2022 1 1 Specialty Diagnoses / Procedures Referred By Contac t Referred To Contact [facility] Diagnoses Imbalance Procedures PT REHAB FOLLOW UP ORDER THERAPEUTIC EXERCISES RE, EA 15 MIN. Pt [facility] [address] [place] [address] [facility] [address] [address] Referral ID Status Reason Start Date Expiration Date Visits Requested Visits Authorized [id number] Pending Review PCP Requested Referral Auto-Generate d Referral 10/12/2022 01/10/2023 1 1 Specialty Diagnoses / Procedures Referred By Contac t Referred To Contact [facility] Diagnoses Imbalance Dizziness and giddiness Procedures PT AQUATIC REHAB FOLLOW UP ORDER THER PX 1/> AREAS EACH 15 MIN AQUA THER W/XERSS Pt [facility] [address] [place] [address] [facility] [address] [address] Referral ID Status Reason Start Date Expiration Date Visits Requested Visits Authorized [id number] Pending Review PCP Requested Referral Auto-Generate d Referral 11/15/2022 02/13/2023 1 1 Specialty Diagnoses / Procedures Referred By Contac t Referred To Contact Dermatology Diagnoses Skin neoplasm Procedures CONSULT TO DERMATOLOGY OFFICE/OUTPATIENT [facility] 60-74 MINUTES Quincy Moreira MD [address] [place] [address] Referral ID Status Reason Start Date Expiration Date Visits Requested Visits Authorized [id number] Pending Review PCP Requested Referral 11/23/2022 11/23/2023 1 1 Specialty Diagnoses / Procedures Referred By Contac t Referred To Contact MR IMAGING Diagnoses Myelopathy (HCC) Gait disorder Procedures MRI THORACIC SPINE WO IVCON MRI SPINAL CANAL THORACIC W/O CONTRAST Pradip Martinez MD [address] [place] [address] [place] [address] Referral ID Status Reason Start Date Expiration Date V isits Requested Visits Authorized [id number] Closed Auto-Generate d Referral 07/04/2022 08/03/2023 1 1 Specialty Diagnoses / Procedures Referred By Contac t Referred To Contact MR IMAGING Diagnoses Myelopathy (HCC) Gait disorder Procedures MRI CERVICAL SPINE WO IVCON MRI SPINAL CANAL CERVICAL W/O CONTRAST Pradip Martinez MD [address] [place] [address] [place] [address] Referral ID Status Reason Start Date Expiration Date V isits Requested Visits Authorized [id number] Closed Auto-Generate d Referral 07/04/2022 08/03/2023 1 1 Specialty Diagnoses / Procedures Referred By Contac t Referred To Contact MR IMAGING Diagnoses Ataxia Procedures MRI BRAIN WO/W IVCON MRI BRAIN BRAIN STEM W/O W/CONTRAST MATERIAL Quincy Moreira MD [address] [place] [address] [place] [address] Referral ID Status Reason Start Date Expiration Date V isits Requested Visits Authorized [id number] Closed Auto-Generate d Referral 01/17/2022 02/16/2023 1 1 Specialty Diagnoses / Procedures Referred By Contac t Referred To Contact Neurology Diagnoses Ataxia Abnormal MRI of head Procedures CONSULT TO NEUROLOGY OFFICE/OUTPATIENT [facility] 60 MINUTES Quincy Moreira MD [address] [place] [address] Referral ID Status Reason Start Date Expiration Date Visits Requested Visits Authorized [id number] Authorized PCP Requested Referral 11/08/2023 11/07/2024 1 1 Specialty Diagnoses / Procedures Referred By Contac t Referred To Contact Diagnoses Memory loss Procedures NEUROPSYCHOLOGICAL TESTING CONSULT NEUROBEHAVIORAL STATUS XM PHYS/QHP 1ST HOUR NEUROPSYCHOLOGICAL TST EVAL PHYS/QHP 1ST HOUR NEUROPSYCHOLOGICAL TST EVAL PHYS/QHP EA ADDL HR PSYCL/NRPSYCL TST TECH 2+ TST 1ST 30 MIN PSYCL/NRPSYCL TST TECH 2+ TST EA ADDL 30 MIN Igor Lan Jr., MD [address] [facility] [address] [place] [address] Referral ID Status Reason Start Date Expiration Date Visits Requested Visits Authorized [id number] Ref Not Required PCP Requested Referral 06/16/2025 1 3 Specialty Diagnoses / Procedures Referred By Contac t Referred To Contact Ophthalmology Diagnoses Ataxia Cerebral ventriculomegaly Nystagmus Procedures CONSULT TO OPHTHALMOLOGY OFFICE/OUTPATIENT [facility] 60 MINUTES Igor Lan Jr., MD [address] [facility] [address] [place] [address] Referral ID Status Reason Start Date Expiration Date Visits Requested Visits Authorized [id number] Authorized PCP Requested Referral 06/16/2025 1 1 Specialty Diagnoses / Procedures Referred By Contac t Referred To Contact MR IMAGING Diagnoses Ataxia Cerebral ventriculomegaly Memory loss Recurrent falls Procedures MRI BRAIN WO IVCON MRI BRAIN BRAIN STEM W/O CONTRAST MATERIAL Igor Lan Jr., MD [address] [facility] [address] [place] [address] [place] [address] Referral ID Status Reason Start Date Expiration Date Visits Requested Visits Authorized [id number] Authorized Auto-Generat ed Referral 07/16/2025 1 1 Referral ID Status Reason Start Date Expiration Date V isits Requested Visits Authorized [id number] Closed Auto-Generate d Referral 06/16/2024 07/16/2025 1 1 Chief Complaint and Reason for Visit Chief Complaint Admit Date HEAD, ANKLE May 05, 2025 10:24am Chief Complaint Admit Date HEAD, ANKLE May 05, 2025 10:24am RLE PAIN May 05, 2025 10:58am Unspecified injury of head, subsequent e ncounter May 07, 2025 3:36pm Additional Source Comments (unrecognized sect ion and content) No Status Records FoundNo Status Records FoundNo Status Records FoundNo Status Records FoundNo Status Records Found INFORMATION SOURCE (unrecogn ized section and content) DATE CREATED AUTHOR 07/31/2019 [facility] DATE CREATED AUTHOR AUTHOR'S ORGANIZ ATION 06/01/2020 [facility] DATE CREATED AUTHOR AUTHOR'S ORGANIZ ATION 03/16/2024 [facility] DATE CREATED AUTHOR AUTHOR'S ORGANIZ ATION 05/30/2025 [facility] DATE CREATED AUTHOR AUTHOR'S ORGANIZ ATION 07/08/2025 [facility] Source Comments (unrecognize d section and content) In the event this informatio n is protected by the Federal Confidentiality of Alcohol and Drug Abuse Patient Records regulations: The Federal rules restrict any use of the information to criminally investigate or prosecute any alcohol or drug abuse patient.[facility] HospitalIn the event this information is protected by the Federal Confidentiality of Alcohol and Drug Abuse Patient Records regulations: The Federal rules restrict any use of the information to criminally investigate or prosecute any alcohol or drug abuse patient.[facility] HospitalIn the event this information is protected by the Federal Confidentiality of Alcohol and Drug Abuse Patient Records regulations: The Federal rules restrict any use of the information to criminally investigate or prosecute any alcohol or drug abuse patient.[facility] HospitalIn the event this information is protected by the Federal Confidentiality of Alcohol and Drug Abuse Patient Records regulations: The Federal rules restrict any use of the information to criminally investigate or prosecute any alcohol or drug abuse patient.[facility] HospitalIn the event this information is protected by the Federal Confidentiality of Alcohol and Drug Abuse Patient Records regulations: The Federal rules restrict any use of the information to criminally investigate or prosecute any alcohol or drug abuse patient.[facility] HospitalIn the event this information is protected by the Federal Confidentiality of Alcohol and Drug Abuse Patient Records regulations: The Federal rules restrict any use of the information to criminally investigate or prosecute any alcohol or drug abuse patient.[facility] HospitalIn the event this information is protected by the Federal Confidentiality of Alcohol and Drug Abuse Patient Records regulations: The Federal rules restrict any use of the information to criminally investigate or prosecute any alcohol or drug abuse patient.[facility] HospitalIn the event this information is protected by the Federal Confidentiality of Alcohol and Drug Abuse Patient Records regulations: The Federal rules restrict any use of the information to criminally investigate or prosecute any alcohol or drug abuse patient.[facility] HospitalIn the event this information is protected by the Federal Confidentiality of Alcohol and Drug Abuse Patient Records regulations: The Federal rules restrict any use of the information to criminally investigate or prosecute any alcohol or drug abuse patient.[facility] HospitalIn the event this information is protected by the Federal Confidentiality of Alcohol and Drug Abuse Patient Records regulations: The Federal rules restrict any use of the information to criminally investigate or prosecute any alcohol or drug abuse patient.[facility] HospitalIn the event this information is protected by the Federal Confidentiality of Alcohol and Drug Abuse Patient Records regulations: The Federal rules restrict any use of the information to criminally investigate or prosecute any alcohol or drug abuse patient.[facility] HospitalIn the event this information is protected by the Federal Confidentiality of Alcohol and Drug Abuse Patient Records regulations: The Federal rules restrict any use of the information to criminally investigate or prosecute any alcohol or drug abuse patient.[facility] HospitalIn the event this information is protected by the Federal Confidentiality of Alcohol and Drug Abuse Patient Records regulations: The Federal rules restrict any use of the information to criminally investigate or prosecute any alcohol or drug abuse patient.[facility] HospitalIn the event this information is protected by the Federal Confidentiality of Alcohol and Drug Abuse Patient Records regulations: The Federal rules restrict any use of the information to criminally investigate or prosecute any alcohol or drug abuse patient.[facility] HospitalIn the event this information is protected by the Federal Confidentiality of Alcohol and Drug Abuse Patient Records regulations: The Federal rules restrict any use of the information to criminally investigate or prosecute any alcohol or drug abuse patient.[facility] HospitalIn the event this information is protected by the Federal Confidentiality of Alcohol and Drug Abuse Patient Records regulations: The Federal rules restrict any use of the information to criminally investigate or prosecute any alcohol or drug abuse patient.[facility] HospitalIn the event this information is protected by the Federal Confidentiality of Alcohol and Drug Abuse Patient Records regulations: The Federal rules restrict any use of the information to criminally investigate or prosecute any alcohol or drug abuse patient.[facility] HospitalIn the event this information is protected by the Federal Confidentiality of Alcohol and Drug Abuse Patient Records regulations: The Federal rules restrict any use of the information to criminally investigate or prosecute any alcohol or drug abuse patient.[facility] HospitalIn the event this information is protected by the Federal Confidentiality of Alcohol and Drug Abuse Patient Records regulations: The Federal rules restrict any use of the information to criminally investigate or prosecute any alcohol or drug abuse patient.[facility] HospitalIn the event this information is protected by the Federal Confidentiality of Alcohol and Drug Abuse Patient Records regulations: The Federal rules restrict any use of the information to criminally investigate or prosecute any alcohol or drug abuse patient.[facility] HospitalIn the event this information is protected by the Federal Confidentiality of Alcohol and Drug Abuse Patient Records regulations: The Federal rules restrict any use of the information to criminally investigate or prosecute any alcohol or drug abuse patient.[facility] HospitalIn the event this information is protected by the Federal Confidentiality of Alcohol and Drug Abuse Patient Records regulations: The Federal rules restrict any use of the information to criminally investigate or prosecute any alcohol or drug abuse patient.[facility] HospitalIn the event this information is protected by the Federal Confidentiality of Alcohol and Drug Abuse Patient Records regulations: The Federal rules restrict any use of the information to criminally investigate or prosecute any alcohol or drug abuse patient.[facility] HospitalIn the event this information is protected by the Federal Confidentiality of Alcohol and Drug Abuse Patient Records regulations: The Federal rules restrict any use of the information to criminally investigate or prosecute any alcohol or drug abuse patient.[facility] HospitalIn the event this information is protected by the Federal Confidentiality of Alcohol and Drug Abuse Patient Records regulations: The Federal rules restrict any use of the information to criminally investigate or prosecute any alcohol or drug abuse patient.[facility] HospitalIn the event this information is protected by the Federal Confidentiality of Alcohol and Drug Abuse Patient Records regulations: The Federal rules restrict any use of the information to criminally investigate or prosecute any alcohol or drug abuse patient.[facility] HospitalIn the event this information is protected by the Federal Confidentiality of Alcohol and Drug Abuse Patient Records regulations: The Federal rules restrict any use of the information to criminally investigate or prosecute any alcohol or drug abuse patient.[facility] HospitalIn the event this information is protected by the Federal Confidentiality of Alcohol and Drug Abuse Patient Records regulations: The Federal rules restrict any use of the information to criminally investigate or prosecute any alcohol or drug abuse patient.[facility] HospitalIn the event this information is protected by the Federal Confidentiality of Alcohol and Drug Abuse Patient Records regulations: The Federal rules restrict any use of the information to criminally investigate or prosecute any alcohol or drug abuse patient.[facility] HospitalIn the event this information is protected by the Federal Confidentiality of Alcohol and Drug Abuse Patient Records regulations: The Federal rules restrict any use of the information to criminally investigate or prosecute any alcohol or drug abuse patient.[facility] HospitalIn the event this information is protected by the Federal Confidentiality of Alcohol and Drug Abuse Patient Records regulations: The Federal rules restrict any use of the information to criminally investigate or prosecute any alcohol or drug abuse patient.[facility] HospitalIn the event this information is protected by the Federal Confidentiality of Alcohol and Drug Abuse Patient Records regulations: The Federal rules restrict any use of the information to criminally investigate or prosecute any alcohol or drug abuse patient.[facility] HospitalIn the event this information is protected by the Federal Confidentiality of Alcohol and Drug Abuse Patient Records regulations: The Federal rules restrict any use of the information to criminally investigate or prosecute any alcohol or drug abuse patient.[facility] HospitalIn the event this information is protected by the Federal Confidentiality of Alcohol and Drug Abuse Patient Records regulations: The Federal rules restrict any use of the information to criminally investigate or prosecute any alcohol or drug abuse patient.[facility] the event this information is protected by the Federal Confidentiality of Alcohol and Drug Abuse Patient Records regulations: The Federal rules restrict any use of the information to criminally investigate or prosecute any alcohol or drug abuse patient.[facility] HospitalIn the event this information is protected by the Federal Confidentiality of Alcohol and Drug Abuse Patient Records regulations: The Federal rules restrict any use of the information to criminally investigate or prosecute any alcohol or drug abuse patient.[facility] HospitalIn the event this information is protected by the Federal Confidentiality of Alcohol and Drug Abuse Patient Records regulations: The Federal rules restrict any use of the information to criminally investigate or prosecute any alcohol or drug abuse patient.[facility] HospitalIn the event this information is protected by the Federal Confidentiality of Alcohol and Drug Abuse Patient Records regulations: The Federal rules restrict any use of the information to criminally investigate or prosecute any alcohol or drug abuse patient.[facility] HospitalIn the event this information is protected by the Federal Confidentiality of Alcohol and Drug Abuse Patient Records regulations: The Federal rules restrict any use of the information to criminally investigate or prosecute any alcohol or drug abuse patient.[facility] HospitalIn the event this information is protected by the Federal Confidentiality of Alcohol and Drug Abuse Patient Records regulations: The Federal rules restrict any use of the information to criminally investigate or prosecute any alcohol or drug abuse patient.[facility] HospitalIn the event this information is protected by the Federal Confidentiality of Alcohol and Drug Abuse Patient Records regulations: The Federal rules restrict any use of the information to criminally investigate or prosecute any alcohol or drug abuse patient.[facility] HospitalIn the event this information is protected by the Federal Confidentiality of Alcohol and Drug Abuse Patient Records regulations: The Federal rules restrict any use of the information to criminally investigate or prosecute any alcohol or drug abuse patient.[facility] HospitalIn the event this information is protected by the Federal Confidentiality of Alcohol and Drug Abuse Patient Records regulations: The Federal rules restrict any use of the information to criminally investigate or prosecute any alcohol or drug abuse patient.[facility] HospitalIn the event this information is protected by the Federal Confidentiality of Alcohol and Drug Abuse Patient Records regulations: The Federal rules restrict any use of the information to criminally investigate or prosecute any alcohol or drug abuse patient.[facility] HospitalIn the event this information is protected by the Federal Confidentiality of Alcohol and Drug Abuse Patient Records regulations: The Federal rules restrict any use of the information to criminally investigate or prosecute any alcohol or drug abuse patient.[facility] HospitalIn the event this information is protected by the Federal Confidentiality of Alcohol and Drug Abuse Patient Records regulations: The Federal rules restrict any use of the information to criminally investigate or prosecute any alcohol or drug abuse patient.[facility] HospitalIn the event this information is protected by the Federal Confidentiality of Alcohol and Drug Abuse Patient Records regulations: The Federal rules restrict any use of the information to criminally investigate or prosecute any alcohol or drug abuse patient.[facility] HospitalIn the event this information is protected by the Federal Confidentiality of Alcohol and Drug Abuse Patient Records regulations: The Federal rules restrict any use of the information to criminally investigate or prosecute any alcohol or drug abuse patient.[facility] HospitalIn the event this information is protected by the Federal Confidentiality of Alcohol and Drug Abuse Patient Records regulations: The Federal rules restrict any use of the information to criminally investigate or prosecute any alcohol or drug abuse patient.[facility] HospitalIn the event this information is protected by the Federal Confidentiality of Alcohol and Drug Abuse Patient Records regulations: The Federal rules restrict any use of the information to criminally investigate or prosecute any alcohol or drug abuse patient.[facility] HospitalIn the event this information is protected by the Federal Confidentiality of Alcohol and Drug Abuse Patient Records regulations: The Federal rules restrict any use of the information to criminally investigate or prosecute any alcohol or drug abuse patient.[facility] HospitalIn the event this information is protected by the Federal Confidentiality of Alcohol and Drug Abuse Patient Records regulations: The Federal rules restrict any use of the information to criminally investigate or prosecute any alcohol or drug abuse patient.[facility] HospitalIn the event this information is protected by the Federal Confidentiality of Alcohol and Drug Abuse Patient Records regulations: The Federal rules restrict any use of the information to criminally investigate or prosecute any alcohol or drug abuse patient.[facility] HospitalIn the event this information is protected by the Federal Confidentiality of Alcohol and Drug Abuse Patient Records regulations: The Federal rules restrict any use of the information to criminally investigate or prosecute any alcohol or drug abuse patient.[facility] HospitalIn the event this information is protected by the Federal Confidentiality of Alcohol and Drug Abuse Patient Records regulations: The Federal rules restrict any use of the information to criminally investigate or prosecute any alcohol or drug abuse patient.[facility] HospitalIn the event this information is protected by the Federal Confidentiality of Alcohol and Drug Abuse Patient Records regulations: The Federal rules restrict any use of the information to criminally investigate or prosecute any alcohol or drug abuse patient.[facility] HospitalIn the event this information is protected by the Federal Confidentiality of Alcohol and Drug Abuse Patient Records regulations: The Federal rules restrict any use of the information to criminally investigate or prosecute any alcohol or drug abuse patient.[facility] Reason for Visit (unrecogniz ed section and content) Reason Comments Referral Information Neurology Reason Comments Results Patient here to disc uss MRI results that he had done in 2019 due to him falling was being treated by a physician that had past and is here for a second opinion Reason Comments Results Reason Comments Balance Leg Weakness Specialty Diagnoses / Procedures Referred By Contac t Referred To Contact Neurology Diagnoses Ataxia Memory loss Procedures CONSULT TO NEUROLOGY OFFICE/OUTPATIENT [facility] 60-74 MINUTES Quincy Moreira MD [address] [place] [address] Referral ID Status Reason Start Date Expiration Date V isits Requested Visits Authorized [id number] Closed PCP Requested Referral 01/17/2022 01/17/2023 1 1 Reason Onset Date Comments Population Health Navigation Outreach 06/15/2022 [facility] Care Gap Reason Comments Follow Up Reason Onset Date Comments ACM EM RN 07/06/2022 Medication Ad herence review at request of payer Reason Onset Date Comments Refill Request 07/24/2022 Reason Comments Cough Chest irritation x 1 month Reason Comments Cough X 6 weeks, cough wit h mucus Reason Comments Physical Therapy Specialty Diagnoses / Procedures Referred By Contac t Referred To Contact Physical Therapy / PHYSICAL THERAPY Diagnoses VESTIBULAR PT Procedures NEW RS PT VESTIBULAR DIZZY Pradip Meraz MD [address] [place] [address] [place] [address] [place] [address] Referral ID Status Reason Start Date Expiration Date V isits Requested Visits Authorized [id number] Authorized 08/27/2021 08/26/2022 99 99 Reason Comments PT Eval Patient Education Specialty Diagnoses / Procedures Referred By Contac t Referred To Contact Physical Therapy / PHYSICAL THERAPY Diagnoses VESTIBULAR PT Procedures NEW RS PT VESTIBULAR DIZZY Pradip Meraz MD [address] [place] [address] [place] [address] [place] [address] Reason Comments PT Progress Note Specialty Diagnoses / Procedures Referred By Contac t Referred To Contact Physical Therapy / PHYSICAL THERAPY Diagnoses Imbalance BPPV (Benign Positional Vertigo) Procedures EST RS PT VESTIBULAR [address], [place] [address] [place] [address] Referral ID Status Reason Start Date Expiration Date V isits Requested Visits Authorized [id number] Authorized 08/27/2022 08/26/2023 99 99 Reason Comments Physical Therapy Specialty Diagnoses / Procedures Referred By Contac t Referred To Contact Physical Therapy / PHYSICAL THERAPY Diagnoses Imbalance BPPV (Benign Positional Vertigo) Procedures EST RS PT VESTIBULAR [place], [place] [address] [place] [address] Reason Onset Date Comments Virtualist 10/03/2022 Reason Comments Covid19 Concern Reason Comments PT Progress Note Reason Comments Derm Problem L forehead area, kellie k Reason Comments LESION, SKIN Posterior R shoulder months Specialty Diagnoses / Procedures Referred By Contac t Referred To Contact Dermatology Diagnoses Skin neoplasm Procedures CONSULT TO DERMATOLOGY OFFICE/OUTPATIENT [facility] HIGH MDM 60-74 MINUTES Quincy Moreira MD [address] [place] [address] Referral ID Status Reason Start Date Expiration Date V isits Requested Visits Authorized [id number] Closed PCP Requested Referral 11/23/2022 11/23/2023 1 1 Reason Comments Refill Request Reason Comments Sore Throat Sore throat x 3 days Specialty Diagnoses / Procedures Referred By Contac t Referred To Contact MR IMAGING Diagnoses Myelopathy (HCC) Gait disorder Procedures MRI THORACIC SPINE WO IVCON MRI SPINAL CANAL THORACIC W/O CONTRAST MATRL Pradip Meraz MD [address] [place] [address] [place] [address] Referral ID Status Reason Start Date Expiration Date V isits Requested Visits Authorized [id number] Closed Auto-Generate d Referral 07/04/2022 08/03/2023 1 1 Specialty Diagnoses / Procedures Referred By Contac t Referred To Contact MR IMAGING Diagnoses Myelopathy (HCC) Gait disorder Procedures MRI CERVICAL SPINE WO IVCON MRI SPINAL CANAL CERVICAL W/O CONTRAST Pradip Martinez MD [address] [place] [address] [place] [address] Referral ID Status Reason Start Date Expiration Date V isits Requested Visits Authorized [id number] Closed Auto-Generate d Referral 07/04/2022 08/03/2023 1 1 Reason Comments Radiology MRI Specialty Diagnoses / Procedures Referred By Contac t Referred To Contact MR IMAGING Diagnoses Ataxia Procedures MRI BRAIN WO/W IVCON MRI BRAIN BRAIN STEM W/O W/CONTRAST MATERIAL Quincy Moreira MD [address] [place] [address] [place] [address] Referral ID Status Reason Start Date Expiration Date V isits Requested Visits Authorized [id number] Closed Auto-Generate d Referral 01/17/2022 02/16/2023 1 1 Reason Comments Consult Ortho, Neurology, an d Cardiology Reason Comments New Patient 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 Short term memory issues Specialty Diagnoses / Procedures Referred By Contac t Referred To Contact Neurology Diagnoses Ataxia Abnormal MRI of head Procedures CONSULT TO NEUROLOGY OFFICE/OUTPATIENT NEW HIGH MDM 60 MINUTES Quincy Moreira MD [address] [place] [address] Referral ID Status Reason Start Date Expiration Date V isits Requested Visits Authorized [id number] Closed PCP Requested Referral 11/08/2023 11/07/2024 1 1 Reason Comments Patient Question Blood work done on Reason Comments Establish Care Reason Comments New Patient Evaluation CVA Reason Comments Follow Up For memory concerns Specialty Diagnoses / Procedures Referred By Contac t Referred To Contact MR IMAGING Diagnoses Ataxia Cerebral ventriculomegaly Memory loss Recurrent falls Procedures MRI BRAIN WO IVCON MRI BRAIN BRAIN STEM W/O CONTRAST MATERIAL Igor Lan Jr., MD [address] [address] [place] [address] Referral ID Status Reason Start Date Expiration Date V isits Requested Visits Authorized [id number] Closed Auto-Generate d Referral 06/16/2024 07/16/2025 1 1 Reason Comments Cough Cough, congestion an d ST x 1.5 weeks Reason Comments Follow Up 3 month Reason Comments Follow Up seen in [facility]- 6 months ago Reason Onset Date Comments Refill Request 12/08/2024 Reason Comments Sore Throat With right ear pain, swollen glands & fatigue x1 day Reason Comments Follow Up Swollen glands Reason Comments 3 month follow up Reason Comments PT Eval Physical Therapy Specialty Diagnoses / Procedures Referred By Contac t Referred To Contact [facility] Diagnoses Frequent falls Ataxia Procedures PHYSICAL THERAPY EVALUATION HIGH COMPLEX 45 MINS Sonu Petersen MD [address] [place] [address] Phone: tel: fax: [facility] [address] [place] [address] Referral ID Status Reason Start Date Expiration Date V isits Requested Visits Authorized [id number] Closed Auto-Generate d Referral 08/27/2024 08/26/2025 1 1 Reason Comments Nurse Triage Call Reason Comments Leg Pain Reason Comments ED Follow-up Care Teams (unrecognized sec tion and content) Business Banking Relationship Manager Relationship Specialty Start Date End Date Quincy Moreira MD [address] [facility] [place] [place] [id number] PCP - General Family Practice 09/22/20 Business Banking Relationship Manager Relationship Specialty Start Date End Date Quincy Moreira MD [address] [place] [address] PCP - General Family Practice 09/22/20 Business Banking Relationship Manager Relationship Specialty Start Date End Date Quincy Moreira MD [address] [place] [address] PCP - General Family Practice 09/22/20 Business Banking Relationship Manager Relationship Specialty Start Date End Date Quincy Moreira MD [address] [place] [address] PCP - General Family Practice 09/22/20 Business Banking Relationship Manager Relationship Specialty Start Date End Date Quincy Moreira MD [address] [place] [address] PCP - General Family Practice 09/22/20 Business Banking Relationship Manager Relationship Specialty Start Date End Date Quincy Moreira MD [address] [place] [address] PCP - General Family Medicine 09/22/20 Elijah Garzon, DO [address] [place] [address] Primary Staff Physician Family Medicine 04/13/22 Vinod Sky, DO [address] [place] [address] Primary Staff Physician Family Medicine 04/13/22 Columba Lees, DO [address] [place] [address] Primary Staff Physician Family Medicine 04/13/22 Quincy Moreira MD [address] [place] [address] Primary Staff Physician Family Medicine 04/13/22 Raul Moreira MD [address] [place] [address] Primary Staff Physician Family Medicine 04/13/22 Raji Tsai MD [address] [place] [address] Primary Staff Physician Family Medicine 04/13/22 Smith Vargas, [address] [place] [address] Primary Staff Physician Family Medicine 04/13/22 [facility] [address] [facility] [place] [address] Primary Service Family Medicine 04/13/22 Shlomo May, DO [address] [facility] [place] [place] [address] Primary Staff Physician Family Medicine 04/13/22 Antonia Ray, BASSAM Registered Nurse 04/13/22 Business Banking Relationship Manager Relationship Specialty Start Date End Date Quincy Moreira MD [address] [place] [address] PCP - General Family Medicine 09/22/20 Elijah Garzon, DO [address] [place] [address] Primary Staff Physician Family Medicine 04/13/22 Vinod Sky, DO [address] [place] [address] Primary Staff Physician Family Medicine 04/13/22 Columba Lees, DO [address] [place] [address] Primary Staff Physician Family Medicine 04/13/22 Quincy Moreira MD [address] [place] [address] Primary Staff Physician Family Medicine 04/13/22 Raul Moreira MD [address] [place] [address] Primary Staff Physician Family Medicine 04/13/22 Raji Tsai MD [address] [place] [address] Primary Staff Physician Family Medicine 04/13/22 Smith Vargas, [address] [place] [address] Primary Staff Physician Family Medicine 04/13/[address]dJose [address] [place] [address] Primary Service Family Medicine 04/13/22 Shlomo May, [address] [place] [address] Primary Staff Physician Family Medicine 04/13/22 Antonia Ray, BASSAM Registered Nurse 04/13/22 Business Banking Relationship Manager Relationship Specialty Start Date End Date Quincy Moreira MD [address] [place] [address] PCP - General Family Medicine 09/22/20 Elijah Garzon DO [address] [place] [address] Primary Staff Physician Family Medicine 04/13/22 Vinod Sky, DO [address] [place] [address] Primary Staff Physician Family Medicine 04/13/22 Columba Lees, DO [address] [place] [address] Primary Staff Physician Family Medicine 04/13/22 Quincy Moreira MD [address] [place] [address] Primary Staff Physician Family Medicine 04/13/22 Raul Moreira MD [address] [place] [address] Primary Staff Physician Family Medicine 04/13/22 Raji Tsai MD [address] [place] [address] Primary Staff Physician Family Medicine 04/13/22 Smith Vargas, DO [address] [place] [address] Primary Staff Physician Family Medicine 04/13/22 [facility] [place] [address] [place] [address] Primary Service Family Medicine 04/13/22 Shlomo May, DO [address] [place] [address] Primary Staff Physician Family Medicine 04/13/22 Antonia Ray, BASSAM Registered Nurse 04/13/22 Business Banking Relationship Manager Relationship Specialty Start Date End Date Quincy Moreira MD [address] [place] [address] PCP - General Family Medicine 09/22/20 Elijah Garzon, DO [address] [place] [address] Primary Staff Physician Family Medicine 04/13/22 Vinod Sky, DO [address] [place] [address] Primary Staff Physician Family Medicine 04/13/22 Columba Lees, DO [address] [place] [address] Primary Staff Physician Family Medicine 04/13/22 Quincy Moreira MD [address] [place] [address] Primary Staff Physician Family Medicine 04/13/22 Raul Moreira MD [address] [place] [address] Primary Staff Physician Family Medicine 04/13/22 Raji Tsai MD [address] [place] [address] Primary Staff Physician Family Medicine 04/13/22 Smith Vargas, DO [address] [place] [address] Primary Staff Physician Family Medicine 04/13/22 Jose Saunders [address] [place] [address] Primary Service Family Medicine 04/13/22 Shlomo May, DO [address] [place] [address] Primary Staff Physician Family Medicine 04/13/22 Antonia Ray, RN Registered Nurse 04/13/22 Business Banking Relationship Manager Relationship Specialty Start Date End Date Quincy Moreira MD [address] [place] [address] PCP - General Family Medicine 09/22/20 Elijah Garzon, DO [address] [place] [address] Primary Staff Physician Family Medicine 04/13/22 Vinod Sky, DO [address] [place] [address] Primary Staff Physician Family Medicine 04/13/22 Columba Lees, DO [address] [place] [address] Primary Staff Physician Family Medicine 04/13/22 Quincy Moreira MD [address] [place] [address] Primary Staff Physician Family Medicine 04/13/22 Raul Moreira MD [address] [place] [address] Primary Staff Physician Family Medicine 04/13/22 Raji Tsai MD [address] [place] [address] Primary Staff Physician Family Medicine 04/13/22 Smith Vargas, DO [address] [place] [address] Primary Staff Physician Family Medicine 04/13/22 [facility] [place] [address] [place] [address] Primary Service Family Medicine 04/13/22 Shlomo Mya, DO [address] [place] [address] Primary Staff Physician Family Medicine 04/13/22 Antonia Ray, statement clerkCake Inspector 07/25/22 Business Banking Relationship Manager Relationship Specialty Start Date End Date Quincy Moreira MD [address] [place] [address] PCP - General Family Medicine 09/22/20 Elijah Garzon, DO [address] [place] [address] Primary Staff Physician Family Medicine 04/13/22 Vinod Sky, DO [address] [place] [address] Primary Staff Physician Family Medicine 04/13/22 Columba Lees, DO [address] [place] [address] Primary Staff Physician Family Medicine 04/13/22 Quincy Moreira MD [address] [place] [address] Primary Staff Physician Family Medicine 04/13/22 Raul Moreira MD [address] [facility] [place] [address] Primary Staff Physician Family Medicine 04/13/22 Raji Tsai MD [address] [place] [address] Primary Staff Physician Family Medicine 04/13/22 Smith Vargas, DO [address] [place] [address] Primary Staff Physician Family Medicine 04/13/22 [facility] [place] [place] [address] [place] [address] Primary Service Family Medicine 04/13/22 Shlomo May, DO [address] [place] [address] Primary Staff Physician Family Medicine 04/13/22 Antonia Ray, statement clerkCake Inspector 07/25/22 Business Banking Relationship Manager Relationship Specialty Start Date End Date Quincy Moreira MD [address] [place] [address] PCP - General Family Medicine 09/22/20 Elijah Garzon, DO [address] [place] [address] Primary Staff Physician Family Medicine 04/13/22 Vinod Sky, DO [address] [place] [address] Primary Staff Physician Family Medicine 04/13/22 Columba Lees, DO [address] [place] [address] Primary Staff Physician Family Medicine 04/13/22 Quincy Moreira MD [address] [place] [address] Primary Staff Physician Family Medicine 04/13/22 Raul Moreira MD [address] [place] [address] Primary Staff Physician Family Medicine 04/13/22 Raji Tsai MD [address] [place] [address] Primary Staff Physician Family Medicine 04/13/22 Smith Vargas, DO [address] [place] [address] Primary Staff Physician Family Medicine 04/13/22 [facility] [address] [place] [address] Primary Service Family Medicine 04/13/22 Shlomo May, DO [address] [place] [address] Primary Staff Physician Family Medicine 04/13/22 Antonia Ray, statement clerkCake Inspector 07/25/22 Business Banking Relationship Manager Relationship Specialty Start Date End Date Quincy Moreira MD [address] [place] [address] PCP - General Family Medicine 09/22/20 Elijah Garzon, DO [address] [place] [address] Primary Staff Physician Family Medicine 04/13/22 Vinod Sky, DO [address] [place] [address] Primary Staff Physician Family Medicine 04/13/22 Columba Lees, DO [address] [place] [address] Primary Staff Physician Family Medicine 04/13/22 Quincy Moreira MD [address] [place] [address] Primary Staff Physician Family Medicine 04/13/22 Raul Moreira MD [address] [place] [address] Primary Staff Physician Family Medicine 04/13/22 Raji Tsai MD [address] [place] [address] Primary Staff Physician Family Medicine 04/13/22 Smith Vargas, [address] [place] [address] Primary Staff Physician Family Medicine 04/13/22 Jose Saunders [address] [place] [address] Primary Service Family Medicine 04/13/22 Shlomo May, [address] [place] [address] Primary Staff Physician Family Medicine 04/13/22 Antonia Ray, statement clerkCake Inspector 07/25/22 Business Banking Relationship Manager Relationship Specialty Start Date End Date Quincy Moreira MD [address] [place] [address] PCP - General Family Medicine 09/22/20 Elijah Garzon, DO [address] [place] [address] Primary Staff Physician Family Medicine 04/13/22 Vinod Sky, DO [address] [place] [address] Primary Staff Physician Family Medicine 04/13/22 Columba Lees, DO [address] [place] [address] Primary Staff Physician Family Medicine 04/13/22 Quincy Moreira MD [address] [place] [address] Primary Staff Physician Family Medicine 04/13/22 Raul Moreira MD [address] [place] [address] Primary Staff Physician Family Medicine 04/13/22 Raji Tsai MD [address] [facility] [place] [address] Primary Staff Physician Family Medicine 04/13/22 Smith Vargas, DO [address] [place] [address] Primary Staff Physician Family Medicine 04/13/22 [facility] [address] [place] [address] Primary Service Family Medicine 04/13/22 Shlomo May, DO [address] [place] [address] Primary Staff Physician Family Medicine 04/13/22 Antonia Ray, statement clerkCake Inspector 07/25/22 Business Banking Relationship Manager Relationship Specialty Start Date End Date Quincy Moreira MD [address] [place] [address] PCP - General Family Medicine 09/22/20 Elijah Garzon, DO [address] [place] [address] Primary Staff Physician Family Medicine 04/13/22 Vinod Sky, DO [address] [place] [address] Primary Staff Physician Family Medicine 04/13/22 Columba Lees, DO [address] [place] [address] Primary Staff Physician Family Medicine 04/13/22 Quincy Moreira MD [address] [place] [address] Primary Staff Physician Family Medicine 04/13/22 Raul Moreira MD [address] [place] [address] Primary Staff Physician Family Medicine 04/13/22 Raji Tsai MD [address] [place] [address] Primary Staff Physician Family Medicine 04/13/22 Smith Vargas, DO [address] [place] [address] Primary Staff Physician Family Medicine 04/13/22 Jose Saunders [address] [place] [address] Primary Service Family Medicine 04/13/22 Shlomo May, DO [address] [place] [address] Primary Staff Physician Family Medicine 04/13/22 Antonia Ray, statement clerkCake Inspector 07/25/22 Business Banking Relationship Manager Relationship Specialty Start Date End Date Quincy Moreira MD [address] [place] [address] PCP - General Family Medicine 09/22/20 Elijah Garzon, DO [address] [place] [address] Primary Staff Physician Family Medicine 04/13/22 Vinod Sky, DO [address] [place] [address] Primary Staff Physician Family Medicine 04/13/22 Columba Lees, DO [address] [place] [address] Primary Staff Physician Family Medicine 04/13/22 Quincy Moreira MD [address] [place] [address] Primary Staff Physician Family Medicine 04/13/22 Raul Moreira MD [address] [place] [address] Primary Staff Physician Family Medicine 04/13/22 Raji Tsai MD [address] [place] [address] Primary Staff Physician Family Medicine 04/13/22 Smith Vargas, DO [address] [place] [address] Primary Staff Physician Family Medicine 04/13/22 Td Jose Manuel [address] [place] [address] Primary Service Family Medicine 04/13/22 Shlomo May, DO [address] [place] [address] Primary Staff Physician Family Medicine 04/13/22 Antonia Ray, statement clerkCake Inspector 07/25/22 Business Banking Relationship Manager Relationship Specialty Start Date End Date Quincy Moreira MD [address] [place] [address] PCP - General Family Medicine 09/22/20 Elijah Garzon, DO [address] [place] [address] Primary Staff Physician Family Medicine 04/13/22 Vinod Sky, DO [address] [place] [address] Primary Staff Physician Family Medicine 04/13/22 Colubma Lees, DO [address] [place] [address] Primary Staff Physician Family Medicine 04/13/22 Quincy Moreira MD [address] [place] [address] Primary Staff Physician Family Medicine 04/13/22 Raul Moreira MD [address] [facility] [place] [address] Primary Staff Physician Family Medicine 04/13/22 Raji Tsai MD [address] [place] [address] Primary Staff Physician Family Medicine 04/13/22 Smith Vargas, DO [address] [place] [address] Primary Staff Physician Family Medicine 04/13/22 [facility] [place] Jose Manuel [address] [place] [address] Primary Service Family Medicine 04/13/22 Shlomo May, DO [address] [place] [address] Primary Staff Physician Family Medicine 04/13/22 Antonia Ray, statement clerkCake Inspector 07/25/22 Business Banking Relationship Manager Relationship Specialty Start Date End Date Quincy Moreira MD [address] [place] [address] PCP - General Family Medicine 09/22/20 Elijah Garzon, DO [address] [place] [address] Primary Staff Physician Family Medicine 04/13/22 Vinod Sky, DO [address] [place] [address] Primary Staff Physician Family Medicine 04/13/22 Columba Lees, DO [address] [place] [address] Primary Staff Physician Family Medicine 04/13/22 Quincy Moreira MD [address] [place] [address] Primary Staff Physician Family Medicine 04/13/22 Raul Moreira MD [address] [place] [address] Primary Staff Physician Family Medicine 04/13/22 Raji Tsai MD [address] [place] [address] Primary Staff Physician Family Medicine 04/13/22 Smith Vargas, DO [address] [place] [address] Primary Staff Physician Family Medicine 04/13/22 TdJose [address] [place] [address] Primary Service Family Medicine 04/13/22 Shlomo May, DO [address] [place] [address] Primary Staff Physician Family Medicine 04/13/22 Antonia aRy, statement clerkCake Inspector 07/25/22 Business Banking Relationship Manager Relationship Specialty Start Date End Date Quincy Moreira MD [address] [place] [address] PCP - General Family Medicine 09/22/20 Elijah Garzon, DO [address] [place] [address] Primary Staff Physician Family Medicine 04/13/22 Vinod Sky, DO [address] [place] [address] Primary Staff Physician Family Medicine 04/13/22 Columba Lees DO [address] [place] [address] Primary Staff Physician Family Medicine 04/13/22 Quincy Moreira MD [address] [place] [address] Primary Staff Physician Family Medicine 04/13/22 Raul Moreira MD [address] [place] [address] Primary Staff Physician Family Medicine 04/13/22 Raji Tsai MD [address] [place] [address] Primary Staff Physician Family Medicine 04/13/22 Smith Vargas DO [address] [place] [address] Primary Staff Physician Family Medicine 04/13/22 Jose Saunders [address] [place] [address] Primary Service Family Medicine 04/13/22 Shlomo May DO [address] [place] [address] Primary Staff Physician Family Medicine 04/13/22 Antonia Ray, statement clerkCake Inspector 07/25/22 Business Banking Relationship Manager Relationship Specialty Start Date End Date Quincy Moreira MD [address] [place] [address] PCP - General Family Medicine 09/22/20 Elijah Garzon, [address] [place] [address] Primary Staff Physician Family Medicine 04/13/22 Vinod Sky, DO [address] [place] [address] Primary Staff Physician Family Medicine 04/13/22 ShanekafidencioColumba, DO [address] [place] [address] Primary Staff Physician Family Medicine 04/13/22 Quincy Moreira MD [address] [place] [address] Primary Staff Physician Family Medicine 04/13/22 Raul Moreira MD [address] [place] [address] Primary Staff Physician Family Medicine 04/13/22 Raji Tsai MD [address] [place] [address] Primary Staff Physician Family Medicine 04/13/22 Smith Vargas, DO [address] [place] [address] Primary Staff Physician Family Medicine 04/13/22 Jose Saunders [address] [place] [address] Primary Service Family Medicine 04/13/22 Shlomo May, DO [address] [place] [address] Primary Staff Physician Family Medicine 04/13/22 Antonia Ray, statement clerkCake Inspector 07/25/22 Business Banking Relationship Manager Relationship Specialty Start Date End Date Quincy Moreira MD [address] [place] [address] PCP - General Family Medicine 09/22/20 Elijah Garzon, DO [address] [place] [address] Primary Staff Physician Family Medicine 04/13/22 Vinod Sky, DO [address] [place] [address] Primary Staff Physician Family Medicine 04/13/22 Columba Lees, DO [address] [place] [address] Primary Staff Physician Family Medicine 04/13/22 Quincy Moreira MD [address] [facility] [place] [address] Primary Staff Physician Family Medicine 04/13/22 Raul Moreira MD [address] [facility] [place] [address] Primary Staff Physician Family Medicine 04/13/22 Raji Tsai MD [address] [facility] [place] [address] Primary Staff Physician Family Medicine 04/13/22 Smith Vargas, DO [address] [facility] [address] Primary Staff Physician Family Medicine 04/13/22 [facility] [address] [place] [address] Primary Service Family Medicine 04/13/22 Shlomo May, DO [address] [place] [place] [address] Primary Staff Physician Family Medicine 04/13/22 Antonia Ray, statement clerkCake Inspector 07/25/22 Business Banking Relationship Manager Relationship Specialty Start Date End Date Quincy Moreira MD [address] [place] [place] [address] PCP - General Family Medicine 09/22/20 Elijah Garzon DO [address] [place] [place] [address] Primary Staff Physician Family Medicine 04/13/22 Vinod Sky DO [address] [place] [place] [address] Primary Staff Physician Family Medicine 04/13/22 Columba Lees DO [address] [place] [address] Primary Staff Physician Family Medicine 04/13/22 Quincy Moreira MD [address] [place] [place] [address] Primary Staff Physician Family Medicine 04/13/22 Raul Moreira MD [address] [place] [place] [address] Primary Staff Physician Family Medicine 04/13/22 Raji Tsai MD [address] [place] [place] [address] Primary Staff Physician Family Medicine 04/13/22 Smith Vargas, DO [address] [place] [address] Primary Staff Physician Family Medicine 04/13/22 [facility] [address] [place] [address] Primary Service Family Medicine 04/13/22 Shlomo May, DO [address] [place] [address] Primary Staff Physician Family Medicine 04/13/22 Antonia Ray, statement clerkCake Inspector 07/25/22 Business Banking Relationship Manager Relationship Specialty Start Date End Date Quincy Moreira MD [address] [place] [address] PCP - General Family Medicine 09/22/20 Elijah Garzon, DO [address] [place] [address] Primary Staff Physician Family Medicine 04/13/22 Vinod Sky, DO [address] [place] [address] Primary Staff Physician Family Medicine 04/13/22 Columba Lees, DO [address] [place] [address] Primary Staff Physician Family Medicine 04/13/22 Quincy Moreira MD [address] [place] [address] Primary Staff Physician Family Medicine 04/13/22 Raul Moreira MD [address] [place] [address] Primary Staff Physician Family Medicine 04/13/22 Raji Tsai MD [address] [place] [address] Primary Staff Physician Family Medicine 04/13/22 Smith Vargas DO [address] [place] [address] Primary Staff Physician Family Medicine 04/13/22 [facility] [place] [address] [place] [address] Primary Service Family Medicine 04/13/22 Shlomo May DO [address] [place] [address] Primary Staff Physician Family Medicine 04/13/22 Antonia Ray, statement clerkCake Inspector 07/25/22 Business Banking Relationship Manager Relationship Specialty Start Date End Date Quincy Moreira MD [address] [place] [address] PCP - General Family Medicine 09/22/20 Business Banking Relationship Manager Relationship Specialty Start Date End Date Quincy Moreira MD [address] [place] [address] PCP - General Family Medicine 09/22/20 Elijah Garzon DO [address] [place] [address] Primary Staff Physician Family Medicine 04/13/22 Vinod Sky DO [address] [place] [place] [address] Primary Staff Physician Family Medicine 04/13/22 Columba Lees DO [address] [place] [address] Primary Staff Physician Family Medicine 04/13/22 Quincy Moreira MD [address] [place] [place] [address] Primary Staff Physician Family Medicine 04/13/22 Raul Moreira MD [address] [place] [place] [address] Primary Staff Physician Family Medicine 04/13/22 Raji Tsai MD [address] [place] [place] [address] Primary Staff Physician Family Medicine 04/13/22 Smith Vargas DO [address] [place] [address] Primary Staff Physician Family Medicine 04/13/22 Jose Saunders [address] [place] [address] Primary Service Family Medicine 04/13/22 Shlomo May, DO [address] [place] [address] Primary Staff Physician Family Medicine 04/13/22 Antonia Ray, statement clerkCake Inspector 07/25/22 Business Banking Relationship Manager Relationship Specialty Start Date End Date Quincy Moreira MD [address] [place] [address] PCP - General Family Medicine 09/22/20 Elijah Garzon, DO [address] [place] [address] Primary Staff Physician Family Medicine 04/13/22 Vinod Sky, DO [address] [place] [address] Primary Staff Physician Family Medicine 04/13/22 Columba Lees DO [address] [place] [address] Primary Staff Physician Family Medicine 04/13/22 Quincy Moreira MD [address] [place] [address] Primary Staff Physician Family Medicine 04/13/22 Raul Moreira MD [address] [place] [address] Primary Staff Physician Family Medicine 04/13/22 Raji Tsai MD [address] [place] [address] Primary Staff Physician Family Medicine 04/13/22 Smith Vargas, DO [address] [place] [address] Primary Staff Physician Family Medicine 04/13/22 [facility] Jose Jackson [address] [place] [address] Primary Service Family Medicine 04/13/22 Shlomo May, DO [address] [place] [address] Primary Staff Physician Family Medicine 04/13/22 Antonia Ray, statement clerkCake Inspector 07/25/22 Business Banking Relationship Manager Relationship Specialty Start Date End Date Quincy Moreira MD [address] [place] [address] PCP - General Family Medicine 09/22/20 Elijah Garzon DO [address] [place] [address] Primary Staff Physician Family Medicine 04/13/22 Vinod Sky, DO [address] [place] [address] Primary Staff Physician Family Medicine 04/13/22 Columba Lees, DO [address] [place] [id number] Primary Staff Physician Family Medicine 04/13/22 Quincy Moreira MD [address] [place] [address] Primary Staff Physician Family Medicine 04/13/22 Raul Moreira MD [address] [place] [address] Primary Staff Physician Family Medicine 04/13/22 Raji Tsai MD [address] [place] [address] Primary Staff Physician Family Medicine 04/13/22 Smith Vargas DO [address] [place] [address] Primary Staff Physician Family Medicine 04/13/22 [facility] [place] [address] [place] [address] Primary Service Family Medicine 04/13/22 Shlomo May DO [address] [place] [address] Primary Staff Physician Family Medicine 04/13/22 Antonia Ray, statement clerkCake Inspector 07/25/22 Business Banking Relationship Manager Relationship Specialty Start Date End Date Quincy Moreira MD [address] [place] [address] PCP - General Family Medicine 09/22/20 Elijah Garzon, DO [address] [place] [address] Primary Staff Physician Family Medicine 04/13/22 Vinod Sky DO [address] [place] [address] Primary Staff Physician Family Medicine 04/13/22 Columba Lees DO [address] [place] [address] Primary Staff Physician Family Medicine 04/13/22 Quincy Moreira MD [address] [place] [address] Primary Staff Physician Family Medicine 04/13/22 Raul Moreira MD [address] [place] [address] Primary Staff Physician Family Medicine 04/13/22 Raji Tsai MD [address] [place] [address] Primary Staff Physician Family Medicine 04/13/22 Smith Vargas DO [address] [place] [address] Primary Staff Physician Family Medicine 04/13/22 Jose Saunders [address] [place] [address] Primary Service Family Medicine 04/13/22 Shlomo May DO [address] [place] [address] Primary Staff Physician Family Medicine 04/13/22 Antonia Ray, statement clerkCake Inspector 07/25/22 Business Banking Relationship Manager Relationship Specialty Start Date End Date Quincy Moreira MD [address] [place] [address] PCP - General Family Medicine 09/22/20 Elijah Garzon, DO [address] [place] [address] Primary Staff Physician Family Medicine 04/13/22 Vinod Sky, DO [address] [place] [address] Primary Staff Physician Family Medicine 04/13/22 Columba Lees DO [address] [place] [place] [address] Primary Staff Physician Family Medicine 04/13/22 Quincy Moreira MD [address] [place] [address] Primary Staff Physician Family Medicine 04/13/22 Raul Moreira MD [address] [place] [address] Primary Staff Physician Family Medicine 04/13/22 Raji Tsai MD [address] [place] [address] Primary Staff Physician Family Medicine 04/13/22 Smith Vargas DO [address] [place] [address] Primary Staff Physician Family Medicine 04/13/22 [facility] [address] [place] [address] Primary Service Family Medicine 04/13/22 Shlomo May DO [address] [place] [address] Primary Staff Physician Family Medicine 04/13/22 Antonia Ray, statement clerkCake Inspector 07/25/22 Business Banking Relationship Manager Relationship Specialty Start Date End Date Quincy Moreira MD [address] [place] [address] PCP - General Family Medicine 09/22/20 Elijah Garzon DO [address] [place] [address] Primary Staff Physician Family Medicine 04/13/22 Vinod Sky DO [address] [place] [address] Primary Staff Physician Family Medicine 04/13/22 Columba Lees DO [address] [place] [address] Primary Staff Physician Family Medicine 04/13/22 Quincy Moreira MD [address] [place] [address] Primary Staff Physician Family Medicine 04/13/22 Raul Moreira MD [address] [place] [address] Primary Staff Physician Family Medicine 04/13/22 Raji Tsai MD [address] [place] [address] Primary Staff Physician Family Medicine 04/13/22 Smith Vargas, DO [address] [place] [address] Primary Staff Physician Family Medicine 04/13/22 [facility] [place] [address] [place] [address] Primary Service Family Medicine 04/13/22 Shlomo May DO [address] [place] [address] Primary Staff Physician Family Medicine 04/13/22 Antonia Ray, statement clerkCake Inspector 07/25/22 Business Banking Relationship Manager Relationship Specialty Start Date End Date Quincy Moreira MD [address] [place] [address] PCP - General Family Medicine 09/22/20 Elijah Garzon DO [address] [place] [address] Primary Staff Physician Family Medicine 04/13/22 Vinod Sky, DO [address] [place] [address] Primary Staff Physician Family Medicine 04/13/22 Columba Lees DO [address] [place] [address] Primary Staff Physician Family Medicine 04/13/22 Quincy Moreira MD [address] [place] [address] Primary Staff Physician Family Medicine 04/13/22 Raul Moreira MD [address] [place] [address] Primary Staff Physician Family Medicine 04/13/22 Raji Tsai MD [address] [place] [address] Primary Staff Physician Family Medicine 04/13/22 Smith Vargas DO [address] [place] [address] Primary Staff Physician Family Medicine 04/13/22 Jose Saunders [address] [place] [address] Primary Service Family Medicine 04/13/22 Shlomo May DO [address] [place] [address] Primary Staff Physician Family Medicine 04/13/22 Antonia Ray, statement clerkCake Inspector 07/25/22 Business Banking Relationship Manager Relationship Specialty Start Date End Date Quincy Moreira MD [address] [place] [address] PCP - General Family Medicine 09/22/20 Elijah Garzon DO [address] [place] [address] Primary Staff Physician Family Medicine 04/13/22 Vinod Sky DO [address] [place] [address] Primary Staff Physician Family Medicine 04/13/22 Columba Lees DO [address] [facility] [place] [address] Primary Staff Physician Family Medicine 04/13/22 Quincy Moreira MD [address] [place] [address] Primary Staff Physician Family Medicine 04/13/22 Raul Moreira MD [address] [place] [address] Primary Staff Physician Family Medicine 04/13/22 Raji Tsai MD [address] [place] [address] Primary Staff Physician Family Medicine 04/13/22 Smith Vargas DO [address] [facility] [place] [address] Primary Staff Physician Family Medicine 04/13/22 Jose Saunders [address] [place] [address] Primary Service Family Medicine 04/13/22 Shlomo May, DO [address] [place] [address] Primary Staff Physician Family Medicine 04/13/22 Antonia Ray, statement clerkCake Inspector 07/25/22 Business Banking Relationship Manager Relationship Specialty Start Date End Date Quincy Moreira MD [address] [place] [address] PCP - General Family Medicine 09/22/20 Elijah Garzon DO [address] [place] [address] Primary Staff Physician Family Medicine 04/13/22 Vinod Sky DO [address] [place] [address] Primary Staff Physician Family Medicine 04/13/22 Columba Lees DO [address] [place] [address] Primary Staff Physician Family Medicine 04/13/22 Quincy Moreira MD [address] [place] [address] Primary Staff Physician Family Medicine 04/13/22 Raul Moreira MD [address] [place] [address] Primary Staff Physician Family Medicine 04/13/22 Raji Tsai MD [address] [place] [address] Primary Staff Physician Family Medicine 04/13/22 Smith Vargas, DO [address] [place] [address] Primary Staff Physician Family Medicine 04/13/22 [facility] [place] [address] [place] [address] Primary Service Family Medicine 04/13/22 Shlomo May DO [address] [place] [address] Primary Staff Physician Family Medicine 04/13/22 Antonia Ray, statement clerkCake Inspector 07/25/22 Business Banking Relationship Manager Relationship Specialty Start Date End Date Sonu Petersen MD [address] [place] [address] PCP - General Family Medicine 05/23/24 Elijah Garzon, DO [address] [place] [address] Primary Staff Physician Family Medicine 04/13/22 Vinod Sky, DO [address] [place] [address] Primary Staff Physician Family Medicine 04/13/22 Columba Lees, DO [address] [facility] [place] [address] Primary Staff Physician Family Medicine 04/13/22 Quincy Moreira MD [address] [place] [address] Primary Staff Physician Family Medicine 04/13/22 Raul Moreira MD [address] [place] [address] Primary Staff Physician Family Medicine 04/13/22 Raji Tsai MD [address] [place] [address] Primary Staff Physician Family Medicine 04/13/22 Smith Vargas DO [address] [place] [address] Primary Staff Physician Family Medicine 04/13/22 [facility] [address] [place] [address] Primary Service Family Medicine 04/13/22 Shlomo May DO [address] [place] [address] Primary Staff Physician Family Medicine 04/13/22 Antonia Ray, statement clerkCake Inspector 07/25/22 Business Banking Relationship Manager Relationship Specialty Start Date End Date Sonu Petersen MD [address] [place] [address] PCP - General Family Medicine 05/23/24 Elijah Garzon DO [address] [place] [address] Primary Staff Physician Family Medicine 04/13/22 Vinod Sky, DO [address] [place] [address] Primary Staff Physician Family Medicine 04/13/22 Columba Lees, DO [address] [place] [address] Primary Staff Physician Family Medicine 04/13/22 Quincy Moreira MD [address] [place] [address] Primary Staff Physician Family Medicine 04/13/22 Raul Moreira MD [address] [place] [address] Primary Staff Physician Family Medicine 04/13/22 Raji Tsai MD [address] [place] [address] Primary Staff Physician Family Medicine 04/13/22 Smith Vargas, DO [address] [place] [address] Primary Staff Physician Family Medicine 04/13/22 Jose Saunders [address] [place] [address] Primary Service Family Medicine 04/13/22 Shlomo May DO [address] [place] [address] Primary Staff Physician Family Medicine 04/13/22 Antonia Ray, statement clerkCake Inspector 07/25/22 Business Banking Relationship Manager Relationship Specialty Start Date End Date Sonu Petersen MD [address] [place] [address] PCP - General Family Medicine 05/23/24 Elijah Garzon, DO [address] [place] [address] Primary Staff Physician Family Medicine 04/13/22 Vinod Sky, [address] [place] [address] Primary Staff Physician Family Medicine 04/13/22 Columba Lees DO [address] [place] [address] Primary Staff Physician Family Medicine 04/13/22 Quincy Moreira MD [address] [place] [address] Primary Staff Physician Family Medicine 04/13/22 Raul Moreira MD [address] [place] [address] Primary Staff Physician Family Medicine 04/13/22 Raji Tsai MD [address] [place] [address] Primary Staff Physician Family Medicine 04/13/22 Smith Vargas DO [address] [address] Primary Staff Physician Family Medicine 04/13/22 [facility] [address] [place] [address] Primary Service Family Medicine 04/13/22 Shlomo May, DO [address] [place] [address] Primary Staff Physician Family Medicine 04/13/22 Antonia Ray, statement clerkCake Inspector 07/25/22 Business Banking Relationship Manager Relationship Specialty Start Date End Date Sonu Petersen MD [address] [facility] [place] [address] PCP - General Family Medicine 05/23/24 Elijah Garzon DO [address] [place] [address] Primary Staff Physician Family Medicine 04/13/22 Vinod Syk, DO [address] [place] [address] Primary Staff Physician Family Medicine 04/13/22 Columba Lees, DO [address] [place] [address] Primary Staff Physician Family Medicine 04/13/22 Quincy Moreira MD [address] [place] [address] Primary Staff Physician Family Medicine 04/13/22 Raul Moreira MD [address] [place] [address] Primary Staff Physician Family Medicine 04/13/22 Raji Tsai MD [address] [place] [address] Primary Staff Physician Family Medicine 04/13/22 Smith Vargas, DO [address] [place] [address] Primary Staff Physician Family Medicine 04/13/22 [facility] [address] [place] [address] Primary Service Family Medicine 04/13/22 Slhomo May DO [address] [place] [address] Primary Staff Physician Family Medicine 04/13/22 Antonia Ray, statement clerkCake Inspector 07/25/22 Business Banking Relationship Manager Relationship Specialty Start Date End Date Sonu Petersen MD [address] [place] [address] PCP - General Family Medicine 05/23/24 Elijah Garzon, DO [address] [place] [address] Primary Staff Physician Family Medicine 04/13/22 Vinod Sky, [address] [place] [address] Primary Staff Physician Family Medicine 04/13/22 Columba Lees DO [address] [place] [address] Primary Staff Physician Family Medicine 04/13/22 Quincy Moreira MD [address] [place] [address] Primary Staff Physician Family Medicine 04/13/22 Raul Moreira MD [address] [place] [address] Primary Staff Physician Family Medicine 04/13/22 Raji Tsai MD [address] [place] [address] Primary Staff Physician Family Medicine 04/13/22 Smith Vargas DO [address] [place] [address] Primary Staff Physician Family Medicine 04/13/22 [facility] [address] [place] [address] Primary Service Family Medicine 04/13/22 Shlomo May DO [address] [place] [address] Primary Staff Physician Family Medicine 04/13/22 Antonia Ray, statement clerkCake Inspector 07/25/22 Business Banking Relationship Manager Relationship Specialty Start Date End Date Sonu Petersen MD [address] [place] [address] PCP - General Family Medicine 05/23/24 Elijah Garzon DO [address] [place] [address] Primary Staff Physician Family Medicine 04/13/22 Vinod Sky DO [address] [place] [address] Primary Staff Physician Family Medicine 04/13/22 Columba Lees DO [address] [place] [place] [address] Primary Staff Physician Family Medicine 04/13/22 Quincy Moreira MD [address] [place] [address] Primary Staff Physician Family Medicine 04/13/22 Raul Moreira MD [address] [place] [address] Primary Staff Physician Family Medicine 04/13/22 Raji Tsai MD [address] [place] [address] Primary Staff Physician Family Medicine 04/13/22 Smith Vargas DO [address] [place] [address] Primary Staff Physician Family Medicine 04/13/22 Jose Saunders [address] [place] [address] Primary Service Family Medicine 04/13/22 Shlomo May DO [address] [place] [address] Primary Staff Physician Family Medicine 04/13/22 Antonia Ray, statement clerkCake Inspector 07/25/22 PodlogarYamilex APRN.SURGICAL CORSETIER [address] [place], [place] [address] Automobile Designer Family Medicine 08/02/24 Business Banking Relationship Manager Relationship Specialty Start Date End Date Sonu Petersen MD [address] [place], [place] [address] PCP - General Family Medicine 05/23/24 Elijah Garzon DO [address] [place] [address] Primary Staff Physician Family Medicine 04/13/22 Vinod Sky DO [address] [place] [address] Primary Staff Physician Family Medicine 04/13/22 Columba Lees DO [address] [place], [place] [address] Primary Staff Physician Family Medicine 04/13/22 Quincy Moreira MD [address] [place] [address] Primary Staff Physician Family Medicine 04/13/22 Raul Moreira MD [address] [place] [address] Primary Staff Physician Family Medicine 04/13/22 Raji Tsai MD [address] [place] [address] Primary Staff Physician Family Medicine 04/13/22 Smith Vargas DO [address] [place] [address] Primary Staff Physician Family Medicine 04/13/22 TdJose [address] [place] [address] Primary Service Family Medicine 04/13/22 Shlomo May DO [address] [place] [address] Primary Staff Physician Family Medicine 04/13/22 Antonia Ray, statement clerkCake Inspector 07/25/22 Yamilex Melendez APRN.SURGICAL CORSETIER [address] [place] [address] Automobile Designer Family Medicine 08/02/24 Business Banking Relationship Manager Relationship Specialty Start Date End Date Sonu Petersen MD [address] [place] [address] PCP - General Family Medicine 05/23/24 Elijah Garzon DO [address] [place] [address] Primary Staff Physician Family Medicine 04/13/22 Vinod Sky DO [address] [place] [address] Primary Staff Physician Family Medicine 04/13/22 Columba Lees DO [address] [place] [address] Primary Staff Physician Family Medicine 04/13/22 Quincy Moreira MD [address] [place] [address] Primary Staff Physician Family Medicine 04/13/22 Raul Moreira MD [address] [place] [address] Primary Staff Physician Family Medicine 04/13/22 Raji Tsai MD [address] [place] [address] Primary Staff Physician Family Medicine 04/13/22 Smith Vargas DO [address] [place] [address] Primary Staff Physician Family Medicine 04/13/22 TdJose [address] [place] [address] Primary Service Family Medicine 04/13/22 Shlomo May DO [address] [place] [address] Primary Staff Physician Family Medicine 04/13/22 Antonia Ray, statement clerkCake Inspector 07/25/22 AmairanilogYamilex oropeza APRN.SURGICAL CORSETIER [address] [place] [address] Automobile Designer Family Medicine 08/02/24 Business Banking Relationship Manager Relationship Specialty Start Date End Date Sonu Petersen MD [address] [place] [address] PCP - General Family Medicine 05/23/24 Elijah Garzon DO [address] [place] [address] Primary Staff Physician Family Medicine 04/13/22 Vinod Sky DO [address] [place] [address] Primary Staff Physician Family Medicine 04/13/22 Columba Lees DO [address] [place], [place] [address] Primary Staff Physician Family Medicine 04/13/22 Quincy Moreira MD [address] [place] [address] Primary Staff Physician Family Medicine 04/13/22 Raul Moreira MD [address] [place] [address] Primary Staff Physician Family Medicine 04/13/22 Raji Tsai MD [address] [place] [address] Primary Staff Physician Family Medicine 04/13/22 Smith Vragas DO [address] [place] [address] Primary Staff Physician Family Medicine 04/13/22 [facility] [address] [facility] [place] [address] Primary Service Family Medicine 04/13/22 Shlomo May DO [address] [place] [address] Primary Staff Physician Family Medicine 04/13/22 Antonia Ray, statement clerkCake Inspector 07/25/22 PodlogYamilex oropeza APRN.SURGICAL CORSETIER [address] [place] [address] Automobile Designer Family Medicine 08/02/24 Elle Copeland APRN.SURGICAL CORSETIER [address] [place] [address] Automobile Designer Family [facility] 11/17/24 Business Banking Relationship Manager Relationship Specialty Start Date End Date Sonu Petersen MD [address] [place] [address] PCP - General Family Medicine 05/23/24 Elijah Garzon DO [address] [place] [address] Primary Staff Physician Family Medicine 04/13/22 Vinod Sky DO [address] [place] [address] Primary Staff Physician Family Medicine 04/13/22 Columba Lees DO [address] [place], [place] [address] Primary Staff Physician Family Medicine 04/13/22 Quincy Moreira MD [address] [place] [address] Primary Staff Physician Family Medicine 04/13/22 Raul Moreira MD [address] [place] [address] Primary Staff Physician Family Medicine 04/13/22 Raji Tsai MD [address] [place] [address] Primary Staff Physician Family Medicine 04/13/22 Smith Vargas DO [address] [place] [address] Primary Staff Physician Family Medicine 04/13/22 [facility] [address] [place] [address] Primary Service Family Medicine 04/13/22 Slhomo May DO [address] [place] [address] Primary Staff Physician Family Medicine 04/13/22 Antonia Ray, statement clerkCake Inspector 07/25/22 PodlogYamilex oropeza APRN.SURGICAL CORSETIER [address] [facility] [place] [address] Automobile Designer Family Medicine 08/02/24 Elle Copeland APRN.SURGICAL CORSETIER [address] [place] [address] Automobile Designer Family Medicine 11/17/24 Business Banking Relationship Manager Relationship Specialty Start Date End Date Sonu Petersen MD [address] [place], [place] [address] PCP - General Family Medicine 05/23/24 Elijah Garzon, DO [address] [place] [address] Primary Staff Physician Family Medicine 04/13/22 Vinod Sky DO [address] [place] [address] Primary Staff Physician Family Medicine 04/13/22 Columba Lees DO [address] [place], [place] [address] Primary Staff Physician Family Medicine 04/13/22 Quincy Moreira MD [address] [place] [address] Primary Staff Physician Family Medicine 04/13/22 Raul Moreira MD [address] [place] [address] Primary Staff Physician Family Medicine 04/13/22 Raji Tsai MD [address] [place] [address] Primary Staff Physician Family Medicine 04/13/22 Smith Vargas DO [address] [place] [address] Primary Staff Physician Family Medicine 04/13/22 [facility] [address] [place] [address] Primary Service Family Medicine 04/13/22 Shlomo May DO [address] [place] [address] Primary Staff Physician Family Medicine 04/13/22 Antonia Ray, statement clerkCake Inspector 07/25/22 PodlogYamilex oropeza APRN.SURGICAL CORSETIER [address] [place] [address] Automobile Designer Family Medicine 08/02/24 Business Banking Relationship Manager Relationship Specialty Start Date End Date Sonu Petersen MD [address] [place] [address] PCP - General Family Medicine 05/23/24 Elijah Garzon DO [address] [place] [address] Primary Staff Physician Family Medicine 04/13/22 Vinod Sky, DO [address] [place] [address] Primary Staff Physician Family Medicine 04/13/22 Columba Lees, DO [address] [place] [place] [id number] Primary Staff Physician Family Medicine 04/13/22 Quincy Moreira MD [address] [facility] [place] [address] Primary Staff Physician Family Medicine 04/13/22 Raul Moreira MD [address] [place] [address] Primary Staff Physician Family Medicine 04/13/22 Raij Tsai MD [address] [facility] [place] [address] Primary Staff Physician Family Medicine 04/13/22 [facility] Jose San Fernando [address] [facility] [place] [address] Primary Service Family Medicine 04/13/22 Shlomo May DO [address] [place] [address] Primary Staff Physician Family Medicine 04/13/22 Antonia Ray, statement clerkCake Inspector 07/25/22 PodYamilex humphrey APRN.SURGICAL CORSETIER [address] [place], [place] [id number] Automobile Designer Family [facility] 08/02/24 Elle Copeland APRN.SURGICAL CORSETIER [address] [place], [place] [id number] Automobile Designer Family [facility] 02/05/25 Business Banking Relationship Manager Relationship Specialty Start Date End Date Sonu Petersen MD [address] [place], [place] [id number] PCP - General Family Medicine 05/23/24 Elijah Garzon DO [address] [place] [address] Primary Staff Physician Family Medicine 04/13/22 Vinod Sky DO [address] [place] [address] Primary Staff Physician Family Medicine 04/13/22 Columba Lees DO [address] [place], [place] [id number] Primary Staff Physician Family Medicine 04/13/22 Quincy Moreira MD [address] [place] [address] Primary Staff Physician Family Medicine 04/13/22 Raul Moreira MD [address] [place] [address] Primary Staff Physician Family Medicine 04/13/22 Raji Tsai MD [address] [place] [address] Primary Staff Physician Family Medicine 04/13/22 [facility] [place] [address] [place] [address] Primary Service Family Medicine 04/13/22 Shlomo May DO [address] [place] [address] Primary Staff Physician Family Medicine 04/13/22 Antonia Ray, statement clerkCake Inspector 07/25/22 PodlogYamilex oropeza APRN.SURGICAL CORSETIER [address] [place], [place] [address] Automobile Designer [facility] 08/02/24 Elle Copeland APRN.SURGICAL CORSETIER [address] [place], [place] [id number] Automobile Designer [facility] 02/05/25 Team Status: Inactive Member Role/Relationship Status Dates George Rodriguez MD Emergency Provider Active Star t: May 05, 2025 End: May 05, 2025 Business Banking Relationship Manager Relationship Specialty Start Date End Date Sonu Petersen MD [address] [place], [place] [id number] PCP - General Family Medicine 05/23/24 Elijah Garzon DO [address] [place] [address] Primary Staff Physician Family Medicine 04/13/22 Vinod Sky DO [address] [place] [address] Primary Staff Physician Family Medicine 04/13/22 Columba Lees DO [address] [place], [place] [id number] Primary Staff Physician Family Medicine 04/13/22 Quincy Moreira MD [address] [place] [address] Primary Staff Physician Family Medicine 04/13/22 Raul Moreira MD [address] [place] [address] Primary Staff Physician Family Medicine 04/13/22 Raji Tsai MD [address] [place] [address] Primary Staff Physician Family Medicine 04/13/22 [facility] [place] [address] [place] [address] Primary Service Family Medicine 04/13/22 Shlomo May DO [address] [place] [address] Primary Staff Physician Family Medicine 04/13/22 Antonia Ray, statement clerkCake Inspector 07/25/22 PodlogYamilex oropeza APRN.SURGICAL CORSETIER [address] [place] [id number] Automobile Designer Family Medicine 08/02/24 Elle Copeland APRN.SURGICAL CORSETIER [facility] [place], [place] [address] Automobile Designer Family [facility] 02/05/25 Business Banking Relationship Manager Relationship Specialty Start Date End Date Sonu Petersen MD [address] [place] [address] PCP - General Family Medicine 05/23/24 Elijah Garzon DO [address] [place] [address] Primary Staff Physician Family Medicine 04/13/22 Vinod Sky DO [address] [place] [address] Primary Staff Physician Family Medicine 04/13/22 Columba Lees DO [address] [place] [address] Primary Staff Physician Family Medicine 04/13/22 Quincy Moreira MD [address] [place] [address] Primary Staff Physician Family Medicine 04/13/22 Raul Moreira MD [address] [place] [address] Primary Staff Physician Family Medicine 04/13/22 Raji Tsai MD [address] [place] [address] Primary Staff Physician Family Medicine 04/13/22 [facility] [address] [place] [address] Primary Service Family Medicine 04/13/22 Shlomo May DO [address] [place] [address] Primary Staff Physician Family Medicine 04/13/22 Antonia Ray, statement clerkCake Inspector 07/25/22 PodlogYamilex oropeza APRN.SURGICAL CORSETIER [address] [place] [address] Automobile Designer Family Medicine 08/02/24 Elle Copeland APRN.SURGICAL CORSETIER [address] [place] [address] Automobile Designer Family Medicine 02/05/25 Business Banking Relationship Manager Relationship Specialty Start Date End Date Sonu Petersen MD [address] [place] [address] PCP - General Family Medicine 05/23/24 Elijah Garzon DO [address] [place] [address] Primary Staff Physician Family Medicine 04/13/22 Vinod Sky DO [address] [place] [address] Primary Staff Physician Family Medicine 04/13/22 Columba Lees DO [address] [place], [place] [id number] Primary Staff Physician Family Medicine 04/13/22 Quincy Moreira MD [address] [place] [address] Primary Staff Physician Family Medicine 04/13/22 Raul Moreira MD [address] [place] [address] Primary Staff Physician Family Medicine 04/13/22 Raji Tsai MD [address] [place] [address] Primary Staff Physician Family Medicine 04/13/22 Jose Saunders [address] [place] [address] Primary Service Family Medicine 04/13/22 Shlomo May DO [address] [place] [address] Primary Staff Physician Family Medicine 04/13/22 Antonia Ray, statement clerkCake Inspector 07/25/22 Yamilex Melendez APRN.SURGICAL CORSETIER [address] [place] [address] Automobile Designer Family Medicine 08/02/24 Elle Copeland APRN.SURGICAL CORSETIER [address] [place], [place] [address] Automobile Designer [facility] 02/05/25 Team Status: Active Member Role/Relationship Status Dates Dr. Juan Carlos Petersen MD Primary care physician Act juanjose Team Status: Inactive Member Role/Relationship Status Dates George Rodriguez MD Attending physician Active Sta rt: May 05, 2025 End: May 05, 2025 George Rodriguez MD Emergency Department Physician Active Start: May 05, 2025 End: May 05, 2025 Team Status: Active Member Role/Relationship Status Dates Dr. Gigi Dsouza MD Attending physician Active Start: May 05, 2025 George Rodriguez MD Referring Provider Active Star t: May 05, 2025 Team Status: Inactive Member Role/Relationship Status Dates Dr. Juan Carlos Petersen MD Primary care physician Act juanjose Start: May 07, 2025 End: May 07, 2025 Dr. Juan Carlos Petersen MD Attending physician Active Start: May 07, 2025 End: May 07, 2025 Dr. Juan Carlos Petersen MD Referring Provider Active Start: May 07, 2025 End: May 07, 2025 Goals (unrecognized section and content) Goals may be documented in a n alternate sectionGoals may be documented in an alternate section FOR RECORDS PERTAINING TO PATIENTS WHO ARE OR HAVE BEEN ENROLLED IN A CHEMICAL DEPENDENCY/SUBSTANCEABUSE PROGRAM, SOME INFORMATION MAY BE OMITTED. This clinical summary was aggregated from multiple sources. Caution should be exercised in using it in the provision of clinical care. This summary normalizes information from multiple sources, and as a consequence, information in this document may materially change the coding, format and clinical context of patient data. In addition, data may be omitted in some cases. CLINICAL DECISIONS SHOULD BE BASED ON THE PRIMARY CLINICAL RECORDS. [facility] [employer]. provides no warranty or guarantee of the accuracy or completeness of information in this document.
[2025-08-25 23:58] VITALS: BP 152/74; PULSE 68; RESP 18; TEMP 36.3; O2SAT 100
== END 2025-08-26 00:13 | disposition home or self-care (01) ==
PROVIDERS: Emergency Provider Student in an Organized Health Care Education/Training Program; PCP Family Medicine; Visit Provider Student in an Organized Health Care Education/Training Program
DX: S01.81XA Laceration without foreign body of other part of head, initial encounter (principal); S05.12XA Contusion of eyeball and orbital tissues, left eye, initial encounter; W19.XXXA Unspecified fall, initial encounter; Z79.82 Long term (current) use of aspirin; Z23 Encounter for immunization; Z71.85 Encounter for immunization safety counseling
CPT/HCPCS: 12013; 70450; 72125; 90471; 90715; 99283